=== PATIENT | male | born 1950 | race Caucasian/White ===

== ENCOUNTER 2016-10-21 10:31 | Emergency (ER) | payer BC ==
[~2016-10-21] VITALS: Ht 165.1 cm; Wt 115.4 kg
[~2016-10-21 10:31] MED LIST: ASPI325T39 PO; BENZTROPINE PO; FLUO20CA20 PO; FURO-85 PO; GABA-112 PO; LAMO200T PO; LCTL30 PO; LPR25 PO; PHEN64.8 PO; POLY335025 PO; POTA-327 PO; SIMV40TA4 PO; SODI0.5C PO; TRAZ-119 PO; VERA120T15 PO; [UNRECOGNIZED DRUG - CODE] SC; [UNRECOGNIZED DRUG - OTHER] PO
[2016-10-21 10:38] VITALS: TEMP 36.6; Ht 165.1 cm; Wt 115.4 kg
[2016-10-21] MEDS ORDERED: SODIUM CHLORIDE 0.9% 1000ML 1,000 ML IV STA (10:53)
[2016-10-21] MEDS ORDERED: MoRPHine SULFATE 4 MG/ML 1 ML CARP\\VIAL IV STA (10:53)
[2016-10-21] MEDS ORDERED: ONDANSETRON INJ 2 MG/ML 2 ML VIAL IV ONE (11:00)
--- NOTE | 2016-10-21 11:13 | EMERGENCY ROOM VISIT NOTE ---
History Report prepared by Monster: Oliva Reid Under the Supervision of: Dr. Cara Leiva D.O. First contact with patient: 10:44 Chief Complaint: RIB PAIN Stated Complaint: FALL, RIB PAIN History of Present Illness The patient is a 66 year old male who presents to the Emergency Room with complaints of constant left sided rib pain status post a fall today. The patient notes that he slipped on stairs and fell onto his left ribs about an hour ago. He hit the front of his head but did not lose consciousness. Currently he notes some left sided abdominal pain. He was able to walk after the incident. The patient has a history of epilepsy and diabetes. He did feel slightly dizzy at the time of the fall but was not suspicious of a seizure or blood sugar abnormalities. Denies neck pain, shortness of breath, back pain, leg pain, or other complaints. No previous history of rib fractures. He did not take anything for his pain today. Tetanus is up to date. His blood sugar this morning was 172. Source of History: patient Onset: 1 hour ago Position: other (left ribs) Timing: constant Associated Symptoms: + abdominal pain (left side), No LOC, No SOB, No back pain, No neck pain Review of Systems See HPI for pertinent positives & negatives. A total of 10 systems reviewed and were otherwise negative. 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 (3) Diabetes (4) Dyslipidemia (5) Encephalopathy (6) H/O malignant neoplasm of colon (7) Heart disease (8) HTN (hypertension) (9) Intestinal cancer (10) Paranoid schizophrenia (11) Seizure (12) Seizures Family History Cancer FH: diabetes mellitus Heart disease Hypertension Seizures FATHER Social History Smoking Status: Never Smoker Alcohol Use: none Drug Use: none Housing Status: assisted living Occupation Status: retired Current/Historical Medications Scheduled Aspirin (Aspirin Ec), 0.5 TAB PO DAILY Fluoxetine Hcl (Pmdd) (Fluoxetine), 20 MG PO DAILY Furosemide (Lasix), 20 MG PO 3XWK Gabapentin (Neurontin), 100 MG PO TID Insulin Isophane & Reg (Human) (Humulin 70/30 Kwikpen (70-30) 100 Unit/ml), 46 UNITS SC AM Insulin Isophane & Reg (Human) (Humulin 70/30 Kwikpen (70-30) 100 Unit/ml), 26 UNITS SC PM Lactulose (Lactulose), 30 GM PO BID Lamotrigine (Lamictal), 200 MG PO BID Levocarnitine (Levocarnitine), 2,000 MG PO TIDM Metoprolol Tartrate (Lopressor), 12.5 MG PO BID Phenobarbital (Phenobarbital), 64.8 MG PO QAM Phenobarbital (Phenobarbital), 12.96 MG PO HS Polyethylene Glycol 3350 (Miralax), 17 GM PO DAILY Potassium Chloride (Micro-K Ext Rel), 10 MEQ PO DAILY Simvastatin (Zocor), 40 MG PO HS Sodium Fluoride (Fluoritab), 0.5 MG PO DAILY Trazodone Hcl (Desyrel), 100 MG PO HS Verapamil (Calan), 120 MG PO HS Scheduled PRN Oxycodone Immediate Rel Tab (Roxicodone Ir), 5 MG PO Q4H PRN for Pain Allergies Coded Allergies: Penicillins (Verified Allergy, Unknown, UNK, 10/21/16) Valproic Acid (Verified Adverse Reaction, Unknown, ELEVATED AMMONIA LEVELS , 10/21/16) AND ALL DERIVATIVES Physical Exam Vital Signs Date Time Temp Pulse Resp B/P Pulse Ox O2 Delivery O2 Flow Rate FiO2 10/21/16 13:27 65 16 122/61 95 10/21/16 11:54 64 16 145/72 96 Room Air 10/21/16 10:38 36.6 68 20 165/73 94 Room Air Physical Exam GENERAL: The patient is a pleasant 66 year old male in mild to moderate distress. VITALS: Afebrile, hypertensive, normal pulse oximetry on room air. FACE: Superficial laceration across the bridge of nose and along inner canthus of left eye, no active bleeding, abrasion to left side of forehead. HEAD: Normocephalic and atraumatic.No battles sign EARS: TMs not visualized secondary to cerumen impactions. EYES: small laceration left inner canthus. Pupils equal and reactive to light. Extraocular muscles intact. Conjunctiva are clear. NOSE: Nasal mucosa is clear without rhinorrhea or edema. THROAT: Airway is patent. Oral mucosa is normal without evidence of infection or exudate. NECK: Supple without adenopathy. Trachea is midline. No nuchal rigidity, spinal tenderness, or palpable step-off. LUNGS: Diminished but symmetrical. Clear without wheezing, rhonchi, or rales. THORAX: Abrasion over the left costal margin with tenderness over the lower left ribs anteriorly and laterally, no crepitus. HEART: Regular rate and rhythm ABDOMEN: Obese, soft, left upper quadrant tenderness without guarding, rigidity , or rebound tenderness. Bowel sounds are present in all 4 quadrants. Unable to assess for palpable masses or organomegaly. No costovertebral angle tenderness. Femoral pulses are +2 and symmetrical BACK: Nontender to palpation without step off. PELVIS: Stable to pelvic rock without point tenderness or instability. EXTREMITIES: Without deformity Pulses are palpable and symmetrical. Abrasion to the right scapula. Abrasion to the dorsum left hand, area is minimally tender , full range of motion. Other extremities are atraumatic and nontender. There are no palpable cords, edema, or erythema. NEUROLOGIC: Exam is intact without focal deficits. SKIN: Without rash. Normal turgor and temperature. Medical Decision & Procedures ER Provider Diagnostic Interpretation: Radiology results as stated below per my review and radiologist interpretation: CHEST ONE VIEW PORTABLE CLINICAL HISTORY: fell left rib pain trauma. Pain. COMPARISON STUDY: 06/30/2015 FINDINGS: Mild stable cardiomegaly. Subtle chronic interstitial prominence unchanged in the prior study. No acute process. Diaphragms smooth. IMPRESSION: Chronic change. No acute process. Electronically signed by: Darshan Phipps M.D. 10/21/2016 11:14 AM Dictated Date/Time: 10/21/2016 11:[address] HEAD WITHOUT CONTRAST (CT) CLINICAL HISTORY: Head pain status post trauma COMPARISON STUDY: 06/30/2015 TECHNIQUE: Axial CT of the brain is performed from the vertex to the skull base. IV contrast was not administered for this examination. CT DOSE: FINDINGS: No intra or extra-axial mass lesions are visualized. There is no CT evidence of acute cortical infarction. There is no evidence of midline shift. There is no acute hemorrhage. No calvarial fractures are visualized. There are minor white matter hypodensities likely on a small vessel basis. There is no evidence of pathologic ventricular dilatation. There are bilateral maxilla sinus air-fluid levels. There is an abnormal trabecular pattern of the calvarium. IMPRESSION: 1. No evidence of acute intracranial injury 2. Stable abnormal trabecular pattern of the calvarium 3. Bilateral maxillary sinus air-fluid levels Electronically signed by: Vern Phillips M.D. 10/21/2016 12:06 PM Dictated Date/Time: 10/21/2016 12:[address] OF THE CHEST WITH IV CONTRAST CLINICAL HISTORY: Chest pain status post trauma COMPARISON STUDY: No previous studies for comparison. TECHNIQUE: Following the IV administration of 119 mL of Optiray-320, CT of the thorax was performed from the thoracic inlet to the lung bases. Images are reviewed in the axial, sagittal, and coronal planes. IV contrast was administered without complication. CT DOSE: FINDINGS: Thyroid: Imaged portions of the thyroid gland are normal in appearance. Thoracic aorta: The thoracic aorta is normal in course and caliber, noting standard 3-vessel arch anatomy. No aneurysm or dissection is seen. Pulmonary vasculature: The pulmonary trunk is normal in caliber. There are no central filling defects identified to suggest pulmonary embolus. Note that this examination was not protocoled for the evaluation of pulmonary emboli. HEART: The heart is enlarged and there are moderate coronary artery calcifications present. Lungs and pleural spaces: There are no pleural effusions. There is no pneumothorax. There is no evidence of pulmonary contusion. There are right middle lobe atelectatic changes. There is mild respiratory motion artifact. Mediastinum: There is no evidence of mediastinal lymphadenopathy. There is no evidence of mediastinal hematoma. [place]: There is no evidence of pathologic hilar adenopathy Axilla: Clear. Upper abdomen: There is mild hepatic steatosis Skeletal structures: There is abnormal trabecular pattern of the bones. Diffuse metastatic disease must be considered. Please correlate with a PSA. IMPRESSION: 1. No evidence of acute intrathoracic injury 2. Diffuse abnormal trabecular pattern of the bones. Diffuse metastatic disease must be considered. Correlation with a prostatic specific antigen is recommended. Electronically signed by: Vern Phillips M.D. 10/21/2016 12:02 PM Dictated Date/Time: 10/21/2016 11:57 AM ABDOMEN AND PELVIS CT WITH IV CONTRAST CT DOSE: 3402.13 mGy.cm HISTORY: Trauma. Pain. fall hit left ribs chest and left sided abdominal pain TECHNIQUE: Multiaxial CT images of the abdomen and pelvis were performed following the use of intravenous contrast. COMPARISON STUDY: None. FINDINGS: Lung bases are clear. Liver is uniform throughout. Gallbladder is negative for distention. Spleen is uniform. Adrenal glands are normal. Mild cortical scarring of both kidneys is present. There are small renal cysts bilaterally. Bowel pattern overall is nonobstructive. Bladder is midline. There is a moderate fecal impaction. There is mild circumferential rectal wall thickening with endoscopic evaluation suggested. There is no significant manisha pathology within the abdominal pelvic or inguinal regions. Evaluation of the osseous structures shows diffuse lytic changes throughout the vertebral column. This is also seen involving the posterior elements. Similar findings are seen within the pelvic and sacral regions. The appearance suggests widespread bony metastatic change. IMPRESSION: 1. Findings consistent with widespread bony metastatic change. 2. No acute intra-abdominal or intrapelvic process. 3. Mild fecal impaction. 4. Potential annular thickening of the rectum with endoscopic evaluation recommended to exclude a neoplastic process. Electronically signed by: Darshan Phipps M.D. 10/21/2016 12:09 PM Dictated Date/Time: 10/21/2016 12:03 PM Laboratory Results Test 10/21/16 11:14 Bedside Hemoglobin 15.0 g/dl (14.0-18.0) Bedside Hematocrit 44 % (42-52) Bedside Sodium 137 mEq/L (135-144) Bedside Potassium 4.6 mEq/L (3.3-5.0) Bedside Chloride 100 mEq/L (101-112) Bedside Total CO2 25 mEq/l (24-31) Anion Gap 18.0 mmol/L (16-25) Bedside Blood Urea Nitrogen 29 mg/dl (7-18) Bedside Creatinine 0.8 mg/dl (0.6-1.3) Bedside Glucose (other) 259 mg/dl (70-99) Bedside Ionized Calcium (Bill) 1.22 mmol/l (1.12-1.32) Laboratory studies as stated above per my review. Medications Administered Medications (Trade) Dose Ordered Sig/[facility] Route Start Time Stop Time Status Last Admin Dose Admin Morphine Sulfate (MoRPHine SULFATE INJ) 4 mg NOW STAT IV 10/21/16 10:53 10/21/16 10:58 DC 10/21/16 11:20 4 MG Ondansetron HCl 4 mg 4 mg NOW ONCE IV 10/21/16 11:00 10/21/16 11:01 DC 10/21/16 11:20 4 MG Sodium Chloride (Nss 1000ml) 1,000 ml @ 125 mls/hr Q8H STAT IV 10/21/16 10:53 10/21/16 13:42 DC 10/21/16 11:20 125 MLS/HR ED Course 1046: Past medical records reviewed. The patient was evaluated in room D4. A complete history and physical examination was performed. On examination he had multiple abrasions to his forehead, right shoulder and left hand. Superficial laceration to his nose an inner eye as well ..He had tenderness over the left lower ribs and left upper abdomen. He was hemodynamically stable. An IV was established and he was medicated with 4 mg of IV morphine and 4 mg of IV Zofran with improvement of his pain. An ice pack was applied. His abrasions and superficial lacerations were cleaned and bandaged. He underwent the above diagnostic workup. I-STAT labs showed hyperglycemia otherwise negative. CT scan of the head ,chest and abdomen did not show any acute intracranial, intrathoracic or intra-abdominal injuries. No rib fractures. No splenic injury. He did however have lytic lesions throughout his osseous structures suggestive of metastatic disease as well as annular thickening around his rectum with fecal impaction. 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 Stein. He does have an outpatient appointment with Dr. Stein scheduled for tomorrow. He also states that he has colonoscopy scheduled for the near future At this time the patient is being discharged home with instructions on activity and symptomatic care. He has been provided a prescription for OxyIR to use as needed for severe pain. He is to return to the emergency room if she has worsening symptoms or concerns. The patient is comfortable with this treatment plan. 1053: Ordered NSS 1000 ml @ 125 mls/hr IV, Morphine Sulfate 4 mg IV, Zofran Inj 4 mg IV. 1219: Reevaluated the patient and updated him on results. He said he has a history of colon cancer 3 years ago. Discussed results and discharge instructions; He verbalized understanding and agreement. The patient was discharged home. 1305: I discussed the case with Dr. Stein. The patient has an appointment with him tomorrow. Medical Decision EMR, nurse's notes, diagnostic studies personally reviewed Differential diagnosis-see above The chart was completed utilizing [employer] Voice Recognition Software. Grammatical errors, random word insertions, pronoun errors, and incomplete sentences are an occasional consequence of this system due to software limitations, ambient noise, and hardware issues. Any formal questions or concerns about the content, text, or information contained within the body of this dictation should be directly addressed to the physician for clarification. Consults Time Called: 1227 Consulting Physician: Dr. Stein Returned Call: 1305 I discussed the case with him. The patient has an appointment with him tomorrow. Impression Primary Impression: Contusion of rib on left side Additional Impressions: Contusion of abdominal wall Multiple abrasions Fall Abnormal CT suspect metastatic bone disease Scribe Attestation The scribe's documentation has been prepared under my direction and personally reviewed by me in its entirety. I confirm that the note above accurately reflects all work, treatment, procedures, and medical decision making performed by me. Departure Information Dispostion Home / Self-Care Prescriptions Oxycodone Immediate Rel Tab (ROXICODONE IR) 5 Mg Tab 5 MG PO Q4H Y for Pain, #20 TAB Prov: Cara Leiva,D.OMilton 10/21/16 Referrals Durga Stein D.OMilton (PCP) Forms HOME CARE DOCUMENTATION FORM, IMPORTANT VISIT INFORMATION, WORK / SCHOOL INSTRUCTIONS Patient Instructions ED Contusion Rib, [facility] Additional Instructions Rest, apply ice to the ribs and upper abdomen for the next 2-3 days Take big breaths Take 2 Aleve twice a day or 3 ibuprofen 4 times a day to decrease pain and inflammation 1 OxyIR every 4-6 hours as needed for severe pain The CT scans show abnormalities to the bones suggestive of metastatic disease. you need to contact your family doctor to arrange follow-up and further workup Return if increasing shortness of breath, worsening pain, problems or concerns Problem Qualifiers
--- NOTE | 2016-10-21 11:16 | DIAGNOSTIC IMAGING REPORT ---
CHEST ONE VIEW PORTABLE CLINICAL HISTORY: fell left rib pain trauma. Pain. COMPARISON STUDY: 06/30/2015 FINDINGS: Mild stable cardiomegaly. Subtle chronic interstitial prominence unchanged in the prior study. No acute process. Diaphragms smooth. IMPRESSION: Chronic change. No acute process. Electronically signed by: Darshan Phipps M.D. 10/21/2016 11:14 AM Dictated Date/Time: 10/21/2016 11:14 AM
[2016-10-21 11:28] LABS: ISTAT CREATININE 0.8 mg/dl (0.6-1.3); ISTAT IONIZED CALCIUM 1.22 mmol/l (1.12-1.32)
[2016-10-21] MEDS ORDERED: POTA10CA28 PO (11:32)
[2016-10-21] MEDS ORDERED: INSU3INJ2 SC ×2 (11:32)
[2016-10-21] MEDS ORDERED: OPTIRAY 320 IV PRN (12:00)
--- NOTE | 2016-10-21 12:03 | DIAGNOSTIC IMAGING REPORT ---
CT OF THE CHEST WITH IV CONTRAST CLINICAL HISTORY: Chest pain status post trauma COMPARISON STUDY: No previous studies for comparison. TECHNIQUE: Following the IV administration of 119 mL of Optiray-320, CT of the thorax was performed from the thoracic inlet to the lung bases. Images are reviewed in the axial, sagittal, and coronal planes. IV contrast was administered without complication. CT DOSE: FINDINGS: Thyroid: Imaged portions of the thyroid gland are normal in appearance. Thoracic aorta: The thoracic aorta is normal in course and caliber, noting standard 3-vessel arch anatomy. No aneurysm or dissection is seen. Pulmonary vasculature: The pulmonary trunk is normal in caliber. There are no central filling defects identified to suggest pulmonary embolus. Note that this examination was not protocoled for the evaluation of pulmonary emboli. HEART: The heart is enlarged and there are moderate coronary artery calcifications present. Lungs and pleural spaces: There are no pleural effusions. There is no pneumothorax. There is no evidence of pulmonary contusion. There are right middle lobe atelectatic changes. There is mild respiratory motion artifact. Mediastinum: There is no evidence of mediastinal lymphadenopathy. There is no evidence of mediastinal hematoma. [place]: There is no evidence of pathologic hilar adenopathy Axilla: Clear. Upper abdomen: There is mild hepatic steatosis Skeletal structures: There is abnormal trabecular pattern of the bones. Diffuse metastatic disease must be considered. Please correlate with a PSA. IMPRESSION: 1. No evidence of acute intrathoracic injury 2. Diffuse abnormal trabecular pattern of the bones. Diffuse metastatic disease must be considered. Correlation with a prostatic specific antigen is recommended. Electronically signed by: Vern Phillips M.D. 10/21/2016 12:02 PM Dictated Date/Time: 10/21/2016 11:57 AM
--- NOTE | 2016-10-21 12:08 | DIAGNOSTIC IMAGING REPORT ---
CT HEAD WITHOUT CONTRAST (CT) CLINICAL HISTORY: Head pain status post trauma COMPARISON STUDY: 06/30/2015 TECHNIQUE: Axial CT of the brain is performed from the vertex to the skull base. IV contrast was not administered for this examination. CT DOSE: FINDINGS: No intra or extra-axial mass lesions are visualized. There is no CT evidence of acute cortical infarction. There is no evidence of midline shift. There is no acute hemorrhage. No calvarial fractures are visualized. There are minor white matter hypodensities likely on a small vessel basis. There is no evidence of pathologic ventricular dilatation. There are bilateral maxilla sinus air-fluid levels. There is an abnormal trabecular pattern of the calvarium. IMPRESSION: 1. No evidence of acute intracranial injury 2. Stable abnormal trabecular pattern of the calvarium 3. Bilateral maxillary sinus air-fluid levels Electronically signed by: Vern Phillips M.D. 10/21/2016 12:06 PM Dictated Date/Time: 10/21/2016 12:02 PM
--- NOTE | 2016-10-21 12:11 | DIAGNOSTIC IMAGING REPORT ---
ABDOMEN AND PELVIS CT WITH IV CONTRAST CT DOSE: 3402.13 mGy.cm HISTORY: Trauma. Pain. fall hit left ribs chest and left sided abdominal pain TECHNIQUE: Multiaxial CT images of the abdomen and pelvis were performed following the use of intravenous contrast. COMPARISON STUDY: None. FINDINGS: Lung bases are clear. Liver is uniform throughout. Gallbladder is negative for distention. Spleen is uniform. Adrenal glands are normal. Mild cortical scarring of both kidneys is present. There are small renal cysts bilaterally. Bowel pattern overall is nonobstructive. Bladder is midline. There is a moderate fecal impaction. There is mild circumferential rectal wall thickening with endoscopic evaluation suggested. There is no significant manisha pathology within the abdominal pelvic or inguinal regions. Evaluation of the osseous structures shows diffuse lytic changes throughout the vertebral column. This is also seen involving the posterior elements. Similar findings are seen within the pelvic and sacral regions. The appearance suggests widespread bony metastatic change. IMPRESSION: 1. Findings consistent with widespread bony metastatic change. 2. No acute intra-abdominal or intrapelvic process. 3. Mild fecal impaction. 4. Potential annular thickening of the rectum with endoscopic evaluation recommended to exclude a neoplastic process. Electronically signed by: Darshan Phipps M.D. 10/21/2016 12:09 PM Dictated Date/Time: 10/21/2016 12:03 PM
[2016-10-21] MEDS ORDERED: OXYC1TAB3 PO (12:32)
[2016-10-21 13:27] VITALS: BP 122/61; PULSE 65; O2SAT 95
[2016-11-17] MEDS ORDERED: CHOL1CAP95 PO (13:43)
[2016-11-17] MEDS ORDERED: LEVOPOW PO (13:43)
[2016-11-17] MEDS ORDERED: LMC/150 PO (13:43)
[2016-11-17] MEDS ORDERED: VERA120T2 PO (13:43)
[2016-11-17] MEDS ORDERED: MULT-506 PO (13:43)
[2016-11-17] MEDS ORDERED: ATOR-24 PO (13:43)
[2016-11-17] MEDS ORDERED: POLY335019 PO (13:43)
[2016-11-17] MEDS ORDERED: TRAZ100T29 PO (13:43)
[2016-12-18] MEDS ORDERED: LMC/150 PO (16:00)
== END 2016-10-21 13:28 | disposition home or self-care (01) ==
LOC: C.EDB 10:34 → C.EDA 13:28
DX: S20.212A Contusion of left front wall of thorax, initial encounter (principal); S30.1XXA Contusion of abdominal wall, initial encounter; S60.512A Abrasion of left hand, initial encounter; S00.81XA Abrasion of other part of head, initial encounter; S40.211A Abrasion of right shoulder, initial encounter; R07.82 Intercostal pain; W10.8XXA Fall (on) (from) other stairs and steps, initial encounter; Y92.89 Other specified places as the place of occurrence of the external cause; R93.7 Abnormal findings on diagnostic imaging of other parts of musculoskeletal system; E11.9 Type 2 diabetes mellitus without complications; I10 Essential (primary) hypertension; G40.909 Epilepsy, unspecified, not intractable, without status epilepticus; E11.65 Type 2 diabetes mellitus with hyperglycemia; Z85.038 Personal history of other malignant neoplasm of large intestine; Z79.899 Other long term (current) drug therapy; I51.7 Cardiomegaly; K56.41 Fecal impaction

== ENCOUNTER → 2016-11-20 | Day surgery (SDC) | payer BC ==
[2016-11-17 13:45] VITALS: BMI 33.0
[~2016-11-20] VITALS: Ht 170.2 cm; Wt 97.7 kg
[~2016-11-20] MED LIST changes: +ACET-1311 PO; +AFRINWC NAE; +ATOR-24 PO; +ATROPINE SULFATE 0.1 MG/ML 5ML SYR IV PRN; -BENZTROPINE PO; +CHOL1CAP95 PO; +DEXT30LI PO; +EpHEDrine SULFATE INJ 50 MG/ML AMP IV PRN; +INSU3INJ2 SC; -LAMO200T PO; -LCTL30 PO; +LEVOPOW PO; +LIDOCAINE HCL 2% 2 ML VIAL (20MG/ML) ONE; +LMC/150 PO; +MULT-506 PO; +NEOMOIN76 TOP; +POLY335019 PO; -POLY335025 PO; -POTA-327 PO; +POTA10CA28 PO; +PROPOFOL IV EMULSION 10 MG/ML 20 ML VIAL IV ONE; -SIMV40TA4 PO; -SODI0.5C PO; +SODI1CHW27 PO; +SODIUM CHLORIDE 0.9% 500ML 500 ML IV ONE; -TRAZ-119 PO; +TRAZ100T29 PO; -VERA120T15 PO; +VERA120T2 PO; -[UNRECOGNIZED DRUG - CODE] SC; -[UNRECOGNIZED DRUG - OTHER] PO
[2016-11-20 08:07] VITALS: Ht 170.2 cm; Wt 97.7 kg
--- NOTE | 2016-11-20 08:27 | Endo History and Physical ---
History & Physical Date of Service: Nov 20, 2016. Chief Complaint: HX OF COLON CANCER Referring Physician: DR RODNEY ALVARADO History of Present Illness 66 yo w a hx of right sided colon ca s/p hemicolectomy in 2010. Presenting for f /u but pet scan ? suggested rectal thickening. He has no symptoms. Past Medical History Seizure Disorder, Hypertension Past Surgical History Hx Cardiac Surgery: No Hx Internal Defibrillator: No Hx Pacemaker: No Hx Abdominal Surgery: No Hx of Implantable Prosthesis: No Hx Post-Op Nausea and Vomiting: No Hx Cancer Surgery: Yes (COLON RESECTION) Hx Thoracic Surgery: No Hx Orthopedic: Yes (RT/LEFT CTR) Hx Urinary Tract Surgery: No Family History None Social History Smoking Status: Never Smoker Hx Substance Use: No Hx Alcohol Use: No Allergies Coded Allergies: NO KNOWN DRUG ALLERGIES (Verified Allergy, Unknown, ., 11/20/16) Penicillins (Verified Allergy, Unknown, UNKNOWN, 11/20/16) Current Medications Reported Home Medications Medications Dose Route/Sig Max Daily Dose Days Date Category Dose Instructions Calan Sr Ext Rel (Verapamil HCl) 120 Mg Tabcr 120 Mg PO QPM 11/17/16 Reported Trazodone (Trazodone HCl) 100 Mg Tab 100 Mg PO HS 11/17/16 Reported Lipitor (Atorvastatin Calcium) 40 Mg Tab 40 Mg PO QPM 11/17/16 Reported Vitamin D3 (Cholecalciferol) 50,000 Unit Cap 1 Cap PO WK 11/17/16 Reported L-Carnitine (Levocarnitine (Bulk)) 1 Pow Pow 20 Ml PO TID 11/17/16 Reported Lamictal (Lamotrigine) 150 Mg Tab 2 Tab PO BID 11/17/16 Reported Miralax (Polyethylene Glycol 3350) 1 Pow Pow 17 Gm PO QAM 11/17/16 Reported Multivitamin (Multivitamins) Tab 1 Tab PO QAM 11/17/16 Reported Micro-K Ext Rel (Potassium Chloride) 10 Meq Capcr 10 Meq PO 4XWK 10/21/16 Reported TAKES ON DAYS WITH LASIX Humulin 70/30 Kwikpen (70-30) 100 Unit/ml (Insulin Isophane & Reg (Human)) 1 Inj Inj 24 Units SC PM 10/21/16 Reported Humulin 70/30 Kwikpen (70-30) 100 Unit/ml (Insulin Isophane & Reg (Human)) 1 Inj Inj 46 Units SC AM 10/21/16 Reported Neurontin (Gabapentin) 100 Mg Cap 100 Mg PO TID 06/30/15 Reported Lasix (Furosemide) 20 Mg Tab 20 Mg PO 4XWK 06/30/15 Reported TAKE ON THURSDAY/THURSDAY/THURSDAY/SAT Aspirin Ec (Aspirin) 325 Mg Tab 0.5 Tab PO QAM 09/19/13 Reported Lopressor (Metoprolol Tartrate) 25 Mg Tab 12.5 Mg PO BID 08/01/13 Reported Fluoxetine (Fluoxetine Hcl (Pmdd)) 20 Mg Cap 20 Mg PO QAM 08/01/13 Reported Phenobarbital 64.8 Mg Tab 2 Tab PO HS 08/01/13 Reported Phenobarbital 64.8 Mg Tab 64.8 Mg PO QAM 08/01/13 Reported Vital Signs Weight (Kilograms): 97.73 Height (Feet): 5 Height (Inches): 7 Date Time Temp Pulse Resp B/P Pulse Ox O2 Delivery O2 Flow Rate FiO2 11/20/16 08:18 36.5 67 20 168/89 98 Room Air Physical Exam General Appearance: WD/WN, no apparent distress Respiratory/Chest: Respiratory effort: no dyspnea Auscultation: breath sounds normal, CTA except as noted Cardiovascular: Apical Impulse: not displaced Heart Auscultation: RRR, normal S1, normal S2 Abdomen: Bowel Sounds: normal Inspection & Palpation: soft, non-distended Assessment and Plan 66 yo with a hx of colon ca presenting for colonoscopy f/u Proceed with colonoscopy
--- NOTE | 2016-11-20 09:33 | Anesthesiology Progress Note ---
Anesthesia Post Op Note Date & Time Nov 20, 2016 at 09:32 Vital Signs Vital Signs Past 12 Hours Date Time Temp Pulse Resp B/P Pulse Ox O2 Delivery O2 Flow Rate FiO2 11/20/16 08:18 36.5 67 20 168/89 98 Room Air Notes Mental Status: alert / awake / arousable, participated in evaluation Pt Amnestic to Procedure: Yes Nausea / Vomiting: adequately controlled Pain: adequately controlled Airway Patency, RR, SpO2: stable & adequate BP & HR: stable & adequate Hydration State: stable & adequate Anesthetic Complications: no major complications apparent
--- NOTE | 2016-11-20 09:39 | GI REPORT ---
Procedure Date: 11/20/2016 8:48 AM Procedure: Colonoscopy Indications: High risk colon cancer surveillance: Personal history of colon cancer Medicines: General Anesthesia Complications: No immediate complications. Estimated blood loss: None. Estimated Blood Loss: Estimated blood loss: none. Procedure: Pre-Anesthesia Assessment: - Pre-Anesthesia Assessment: - Prior to the procedure, a History and Physical was performed, and patient medications, allergies and sensitivities were reviewed. The patient's tolerance of previous anesthesia was reviewed. Please see Axcient for complete details. - The risks and benefits of the procedure and the sedation options and risks were discussed with the patient. All questions were answered and informed consent was obtained. - Patient identification and proposed procedure were verified prior to the procedure by the physician and the nurse. The procedure was verified in the pre-procedure area in the procedure room. After obtaining informed consent, the endoscope was passed carefully and meticuously under direct vision and only advanced when the lumen was clearly identified, C02 insuflation was utilized throughout the entirity of the procedure. Throughout the procedure, the patient's blood pressure, pulse, and oxygen saturations were monitored continuously. After I obtained informed consent, the scope was passed under direct vision. Throughout the procedure, the patient's blood pressure, pulse, and oxygen saturations were monitored continuously. The scope was introduced through the anus and advanced to the cecum, identified by appendiceal orifice and ileocecal valve. The colonoscopy was performed without difficulty. The patient tolerated the procedure well. The quality of the bowel preparation was fair. Findings: There was evidence of a prior end-to-side ileo-colonic anastomosis in the ascending colon. This was patent and was characterized by healthy appearing mucosa. A 3 mm polyp was found in the rectum. The polyp was sessile. The polyp was removed with a jumbo cold forceps. Resection and retrieval were complete. Multiple small-mouthed diverticula were found in the sigmoid colon. Internal hemorrhoids were found during retroflexion. The exam was otherwise without abnormality on direct and retroflexion views. Impression: - Patent end-to-side ileo-colonic anastomosis, characterized by healthy appearing mucosa. - One 3 mm polyp in the rectum, removed with a jumbo cold forceps. Resected and retrieved. - Diverticulosis in the sigmoid colon. - Internal hemorrhoids. - The examination was otherwise normal on direct and retroflexion views. Recommendation: - Discharge patient to home (with escort). - Repeat colonoscopy in 3 years for surveillance based on pathology results. - Return to referring physician as previously scheduled. Jeff Collins MD 11/20/2016 9:38:11 AM This report has been signed electronically. Note Initiated On: 11/20/2016 8:48 AM I attest to the content of the Intraoperative Record and orders documented therein, exceptions below
[2016-11-20 09:52] VITALS: BP 141/83; PULSE 69; O2SAT 97
--- NOTE | 2016-11-20 10:05 | Discharge Instructions ---
Endoscopy Patient Instructions Date / Procedure(s) Performed Nov 20, 2016. Colonoscopy Allergy Information Coded Allergies: NO KNOWN DRUG ALLERGIES (Verified Allergy, Unknown, ., 11/20/16) Penicillins (Verified Allergy, Unknown, UNKNOWN, 11/20/16) Discharge Date / Findings Nov 20, 2016. One small polyp removed Patent and healthy post surgical area Otherwise normal Provider Instructions Activity Restrictions - No exercising or heavy lifting for 24 hours. - Do not drink alcohol the day of the procedure. - Do not drive a car or operate machinery until the day after the procedure. - Do not make any important decisions or sign important papers in 24 hours after the procedure. Following Day: - Return to full activity which may include returning to work/school. Diet Start your diet with liquids and light foods (jello, soup, juice, toast). Then eat your usual diet if not nauseated. Treatment For Common After Affects For mild abdominal pain, bloating, or excessive gas: - Rest - Eat lightly - Lie on right side Follow-Up Information Follow-up with DR RODNEY ALVARADO as scheduled Anesthesia Information What You Should Know You have had a procedure that required some medicine to reduce anxiety and discomfort. This treatment is called moderate sedation. After receiving the treatment, you may be sleepy, but you will be able to breathe on your own. The effects of the treatment may last for several hours. Follow these instructions along with Activity/Diet recommendations noted above: * Do NOT do anything where dizziness or clumsiness would be dangerous. * Rest quietly at home today, then you can be up and about tomorrow. * Have a responsible person stay with you the rest of today. * You may have had an I.V. today. If so, you may take the dressing off later today. Recommendations Call your doctor if: * Trouble breathing * Continuous vomiting for more than 24 hours * Temperature above 101 degrees * Severe abdominal pain or bloating * Pain not relieved by pain medicine ordered * There is increased drainage or redness from any incision * A large amount of rectal bleeding greater than 2-3 tablespoons. (If you had a polyp/s removed or have hemorrhoids, a small amount of blood - from the rectum is to be expected.) * You have any unanswered questions or concerns. IN THE EVENT OF A SERIOUS EMERGENCY, GO TO THE NEAREST EMERGENCY ROOM Your discharge instructions were prepared by provider Jeff Collins. Patient Instructions Signature Page Kole Diaz Patient (or Guardian) Signature/Date: I have read and understand the instructions given to me by my caregivers. Caregiver/RN/Doctor Signature/Date: The above-named patient and/or guardian has received patient instructions on this date. + Original Patient Signature Page (only) stays with chart. Please make copy for patient.
== END | disposition home or self-care (01) ==
LOC: C.GI 07:40
PROVIDERS: ATTEND Internal Medicine Gastroenterology
DX: Z12.11 Encounter for screening for malignant neoplasm of colon (principal); Z85.038 Personal history of other malignant neoplasm of large intestine; K62.1 Rectal polyp; K57.90 Diverticulosis of intestine, part unspecified, without perforation or abscess without bleeding; K64.8 Other hemorrhoids; R93.8 Abnormal findings on diagnostic imaging of other specified body structures; E11.9 Type 2 diabetes mellitus without complications; G47.33 Obstructive sleep apnea (adult) (pediatric); E78.5 Hyperlipidemia, unspecified; I10 Essential (primary) hypertension; F32.9 Major depressive disorder, single episode, unspecified; G40.909 Epilepsy, unspecified, not intractable, without status epilepticus; Z68.33 Body mass index [BMI] 33.0-33.9, adult; E66.01 Morbid (severe) obesity due to excess calories; Z98.890 Other specified postprocedural states; Z79.4 Long term (current) use of insulin; Z79.899 Other long term (current) drug therapy

== ENCOUNTER 2016-12-18 09:58 | Inpatient (IN) | payer BC, OTHER ==
[~2016-12-18] VITALS: Ht 170.2 cm; Wt 113.9 kg
[~2016-12-18 09:58] MED LIST changes: -ACET-1311 PO; -AFRINWC NAE; -ATROPINE SULFATE 0.1 MG/ML 5ML SYR IV PRN; -DEXT30LI PO; -EpHEDrine SULFATE INJ 50 MG/ML AMP IV PRN; -LIDOCAINE HCL 2% 2 ML VIAL (20MG/ML) ONE; -NEOMOIN76 TOP; -PROPOFOL IV EMULSION 10 MG/ML 20 ML VIAL IV ONE; -SODI1CHW27 PO; -SODIUM CHLORIDE 0.9% 500ML 500 ML IV ONE
[2016-12-18 10:48] LABS: HEMATOCRIT 48.3 % (42-52); MEAN CELL VOLUME 93.2 fL (80-100); MEAN CORPUSCULAR HEMOGLOBIN 33.2 pg (25-34); MEAN CORPUSCULAR HGB CONC 35.6 g/dl (32-36); MEAN PLATELET VOLUME 10.2 fL (7.4-10.4); PLATELET COUNT 179 K/uL (130-400); RED BLOOD COUNT 5.18 M/uL (4.7-6.1); WHITE BLOOD COUNT 7.26 K/uL (4.8-10.8)
[2016-12-18 11:01] LABS: PARTIAL THROMBOPLASTIN RATIO 0.9; PROTHROMBIN TIME (PATIENT) 11.1 SECONDS (9.0-12.0)
[2016-12-18] MEDS ORDERED: SODIUM CHLORIDE 0.9% 1000ML 1,000 ML IV SCH (11:02)
--- NOTE | 2016-12-18 11:02 | DIAGNOSTIC IMAGING REPORT ---
CT SCAN OF THE BRAIN WITHOUT IV CONTRAST CLINICAL HISTORY: Change in mental status. Unsteady gait. COMPARISON STUDY: CT the brain dated 10/21/2016. TECHNIQUE: Unenhanced axial CT scan of the brain is performed from the vertex to the skull base. CT DOSE: 823.94 mGycm FINDINGS: Brain parenchyma: There are age-related involutional changes noting mild subcortical and periventricular microangiopathic change. There is no hemorrhage, mass effect, or evidence of acute territorial ischemia by CT criteria. Chen-white matter is preserved. No extra-axial fluid collection is seen. Ventricles, sulci, cisterns: Prominent secondary to involutional change. Intracranial vasculature: Intracranial vessels at the skull base are normal as visualized. Calvarium: The skeletal structures are heterogeneously osteopenic. No destructive bony lesion is clearly seen. Sinuses and mastoids: Trace mucosal thickening is seen in the left maxillary antrum. The remaining visualized paranasal sinuses are clear. The mastoid air cells are well pneumatized. Orbits: The bony orbits are grossly intact. IMPRESSION: There is no hemorrhage, mass effect, or evidence of acute territorial ischemia by CT criteria. Electronically signed by: John Pettit M.D. 12/18/2016 11:00 AM Dictated Date/Time: 12/18/2016 10:50 AM
[2016-12-18 11:12] LABS: CALCIUM 9.9 mg/dl (8.5-10.1)
[2016-12-18 11:16] LABS: ALT/SGPT 29 U/L (12-78); BLOOD UREA NITROGEN 23 mg/dl (7-18); BUN/CREATININE RATIO 15.1 (10-20); CARBON DIOXIDE 25 mmol/L (21-32); CHLORIDE 101 mmol/L (98-107); GLUCOSE 223 mg/dl (70-99); POTASSIUM 4.7 mmol/L (3.5-5.1); SODIUM 135 mmol/L (136-145)
[2016-12-18 11:19] LABS: ALB/GLOB RATIO 0.9 (0.9-2); ALKALINE PHOSPHATASE 430 U/L (45-117); AST/SGOT 36 U/L (15-37)
--- NOTE | 2016-12-18 11:32 | EMERGENCY ROOM VISIT NOTE ---
History Report prepared by Monster: Nessa Otero Under the Supervision of: Dr. Chele Jack M.D. First contact with patient: 10:49 Chief Complaint: CONFUSION Stated Complaint: CONFUSION, REFERRED BY DR. RODNEY ALVARADO Nursing Triage Summary: having dificulty completing tasks that would normally be easy for him. symptoms started yesterday morning. having trouble focusing eyes. confusion History of Present Illness The patient is a 66 year old male who presents to the Emergency Room with persistent confusion that began approximately 7 weeks ago. The patient claims that he had brain surgery today at [facility]. 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 Per nursing notes the patient has had trouble focusing his eyes and difficulty with coordination per the medical records administrator of [facility]. Nursing staff notes that this was first noticed yesterday morning by the medical records administrator. Nursing notes report that the patient is diabetic and had a BSG of 190. Nursing notes report that the patient had this happen in the past and it was related to elevated potassium levels. The patient states that the year is 1946 and states that Ryan is the president. The history is limited secondary to the patient's altered mental status. Source of History: patient, nursing staff History Limited By: AMS Onset: 7 weeks ago Position: other (global) Quality: other (confusion) Timing: other (persistent) Note: Associated Symptoms: difficulty focusing eyes, trouble with coordination Review of Systems All systems have been listed, reviewed, and are negative other than those previously mentioned. Please see Additional Medical History Sheet. 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 (3) Diabetes (4) Dyslipidemia (5) Encephalopathy (6) H/O malignant neoplasm of colon (7) Heart disease (8) HTN (hypertension) (9) Intestinal cancer (10) Paranoid schizophrenia (11) Seizure (12) Seizures Family History Cancer FH: diabetes mellitus Heart disease Hypertension Seizures FATHER Social History Smoking Status: Never Smoker Alcohol Use: none Drug Use: none Housing Status: assisted living Occupation Status: retired Current/Historical Medications Scheduled Aspirin (Aspirin Ec), 0.5 TAB PO QAM Atorvastatin (Lipitor), 40 MG PO QPM Cholecalciferol (Vitamin D3), 1 CAP PO WK Fluoxetine Hcl (Pmdd) (Fluoxetine), 20 MG PO QAM Furosemide (Lasix), 20 MG PO 4XWK Gabapentin (Neurontin), 100 MG PO TID Insulin Isophane & Reg (Human) (Humulin 70/30 Kwikpen (70-30) 100 Unit/ml), 46 UNITS SC AM Insulin Isophane & Reg (Human) (Humulin 70/30 Kwikpen (70-30) 100 Unit/ml), 24 UNITS SC PM Lamotrigine (Lamictal), 2 TAB PO BID Levocarnitine (Bulk) (L-Carnitine), 20 ML PO TID Metoprolol Tartrate (Lopressor), 12.5 MG PO BID Neomycin-Bacitracin Zn-Polymyx (Triple Antibiotic), 1 APPLN TOP TID Phenobarbital (Phenobarbital), 64.8 MG PO QAM Phenobarbital (Phenobarbital), 2 TAB PO HS Polyethylene Glycol 3350 (Miralax), 17 GM PO QAM Potassium Chloride (Micro-K Ext Rel), 10 MEQ PO 4XWK Sodium Fluoride (Fluoride), 1 TAB PO DAILY Trazodone Hcl (Trazodone), 100 MG PO HS Verapamil Sust Rel (Calan Sr Ext Rel), 120 MG PO QPM Scheduled PRN Acetaminophen (Tylenol), 650 MG PO Q4 PRN for Pain Dextromethorphan Polistirex (Delsym), 2 TSP PO Q12 PRN for Cough Oxymetazoline Hcl (Afrin 0.05% Nasal [place]), 2-3 SPRAYS ANGE Q12 PRN for CONGESTION Allergies Coded Allergies: Valproic Acid (Unverified Allergy, Intermediate, UNKNOWN, 12/18/16) MAN WITH HIM SAYS HE KNOWS THIS IS AN ALLERGY BUT NO SURE WHAT THE REACTION WAS. NO KNOWN DRUG ALLERGIES (Verified Allergy, Unknown, ., 11/20/16) Penicillins (Verified Allergy, Unknown, UNKNOWN, 11/20/16) Physical Exam Vital Signs Date Time Temp Pulse Resp B/P Pulse Ox O2 Delivery O2 Flow Rate FiO2 12/18/16 14:12 70 12/18/16 14:04 73 18 164/91 96 Room Air 12/18/16 11:42 69 20 160/85 96 Room Air 12/18/16 11:38 73 20 96 Room Air 12/18/16 11:37 96 Room Air 12/18/16 11:37 96 Room Air 12/18/16 10:19 72 12/18/16 10:00 36.7 70 18 171/93 94 Room Air Physical Exam GENERAL: Patient awake, very slow to respond and to answer questions, disoriented to time. Patient does know the president and has a good idea where he is. SKIN: No erythema, pallor, cyanosis or rash HEENT: Normal head, pupils equal, reactive to light and accommodation. Ears normal. Oral cavity and posterior pharynx appear normal. Neck: Without adenopathy, no neck vein distention. LUNGS: Clear to auscultation. No wheezes, no rales, no rhonchi. HEART: No murmurs. No gallops. No rubs ABDOMEN: Well healed mid abdominal scar. No masses, no rebound, no hepatomegaly or splenomegaly. EXTREMITIES: No signs of trauma. No pedal or pretibial edema. No calf or thigh tenderness. NEUROLOGIC: Patient has no focal neurological deficits, but he is confused and disoriented. Medical Decision & Procedures ER Provider Diagnostic Interpretation: CT results are interpretations by the radiologist and per my review. CT SCAN OF THE BRAIN WITHOUT IV CONTRAST CLINICAL HISTORY: Change in mental status. Unsteady gait. COMPARISON STUDY: CT the brain dated 10/21/2016. TECHNIQUE: Unenhanced axial CT scan of the brain is performed from the vertex to the skull base. CT DOSE: 823.94 mGycm FINDINGS: Brain parenchyma: There are age-related involutional changes noting mild subcortical and periventricular microangiopathic change. There is no hemorrhage, mass effect, or evidence of acute territorial ischemia by CT criteria. Chen-white matter is preserved. No extra-axial fluid collection is seen. Ventricles, sulci, cisterns: Prominent secondary to involutional change. Intracranial vasculature: Intracranial vessels at the skull base are normal as visualized. Calvarium: The skeletal structures are heterogeneously osteopenic. No destructive bony lesion is clearly seen. Sinuses and mastoids: Trace mucosal thickening is seen in the left maxillary antrum. The remaining visualized paranasal sinuses are clear. The mastoid air cells are well pneumatized. Orbits: The bony orbits are grossly intact. IMPRESSION: There is no hemorrhage, mass effect, or evidence of acute territorial ischemia by CT criteria. Electronically signed by: John Pettit M.D. 12/18/2016 11:00 AM Dictated Date/Time: 12/18/2016 10:50 AM The patient's brain MRI is pending. Laboratory Results 12/18/16 10:19 12/18/16 10:19 Test 12/18/16 10:19 12/18/16 11:45 12/18/16 11:48 Red Blood Count 5.18 M/uL (4.7-6.1) Mean Corpuscular Volume 93.2 fL (80-100) Mean Corpuscular Hemoglobin 33.2 pg (25-34) Mean Corpuscular Hemoglobin Concent 35.6 g/dl (32-36) RDW Standard Deviation 43.4 fL (36.4-46.3) RDW Coefficient of Variation 12.7 % (11.5-14.5) Mean Platelet Volume 10.2 fL (7.4-10.4) Prothrombin Time 11.1 SECONDS (9.0-12.0) Prothromb Time International Ratio 1.0 (0.9-1.1) Activated Partial Thromboplast Time 24.5 SECONDS (21.0-31.0) Partial Thromboplastin Ratio 0.9 Anion Gap 9.0 mmol/L (3-11) Estimated GFR () 55.0 Estimated GFR (Non- 47.5 BUN/Creatinine Ratio 15.1 (10-20) Calcium Level 9.9 mg/dl (8.5-10.1) Total Bilirubin 0.6 mg/dl (0.2-1) Aspartate Amino Transf (AST/SGOT) 36 U/L (15-37) Alanine Aminotransferase (ALT/SGPT) 29 U/L (12-78) Alkaline Phosphatase 430 U/L (45-117) Troponin I < 0.015 ng/ml (0-0.045) Total Protein 8.7 gm/dl (6.4-8.2) Albumin 4.0 gm/dl (3.4-5.0) Globulin 4.7 gm/dl (2.5-4.0) Albumin/Globulin Ratio 0.9 (0.9-2) Ammonia 27.0 umol/L (11-32) Urine Color DK YELLOW Urine Appearance CLEAR (CLEAR) Urine pH 5.0 (4.5-7.5) Urine Specific [place] 1.026 (1.000-1.030) Urine Protein 2+ (NEG) Urine Glucose (UA) NEG (NEG) Urine Ketones TRACE (NEG) Urine Occult Blood NEG (NEG) Urine Nitrite NEG (NEG) Urine Bilirubin NEG (NEG) Urine Urobilinogen NEG (NEG) Urine Leukocyte Esterase NEG (NEG) Urine WBC (Auto) 1-5 /hpf (0-5) Urine RBC (Auto) 0-4 /hpf (0-4) Urine Hyaline Casts (Auto) >30 /lpf (0-5) Urine Epithelial Cells (Auto) >30 /lpf (0-5) Urine Bacteria (Auto) NEG (NEG) Urine Renal Epithelial Cells /lpf (0-5) Urine Pathogenic Casts /lpf (0) Laboratory results as stated above per my review. Medications Administered Medications (Trade) Dose Ordered Sig/Hank Route Start Time Stop Time Status Last Admin Dose Admin Sodium Chloride (Nss 1000ml) 1,000 ml @ 50 mls/hr Q20H IV 12/18/16 11:02 01/17/17 11:01 12/18/16 11:40 50 MLS/HR ECG Indication: other (confusion) Rate (beats per minute): 72 Rhythm: sinus rhythm Findings: other (normal axis) Comparison ECG Date: 06/30/15 Change: EKG Change: When compared to EKG done on 06/30/15, today he is in sinus rhythm which is a distinct change from previous when he was in atrial flutter ED Course 1050: Past medical records reviewed. The patient was evaluated in room C4. A complete history and physical examination was performed. 1102: Ordered Sodium Chloride 1000 ml @ 50 mls/hr IV. 1339: I reevaluated the patient and he is resting. I spoke to the [facility] traffic warehouse supervisor who informed me that the patient is typically slow to respond, but is much more confused than usual today. He states that the patient was recently in [place] for a bone biopsy. I discussed all the exam findings with the traffic warehouse supervisor and I discussed the treatment plan. He verbalized complete understanding and agreement. The patient will be evaluated for further treatment. 1416: I discussed the patients case with Alfredo Schmitz. He is going to evaluate the patient for further treatment. Medical Decision Nurses notes reviewed. Medical history sheet reviewed. Differential diagnosis includes but is not limited to: CVA/TIA, hepatic encephalopathy, hyperammonemia , metabolic disorder. The patient has a history of prior colon cancer and a history of hepatic encephalopathy. According to the traffic warehouse supervisor at [facility] the patient is distinctly different today than he was previously. The patient is markedly confused. Initial CT does not reveal a hemorrhagic stroke. Additional labs and EKG were obtained. Please see above. Alkaline phosphatase is elevated but the ammonia is only minimally elevated. An MRI is pending. Patient will require further evaluation in the hospital. I discussed care with the patient, the traffic warehouse supervisor and with the hospitalist. Consults Time Called: 1340 Consulting Physician: Alfredo Schmitz Returned Call: [phone] I discussed the patients case with Alfredo Schmitz. He is going to evaluate the patient for further treatment. Impression Primary Impression: Altered mental status Additional Impressions: History of colon cancer History of encephalopathy Scribe Attestation The scribe's documentation has been prepared under my direction and personally reviewed by me in its entirety. I confirm that the note above accurately reflects all work, treatment, procedures, and medical decision making performed by me. Departure Information Dispostion Being Evaluated By Hospitalist Referrals Rodney Alvarado D.O. (PCP) Problem Qualifiers
[2016-12-18] MEDS ORDERED: SODI1CHW27 PO (12:20)
[2016-12-18] MEDS ORDERED: NEOMOIN76 TOP (12:20)
[2016-12-18] MEDS ORDERED: DEXT30LI PO (12:20)
[2016-12-18] MEDS ORDERED: ACET-1311 PO (12:20)
[2016-12-18] MEDS ORDERED: AFRINWC NAE (12:20)
[2016-12-18 12:22] LABS: URINE APPEARANCE CLEAR (CLEAR); URINE COLOR DK YELLOW; URINE EPITHELIAL CELL AUTO >30 /lpf (0-5); URINE NITRITE NEG (NEG); URINE SPECIFIC GRAVITY 1.026 (1.000-1.030); UROBILINOGEN NEG (NEG); ZZUR CULT IF INDIC CLEAN CATCH NO
[2016-12-18 12:29] LABS: MANUAL MICROSCOPIC REQUIRED? NO; REVIEW REQ? YES
[2016-12-18 12:31] LABS: URINE BILIRUBIN NEG (NEG)
[2016-12-18] MEDS ORDERED: GADAVIST IV PRN (14:45)
--- NOTE | 2016-12-18 15:07 | DIAGNOSTIC IMAGING REPORT ---
MRI OF THE BRAIN COMBO CLINICAL HISTORY: Change in mental status. Seizure. COMPARISON STUDY: CT of the brain dated 12/18/2016. MRI of the brain dated 04/08/2013. TECHNIQUE: MRI of the brain was performed utilizing various T1 and T2-weighted sequences in the axial, sagittal, and coronal planes. Contrast-enhanced sequences were acquired following the administration of 11 cc of Gadavist. The examination is performed using the seizure protocol. FINDINGS: Brain parenchyma: There are mild involutional changes as well as mild patchy subcortical and periventricular microangiopathic disease. The brain parenchyma is otherwise normal in appearance. There is no hemorrhage or mass effect. There is no restricted diffusion to suggest acute ischemia. No enhancing mass lesion is identified on the postcontrast images. Chen-white matter differentiation is preserved. No extra-axial fluid collection is seen. The cerebellar tonsils are normal in configuration. The hippocampi are normal and symmetric. Ventricles, sulci, and cisterns: Normal in configuration. Pituitary and sella: Unremarkable. Intracranial vasculature: Normal flow voids are maintained at the skull base. Orbits: The bony orbits are grossly intact. Orbital contents are normal in appearance. Sinuses and mastoids: Clear. 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 Cervical cord: Partially visualized cervical spinal cord is normal in morphology and signal intensity. IMPRESSION: No acute intracranial abnormality. Electronically signed by: John Pettit M.D. 12/18/2016 3:06 PM Dictated Date/Time: 12/18/2016 2:59 PM
[2016-12-18] MEDS ORDERED: DEXTROMETHORPHAN POLYMR COMPLX 30 MG/5 ML UDP PO PRN (15:45)
[2016-12-18] MEDS ORDERED: ACETAMINOPHEN 325 MG TAB PO PRN (15:45)
[2016-12-18] MEDS ORDERED: ALUMINUM/MAGNESIUM/SIMETH (MAALOX MAX) 30 ML UDC PO PRN (15:45)
[2016-12-18] MEDS ORDERED: MAGNESIUM HYDROXIDE SUSP 30 ML UDC PO PRN (15:45)
[2016-12-18] MEDS ORDERED: POLYETHYLENE (MIRALAX) 17 GM PACK PO PRN (15:45)
[2016-12-18] MEDS ORDERED: NITROGLYCERIN 0.4 MG SL PER TAB CHARGE SL PRN (15:45)
[2016-12-18] MEDS ORDERED: ONDANSETRON INJ 2 MG/ML 2 ML VIAL IV PRN (15:45)
[2016-12-18] MEDS ORDERED: LMC/150 PO (16:00)
[2016-12-18 17:15] VITALS: BP_SYST 179; BP_SYST 186; BP_DIAS 86; BP_DIAS 91; PULSE 73; TEMP 36.5; O2SAT 96; BMI 38.3
[2016-12-18] MEDS ORDERED: GLUCOSE 40% GEL 15 GM TUBE PO PRN (17:15)
[2016-12-18] MEDS ORDERED: GLUCAGON FOR INJ 1 MG VIAL SQ PRN (17:15)
[2016-12-18] MEDS ORDERED: GLUCOSE 10 TABS/TUBE PO PRN (17:15)
[2016-12-18] MEDS ORDERED: DEXTROSE 50% 50 ML SYR IV PRN (17:15)
[2016-12-18] MEDS: SODIUM CHLORIDE 0.9% 1000ML 1,000 ML IV SCH (17:58)
[2016-12-18] MEDS: INSULIN 70% ASPART PROTAMINE/30% ASPART SC SCH (18:03)
[2016-12-18 18:34] LABS: ARTERIAL BLOOD GAS PO2 80 mmHg (80-95); ARTERIAL BLOOD GAS pH 7.45 (7.35-7.45)
[2016-12-18 18:35] LABS: ALLEN TEST POS (POS); ARTERIAL BLOOD GAS BASE EXCESS 0.1 mEq/L (-9-1.8); ARTERIAL BLOOD GAS HCO3 24 mmol/L (19-24); O2 ADMINISTRATION ROOM AIR
[2016-12-18] MEDS: VERAPAMIL HCL 120 MG TABCR PO SCH (19:26)
[2016-12-18] MEDS: ATORVASTATIN 40 MG TAB PO SCH (19:27)
[2016-12-18] MEDS: METOPROLOL TARTRATE 25 MG TAB PO SCH (19:28)
[2016-12-18] MEDS: GABAPENTIN 100 MG CAP PO SCH (19:29)
[2016-12-18] MEDS: TRAZODONE HCL 100 MG TAB PO SCH (19:29)
[2016-12-18 19:35] VITALS: BP 162/80; PULSE 76; TEMP 36.7; O2SAT 96
[2016-12-18] MEDS ORDERED: PHENOBARBITAL 32.4 MG TAB PO ONE (19:36)
[2016-12-18] MEDS: PHENOBARBITAL 32.4 MG TAB PO SCH (19:36)
[2016-12-18] MEDS: ENOXAPARIN 40 MG/0.4 ML SYR SC SCH (19:37)
[2016-12-18] MEDS: [UNRECOGNIZED DRUG - REMARK] SCH (19:39)
--- NOTE | 2016-12-18 19:56 | HISTORY & PHYSICAL EXAMINATION ---
DATE OF ADMISSION: 12/18/2016 CHIEF COMPLAINT: Confusion. HISTORY OF PRESENT ILLNESS: This is a 66-year-old male with a past medical history significant for epilepsy, obesity, history of colon cancer status post resection, diabetes, diabetic retinopathy, history of mitral regurgitation, hypertension, history of paranoid schizophrenia, Carnitine deficiency ,A-Fib, obstructive sleep apnea and mild intellectual disability, who comes from a [place] [facility] called [facility] because of confusion. As per the director of the [facility] [place], the patient was confused since yesterday. Generally he is alert, oriented, he can ambulate, he can take his own insulin and take care of himself; but since yesterday he was getting confused, he has got a little worse, but right now as per the director of the [facility] [place] [facility] he seems a little better. The patient is alert, awake, can tell his name and tell his date, not oriented to place and time, but obeys simple commands and says he is doing okay. He denies any chest pain. Denies any nausea. Denies any headaches or abdominal pain. He states he is doing fine, is eating okay; but could not do complete review of symptoms as the patient could not answer some of the questions. Currently he is resting comfortably, hemodynamically stable and afebrile. Also as per the [facility] [place] [facility] director, the patient has had bone marrow biopsy done last week at [place]. He says because of his falls, he had a PET scan which showed some questionable lesions in the pelvic region thought was cancer and further workup was done which ruled out cancer and thought it could be mostly likely from chronic use of phenobarbital, but anyway he had a biopsy done last week and the biopsy site looks fine. No erythema or drainage at the biopsy site. ALLERGIES: TO PENICILLINS AND VALPROIC ACID. PAST MEDICAL HISTORY: As mentioned above. PAST SURGICAL HISTORY: Carpal tunnel surgery and partial colectomy with anastomosis. MEDICATIONS: The patient is on; verapamil SR 120 mg p.o. daily at bedtime for migraines, potassium chloride 10 mEq to take along with Lasix, Prozac 20 mg p.o. daily, metoprolol 12.5 mg p.o. b.i.d. for atrial flutter, Lasix 20 mg p.o. daily on Thursday, Thursday, Thursday and Thursday, vitamin D3 50,000 units once a week, phenobarbital 64.8 mg 1 tablet in a.m. and 2 tablets at bedtime, MiraLax 17 grams p.o. daily, pediatric multivitamin with fluoride 1 tablet daily, insulin NPH 70/30 46 units in the a.m. and 24 units with supper, gabapentin 100 mg p.o. t.i.d., Lamictal 150 mg p.o. b.i.d., atorvastatin 40 mg p.o. daily, levocarnitine solution 10-20 mL three times a day before meals, trazodone 100 mg p.o. at bedtime and aspirin 325 mg half tablet daily. FAMILY HISTORY: Significant for father had epilepsy. SOCIAL HISTORY: . Quit smoking in 2004; prior to that smoked 2 packs a day for 40 years. No alcohol use. No drug use. Currently disabled Had seizures and special education was started at the age of 13.currently in a personal [place] [facility] [place] facility. REVIEW OF SYMPTOMS: As per HPI. Rest of the review of symptoms is unobtainable as the patient is somewhat confused. VITAL SIGNS: Temperature 36.7, pulse 70, respiratory rate 18, blood pressure 164/91 and oxygen 96% room air. HEENT: No pallor, no icterus. Pupils are equal, round and reactive to light. NECK: No JVD, no neck masses, no neck stiffness. CARDIOVASCULAR: S1, S2 heard, regular rate and rhythm, no murmur, no gallop. RESPIRATORY: Clear to auscultation bilaterally. No accessory muscle use. No wheezing, no crackles. ABDOMEN: Soft, bowel sounds present. Nontender. No distention. CENTRAL NERVOUS SYSTEM: Alert and oriented x1, power; 5/5 in all extremities. No pronator drift. Could not do complete exam, the patient is somewhat uncooperative. EXTREMITIES: Bilateral lower extremity no edema, no erythema. MUSCULOSKELETAL: Right pelvic biopsy site unremarkable. No erythema, no drainage. LABORATORIES: WBC 7.2, hemoglobin 17.2, hematocrit 48.3 and platelets 179. Sodium 135, potassium 4.7, chloride 101, BUN 23, creatinine 1.5, serum glucose 223, calcium 9.9, total bilirubin 0.6, AST 36, ALT 29, alkaline phosphatase 430, ammonia 27, troponin I less than 0.015. PT 11.1, INR 1, PTT 24.5. Urinalysis; negative toxicology. Imaging; CT of the head, no acute findings. MRI of the head; no acute intracranial abnormalities seen. EKG; atrial flutter with a rate of 72, no significant change from previous EKG. ASSESSMENT AND PLAN: This is a 66-year-old male, who presents with confusion. 1. Confusion, etiology unclear so far. 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 No leukocytosis. We will follow chest x-ray. Also CT of the head and MRI of the head are unremarkable. We will follow phenobarbital levels and EEG.we will check ABG levels and nocturnal pulse oximetry study. We will consult neurology for further recommendations. We will also do blood cultures and empiric antibiotics with Levaquin. 2. History of seizures. As per the [facility] [place] [facility] director, patient had no seizures for a long time. We will continue Lamictal and phenobarbital 3. History of atrial flutter. The patient is rate-controlled on Lopressor, verapamil and on aspirin. MRI of the head is unremarkable for any strokes. 4. Diabetes. Continue home insulin NPH. We will also place him on insulin sliding scale. We will follow HbA1c levels. 5. Hypertension. Continue verapamil and Lopressor. We will monitor the blood pressure. 6. Deep vein thrombosis prophylaxis, SCDs, TEDs and Lovenox. 7. Disposition: Admit to tele floor. Expect to discharge to home and follow with family doctor. Level 1. Full code. MTDD
[2016-12-18] MEDS: INSULIN ASPART 100 UNITS/ML 3 ML PEN SC SCH (21:29)
[2016-12-18 23:31] VITALS: BP 126/75; PULSE 64; TEMP 36.5; O2SAT 95
[2016-12-19 03:33] VITALS: BP 111/62; PULSE 73; TEMP 36.8; O2SAT 92
[2016-12-19] MEDS: SODIUM CHLORIDE 0.9% 1000ML 1,000 ML IV SCH ×2 (05:34→21:48)
[2016-12-19] MEDS: INSULIN ASPART 100 UNITS/ML 3 ML PEN SC SCH ×4 (07:00→21:49)
[2016-12-19 07:29] LABS: BASO % 0.4 %; BASO ABS # 0.02 K/uL (0-0.2); COMPLETE YES; EOS % 0.9 %; HEMATOCRIT 45.2 % (42-52); IG% 0.2 %; LYMPH % 25.8 %; LYMPH ABS # 1.19 K/uL (1.2-3.4); MEAN CELL VOLUME 92.4 fL (80-100); MEAN CORPUSCULAR HEMOGLOBIN 32.3 pg (25-34); MEAN PLATELET VOLUME 9.4 fL (7.4-10.4); MONO % 9.3 %; NEUT % 63.4 %; PLATELET COUNT 160 K/uL (130-400); RED BLOOD COUNT 4.89 M/uL (4.7-6.1); WHITE BLOOD COUNT 4.61 K/uL (4.8-10.8)
[2016-12-19 07:57] VITALS: BP 114/69; PULSE 69; TEMP 36.5; O2SAT 98
[2016-12-19] MEDS: [UNRECOGNIZED DRUG - REMARK] SCH ×3 (08:00→21:59)
[2016-12-19 08:06] LABS: BUN/CREATININE RATIO 20.2 (10-20); CALCIUM 8.9 mg/dl (8.5-10.1); CREATININE 1.2 mg/dl (0.60-1.40); MAGNESIUM 2.3 mg/dl (1.8-2.4); POTASSIUM 4.1 mmol/L (3.5-5.1)
[2016-12-19 08:10] LABS: CHOLESTEROL/HDL RATIO 5.3
[2016-12-19] MEDS: POLYETHYLENE (MIRALAX) 17 GM PACK PO SCH (08:32)
[2016-12-19] MEDS: INSULIN 70% ASPART PROTAMINE/30% ASPART SC SCH ×2 (08:34→16:45)
[2016-12-19] MEDS: GABAPENTIN 100 MG CAP PO SCH ×3 (08:38→21:47)
[2016-12-19] MEDS: METOPROLOL TARTRATE 25 MG TAB PO SCH ×2 (08:39→21:47)
[2016-12-19] MEDS: POTASSIUM CHLORIDE 10 MEQ TABCR PO SCH (08:40)
[2016-12-19] MEDS: FUROSEMIDE 20 MG TAB PO SCH (08:41)
[2016-12-19] MEDS: ASPIRIN 81 MG CHEW PO SCH (08:41)
[2016-12-19] MEDS: FLUOXETINE HCL 20 MG CAP PO SCH (08:42)
[2016-12-19] MEDS ORDERED: ERGOCALCIFEROL 50,000 INTER.UNIT CAP PO SCH (09:00)
[2016-12-19] MEDS: PHENOBARBITAL 32.4 MG TAB PO SCH ×2 (09:01→21:45)
--- NOTE | 2016-12-19 09:17 | Clinical Documentation Query ---
CLINICAL DOCUMENTATION QUERY 66 year old male who presents to the Emergency Room with persistent confusion. Query #1/2 In your clinical opinion is this patient being managed for: (x ) CALIN in setting of dehydration treated with IVF's. ( ) Other explanation of clinical findings (Please Explain) ( ) Unable to determine (Please Define) ( ) Need to Discuss ( ) Not Agree The medical record reflects the following clinical findings, treatment, and risk factors. Clinical Indicators: BUN 23, Creatinine 1.50, Baseline creatinine 1.0-1.2 over last 5yrs. Treatment: IVF's and daily PRP's Risk Factors: Age, QOD Lasix, Schizophrenia, Diabetes. Query #2/2 In your clinical opinion is this patient being managed for: ( ) Metabolic encephalopathy in setting of CALIN, mild dehydration, and possible nocturnal hypoxia. ( ) Other explanation of clinical findings (Please Explain) ( x ) Unable to determine (Please Define) ( ) Need to Discuss ( ) Not Agree The medical record reflects the following clinical findings, treatment, and risk factors. Clinical Indicators: Confusion, Nocturnal pulse ox study showed 216 hypoxic evens (<90%) over approx 8hrs. Treatment: IVF's, Head CT, Brain MRI, Neurology consult, EEG, Nocturnal pulse Ox. Risk Factors: On home PO Lasix QOD, obesity, MARIELA Please clarify and document your clinical opinion in the progress notes and discharge summary. Terms such as "probable", "suspected", "likely", "questionable", "possible", or "still to be ruled out" are acceptable. IF IN AGREEMENT, YOU MUST DOCUMENT ABOVE DIAGNOSTIC STATEMENT IN DAILY PROGRESS NOTES AND DISCHARGE SUMMARY. This document is not part of the patient's record. Thank You, Hi Hernandez, RN [phone]
[2016-12-19 09:22] LABS: ESTIMATED AVERAGE GLUCOSE 166 mg/dl; HA1C FLAG Normal (Normal)
[2016-12-19 11:11] VITALS: Ht 170.2 cm; Wt 113.9 kg
[2016-12-19 12:11] VITALS: BP 132/69; PULSE 84; TEMP 36.8; O2SAT 95
[2016-12-19] MEDS ORDERED: CARNITINE PO SCH (14:00)
[2016-12-19] MEDS: CARNITINE PO SCH ×2 (14:00→21:39)
[2016-12-19 15:22] VITALS: BP 129/73; PULSE 74; TEMP 36.9; O2SAT 94
--- NOTE | 2016-12-19 15:44 | PROGRESS NOTE ---
DATE: 12/19/2016 REFERRING PHYSICIAN: Maximus Sultana MD HISTORY OF PRESENT ILLNESS: Kole is 66-year-old. He is a former patient of Dr. Jose and I have seen him in the remote past, probably back in the mid-1990s when he would come in to the hospital with episodic transient alterations of awareness that we thought were possibly seizures. He has had extensive workups including an inpatient monitoring study at [place] probably 10 years ago or more and no focus was ever found, but the diagnosis of frontal lobe seizures and carnitine deficiencies state with periodic hyperammonemia has been made. He was treated with depakote, but this did not agree with him and treatment right now consists of phenobarbital and lamictal and l carnitine and on this regimen, he has had very few episodes of seizure- like activity and has never been hospitalized since. In the past, I believe he was tried on valproic acid, but because of the hyperammonemia and I think some GI toxicity, this was stopped. He was recently in [place] for a bone marrow biopsy. He had a PET scan which showed some questionable lesions in his pelvic region that they thought may have been cancer. Biopsies have not been apparently fully evaluated. There was some question whether some of these lesions were due to repeated trauma or the chronic use of phenobarbital. PAST MEDICAL HISTORY: Otherwise, shows a carnitine deficiency state, the frontal seizures, atrial fibrillation, chronic obstructive lung disease, and chronic intellectual disabilities, which has caused him to live in a series in group homes over the years. He is now in a fpc on [facility] and apparently yesterday had some episodes of confusion which he realizes were going on and which he thought may have been related to seizures, but he seems to be aware of everything that was happening and no seizure activity was seen. He was brought to the hospital and admitted and evaluated. Ammonia levels were normal. The phenobarbital level was 37, which is high, but he probably carries a high level. MRIs have shown no new ischemic lesions and only a mild degree of leukoencephalopathy. An EEG more importantly done today shows essentially normal patterns during wakefulness and drowsiness without any potentially epileptogenic activity. PAST SURGICAL HISTORY: Surgically, he has had carpal tunnel surgery, partial colectomy with anastomosis and he has now had the biopsy. FAMILY HISTORY: Reveals that his father apparently had epilepsy. CURRENT MEDICATION LIST: Includes verapamil, potassium chloride, Prozac, metoprolol, Lasix, vitamin D3, phenobarbital 64.8 mg 1 tablet in the morning and 2 tabs at bedtime, MiraLax, pediatric multiple vitamins, gabapentin 100 mg t.i.d., Lamictal 150 mg b.i.d., atorvastatin 40 mg daily, levocarnitine 10-20 mg 3 times a day before meals and 100 mg at bedtime and aspirin 325 mg daily. SOCIAL HISTORY: Reveals him to be . He stopped smoking in 2005. He has never consumed ethanol. He does not use illicit drugs. He is currently in a fpc and at one point, lives in a larger facility in the [place] area that has subsequently closed. REVIEW OF SYSTEMS: System review is very difficult to obtain from him as he is pretty digressive and tangential as a historian. He denies any issues involving the head, eyes, ears, nose and throat, cardiovascular, pulmonary, gastrointestinal or genitourinary system and the only outstanding issues is the pelvic biopsy site which is a little painful and his episode of confusion yesterday without overt seizure activity. PHYSICAL EXAMINATION: VITAL SIGNS: Today, his blood pressure was 164/91. Pulse oximetry was 96% on room air. He was afebrile. His pulse was 70. Respiratory rate was 18. HEENT: There were no deformities on examination of head, eyes, ears, nose and throat. LUNGS: Clear. HEART: Had a regular rhythm. No murmurs were appreciated. ABDOMEN: Soft, nontender. EXTREMITIES: Free of edema. He had good peripheral pulses. NEUROLOGIC: Today, he is quite tangential. He recalls events very clearly in the past but the details about his anticonvulsant use in the past are little vague. He speaks about the monitoring and study in [place] as if it only occurred within the past few years and it was no longer ago than that He, however, has pretty intact memory of what happened yesterday. He realized he was confused. He can relate all the events that have occurred since he arrived. His eye movements are normal. Visual thompson are full. Facial motility and strength is normal. Speech is slightly dysarthric, but I suspect this is his baseline. He has no tremors, tics or choreiform activity, drift or pronation sign. Reflexes are 1+ symmetrical. Toes are downgoing. No Richard's signs are seen. He has tested bit of vibratory loss over the lower extremities, not incompatible with his age and the rest of the sensory examination is normal. ASSESSMENT AND PLAN: At this point, I am not sure what happened with Mr. Diaz. He could have had some auras of impending seizures, but certainly no overt seizure activity occurred. His phenobarbital level is normal. A Lamictal level is going to take some time to come back. Imaging studies and EEGs have not supported any ongoing subclinical seizure activities. So at this point, I would suggest he probably be allowed to return home tomorrow. There are certainly no signs of infection. There is no leukocytosis and if this was a toxic or metabolic encephalopathy, this causation remains fairly obscure. I will check with him again tomorrow, but again unless we see overt seizures or episodic confusion recurs, I would let him go back to his personal care facility and continue his medications. I am not sure who has been following him neurologically since Dr. Henriquez retired. If we do not find evidence that he is being seen regularly in our Department, he probably has to make some periodic visits and I will try to get this arrangement postdischarge. CUATE
--- NOTE | 2016-12-19 18:19 | Progress Note ---
Internal Med Progress Note Date of Service: December 19, 2016. Provider Documentation: SUBJECTIVE: mental status seems at baseline today alert and oriented x 3 patient thinks he may had mini seizures speech is clear today denies any pain no sob afebrile OBJECTIVE: Vital Signs-as noted below Exam: General-alert and awake and oriented x 3. ENT-Normal hearing Neck-no neck masses Lungs-cta b/l no wheezing or crackles Heart-s1 and s2 heard regular rate and rhythm no murmurs Abdomen-soft bowel sounds present non tender no distension Extremities- no present no erythema Neuro-alert and awake oriented moves extremities Lab data as noted below. ASSESSMENT & PLAN: This is a 66-year-old male, who presents with confusion. 1. Encephalopathy Confusion, etiology unclear so far. 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 No leukocytosis. We will follow chest x-ray. Also CT of the head and MRI of the head are unremarkable. 12/19/16 abg and pulse ox study unremarkable eeg unremarkable seen by neurology and appreciate inputs patient at baseline today. 2. History of seizures. As per the personal retirement director, patient had no seizures for a long time. We will continue Lamictal and phenobarbital. Phenobarbital levels normal Neurology to continue current meds. 3. History of atrial flutter. The patient is rate-controlled on Lopressor, verapamil and on aspirin. MRI of the head is unremarkable for any strokes. 4. Diabetes. Continue home insulin NPH. We will also place him on insulin sliding scale. HbA1c levels 7.4. 5. Hypertension. Continue verapamil and Lopressor. We will monitor the blood pressure. 6. Deep vein thrombosis prophylaxis, SCDs, TEDs and Lovenox. 7. Disposition: Monitor tele floor. Possible d/c in am. Expect to discharge to home and follow with family doctor. Level 1. Full code. Vital Signs: Date Time Temp Pulse Resp B/P Pulse Ox O2 Delivery O2 Flow Rate FiO2 12/19/16 16:00 Room Air 12/19/16 15:22 36.9 74 22 129/73 94 Room Air 12/19/16 12:11 36.8 84 18 132/69 95 12/19/16 12:00 Room Air 12/19/16 08:00 Room Air 12/19/16 07:57 36.5 69 20 114/69 98 12/19/16 04:00 Room Air 12/19/16 03:33 36.8 73 18 111/62 92 Room Air 12/19/16 00:01 Room Air 12/18/16 23:31 36.5 64 18 126/75 95 Room Air 12/18/16 20:00 Room Air 12/18/16 19:35 36.7 76 18 162/80 96 Lab Results: Results Past 24 Hours Test 12/18/16 18:16 12/18/16 20:31 12/19/16 07:01 12/19/16 07:20 Range/Units Arterial Blood pH 7.45 7.35-7.45 Arterial Blood Partial Pressure CO2 35 35-46 mmHg Arterial Blood Partial Pressure O2 80 80-95 mmHg Arterial Blood HCO3 24 19-24 mmol/L Arterial Blood Oxygen Saturation 96.0 90-95 % Arterial Blood Base Excess 0.1 -9-1.8 mEq/L Arterial Blood Gas Delivery ROOM AIR Ang Test POS POS Bedside Glucose 225 136 70-99 mg/dl White Blood Count 4.61 4.8-10.8 K/uL Red Blood Count 4.89 4.7-6.1 M/uL Hemoglobin 15.8 14.0-18.0 g/dL Hematocrit 45.2 42-52 % Mean Corpuscular Volume 92.4 80-100 fL Mean Corpuscular Hemoglobin 32.3 25-34 pg Mean Corpuscular Hemoglobin Concent 35.0 32-36 g/dl Platelet Count 160 130-400 K/uL Mean Platelet Volume 9.4 7.4-10.4 fL Neutrophils (%) (Auto) 63.4 % Lymphocytes (%) (Auto) 25.8 % Monocytes (%) (Auto) 9.3 % Eosinophils (%) (Auto) 0.9 % Basophils (%) (Auto) 0.4 % Neutrophils # (Auto) 2.92 1.4-6.5 K/uL Lymphocytes # (Auto) 1.19 1.2-3.4 K/uL Monocytes # (Auto) 0.43 0.11-0.59 K/uL Eosinophils # (Auto) 0.04 0-0.5 K/uL Basophils # (Auto) 0.02 0-0.2 K/uL RDW Standard Deviation 42.5 36.4-46.3 fL RDW Coefficient of Variation 12.6 11.5-14.5 % Immature Granulocyte % (Auto) 0.2 % Immature Granulocyte # (Auto) 0.01 0.00-0.02 K/uL Sodium Level 141 136-145 mmol/L Potassium Level 4.1 3.5-5.1 mmol/L Chloride Level 105 98-107 mmol/L Carbon Dioxide Level 29 21-32 mmol/L Anion Gap 7.0 3-11 mmol/L Blood Urea Nitrogen 24 7-18 mg/dl Creatinine 1.20 0.60-1.40 mg/dl Est Creatinine Clear Calc Drug Dose 71.2 ml/min Estimated GFR () 72.1 Estimated GFR (Non- 62.2 BUN/Creatinine Ratio 20.2 10-20 Random Glucose 136 70-99 mg/dl Estimated Average Glucose 166 mg/dl Hemoglobin A1c 7.4 4.5-5.6 % Calcium Level 8.9 8.5-10.1 mg/dl Magnesium Level 2.3 1.8-2.4 mg/dl Total Bilirubin 0.7 0.2-1 mg/dl Direct Bilirubin 0.2 0-0.2 mg/dl Aspartate Amino Transf (AST/SGOT) 37 15-37 U/L Alanine Aminotransferase (ALT/SGPT) 27 12-78 U/L Alkaline Phosphatase 416 45-117 U/L Ammonia 21.0 11-32 umol/L Total Protein 7.9 6.4-8.2 gm/dl Albumin 3.9 3.4-5.0 gm/dl Triglycerides Level 358 0-150 mg/dl Cholesterol Level 228 0-200 mg/dl HDL Cholesterol 43 mg/dl LDL Cholesterol, Calculated 113 mg/dl VLDL Cholesterol, Calculated 72 mg/dl Cholesterol/HDL Ratio 5.3 Test 12/19/16 11:20 12/19/16 16:10 Range/Units Bedside Glucose 181 191 70-99 mg/dl Microbiology Results 12/18/16 Blood Culture, Received Pending
[2016-12-19 20:16] VITALS: BP 162/94; PULSE 77; TEMP 36.6; O2SAT 94
[2016-12-19] MEDS: ATORVASTATIN 40 MG TAB PO SCH (21:46)
[2016-12-19] MEDS: VERAPAMIL HCL 120 MG TABCR PO SCH (21:47)
[2016-12-19] MEDS: TRAZODONE HCL 100 MG TAB PO SCH (21:47)
[2016-12-19] MEDS: ENOXAPARIN 40 MG/0.4 ML SYR SC SCH (21:48)
[2016-12-19 23:43] VITALS: BP 136/79; PULSE 70; O2SAT 97
[2016-12-20] MEDS: SODIUM CHLORIDE 0.9% 1000ML 1,000 ML IV SCH ×2 (04:57→17:44)
[2016-12-20 05:12] VITALS: BP 146/79; PULSE 72; TEMP 36.6; O2SAT 97
[2016-12-20 05:50] LABS: BASO % 0.5 %; BASO ABS # 0.02 K/uL (0-0.2); COMPLETE YES; EOS % 1.2 %; HEMATOCRIT 43.6 % (42-52); IG% 0.5 %; LYMPH % 33.7 %; LYMPH ABS # 1.35 K/uL (1.2-3.4); MEAN CELL VOLUME 92.8 fL (80-100); MEAN CORPUSCULAR HEMOGLOBIN 32.6 pg (25-34); MEAN CORPUSCULAR HGB CONC 35.1 g/dl (32-36); MEAN PLATELET VOLUME 9.6 fL (7.4-10.4); MONO % 11.7 %; NEUT % 52.4 %; PLATELET COUNT 143 K/uL (130-400); WHITE BLOOD COUNT 4.01 K/uL (4.8-10.8)
--- NOTE | 2016-12-20 05:55 | ELECTROENCEPHALOGRAPH REPORT ---
ATTENDING PHYSICIAN: Maximus Sultana MD CLINICAL DIAGNOSES: Remote history of poorly-controlled seizures now with low-grade confusion of uncertain etiology. ELECTROENCEPHALOGRAM DIAGNOSIS: Essentially normal during wakefulness and drowsiness. DESCRIPTION OF TRACING: This EEG was done as a bedside recording and is of good technical quality and simultaneous video analysis with the patient movement and behavior was performed. No photic stimulation or hyperventilation was done. Drowsiness is recorded episodically, but sustained sleep was never seen. Under these conditions, there is evidence for what appears to be a normal background rhythm in the alpha range of up to 9-10 Hz of maximum frequency and 30 microvolts of maximum amplitude. Polymorphic mid to slightly lower frequency theta activity modest voltage is seen over all head regions without clear focal or regional predominance. Anterior head region maximum bilaterally symmetrical low voltage fast activity in the beta range is present. From time to time, the background alpha rhythm slips into an upper theta range and the amount of generalized theta activity also increased using shifts in the lower frequencies. This corresponds to periods of drowsiness, but again no sustained sleep is obtained and vertex sharp waves and K complexes are never recorded. At no time during the waking or brief duration drowsy recordings, there evidence for potentially epileptogenic activity in the form of polyspike or spike wave bursts, focal sharp waves or focal spikes. INTERPRETATION: This EEG is essentially normal during wakefulness without evidence for focal or generalized encephalopathy and without evidence for potentially epileptogenic activity. MTDD
[2016-12-20 06:21] LABS: BUN/CREATININE RATIO 25.3 (10-20); CALCIUM 8.8 mg/dl (8.5-10.1); MAGNESIUM 2.4 mg/dl (1.8-2.4); POTASSIUM 4.4 mmol/L (3.5-5.1)
[2016-12-20] MEDS: INSULIN ASPART 100 UNITS/ML 3 ML PEN SC SCH ×4 (07:00→21:19)
[2016-12-20] MEDS: INSULIN 70% ASPART PROTAMINE/30% ASPART SC SCH ×2 (07:30→17:30)
[2016-12-20] MEDS: [UNRECOGNIZED DRUG - REMARK] SCH ×2 (08:00→13:43)
[2016-12-20] MEDS: GABAPENTIN 100 MG CAP PO SCH ×3 (08:26→21:13)
[2016-12-20] MEDS: METOPROLOL TARTRATE 25 MG TAB PO SCH ×2 (08:26→21:12)
[2016-12-20] MEDS: POLYETHYLENE (MIRALAX) 17 GM PACK PO SCH (08:29)
[2016-12-20] MEDS: FLUOXETINE HCL 20 MG CAP PO SCH (08:29)
[2016-12-20] MEDS: FUROSEMIDE 20 MG TAB PO SCH (08:29)
[2016-12-20] MEDS: POTASSIUM CHLORIDE 10 MEQ TABCR PO SCH (08:29)
[2016-12-20] MEDS: CARNITINE PO SCH ×3 (08:32→21:21)
[2016-12-20] MEDS: PHENOBARBITAL 32.4 MG TAB PO SCH ×2 (08:33→21:29)
[2016-12-20 08:35] VITALS: BP 133/75; PULSE 72; TEMP 36.7; O2SAT 96
[2016-12-20] MEDS: ASPIRIN 81 MG CHEW PO SCH (08:46)
[2016-12-20 11:41] VITALS: BP 146/80; PULSE 74; TEMP 36.6; O2SAT 97
[2016-12-20 14:49] VITALS: BP 173/71; PULSE 74; TEMP 36.9; O2SAT 98
--- NOTE | 2016-12-20 18:31 | Progress Note ---
Internal Med Progress Note Date of Service: December 20, 2016. Provider Documentation: SUBJECTIVE: mental status mostly at baseline alert and oriented x 3 says he is doing fine eating fine npo pain afebrile OBJECTIVE: Vital Signs-as noted below Exam: General-alert and awake and oriented x 3. ENT-Normal hearing Neck-no neck masses Lungs-cta b/l no wheezing or crackles Heart-s1 and s2 heard regular rate and rhythm no murmurs Abdomen-soft bowel sounds present non tender no distension Extremities- no present no erythema Neuro-alert and awake oriented moves extremities Lab data as noted below. ASSESSMENT & PLAN: This is a 66-year-old male, who presents with confusion. 1. Encephalopathy Confusion, etiology unclear so far. 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 No leukocytosis. We will follow chest x-ray. Also CT of the head and MRI of the head are unremarkable. 12/19/16 abg and pulse ox study unremarkable eeg unremarkable seen by neurology and appreciate inputs patient at baseline today. 12/20/16 stable 2. History of seizures. As per the personal retirement director, patient had no seizures for a long time. We will continue Lamictal and phenobarbital. Phenobarbital levels normal Neurology to continue current meds unless any change but patient is doing fine 3. History of atrial flutter. The patient is rate-controlled on Lopressor, verapamil and on aspirin. MRI of the head is unremarkable for any strokes. 4. Diabetes. Continue home insulin NPH. We will also place him on insulin sliding scale. HbA1c levels 7.4. 5. Hypertension. Continue verapamil and Lopressor. We will monitor the blood pressure. 6. Deep vein thrombosis prophylaxis, SCDs, TEDs and Lovenox. 7. Disposition: Transferred to medical floor Possible d/c in am. Expect to discharge to home and follow with family doctor. Level 1. Full code. Vital Signs: Date Time Temp Pulse Resp B/P Pulse Ox O2 Delivery O2 Flow Rate FiO2 12/20/16 14:49 36.9 74 20 173/71 98 Room Air 12/20/16 11:41 36.6 74 18 146/80 97 Room Air 12/20/16 08:35 36.7 72 18 133/75 96 Room Air 12/20/16 08:00 Room Air 12/20/16 05:12 36.6 72 19 146/79 97 Room Air 12/20/16 04:00 Room Air 12/20/16 00:01 Room Air 12/19/16 23:43 70 20 136/79 97 Room Air 12/19/16 22:00 Room Air 12/19/16 20:16 36.6 77 22 162/94 94 Room Air 12/19/16 20:00 Room Air Lab Results: Results Past 24 Hours Test 12/19/16 20:30 12/20/16 05:27 12/20/16 05:29 12/20/16 06:53 Range/Units Bedside Glucose 153 248 70-99 mg/dl Sodium Level 142 136-145 mmol/L Potassium Level 4.4 3.5-5.1 mmol/L Chloride Level 110 98-107 mmol/L Carbon Dioxide Level 25 21-32 mmol/L Anion Gap 7.0 3-11 mmol/L Blood Urea Nitrogen 25 7-18 mg/dl Creatinine 1.00 0.60-1.40 mg/dl Est Creatinine Clear Calc Drug Dose 85.4 ml/min Estimated GFR () 89.9 Estimated GFR (Non- 77.5 BUN/Creatinine Ratio 25.3 10-20 Random Glucose 156 70-99 mg/dl Calcium Level 8.8 8.5-10.1 mg/dl Magnesium Level 2.4 1.8-2.4 mg/dl White Blood Count 4.01 4.8-10.8 K/uL Red Blood Count 4.70 4.7-6.1 M/uL Hemoglobin 15.3 14.0-18.0 g/dL Hematocrit 43.6 42-52 % Mean Corpuscular Volume 92.8 80-100 fL Mean Corpuscular Hemoglobin 32.6 25-34 pg Mean Corpuscular Hemoglobin Concent 35.1 32-36 g/dl Platelet Count 143 130-400 K/uL Mean Platelet Volume 9.6 7.4-10.4 fL Neutrophils (%) (Auto) 52.4 % Lymphocytes (%) (Auto) 33.7 % Monocytes (%) (Auto) 11.7 % Eosinophils (%) (Auto) 1.2 % Basophils (%) (Auto) 0.5 % Neutrophils # (Auto) 2.10 1.4-6.5 K/uL Lymphocytes # (Auto) 1.35 1.2-3.4 K/uL Monocytes # (Auto) 0.47 0.11-0.59 K/uL Eosinophils # (Auto) 0.05 0-0.5 K/uL Basophils # (Auto) 0.02 0-0.2 K/uL RDW Standard Deviation 42.3 36.4-46.3 fL RDW Coefficient of Variation 12.5 11.5-14.5 % Immature Granulocyte % (Auto) 0.5 % Immature Granulocyte # (Auto) 0.02 0.00-0.02 K/uL Test 12/20/16 11:16 12/20/16 16:48 Range/Units Bedside Glucose 160 98 70-99 mg/dl
[2016-12-20 19:53] VITALS: BP 163/88; PULSE 74; TEMP 36.9; O2SAT 95
[2016-12-20] MEDS: TRAZODONE HCL 100 MG TAB PO SCH (21:12)
[2016-12-20] MEDS: VERAPAMIL HCL 120 MG TABCR PO SCH (21:13)
[2016-12-20] MEDS: ATORVASTATIN 40 MG TAB PO SCH (21:13)
[2016-12-20] MEDS: ENOXAPARIN 40 MG/0.4 ML SYR SC SCH (21:14)
[2016-12-21 00:27] VITALS: BP 152/81; PULSE 70; TEMP 36.7; O2SAT 97
[2016-12-21 04:39] VITALS: BP 114/73; PULSE 71; TEMP 36.5; O2SAT 96
[2016-12-21 05:59] LABS: BASO % 0.7 %; BASO ABS # 0.03 K/uL (0-0.2); COMPLETE YES; EOS % 1.7 %; HEMATOCRIT 42.2 % (42-52); IG% 0.5 %; LYMPH % 29.6 %; LYMPH ABS # 1.25 K/uL (1.2-3.4); MEAN CELL VOLUME 93.2 fL (80-100); MEAN CORPUSCULAR HEMOGLOBIN 31.8 pg (25-34); MEAN CORPUSCULAR HGB CONC 34.1 g/dl (32-36); MEAN PLATELET VOLUME 9.5 fL (7.4-10.4); MONO % 9.7 %; NEUT % 57.8 %; PLATELET COUNT 142 K/uL (130-400); RED BLOOD COUNT 4.53 M/uL (4.7-6.1); WHITE BLOOD COUNT 4.22 K/uL (4.8-10.8)
[2016-12-21] MEDS: SODIUM CHLORIDE 0.9% 1000ML 1,000 ML IV SCH (06:01)
[2016-12-21 06:22] LABS: CALCIUM 8.9 mg/dl (8.5-10.1); MAGNESIUM 2.2 mg/dl (1.8-2.4); POTASSIUM 4.5 mmol/L (3.5-5.1)
[2016-12-21] MEDS: INSULIN ASPART 100 UNITS/ML 3 ML PEN SC SCH ×2 (06:30→13:01)
[2016-12-21 07:18] VITALS: BP 159/74; PULSE 73; TEMP 36.4; O2SAT 96
[2016-12-21] MEDS: [UNRECOGNIZED DRUG - REMARK] SCH ×3 (07:44→14:36)
[2016-12-21] MEDS: FLUOXETINE HCL 20 MG CAP PO SCH (08:33)
[2016-12-21] MEDS: METOPROLOL TARTRATE 25 MG TAB PO SCH (08:34)
[2016-12-21] MEDS: POLYETHYLENE (MIRALAX) 17 GM PACK PO SCH (08:37)
[2016-12-21] MEDS: GABAPENTIN 100 MG CAP PO SCH ×2 (08:37→13:01)
[2016-12-21] MEDS: CARNITINE PO SCH ×2 (08:38→13:01)
[2016-12-21] MEDS: ASPIRIN 81 MG CHEW PO SCH (08:46)
[2016-12-21] MEDS: INSULIN 70% ASPART PROTAMINE/30% ASPART SC SCH (08:46)
[2016-12-21] MEDS: PHENOBARBITAL 32.4 MG TAB PO SCH (08:47)
[2016-12-21 11:55] VITALS: BP_SYST 172; BP_SYST 190; BP_DIAS 100; BP_DIAS 94; PULSE 75; TEMP 36.6; O2SAT 97
--- NOTE | 2016-12-21 13:51 | Discharge Instructions ---
Discharge Instructions Date of Service December 21, 2016. Admission Reason for Admission: Confusion, Referred By Dr. Durga Stein Discharge Discharge Diagnosis / Problem: ENCEPHALOPATHY UNCLEAR ETIOLOGY-RESOLVED Discharge Goals Goal(s): Decrease discomfort, Improve function Activity Recommendations Activity Limitations: resume your previous activity . Instructions / Follow-Up Instructions / Follow-Up FOLLOWUP WITH FAMILY DOCTOR IN ONE WEEK. PATIENT WILL BE CALLED WITH APPOINTMENT FOLLOWUP WITH NEUROLOGY IN 3-4 WEEKS Current Hospital Diet Patient's current hospital diet: AHA Diet (Heart Healthy), Diabetes Type 2 Diet Discharge Diet Recommended Diet: AHA Diet (Heart Healthy), Diabetes Type 2 Diet Pending Studies Studies pending at discharge: no Laboratory Results Hemoglobin A1c Test 12/19/16 07:20 Range/Units Estimated Average Glucose 166 mg/dl Hemoglobin A1c 7.4 H 4.5-5.6 % Lipid Panel Test 12/19/16 07:20 Range/Units Triglycerides Level 358 H 0-150 mg/dl Cholesterol Level 228 H 0-200 mg/dl HDL Cholesterol 43 mg/dl Cholesterol/HDL Ratio 5.3 LDL Cholesterol, Calculated 113 mg/dl Medical Emergencies . Who to Call and When: Medical Emergencies: If at any time you feel your situation is an emergency, please call 911 immediately. . Non-Emergent Contact Non-Emergency issues call your: Primary Care Provider . . "Provider Documentation" section prepared by Maximus Sultana. . VTE Core Measure Inpt VTE Proph given/why not?: Enoxaparin (Lovenox)SQ
[2016-12-21 14:39] VITALS: BP 190/100; PULSE 75; TEMP 36.6; O2SAT 97
--- NOTE | 2016-12-21 17:57 | Progress Note ---
Internal Med Progress Note Date of Service: December 21, 2016. Provider Documentation: SUBJECTIVE: mental status back to baseline alert and oriented x 3 eating fine sitting on chair comfortably ok to go back home OBJECTIVE: Vital Signs-as noted below Exam: General-alert and awake and oriented x 3. ENT-Normal hearing Neck-no neck masses Lungs-cta b/l no wheezing or crackles Heart-s1 and s2 heard regular rate and rhythm no murmurs Abdomen-soft bowel sounds present non tender no distension Extremities- no present no erythema Neuro-alert and awake oriented moves extremities Lab data as noted below. ASSESSMENT & PLAN: This is a 66-year-old male, who presents with confusion. 1. Encephalopathy Confusion, etiology unclear so far. 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 No leukocytosis. We will follow chest x-ray. Also CT of the head and MRI of the head are unremarkable. 12/19/16 abg and pulse ox study unremarkable eeg unremarkable seen by neurology and appreciate inputs patient at baseline today. 12/20/16 stable 12/21/16 stable and discharged home 2. History of seizures. As per the personal correction director, patient had no seizures for a long time. We will continue Lamictal and phenobarbital. Phenobarbital levels normal Neurology to continue current meds unless any change but patient is doing fine f/u with neurology 3. History of atrial flutter. The patient is rate-controlled on Lopressor, verapamil and on aspirin. MRI of the head is unremarkable for any strokes. 4. Diabetes. Continue home insulin NPH. We will also place him on insulin sliding scale. HbA1c levels 7.4. d/c on home meds. f/u with pcp 5. Hypertension. Continue verapamil and Lopressor. We will monitor the blood pressure. Discharged home Vital Signs: Date Time Temp Pulse Resp B/P Pulse Ox O2 Delivery O2 Flow Rate FiO2 12/21/16 14:39 36.6 75 22 97 Room Air 12/21/16 12:00 Room Air 12/21/16 11:55 36.6 75 22 172/94 97 Room Air 190/100 12/21/16 08:00 Room Air 12/21/16 07:18 36.4 73 20 159/74 96 Room Air 12/21/16 04:39 36.5 71 20 114/73 96 Room Air 12/21/16 00:27 36.7 70 20 152/81 97 Room Air 12/21/16 00:00 Room Air 12/20/16 20:00 Room Air 12/20/16 19:53 36.9 74 20 163/88 95 Room Air Lab Results: Results Past 24 Hours Test 12/20/16 20:19 12/21/16 05:34 12/21/16 07:20 12/21/16 11:35 Range/Units Bedside Glucose 179 117 179 70-99 mg/dl White Blood Count 4.22 4.8-10.8 K/uL Red Blood Count 4.53 4.7-6.1 M/uL Hemoglobin 14.4 14.0-18.0 g/dL Hematocrit 42.2 42-52 % Mean Corpuscular Volume 93.2 80-100 fL Mean Corpuscular Hemoglobin 31.8 25-34 pg Mean Corpuscular Hemoglobin Concent 34.1 32-36 g/dl Platelet Count 142 130-400 K/uL Mean Platelet Volume 9.5 7.4-10.4 fL Neutrophils (%) (Auto) 57.8 % Lymphocytes (%) (Auto) 29.6 % Monocytes (%) (Auto) 9.7 % Eosinophils (%) (Auto) 1.7 % Basophils (%) (Auto) 0.7 % Neutrophils # (Auto) 2.44 1.4-6.5 K/uL Lymphocytes # (Auto) 1.25 1.2-3.4 K/uL Monocytes # (Auto) 0.41 0.11-0.59 K/uL Eosinophils # (Auto) 0.07 0-0.5 K/uL Basophils # (Auto) 0.03 0-0.2 K/uL RDW Standard Deviation 43.3 36.4-46.3 fL RDW Coefficient of Variation 12.6 11.5-14.5 % Immature Granulocyte % (Auto) 0.5 % Immature Granulocyte # (Auto) 0.02 0.00-0.02 K/uL Sodium Level 141 136-145 mmol/L Potassium Level 4.5 3.5-5.1 mmol/L Chloride Level 106 98-107 mmol/L Carbon Dioxide Level 31 21-32 mmol/L Anion Gap 4.0 3-11 mmol/L Blood Urea Nitrogen 19 7-18 mg/dl Creatinine 1.00 0.60-1.40 mg/dl Est Creatinine Clear Calc Drug Dose 86.5 ml/min Estimated GFR () 89.9 Estimated GFR (Non- 77.5 BUN/Creatinine Ratio 19.0 10-20 Random Glucose 111 70-99 mg/dl Calcium Level 8.9 8.5-10.1 mg/dl Magnesium Level 2.2 1.8-2.4 mg/dl
--- NOTE | 2016-12-21 19:00 | Discharge Summary ---
Discharge Summary Date of Service December 21, 2016. Discharge Summary Admission Date: December 18, 2016 at 15:15 Discharge Date: December 21, 2016 Discharge Disposition: Personal care Principal Diagnosis: ENCEPHALOPATHY RESOLVED Secondary Diagnoses/Problems: epilepsy, obesity, history of colon cancer status post resection, diabetes, diabetic retinopathy, history of mitral regurgitation, hypertension, history of paranoid schizophrenia, Carnitine deficiency ,A-Fib, obstructive sleep apnea and mild intellectual disability Procedures: CT HEAD: : There is no hemorrhage, mass effect, or evidence of acute territorial ischemia by CT criteria. MRI BRAIN: No acute intracranial abnormality. EEG UNREMARKABLE Consultations: NEUROLOGY Medication Reconciliation Continued Medications: Acetaminophen (Tylenol) 325 Mg Tab 650 MG PO Q4 PRN for Pain Aspirin (Aspirin Ec) 325 Mg Tab 0.5 TAB PO QAM Atorvastatin (Lipitor) 40 Mg Tab 40 MG PO QPM, TAB Cholecalciferol (Vitamin D3) 50,000 Unit Cap 1 CAP PO WK FRIDAYS Dextromethorphan Polistirex (Delsym) 30 Mg/5 Ml Liq 2 TSP PO Q12 PRN for Cough Fluoxetine Hcl (Pmdd) (Fluoxetine) 20 Mg Cap 20 MG PO QAM Furosemide (Lasix) 20 Mg Tab 20 MG PO 4XWK, TAB TAKE ON THURSDAY/THURSDAY/THURSDAY/THU Gabapentin (Neurontin) 100 Mg Cap 100 MG PO TID, CAP Insulin Isophane & Reg (Human) (Humulin 70/30 Kwikpen (70-30) 100 Unit/ml) 1 Inj Inj 46 UNITS SC AM Insulin Isophane & Reg (Human) (Humulin 70/30 Kwikpen (70-30) 100 Unit/ml) 1 Inj Inj 24 UNITS SC PM Lamotrigine (Lamictal) 150 Mg Tab 1 TAB PO BID, #30 TAB Levocarnitine (Bulk) (L-Carnitine) 1 Pow Pow 20 ML PO TID Metoprolol Tartrate (Lopressor) 25 Mg Tab 12.5 MG PO BID, TAB Neomycin-Bacitracin Zn-Polymyx (Triple Antibiotic) 1 Oin Oin 1 APPLN TOP TID 1-3 TIMES DAILY. Oxymetazoline Hcl (Afrin 0.05% Nasal [place]) 1 Btl [place] 2-3 SPRAYS ANGE Q12 PRN for CONGESTION NO MORE THAN EVERY 10-12 HOURS NEEDED FOR CONGESTION. Phenobarbital (Phenobarbital) 64.8 Mg Tab 64.8 MG PO QAM Phenobarbital (Phenobarbital) 64.8 Mg Tab 2 TAB PO HS Polyethylene Glycol 3350 (Miralax) 1 Pow Pow 17 GM PO QAM, #255 GM Potassium Chloride (Micro-K Ext Rel) 10 Meq Capcr 10 MEQ PO 4XWK, CAP TAKES ON DAYS WITH LASIX Sodium Fluoride (Fluoride) 0.5 Mg Chw 1 TAB PO DAILY Trazodone Hcl (Trazodone) 100 Mg Tab 100 MG PO HS, TAB Verapamil Sust Rel (Calan Sr Ext Rel) 120 Mg Tabcr 120 MG PO QPM, TAB Admission Information HPI (per Admitting provider): : This is a 66-year-old male with a past medical history significant for epilepsy, obesity, history of colon cancer status post resection, diabetes, diabetic retinopathy, history of mitral regurgitation, hypertension, history of paranoid schizophrenia, Carnitine deficiency ,A-Fib, obstructive sleep apnea and mild intellectual disability, who comes from a personal prison called [facility] because of confusion. As per the director of the personal prison, the patient was confused since yesterday. Generally he is alert, oriented, he can ambulate, he can take his own insulin and take care of himself; but since yesterday he was getting confused, he has got a little worse, but right now as per the director of the [facility] he seems a little better. The patient is alert, awake, can tell his name and tell his date, not oriented to place and time, but obeys simple commands and says he is doing okay. He denies any chest pain. Denies any nausea. Denies any headaches or abdominal pain. He states he is doing fine, is eating okay; but could not do complete review of symptoms as the patient could not answer some of the questions. Currently he is resting comfortably, hemodynamically stable and afebrile. Also as per the personal prison director, the patient has had bone marrow biopsy done last week at [place]. He says because of his falls, he had a PET scan which showed some questionable lesions in the pelvic region thought was cancer and further workup was done which ruled out cancer and thought it could be mostly likely from chronic use of phenobarbital, but anyway he had a biopsy done last week and the biopsy site looks fine. No erythema or drainage at the biopsy site. Physical Exam (per Admitting): VITAL SIGNS: Temperature 36.7, pulse 70, respiratory rate 18, blood pressure 164/91 and oxygen 96% room air. HEENT: No pallor, no icterus. Pupils are equal, round and reactive to light. NECK: No JVD, no neck masses, no neck stiffness. CARDIOVASCULAR: S1, S2 heard, regular rate and rhythm, no murmur, no gallop. RESPIRATORY: Clear to auscultation bilaterally. No accessory muscle use. No wheezing, no crackles. ABDOMEN: Soft, bowel sounds present. Nontender. No distention. CENTRAL NERVOUS SYSTEM: Alert and oriented x1, power; 5/5 in all extremities. No pronator drift. Could not do complete exam, the patient is somewhat uncooperative. EXTREMITIES: Bilateral lower extremity no edema, no erythema. MUSCULOSKELETAL: Right pelvic biopsy site unremarkable. No erythema, no drainage. Hospital Course This is a 66-year-old male, who presents with confusion. 1. Encephalopathy Confusion, etiology unclear so far. 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 No leukocytosis. We will follow chest x-ray. Also CT of the head and MRI of the head are unremarkable. 12/19/16 abg and pulse ox study unremarkable eeg unremarkable seen by neurology and appreciate inputs patient at baseline today. 12/20/16 stable 12/21/16 stable and discharged home 2. History of seizures. As per the personal prison director, patient had no seizures for a long time. We will continue Lamictal and phenobarbital. Phenobarbital levels normal Neurology to continue current meds unless any change but patient is doing fine f/u with neurology 3. History of atrial flutter. The patient is rate-controlled on Lopressor, verapamil and on aspirin. MRI of the head is unremarkable for any strokes. 4. Diabetes. Continue home insulin NPH. We will also place him on insulin sliding scale. HbA1c levels 7.4. d/c on home meds. f/u with pcp 5. Hypertension. Continue verapamil and Lopressor. We will monitor the blood pressure. Discharged home Total time spent on discharge = 35MINUTES This includes examination of the patient, discharge planning, medication reconciliation, and communication with other providers. Discharge Instructions Discharge Instructions Date of Service December 21, 2016. Admission Reason for Admission: Confusion, Referred By Dr. Durga Stein Discharge Discharge Diagnosis / Problem: ENCEPHALOPATHY UNCLEAR ETIOLOGY-RESOLVED Discharge Goals Goal(s): Decrease discomfort, Improve function Activity Recommendations Activity Limitations: resume your previous activity . Instructions / Follow-Up Instructions / Follow-Up FOLLOWUP WITH FAMILY DOCTOR IN ONE WEEK. PATIENT WILL BE CALLED WITH APPOINTMENT FOLLOWUP WITH NEUROLOGY IN 3-4 WEEKS Current Hospital Diet Patient's current hospital diet: AHA Diet (Heart Healthy), Diabetes Type 2 Diet Discharge Diet Recommended Diet: AHA Diet (Heart Healthy), Diabetes Type 2 Diet Pending Studies Studies pending at discharge: no Laboratory Results Hemoglobin A1c Test 12/19/16 07:20 Range/Units Estimated Average Glucose 166 mg/dl Hemoglobin A1c 7.4 H 4.5-5.6 % Lipid Panel Test 12/19/16 07:20 Range/Units Triglycerides Level 358 H 0-150 mg/dl Cholesterol Level 228 H 0-200 mg/dl HDL Cholesterol 43 mg/dl Cholesterol/HDL Ratio 5.3 LDL Cholesterol, Calculated 113 mg/dl Medical Emergencies . Who to Call and When: Medical Emergencies: If at any time you feel your situation is an emergency, please call 911 immediately. . Non-Emergent Contact Non-Emergency issues call your: Primary Care Provider . . "Provider Documentation" section prepared by Maximus Sultana. . VTE Core Measure Inpt VTE Proph given/why not?: Enoxaparin (Lovenox)SQ
== END 2016-12-21 15:09 | disposition home or self-care (01) | DRG 71 ==
LOC: ENRESERVTM → ENRESERVDT → C.EDB 09:59 → C.2T 15:15 → EDBEDREQ 16:02 → C.MED 12-20 12:59
PROVIDERS: ADMIT Internal Medicine; ATTEND Internal Medicine
DX: G93.40 Encephalopathy, unspecified (principal); I48.92 Unspecified atrial flutter; E66.9 Obesity, unspecified; G40.909 Epilepsy, unspecified, not intractable, without status epilepticus; Z85.038 Personal history of other malignant neoplasm of large intestine; Z90.49 Acquired absence of other specified parts of digestive tract; I10 Essential (primary) hypertension; E71.40 Disorder of carnitine metabolism, unspecified; G47.33 Obstructive sleep apnea (adult) (pediatric); I48.91 Unspecified atrial fibrillation; Z79.82 Long term (current) use of aspirin; Z79.4 Long term (current) use of insulin; E11.319 Type 2 diabetes mellitus with unspecified diabetic retinopathy without macular edema; Z82.0 Family history of epilepsy and other diseases of the nervous system

== ENCOUNTER 2019-10-05 00:43 | Observation (INO) ==
[2019-10-05] MEDS ORDERED: ALBUT/IPRATROP 3MG/0.5MG NEB 3 ML VIAL NEB STA (00:59)
[2019-10-05] MEDS ORDERED: methylPREDNISolone 125 MG/2 ML VIAL IV STA (00:59)
[2019-10-05] MEDS ORDERED: HYDROCODONE/HOMATROPINE SYRUP 5MG/1.5MG 5ML UDP PO STA (00:59)
[2019-10-05] MEDS ORDERED: SODIUM CHLORIDE 0.9% 1000ML 1,000 ML IV ONE (00:59)
[2019-10-05 01:40] LABS: INR 1.1 (0.9-1.1); Partial Thromboplastin Ratio 0.9; Partial Thromboplastin Time 24.8 Seconds (21.0-31.0); Prothrombin Time 11.1 Seconds (9.0-12.0)
[2019-10-05 01:49] LABS: BUN Creatinine Ratio 26.2 (10-20); Blood Urea Nitrogen 26 mg/dl (7-18); Calcium 9.5 mg/dl (8.5-10.1); Carbon Dioxide 25 mmol/L (21-32); Chloride 107 mmol/L (98-107); Creatinine Clr Calc Pharmacy 79.2 ml/min; Est GFR (Non-African American) 75.9; Glucose 113 mg/dl (70-99); Magnesium 1.9 mg/dl (1.8-2.4); Potassium 4.5 mmol/L (3.5-5.1); Sodium 138 mmol/L (136-145)
[2019-10-05 01:51] LABS: Troponin I < 0.015 ng/ml (0-0.045)
[2019-10-05 01:53] LABS: Influenza A virus by PCR Neg for Influ A (Neg); Influenza B virus by PCR Neg for Influ B (Neg)
[2019-10-05 02:15] LABS: Basophils # (auto) 0.02 K/uL (0-0.2); Basophils % (auto) 0.3 %; Eosinophils % (auto) 1.4 %; Hematocrit (blood only) 43.6 % (42-52); Hemoglobin 15.2 g/dL (14.0-18.0); Immature Granulocytes # (auto) 0.02 K/uL (0.00-0.02); Immature Granulocytes % (auto) 0.3 %; Lymphocytes # (auto) 0.65 K/uL (1.2-3.4); Lymphocytes % (auto) 9.2 %; Mean Corpuscular Hemoglobin 33.6 pg (25-34); Mean Corpuscular Hgb Conc 34.9 g/dL (32-36); Mean Corpuscular Volume 96.5 fL (80-100); Mean Platelet Volume 9.9 fL (7.4-10.4); Monocytes # (auto) 0.73 K/uL (0.11-0.59); Monocytes % (auto) 10.3 %; Neutrophils # (auto) 5.58 K/uL (1.4-6.5); Neutrophils % (auto) 78.5 %; Platelet Count 144 K/uL (130-400); RDW Coefficient of Variation 12.6 % (11.5-14.5); RDW Standard Deviation 44.4 fL (36.4-46.3); Red Blood Count 4.52 M/uL (4.7-6.1)
[2019-10-05 02:26] LABS: NT Pro B Type Natriuretic Pept 715 pg/ml (0-900)
[2019-10-05] MEDS ORDERED: INFLUENZA ADMINISTRATION CHARGE ONE (04:02)
[2019-10-05] MEDS ORDERED: PNEUMOCOCCAL POLYSACCHARIDES 25 MCG/0.5 ML VIAL/SYR IM ONE (04:02)
[2019-10-05] MEDS ORDERED: PNEUMOCOCCAL ADMINISTRATION CHARGE ONE (04:02)
[2019-10-05] MEDS ORDERED: INFLUENZA VACCINE HIGH DOSE 65+ 0.5 ML SYR IM ONE (04:02)
[2019-10-05] MEDS ORDERED: POLYETHYLENE (MIRALAX) 17 GM PACK PO PRN (04:26)
[2019-10-05] MEDS ORDERED: ACETAMINOPHEN 325 MG TAB PO PRN (04:26)
[2019-10-05] MEDS ORDERED: NITROGLYCERIN SL 0.4 MG/TAB TAB SL PRN (04:26)
[2019-10-05] MEDS ORDERED: HYDROCODONE/HOMATROPINE SYRUP 5MG/1.5MG 5ML UDP PO PRN (04:26)
[2019-10-05] MEDS ORDERED: LEVOCARNITINE MS SCH (04:26)
[2019-10-05] MEDS ORDERED: FUROSEMIDE 40 MG/4 ML VIAL IV STA (04:26)
[2019-10-05] MEDS ORDERED: DEXTROSE 50% 50 ML SYRINGE IV PRN (05:15)
[2019-10-05] MEDS ORDERED: CARBOHYDRATES FOR HYPOGLYCEMIA PO PRN (05:15)
[2019-10-05] MEDS ORDERED: GLUCAGON FOR INJ 1 MG VIAL IM PRN (05:15)
[2019-10-05] MEDS ORDERED: GLUCOSE 10 TABS/TUBE PO PRN (05:15)
[2019-10-05] MEDS ORDERED: GLUCOSE 40% GEL 15 GM TUBE PO PRN (05:15)
[2019-10-05] MEDS ORDERED: INSULIN ASPART 100 UNITS/ML 3 ML PEN SC SCH (06:00)
[2019-10-05] MEDS: LEVOTHYROXINE SODIUM 75 MCG TABLET PO SCH (06:01)
--- NOTE | 2019-10-05 06:03 | Emergency Department Note ---
Entered by Edgar Escobar acting as a scribe for ED Provider Note Name: Kole Diaz Age: 69 Arrives Via: Walk in Informant: Patient, niece CC: Chest pain HPI: The patient is a 69 year old male who presents to the emergency department with complaints of intermittent chest pain beginning 2 days ago. The patient states that he has had intermittent chest pain and a worsening cough for the last 2 days. He notes that he is unsure if he has had a fever. Per niece, the patient is more irritable than usual. She reports that the patient has a history of epilepsy, Afib, and she states that the patient was recently found to have fluid around his heart. She notes that the patient had pneumonia 1-2 year ago. ROS: See above HPI for pertinent positives & negatives. A total of 10 systems reviewed and were otherwise negative. Past Medical History: Epilepsy, pneumonia, Afib, diabetes, hypertension, paranoid schizophrenia Past Surgical History: Partial colectomy Family History: None Social History: Lives in a personal care facility Home Medications: Please see medication list Allergies: Valproic acid, penicillins Physical: Vitals: BP 90/50, Pulse 80, Resp 19, Temp 97.7 F, O2 Sat 96 Exam: GENERAL: Patient is ill appearing and in moderate distress. EYES: No scleral icterus, unremarkable pupils. ENT: Mucous membranes moist, no nasal congestion. NECK: No masses appreciated, no meningismus, trachea is midline. RESPIRATORY: Mild dyspnea. Equal bilaterally. No rhonchi. Junky cough, crackles in all thompson with wheezing in all thompson. CARDIOVASCULAR: Regular rate and rhythm. No murmurs, rubs, gallops appreciated. GASTROINTESTINAL: Abdomen soft, non-tender, no peritonitis. Bowel sounds positive. No masses appreciated. BACK: No midline tenderness, no CVA tenderness EXTREMITIES: Normal motion all extremities, no cyanosis, no edema. NEUROLOGIC: Alert and oriented, no acute motor or sensory deficits, no focal weakness, cranial nerves grossly intact. SKIN: No rash, no jaundice, no diaphoresis. ED Course: Prior Medical Record, Triage/Nursing Notes, Medications, Allergies reviewed by [id number]: The patient was evaluated in room B6. A complete history and physical exam was performed. 0220: I rechecked the patient. He looks much improved and has no further distress. He is breathing comfortably. 0222: Dr. Sultana Hospitalist, [facility], was paged. 0230: Upon reevaluation, the patient is stable. I discussed the findings and the treatment plan with the patient. He expresses agreement and understanding. I spoke with Dr. Sultana of the [facility] Hospitalist Service. The patient will be evaluated for further management. Vital Signs: reviewed and remarkable for hypotension Labs: Reviewed and remarkable for wnl cbc, bmp, trop Interventions: saline lock, duoneb, solumedrol 125mg IV, Imaging: CHEST X-RAY: X ray results are stated below per my interpretation: Chest: 1 view: Bilateral moderate congestive vs viral findings EKG: Per My Interpretation: Indication SHOB/CP: Afib 78 bpm, qtc 426. No Ischemia. Compared to EKG 08/25/17 Afib is new Consults: 0230: I reviewed the patient's case with Dr. Sultana - Hospitalist, [facility]. He will evaluate the patient for further management. Blood pressure: Elevated - Will be monitored by hospitalist. Disposition: Hospitalization Continuous Cardiac Monitoring: An order was placed for continuous cardiac monitoring. The monitor shows a rate of 80 with irregular rhythm. Differential: Infectious, Reactive Airway Disease, Pneumonia, Pneumothorax, COPD, CHF, ACS, Pulmonary Embolism, MSK, GI, Dissection, amongst other etiologies entertained. Medical Decision Makin yr old male arrives acutely ill appearing with shortness of breath, chest pains and found to be hypotensive with some mild diffuse wheezing. Symptoms essentially completely resolved with steroids, duoneb and fluid bolus and hycodan. He looks well, no further distress and is laughing with staff. His BP is now normalized and there is no evidence of what had been ongoing on arrival. EKG OK, labs normal. CXR with some congestion vs viral prominence but no clear pneumonia nor overt heart failure. Given initial appearance and findings hospitalist will evaluate further. He is not anticoagulated though seems unlikely PE given resolution. At this time no evidence ACS. Symptoms not consistent with dissection. Flu negative and no current rhinorrhea. Impression: SOB Substernal chest pain Hypotension Elliot Marie MD The scribe's documentation has been prepared under my direction and personally reviewed by me in its entirety. I confirm that the note above accurately reflects all work, treatment, procedures, and medical decision making performed by me. Impression & Plan SOB (shortness of breath), Substernal chest pain, Hypotension Past Med/Surg History Family History (Updated 10/05/19 @ 01:01 by Edgar Escobar) Other No significant family history Social History (Updated 08/24/19 @ 11:22 by Gina Mendoza PALilia) Preferred Language: Upper Sorbian Communication Ability: Effective Civil Structural Engineer Required: No Beliefs That Will Affect Care: Gnosticism Gnosticism Beliefs: religion- no blood Current Living Situation: Personal Care Facility Current Living Situation Comment: "house of care" Feels Safe at Home: Yes Smoking Status: Former smoker Do You Dip or Chew Tobacco: No ; Hx Alcohol Use: No Hx Substance Use: No Results & Data Vital Signs Vital Signs - 24 hr 10/05/19 00:50 10/05/19 01:02 10/05/19 01:05 Temperature 36.5 C Temperature Source Oral Pulse Rate 80 Pulse Rate [Right Finger] Pulse Rate from SpO2 Sensor Respiratory Rate 19 Respiratory Effort / Characteristics Non-Labored Spontaneous Spontaneous Respiratory Depth Normal Blood Pressure 90/50 L Blood Pressure Mean 63 Pulse Oximetry 96 96 Oxygen Delivery Method Room Air Room Air Room Air Sepsis Action Taken by Nursing No Action Required 10/05/19 01:22 10/05/19 01:34 10/05/19 02:00 Temperature Temperature Source Pulse Rate 88 87 Pulse Rate [Right Finger] 81 Pulse Rate from SpO2 Sensor 87 Respiratory Rate 19 24 24 Respiratory Effort / Characteristics Non-Labored Respiratory Depth Blood Pressure 161/76 H 157/67 H Blood Pressure Mean 105 76 Pulse Oximetry 95 95 94 Oxygen Delivery Method Room Air Room Air Room Air Sepsis Action Taken by Nursing 10/05/19 02:30 10/05/19 03:04 10/05/19 03:30 Temperature Temperature Source Pulse Rate 81 84 80 Pulse Rate [Right Finger] Pulse Rate from SpO2 Sensor 82 85 84 Respiratory Rate 23 20 17 Respiratory Effort / Characteristics Respiratory Depth Blood Pressure 183/91 H 166/91 H 158/80 H Blood Pressure Mean 125 128 98 Pulse Oximetry 94 93 94 Oxygen Delivery Method Room Air Room Air Room Air Sepsis Action Taken by Nursing Laboratory Data Result diagrams: 10/05/19 01:16 10/05/19 01:16 Lab Results 10/05/19 10/05/19 10/05/19 Range/Units 01:05 01:16 01:16 WBC (4.8-10.8) K/uL RBC (4.7-6.1) M/uL Hgb (14.0-18.0) g/dL Hct (42-52) % MCV (80-100) fL MCH (25-34) pg MCHC (32-36) g/dL RDW Std Deviation (36.4-46.3) fL RDW Coeff of Sudeep (11.5-14.5) % Plt Count (130-400) K/uL MPV (7.4-10.4) fL Immature Gran % (Auto) % Neut % (Auto) % Lymph % (Auto) % [place] % (Auto) % Eos % (Auto) % Baso % (Auto) % Immature Gran # (Auto) (0.00-0.02) K/uL Neut # (Auto) (1.4-6.5) K/uL Lymph # (Auto) (1.2-3.4) K/uL [place] # (Auto) (0.11-0.59) K/uL Eos # (Auto) (0-0.5) K/uL Baso # (Auto) (0-0.2) K/uL PT 11.1 (9.0-12.0) Seconds INR 1.1 (0.9-1.1) APTT 24.8 (21.0-31.0) Seconds PTT Ratio 0.9 Sodium (136-145) mmol/L Potassium (3.5-5.1) mmol/L Chloride (98-107) mmol/L Carbon Dioxide (21-32) mmol/L Anion Gap (3-11) BUN (7-18) mg/dl Creatinine (0.6-1.4) mg/dl Est Cr Clr Drug Dosing ml/min Est GFR ( Amer) Est GFR (Non-Af Amer) BUN/Creatinine Ratio (10-20) Glucose (70-99) mg/dl Lactate 1.7 (0.4-2.0) mmol/L Calcium (8.5-10.1) mg/dl Magnesium (1.8-2.4) mg/dl Troponin I (0-0.045) ng/ml NT-Pro-B Natriuret Pep (0-900) pg/ml Specimen Hemolysis Influenza Type A (PCR) Neg for Influ A (Neg) Influenza Type B (PCR) Neg for Influ B (Neg) 10/05/19 10/05/19 Range/Units 01:16 01:16 WBC 7.10 (4.8-10.8) K/uL RBC 4.52 L (4.7-6.1) M/uL Hgb 15.2 (14.0-18.0) g/dL Hct 43.6 (42-52) % MCV 96.5 (80-100) fL MCH 33.6 (25-34) pg MCHC 34.9 (32-36) g/dL RDW Std Deviation 44.4 (36.4-46.3) fL RDW Coeff of Sudeep 12.6 (11.5-14.5) % Plt Count 144 (130-400) K/uL MPV 9.9 (7.4-10.4) fL Immature Gran % (Auto) 0.3 % Neut % (Auto) 78.5 % Lymph % (Auto) 9.2 % [place] % (Auto) 10.3 % Eos % (Auto) 1.4 % Baso % (Auto) 0.3 % Immature Gran # (Auto) 0.02 (0.00-0.02) K/uL Neut # (Auto) 5.58 (1.4-6.5) K/uL Lymph # (Auto) 0.65 L (1.2-3.4) K/uL [place] # (Auto) 0.73 H (0.11-0.59) K/uL Eos # (Auto) 0.10 (0-0.5) K/uL Baso # (Auto) 0.02 (0-0.2) K/uL PT (9.0-12.0) Seconds INR (0.9-1.1) APTT (21.0-31.0) Seconds PTT Ratio Sodium 138 (136-145) mmol/L Potassium 4.5 (3.5-5.1) mmol/L Chloride 107 (98-107) mmol/L Carbon Dioxide 25 (21-32) mmol/L Anion Gap 5.0 (3-11) BUN 26 H (7-18) mg/dl Creatinine 1.00 (0.6-1.4) mg/dl Est Cr Clr Drug Dosing 79.2 ml/min Est GFR ( Amer) 88.0 Est GFR (Non-Af Amer) 75.9 BUN/Creatinine Ratio 26.2 H (10-20) Glucose 113 H (70-99) mg/dl Lactate (0.4-2.0) mmol/L Calcium 9.5 (8.5-10.1) mg/dl Magnesium 1.9 (1.8-2.4) mg/dl Troponin I < 0.015 (0-0.045) ng/ml NT-Pro-B Natriuret Pep 715 (0-900) pg/ml Specimen Hemolysis Influenza Type A (PCR) (Neg) Influenza Type B (PCR) (Neg) Administered Medications Hydrocodone Bit/Homatropine Methylb (Hycodan) 5 ml PO Q6H PRN PRN Reason: Cough Stop: 10/19/19 04:25 Last Admin: 10/05/19 05:29 Dose: 5 ml Documented by: [id number] Insulin Aspart (Novolog Flexpen) 0 units SC Q6 CHRISTOPHER Stop: 11/04/19 05:59 Last Admin: 10/05/19 05:47 Dose: 1 units Documented by: [id number] Cosigned by: [id number] Levothyroxine Sodium (Synthroid) 75 mcg PO DAILYBB CHRISTOPHER Stop: 11/04/19 06:29 Last Admin: 10/05/19 06:01 Dose: 75 mcg Documented by: [id number] Discontinued Medications Albuterol (Duoneb) 3 ml NEB NOW STA Stop: 10/05/19 01:00 Last Admin: 10/05/19 01:18 Dose: 3 ml Documented by: [id number] Furosemide (Lasix) 20 mg IV NOW STA Stop: 10/05/19 04:27 Last Admin: 10/05/19 05:37 Dose: 20 mg Documented by: [id number] Hydrocodone Bit/Homatropine Methylb (Hycodan) 5 ml PO NOW STA Stop: 10/05/19 01:00 Last Admin: 10/05/19 01:35 Dose: 5 ml Documented by: [id number] Sodium Chloride (Nss 1000ml) 1,000 mls @ 999 mls/hr IV .Q1H1M ONE Stop: 10/05/19 01:59 Last Infusion: 10/05/19 06:02 Dose: 0 mls/hr Documented by: [id number] Admin: 10/05/19 01:35 Dose: 150 mls/hr Documented by: [id number] Methylprednisolone (Solumedrol) 125 mg IV NOW STA Stop: 10/05/19 01:00 Last Admin: 10/05/19 01:35 Dose: 125 mg Documented by: [id number] Discharge Plan Visit Data *Final* Discharge Date/Time: 10/05/19 04:04 Chief Complaint: Chest Pain Stated Complaint: CHEST PAIN,LABORED BREATHING,CHRONIC COUGH ED Provider: Elliot Marie Discharge Problem: SOB (shortness of breath), Substernal chest pain, Hypotension Patient Disposition: Admitted As Inpatient Discharge Instructions Interventions: ED Discharge Assessment Last Done: 10/05/19 04:04 Discharge Problem: Hypotension Qualifiers: Hypotension type: unspecified hypotension type Qualified Code(s): I95.9 - Hypotension, unspecified The scribe's documentation has been prepared under my direction and personally reviewed by me in its entirety. I confirm that the note above accurately reflects all work, treatment, procedures, and medical decision making performed by me.
--- NOTE | 2019-10-05 06:14 | History and Physical Report ---
DATE OF ADMISSION: 10/05/2019 CHIEF COMPLAINT: Chest pain, shortness of breath. 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 Currently lives at a halfway. Was brought in because of chest pain and shortness of breath. The patient says had chest pain in middle of chest and got short of breath, could not breathe and palpitations, and is also having cough since last 2 days. Denies any fever, chills. In the ER, when he came in he initially looked sick, but after the fluids, steroid, and breathing treatment and Hycodan, he improved. Currently resting comfortably and hemodynamically stable. Currently, no chest pain, no shortness of breath. Still has some dry cough. No headache. He is somewhat hard of hearing. No runny nose, no sore throat, no fever, no chills. Asking for food. No nausea, no abdominal pain. Normal bowel and bladder movements, somewhat constipated,.Has some edema in the lower extremities. Hemodynamics are stable. ALLERGIES: PENICILLIN AND VALPROIC ACID. PAST MEDICAL HISTORY: As mentioned above. PAST SURGICAL HISTORY: Bilateral carpal tunnel surgery, colonoscopy with polypectomy, injection of the eye, partial colectomy with anastomosis. MEDICATIONS: The patient is on phenobarbital 60 mg in the morning and 120 mg at nighttime, Lasix 20 mg twice weekly on Thursday and Thursday, Toprol-XL 12.5 mg p.o. daily, levocarnitine 4 tablespoons by mouth 3 times daily for carnitine deficiency, Prozac 20 mg p.o. daily for depression, trazodone 50 mg p.o. at bedtime for sleep, Tylenol 650 mg p.o. q. 4 hours p.r.n., aspirin enteric coated 81 mg p.o. daily, cyanocobalamin B12 100 mcg p.o. daily, vitamin D 50,000 units 1 capsule once a week, Zetia 10 mg p.o. daily, atorvastatin 80 mg p.o. daily, insulin NPH 70/30, 42 units in the a.m. and 24 units in the p.m., levothyroxine 75 mcg p.o. daily, metformin 1000 mg p.o. b.i.d., Flonase 2 sprays into each nostril daily, Lamictal 300 mg p.o. b.i.d., gabapentin 100 mg p.o. t.i.d. FAMILY HISTORY: Significant for father has epilepsy. SOCIAL HISTORY: Smoked 2 packs a day for 40 years, quit in 2004. No alcohol use, no drug use. Currently lives in a halfway. REVIEW OF SYSTEMS: As per HPI. Rest of the systems negative. PHYSICAL EXAMINATION: GENERAL: The patient is obese, not in acute distress. VITAL SIGNS: Temperature 36.5, pulse 80, respiratory rate 17, blood pressure 158/80, oxygen 94% on room air. HEENT: No pallor, no icterus. Pupils equal, round, reactive to light. Ears, external otitis media present. NECK: No JVD, no neck masses, no carotid bruits. CARDIOVASCULAR: S1, S2, regular rate and rhythm, no murmur, no gallop. RESPIRATORY SYSTEM: Normal AP diameter. No accessory muscle use. Mild bibasilar crackles. No wheezing. ABDOMEN: Soft, bowel sounds present, nontender. No distention. CENTRAL NERVOUS SYSTEM: Cranial nerves II-XII grossly intact, nonfocal. EXTREMITIES: Pedal pedal edema present, no erythema seen. LABORATORY DATA: WBC 7.1, hemoglobin 15.2, hematocrit 43.6, platelets 144. PT 11.1, INR 1.1, APTT 24.8. Sodium 138, potassium 4.5, chloride 107, bicarbonate 25, BUN 26, creatinine 1, serum glucose 113. Lactate 1.7, calcium 9.5, magnesium 1.9. Troponin I less than 0.015. BNP was 715. Influenza A and B PCR negative. IMAGING DATA: Chest x-ray, pulmonary congestion seen. No infiltrates. EKG, undetermined rhythm with rate of 78. ASSESSMENT AND PLAN: This is a 69-year-old male who presents with chest pain, shortness of breath, and cough. 1. Chest pain, rule out acute coronary syndrome. Risk factors of age, diabetes, hypertension. We will observe in tele floor. Serial cardiac enzymes, echocardiogram. We will keep n.p.o. Consult cardiology in a.m. for further recommendation. 2. Shortness of breath, possible acute systolic congestive heart failure. Some pulmonary congestion on chest x-ray. The patient is on Lasix 20 mg twice weekly. We will give IV Lasix 20 mg and monitor the response. Follow the echocardiogram, await cardiac input. 3. Diabetes. We will hold his home NovoLog 70/30 and metformin. Placed him on Lantus 15 units b.i.d. and insulin sliding scale. Currently, patient is n.p.o. We will monitor the blood sugars. 4. Hypothyroidism. Continue Synthroid. 5. History of epilepsy. Continue his home phenobarbital and Lamictal, currently stable. 6. History of atrial fibrillation, rate controlled on Toprol-XL. Was not a candidate for anticoagulation because of seizure episodes and aggressive behavior in the past. 7. Depression, continue his Prozac. 8. Hyperlipidemia. Continue Zetia and statin. 9.Presumed coronary artery disease. The patient is on aspirin, beta jes, statin. 10. Acute on Chronic systolic congestive heart failure with EF of 45% to 49%, probably [id number] systolic congestive heart failure with last echo EF of 45% to 49%. Getting IV Lasix. Follow the echocardiogram. 11. History of [id number] mental retardation. 12. History of colon cancer, status post right hemicolectomy in November 2010. 13. Obesity.Needs counselling. 14. Untreated sleep apnea. Needs followup. 15. Deep venous thrombosis prophylaxis. We will place him on sequential compression devices. DISPOSITION: Closely monitor in the tele floor. Level 1 full code. MTDD
--- NOTE | 2019-10-05 07:09 | XRay Report ---
SINGLE VIEW CHEST CLINICAL HISTORY: Cough and fever. Hypotension. FINDINGS: An AP, portable, upright chest radiograph is compared to study dated 08/25/2017 and correlat ed with chest CT dated 06/10/2019. The examination is degraded by portable technique and patient rota tion. The heart is enlarged noting atherosclerotic calcification of the thoracic aorta. There is mild pulmonary vascular congestion. Atelectasis is seen at the lung bases. No airspace consolidation or l arge pleural effusion is identified. No pneumothorax is seen. The skeletal structures are osteopenic. The bony thorax is grossly intact. IMPRESSION: Cardiomegaly with evidence of mild congestive failure. ACT 112: Negative or not required by law. Electronically signed by: John Pettit M.D. 10/05/2019 7:08 AM
[2019-10-05] MEDS ORDERED: COUGH DROP (SUGAR FREE) LOZ 24 LOZ/1 BOX BUCCAL ONE (07:23)
--- NOTE | 2019-10-05 08:49 | Cardiology Consultation ---
Date of Consultation October 05, 2019 Assessment & Plan (1) SOB (shortness of breath): Multifactorial etiology suggestive of possible underlying bronchitis mixed with mild decompensated diastolic HF exacerbation Symptoms improved on admission with nebs, steroids, and dose of IV lasix. He currently is asymptomatic but has ongoing dry cough. Doxycycline initiated by hospitalist. (2) Acute on chronic diastolic HF (heart failure): Mild pulm congestion noted on xray. Mild weight gain noted on admission compared with outpatient records. He received one dose of IV lasix with improvement. Appears euvolemic on exam. Received IV lasix at 6:00 AM. Will not give additional dose at this time. He takes furosemide 2 days per week as outpatient. consider increasing to 3 times per week on discharge (3) Substernal chest pain: Resolved with treatment of possible CHF and pulm etiology/bronchitis Negative cardiac enzymes EKG without acute changes No recurrent chest pain Echocardiogram pending (4) Pericardial effusion: Small pericardial effusion noted on echo as outpatient. No tamponade Repeat echo pending this admission (5) Atrial fibrillation with controlled ventricular rate: Controlled rates. previously deemed not an anticoagulation candidate continue outpatient meds. (6) CAD (coronary artery disease): History of presumed CAD, managed medically. Negative cardiac enzymes since admission Chest pain resolved. No acute EKG changes Continue home medications. Case discussed with Dr. Jerome. Will follow. Supervising Physician Co-Signing Physician Notes General: no acute distress and stated age Head: normocephalic, no masses, lesions, tenderness or abnormalities Eyes: conjunctiva are pink and non-injected, sclera clear Neck: supple, no adenopathy, no bruits, normal jugular venous pulse, no hepatojugular reflux Chest: normal shape and normal respiratory effort Lungs: clear to auscultation and percussion Cardiac Exam: - regular rate & rhythm, no murmurs gallops or rubs - normal S1, normal S2 Pulses: 2(+) throughout Abdomen: abdomen soft, non-tender, no abnormal masses and no hepatosplenomegaly Musculoskeletal: no gait disturbance, no joint inflammation, no deforming arthritis Extremities: no edema and no cyanosis Neuro: grossly normal exam I have discussed the case with Stefanie Nicolas, reviewed the chart and examined the patient. I agree with the current treatment plan as outlined. History of Present Illness Reason for Consultation: Chest pain/SOB Requesting Physician: Dr. Sultana Attending Physician: Dr. Jerome History of Present Illness Patient is a 69 year old male who is known to [facility] cardiology (follows with Jeanine Villalta PA-C) for complex history detailed below. He lives in a shelter. He reports he had worsening cough x 2 days. Last evening he reports he began to cough and "couldn't stop" and couldn't catch his breath. [place] chest tightness with the coughing. Amity something was "stuck in his throat". He was brought to ER for evaluation. In ER he was treated with steroids, nebs, and dose of IV Lasix with improvement in his symptoms. He was admitted for further evaluation and treatment. Chest xray reveals mild congestive changes. Cardiac enzymes unremarkable. EKG reviewed demonstrated atrial fibrillation with controlled rates and no acute changes. Patient denies recent weight gain, orthopnea, or edema. No recent chest pain with walking. At time of consult, patient resting in bed comfortably. Notes ongoing cough and feels something is stuck in his throat. No recurrent chest pain. Denies SOB. Had dose of IV Lasix this morning. No significant edema. No palpitations. No dizziness, syncope or near syncope He is requesting lunch. History: 1. Chronic atrial fibrillation/flutter 2. Anticoagulation felt to be contraindicated secondary to falls, tendency toward impulsive activity and injury, medication compliance, and patient/family request 3. Incomplete right bundle branch block. 4. Presumed coronary artery disease, managed medically. Patient seen in April 2018, presenting with his niece after resting echocardiography revealed mild reduction in left ventricular systolic function. Ejection fraction was 45 to 49%. Moderate mitral regurgitation was observed. Verapamil and Lopressor were discontinued in favor of Toprol XL. Abnormal nuclear stress testing, obtained secondary to the abnormal echo, revealed a small area of mild apical inferior ischemia. Options of management were discussed with patient and family -> electing conservative medical management. 5. Systolic and diastolic congestive heart failure 6. Mitral regurgitation 7. Vertigo versus possible TIA in February 2011 8. Primary carnitine deficiency 9. 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 History of seizure disorder since age 13 11. Colon cancer status post right hemicolectomy in November 2010 12. Diabetes mellitus 13. Hypertension 14. Dyslipidemia 15. Obesity 16. Untreated obstructive sleep apnea 17. Anxiety 18. Pericardial effusion, small without tamponade on outpatient echo Allergies Allergy/AdvReac Type Severity Reaction Status Date / Time valproic acid Allergy Intermediate UNKNOWN Verified 10/05/19 01:42 Penicillins Allergy Unknown UNKNOWN Verified 10/05/19 01:42 Home Medications Home Medications Medication Instructions Recorded Confirmed Type aspirin 81 mg PO DAILY 07/10/19 10/05/19 History atorvastatin 80 mg PO HS 07/10/19 10/05/19 History ergocalciferol (vitamin D2) 50,000 unit PO FR 07/10/19 10/05/19 History [Vitamin D2] ezetimibe 10 mg PO HS 07/10/19 10/05/19 History fluoxetine 20 mg PO DAILY 07/10/19 10/05/19 History furosemide [Lasix] 20 mg PO 2XWK 07/10/19 10/05/19 History insulin NPH and regular human 1 unit SUBCUT UD 07/10/19 10/05/19 History [Humulin 70/30 U-100 KwikPen] levothyroxine 75 mcg PO QAM 07/10/19 10/05/19 History trazodone 50 mg PO HS 07/10/19 10/05/19 History cyanocobalamin (vitamin B-12) 1,000 mcg PO DAILY #30 cap 07/11/19 10/05/19 Rx 1,000 mcg capsule gabapentin 100 mg capsule 200 mg PO HS #60 cap 08/24/19 10/05/19 Rx metoprolol succinate 25 mg 12.5 mg PO DAILY tab 08/24/19 10/05/19 History tablet,extended release 24 hr phenobarbital 60 mg tablet 60 mg PO QAM 08/24/19 10/05/19 History lamotrigine 150 mg tablet 300 mg PO BID 30 Days #120 tab 09/15/19 10/05/19 Rx Afrin Nasal [place] 2 ea ANGE BID 10/05/19 10/05/19 History acetaminophen 650 mg PO Q4H PRN 10/05/19 10/05/19 History icosapent ethyl [Vascepa] 2 g PO BID 10/05/19 10/05/19 History levocarnitine (bulk) [L-Carnitine] 20 ea MISCELLANEOUS DIRECTED 10/05/19 10/05/19 History metformin 1,000 mg PO BID 10/05/19 10/05/19 History phenobarbital 120 mg PO HS 10/05/19 10/05/19 History polyethylene glycol 3350 [Gavilax] 17 g PO DAILY PRN 10/05/19 10/05/19 History Patient History Family History (Updated 10/05/19 @ 01:01 by Edgar Escobar) Other No significant family history Social History (Updated 08/24/19 @ 11:22 by Gina Mendoza, PAIbethC) Preferred Language: Yoruba Communication Ability: Effective Qm Nurse Required: No Beliefs That Will Affect Care: L[employer] L[employer] Day Beliefs: bahai- no blood Current Living Situation: Personal Care Facility Current Living Situation Comment: "house of care" Feels Safe at Home: Yes Smoking Status: Former smoker Do You Dip or Chew Tobacco: No ; Hx Alcohol Use: No Hx Substance Use: No Review of Systems Review of Systems: All systems reviewed & are unremarkable except as noted in HPI & below Physical Exam Constitutional: WD/WN, vitals as above + obese; no acute distress and not ill appearing Respiratory: normal respiratory effort; no respiratory distress Auscultation: + diminished lung sounds and + rales (faint bibasilar) Cardiovascular: Rate/Rhythm: + irregularly irregular Heart Sounds: normal S1 and normal S2; no murmur Vessels: no JVD Extremities: no edema Gastrointestinal (Abdomen): normal bowel sounds, soft, nontender, no hepatosplenomegaly Musculoskeletal: no cyanosis or clubbing, extremities motor strength 5/5 Neurologic: PERRL, EOMI, accommodation nl, no face palsy, no dysarthria Psychiatric: Orientation: alert Affect: + anxious affect Insight: + limited insight Results & Data ([facility]) Vital Signs (Past 12 Hours) Vital Signs Temp Pulse Pulse Resp BP BP Pulse Ox 10/05/19 07:14 37.1 C 83 19 144/77 H 94 10/05/19 04:26 36.8 C 86 16 116/86 96 10/05/19 03:30 80 17 158/80 H 94 10/05/19 03:04 84 20 166/91 H 93 10/05/19 02:30 81 23 183/91 H 94 10/05/19 02:00 87 24 157/67 H 94 10/05/19 01:34 88 24 161/76 H 95 10/05/19 01:22 81 19 95 10/05/19 01:05 96 10/05/19 00:50 36.5 C 80 19 90/50 L 96 Pulse Ox 10/05/19 07:14 10/05/19 04:26 96 10/05/19 03:30 10/05/19 03:04 10/05/19 02:30 10/05/19 02:00 10/05/19 01:34 10/05/19 01:22 10/05/19 01:05 10/05/19 00:50 Laboratory Results 10/05/19 10/05/19 10/05/19 Range/Units 07:23 06:31 05:46 WBC (4.8-10.8) K/uL RBC (4.7-6.1) M/uL Hgb (14.0-18.0) g/dL Hct (42-52) % MCV (80-100) fL MCH (25-34) pg MCHC (32-36) g/dL RDW Std Deviation (36.4-46.3) fL RDW Coeff of Sudeep (11.5-14.5) % Plt Count (130-400) K/uL MPV (7.4-10.4) fL Immature Gran % (Auto) % Neut % (Auto) % Lymph % (Auto) % [place] % (Auto) % Eos % (Auto) % Baso % (Auto) % Immature Gran # (Auto) (0.00-0.02) K/uL Neut # (Auto) (1.4-6.5) K/uL Lymph # (Auto) (1.2-3.4) K/uL [place] # (Auto) (0.11-0.59) K/uL Eos # (Auto) (0-0.5) K/uL Baso # (Auto) (0-0.2) K/uL PT (9.0-12.0) Seconds INR (0.9-1.1) APTT (21.0-31.0) Seconds PTT Ratio Sodium (136-145) mmol/L Potassium (3.5-5.1) mmol/L Chloride (98-107) mmol/L Carbon Dioxide (21-32) mmol/L Anion Gap (3-11) BUN (7-18) mg/dl Creatinine (0.6-1.4) mg/dl Est Cr Clr Drug Dosing ml/min Est GFR ( Amer) Est GFR (Non-Af Amer) BUN/Creatinine Ratio (10-20) Glucose (70-99) mg/dl POC Glucose 186 H 165 H (70-99) mg/dl Lactate (0.4-2.0) mmol/L Calcium (8.5-10.1) mg/dl Magnesium (1.8-2.4) mg/dl Troponin I < 0.015 (0-0.045) ng/ml NT-Pro-B Natriuret Pep (0-900) pg/ml Specimen Hemolysis Hepatitis C Ab Screen (Neg) Influenza Type A (PCR) (Neg) Influenza Type B (PCR) (Neg) 10/05/19 10/05/19 10/05/19 Range/Units 01:16 01:16 01:16 WBC 7.10 (4.8-10.8) K/uL RBC 4.52 L (4.7-6.1) M/uL Hgb 15.2 (14.0-18.0) g/dL Hct 43.6 (42-52) % MCV 96.5 (80-100) fL MCH 33.6 (25-34) pg MCHC 34.9 (32-36) g/dL RDW Std Deviation 44.4 (36.4-46.3) fL RDW Coeff of Sudeep 12.6 (11.5-14.5) % Plt Count 144 (130-400) K/uL MPV 9.9 (7.4-10.4) fL Immature Gran % (Auto) 0.3 % Neut % (Auto) 78.5 % Lymph % (Auto) 9.2 % [place] % (Auto) 10.3 % Eos % (Auto) 1.4 % Baso % (Auto) 0.3 % Immature Gran # (Auto) 0.02 (0.00-0.02) K/uL Neut # (Auto) 5.58 (1.4-6.5) K/uL Lymph # (Auto) 0.65 L (1.2-3.4) K/uL [place] # (Auto) 0.73 H (0.11-0.59) K/uL Eos # (Auto) 0.10 (0-0.5) K/uL Baso # (Auto) 0.02 (0-0.2) K/uL PT (9.0-12.0) Seconds INR (0.9-1.1) APTT (21.0-31.0) Seconds PTT Ratio Sodium 138 (136-145) mmol/L Potassium 4.5 (3.5-5.1) mmol/L Chloride 107 (98-107) mmol/L Carbon Dioxide 25 (21-32) mmol/L Anion Gap 5.0 (3-11) BUN 26 H (7-18) mg/dl Creatinine 1.00 (0.6-1.4) mg/dl Est Cr Clr Drug Dosing 79.2 ml/min Est GFR ( Amer) 88.0 Est GFR (Non-Af Amer) 75.9 BUN/Creatinine Ratio 26.2 H (10-20) Glucose 113 H (70-99) mg/dl POC Glucose (70-99) mg/dl Lactate (0.4-2.0) mmol/L Calcium 9.5 (8.5-10.1) mg/dl Magnesium 1.9 (1.8-2.4) mg/dl Troponin I < 0.015 (0-0.045) ng/ml NT-Pro-B Natriuret Pep 715 (0-900) pg/ml Specimen Hemolysis Hepatitis C Ab Screen Neg (Neg) Influenza Type A (PCR) (Neg) Influenza Type B (PCR) (Neg) 10/05/19 10/05/19 10/05/19 Range/Units 01:16 01:16 01:05 WBC (4.8-10.8) K/uL RBC (4.7-6.1) M/uL Hgb (14.0-18.0) g/dL Hct (42-52) % MCV (80-100) fL MCH (25-34) pg MCHC (32-36) g/dL RDW Std Deviation (36.4-46.3) fL RDW Coeff of Sudeep (11.5-14.5) % Plt Count (130-400) K/uL MPV (7.4-10.4) fL Immature Gran % (Auto) % Neut % (Auto) % Lymph % (Auto) % [place] % (Auto) % Eos % (Auto) % Baso % (Auto) % Immature Gran # (Auto) (0.00-0.02) K/uL Neut # (Auto) (1.4-6.5) K/uL Lymph # (Auto) (1.2-3.4) K/uL [place] # (Auto) (0.11-0.59) K/uL Eos # (Auto) (0-0.5) K/uL Baso # (Auto) (0-0.2) K/uL PT 11.1 (9.0-12.0) Seconds INR 1.1 (0.9-1.1) APTT 24.8 (21.0-31.0) Seconds PTT Ratio 0.9 Sodium (136-145) mmol/L Potassium (3.5-5.1) mmol/L Chloride (98-107) mmol/L Carbon Dioxide (21-32) mmol/L Anion Gap (3-11) BUN (7-18) mg/dl Creatinine (0.6-1.4) mg/dl Est Cr Clr Drug Dosing ml/min Est GFR ( Amer) Est GFR (Non-Af Amer) BUN/Creatinine Ratio (10-20) Glucose (70-99) mg/dl POC Glucose (70-99) mg/dl Lactate 1.7 (0.4-2.0) mmol/L Calcium (8.5-10.1) mg/dl Magnesium (1.8-2.4) mg/dl Troponin I (0-0.045) ng/ml NT-Pro-B Natriuret Pep (0-900) pg/ml Specimen Hemolysis Hepatitis C Ab Screen (Neg) Influenza Type A (PCR) Neg for Influ A (Neg) Influenza Type B (PCR) Neg for Influ B (Neg) Diagnostic Findings chest xray on admission: IMPRESSION: Cardiomegaly with evidence of mild congestive failure. EKG reviewed on admission: Atrial fib with controlled rates, no acute ischemic changes Prior DATA: Prior Echo, completed as an outpatient dated 09/23/19: Interpretation Summary A focussed study was performed per provider's request in follow up of pericardial effusion. A small circumferential pericardial effusion is present. Cardiac tamponade is absent. The pericardial effusion contains fibrous strands. Compared to the prior study dated 09/13/2019, there has been an interval subtle improvement in the amount of pericardial fluid. Ongoing clinical and echocardiographic follow up is recommended. Echo completed as outpatient on 08/17/19 reviewed: Interpretation Summary The examination is adequate to evaluate the referral indication. The LV wall thickness is normal. The left ventricular wall motion is normal. The left ventricular systolic function is normal. Calculated LV ejection Fraction = 59% (bi-plane method of discs). The left atrium is moderately enlarged (42-48 ml/m^2). There is focal calcification of the right coronary cusp of the aortic valve with resultant decreased excursion. There is normal excursion of the non coronary cusp and the left coronary cusp. Aortic stenosis is absent. Mild mitral regurgitation is present. The proximal ascending thoracic aorta is mildly enlarged. There is a small loculated pericardial effusion adjacent to the right atrium. Cardiac tamponade is absent. Medications Administered Current Inpatient Medications Acetaminophen (Tylenol) 650 mg PO Q4H PRN PRN Reason: Pain or Fever Stop: 11/04/19 04:25 Aspirin (Ecotrin Ectab) 81 mg PO DAILY [facility] Stop: 11/04/19 08:59 Atorvastatin Calcium (Lipitor) 80 mg PO HS [facility] Stop: 11/04/19 20:59 Ciprofloxacin/Hydrocortisone (Cipro Hc Otic) 3 drops OTB BID [facility] Stop: 11/04/19 08:59 Cyanocobalamin (Vitamin B-12) 1,000 mcg PO DAILY [facility] Stop: 11/04/19 08:59 Dextrose (Dextrose 50%) 25 - 50 ml IV UD PRN; Protocol PRN Reason: Hypoglycemia Protocol Stop: 11/04/19 05:14 Doxycycline Hyclate (Vibramycin) 100 mg PO BID [facility] Stop: 10/12/19 08:59 Ezetimibe (Zetia) 10 mg PO HS [facility] Stop: 11/04/19 20:59 Ergocalciferol (Vitamin D2) 50,000 units PO FR [facility] Stop: 11/06/19 08:59 Fluoxetine HCl (Prozac) 20 mg PO DAILY [facility] Stop: 11/04/19 08:59 Furosemide (Lasix) 20 mg PO MoFr [facility] Stop: 11/06/19 08:59 Gabapentin (Neurontin) 200 mg PO HS [facility] Stop: 11/04/19 20:59 Glucagon (Glucagen) 1 mg IM UD PRN; Protocol PRN Reason: Hypoglycemia Protocol Stop: 11/04/19 05:14 Glucose (Glucose 40%) 15 - 30 gm PO UD PRN; Protocol PRN Reason: Hypoglycemia Protocol Stop: 11/04/19 05:14 Glucose (Dex4 Glucose) 4 - 8 tabs PO UD PRN; Protocol PRN Reason: Hypoglycemia Protocol Stop: 11/04/19 05:14 Hydrocodone Bit/Homatropine Methylb (Hycodan) 5 ml PO Q6H PRN PRN Reason: Cough Stop: 10/19/19 04:25 Last Admin: 10/05/19 05:29 Dose: 5 ml Documented by: Insulin Aspart (Novolog Flexpen) 0 units SC Q6 [facility] Stop: 11/04/19 05:59 Last Admin: 10/05/19 05:47 Dose: 1 units Documented by: Insulin Glargine (Lantus Solostar Pen) 15 units SC BID [facility] Stop: 11/04/19 08:59 Lamotrigine (Lamictal) 300 mg PO BID [facility] Stop: 11/04/19 08:59 Levothyroxine Sodium (Synthroid) 75 mcg PO DAILYBB [facility] Stop: 11/04/19 06:29 Last Admin: 10/05/19 06:01 Dose: 75 mcg Documented by: Metoprolol Succinate (Toprol Xl) 12.5 mg PO DAILY [facility] Stop: 11/04/19 08:59 Miscellaneous (Order Awaiting Action) 1 ea N/A QS [facility] Stop: 11/04/19 07:59 Miscellaneous (Carbohydrates For Hypoglycemia) 15 - 30 gm PO UD PRN PRN Reason: Hypoglycemia Treatment Stop: 11/04/19 05:14 Nitroglycerin (Nitrostat) 0.4 mg SL UD PRN PRN Reason: Chest Pain Stop: 11/04/19 04:25 Oxymetazoline HCl (Afrin 0.05%) 2 sprays ANGE BID [facility] Stop: 11/04/19 08:59 Phenobarbital (Phenobarbital) 64.8 mg PO QAM [facility] Stop: 11/04/19 08:59 Phenobarbital (Phenobarbital) 129.6 mg PO HS [facility] Stop: 11/04/19 20:59 Polyethylene Glycol (Miralax Powder Packet) 17 gm PO DAILY PRN PRN Reason: Constipation Stop: 11/04/19 04:25 Trazodone HCl (Desyrel) 50 mg PO HS [facility] Stop: 11/04/19 20:59
[2019-10-05] MEDS: CYANOCOBALAMIN 500 MCG TABLET (VITAMIN B-12) PO SCH (09:02)
[2019-10-05] MEDS: lamoTRIgine 100 MG TAB PO SCH ×2 (09:03→20:38)
[2019-10-05] MEDS: FLUOXETINE HCL 20 MG CAP PO SCH (09:03)
[2019-10-05] MEDS: ASPIRIN 81 MG ECTAB PO SCH (09:03)
[2019-10-05] MEDS: DOXYCYCLINE HYCLATE 100 MG CAP PO SCH ×2 (09:03→20:38)
[2019-10-05] MEDS: OXYMETAZOLINE 0.05% 30 ML BTL NAE SCH ×2 (09:04→20:37)
[2019-10-05] MEDS: CIPRO 0.2%/HYDROCORTISONE 1% OTIC SUSP 10 ML BTL OTB SCH ×2 (09:06→20:37)
[2019-10-05] MEDS: INSULIN GLARGINE SOLOSTAR 100 UNITS/ML 3 ML PEN SC SCH ×2 (09:06→20:39)
[2019-10-05] MEDS: VASCEPA~ORDER AWAITING ACTION SCH ×3 (09:06→22:52)
[2019-10-05] MEDS: METOPROLOL SUCC 25MG EXT REL TAB PO SCH (09:10)
[2019-10-05] MEDS: INSULIN ASPART 100 UNITS/ML 3 ML PEN SC SCH ×3 (11:49→20:39)
--- NOTE | 2019-10-05 16:28 | Electrocardiogram Report ---
Test Reason : Blood Pressure : / mmHG Vent. Rate : 078 BPM Atrial Rate : 277 BPM P-R Int : 000 ms QRS Dur : 088 ms QT Int : 374 ms P-R-T Axes : 000 012 040 degrees QTc Int : 426 ms Atrial fibrillation Abnormal ECG When compared with ECG of 25-AUG-2017 11:18, Atrial fibrillation is now present Confirmed by Jak Rodriguez ([id number]) on 10/05/2019 4:27:49 PM Referred By: REFERRED SELF Confirmed By:Jak Rodriguez
[2019-10-05] MEDS ORDERED: EZETIMIBE 10 MG TABLET PO SCH (21:00)
[2019-10-05] MEDS ORDERED: TRAZODONE HCL 50 MG TAB PO SCH (21:00)
[2019-10-05] MEDS ORDERED: ATORVASTATIN 40 MG TAB PO SCH (21:00)
[2019-10-05] MEDS ORDERED: GABAPENTIN 100 MG CAP PO SCH (21:00)
[2019-10-06] MEDS: LEVOTHYROXINE SODIUM 75 MCG TABLET PO SCH (05:33)
[2019-10-06 06:57] LABS: Hematocrit (blood only) 40.8 % (42-52); Hemoglobin 13.9 g/dL (14.0-18.0); Mean Corpuscular Hemoglobin 32.5 pg (25-34); Mean Corpuscular Hgb Conc 34.1 g/dL (32-36); Mean Corpuscular Volume 95.3 fL (80-100); Mean Platelet Volume 9.7 fL (7.4-10.4); Platelet Count 116 K/uL (130-400); RDW Coefficient of Variation 12.7 % (11.5-14.5); RDW Standard Deviation 43.8 fL (36.4-46.3); Red Blood Count 4.28 M/uL (4.7-6.1); White Blood Count 4.52 K/uL (4.8-10.8)
[2019-10-06 07:41] LABS: Calcium 9.3 mg/dl (8.5-10.1); Est GFR (African American) 92.4; Est GFR (Non-African American) 79.8; Magnesium 1.8 mg/dl (1.8-2.4)
[2019-10-06] MEDS: INSULIN ASPART 100 UNITS/ML 3 ML PEN SC SCH ×3 (08:07→16:31)
[2019-10-06] MEDS: VASCEPA~ORDER AWAITING ACTION SCH ×2 (08:08→16:29)
[2019-10-06] MEDS: OXYMETAZOLINE 0.05% 30 ML BTL NAE SCH (09:00)
[2019-10-06] MEDS: CIPRO 0.2%/HYDROCORTISONE 1% OTIC SUSP 10 ML BTL OTB SCH (09:01)
[2019-10-06] MEDS: CYANOCOBALAMIN 500 MCG TABLET (VITAMIN B-12) PO SCH (09:01)
[2019-10-06] MEDS: FLUOXETINE HCL 20 MG CAP PO SCH (09:02)
[2019-10-06] MEDS: lamoTRIgine 100 MG TAB PO SCH (09:02)
[2019-10-06] MEDS: ASPIRIN 81 MG ECTAB PO SCH (09:02)
[2019-10-06] MEDS: DOXYCYCLINE HYCLATE 100 MG CAP PO SCH ×2 (09:02→17:04)
[2019-10-06] MEDS: INSULIN GLARGINE SOLOSTAR 100 UNITS/ML 3 ML PEN SC SCH (09:03)
[2019-10-06] MEDS: METOPROLOL SUCC 25MG EXT REL TAB PO SCH (09:03)
[2019-10-06] MEDS ORDERED: guaiFENesin 600 MG TABCR PO SCH (09:20)
[2019-10-06] MEDS ORDERED: MAGNESIUM OXIDE 400 MG TAB PO SCH (09:45)
[2019-10-06] MEDS ORDERED: MAGNESIUM SULFATE / D5W 1 GM/100 ML BAG IV ONE (10:00)
--- NOTE | 2019-10-06 10:22 | Cardiology Progress Note ---
Date of Service October 06, 2019 Assessment & Plan (1) SOB (shortness of breath): Multifactorial etiology suggestive of possible underlying bronchitis mixed with mild decompensated diastolic HF exacerbation Symptoms improved on admission with nebs, steroids, and dose of IV lasix. He currently is asymptomatic but has ongoing dry cough. No indication for additional IV lasix. Appears euvolemic. Resume oral diuretics. (2) Acute on chronic diastolic HF (heart failure): Mild pulm congestion noted on xray. Mild weight gain noted on admission compared with outpatient records. He received one dose of IV lasix with improvement. Appears euvolemic on exam today. No indication for additional diuretics. (3) Substernal chest pain: Resolved with treatment of possible CHF and pulm etiology/bronchitis Negative cardiac enzymes EKG without acute changes No recurrent chest pain Echocardiogram with normal LV systolic function. Small pericardial effusion, similar to outpatient studies (4) Pericardial effusion: Small pericardial effusion noted on echo as outpatient. similar on current study No tamponade (5) Atrial fibrillation with controlled ventricular rate: Controlled rates. previously deemed not an anticoagulation candidate continue outpatient meds. (6) CAD (coronary artery disease): History of presumed CAD, managed medically. Negative cardiac enzymes since admission Chest pain resolved. No acute EKG changes Continue home medications. Case discussed with Dr. Jerome. Will sign off. No further cardiac work up is indicated at this time Supervising Physician Co-Signing Physician Notes I have discussed the case with Stefanie Nicolas, interviewed the patient, reviewed the medical record and examined the patient. I agree with the assessment and plan as outlined. General: no acute distress and stated age Head: normocephalic, no masses, lesions, tenderness or abnormalities Eyes: conjunctiva are pink and non-injected, sclera clear Neck: supple, no adenopathy, no bruits, normal jugular venous pulse, no hepatojugular reflux Chest: normal shape and normal respiratory effort Lungs: clear to auscultation and percussion Cardiac Exam: - regular rate & rhythm, no murmurs gallops or rubs - normal S1, normal S2 Pulses: 2(+) throughout Abdomen: abdomen soft, non-tender, no abnormal masses and no hepatosplenomegaly Musculoskeletal: no gait disturbance, no joint inflammation, no deforming arthritis Extremities: no edema and no cyanosis Neuro: grossly normal exam Subjective Patient resting comfortably in bed. Denies recurrent chest pain. SOB resolved. Notes ongoing cough. Has abdominal pain/soreness when coughing. No sputum production. Denies fever or chills. No orthopnea, PND or edema. Review of Systems Review of Systems: All systems reviewed & are unremarkable except as noted in HPI & below Physical Exam Constitutional: WD/WN, vitals as above + obese; no acute distress and not ill appearing Respiratory: normal respiratory effort; no respiratory distress Auscultation: + diminished lung sounds and + rhonchi; no rales (faint bibasilar) Cardiovascular: Rate/Rhythm: + irregularly irregular Heart Sounds: normal S1 and normal S2; no murmur Vessels: no JVD Extremities: no edema Gastrointestinal (Abdomen): normal bowel sounds, soft, nontender, no hepatosplenomegaly Musculoskeletal: no cyanosis or clubbing, extremities motor strength 5/5 Neurologic: PERRL, EOMI, accommodation nl, no face palsy, no dysarthria Psychiatric: Orientation: alert Affect: + anxious affect Insight: + limited insight Results & Data Vital Signs (Past 12 Hours) Vital Signs Temp Pulse Pulse Resp BP Pulse Ox 10/06/19 08:46 36.9 C 76 19 130/72 94 10/06/19 08:00 73 10/06/19 04:10 36.8 C 73 18 164/74 H 91 10/05/19 23:05 37.8 C H 70 20 144/74 H 94
--- NOTE | 2019-10-06 14:38 | Discharge Summary ---
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 Currently lives at a long-term. Was brought in because of chest pain and shortness of breath. The patient says had chest pain in middle of chest and got short of breath, could not breathe and palpitations, and is also having cough since last 2 days. Denies any fever, chills. In the ER, when he came in he initially looked sick, but after the fluids, steroid, and breathing treatment and Hycodan, he improved. Currently resting comfortably and hemodynamically stable. Currently, no chest pain, no shortness of breath. Still has some dry cough. No headache. He is somewhat hard of hearing. No runny nose, no sore throat, no fever, no chills. Asking for food. No nausea, no abdominal pain. Normal bowel and bladder movements, somewhat constipated,.Has some edema in the lower extremities. Hemodynamics are stable. Admission Exam Per Admitting Provider GENERAL: The patient is obese, not in acute distress. VITAL SIGNS: Temperature 36.5, pulse 80, respiratory rate 17, blood pressure 158/80, oxygen 94% on room air. HEENT: No pallor, no icterus. Pupils equal, round, reactive to light. Ears, external otitis media present. NECK: No JVD, no neck masses, no carotid bruits. CARDIOVASCULAR: S1, S2, regular rate and rhythm, no murmur, no gallop. RESPIRATORY SYSTEM: Normal AP diameter. No accessory muscle use. Mild bibasilar crackles. No wheezing. ABDOMEN: Soft, bowel sounds present, nontender. No distention. CENTRAL NERVOUS SYSTEM: Cranial nerves II-XII grossly intact, nonfocal. EXTREMITIES: Pedal pedal edema present, no erythema seen. Principal Diagnosis Bronchitis Mild diastolic HF exacerbation Discharge Exam GENERAL: obese male,sitting up in bed, in no acute distress, on RA HEENT: No pallor, no icterus. Pupils equal, round, reactive to light. EOMI Ears, external otitis media present. NECK: No JVD, no neck masses, no carotid bruits. CARDIOVASCULAR: S1, S2, regular rate and rhythm, no murmur, no gallop. RESPIRATORY SYSTEM: Normal AP diameter. No accessory muscle use. Mild bibasilar crackles. No wheezing. ABDOMEN: Soft, obese, bowel sounds present, nontender. No distention. NEURO/PSYCH: awake and alert, speech fluent, moves extremities spontaneously, answers most questions appropriately, mentally challenged, euthymic affect EXTREMITIES: trace pedal edema present, no erythema seen, moves extremities spontaneously Discharge Data Allergies Allergy/AdvReac Type Severity Reaction Status Date / Time valproic acid Allergy Intermediate UNKNOWN Verified 10/05/19 01:42 Penicillins Allergy Unknown UNKNOWN Verified 10/05/19 01:42 Consultations 10/05/19 02:31 ED Decision to Admit Stat 10/05/19 04:26 Consult Case Management - Discharge Planning Routine 10/05/19 08:00 Consult Cardiology Routine Hospital Course (1) Chest pain: (2) SOB (shortness of breath): (3) Acute on chronic diastolic HF (heart failure): (4) Bronchitis: Pt initially presented with chest tightness and hx of cough for past 2 days, and shortness of breath Likely secondary to bronchitis and mild decompensated diastolic HF Mild pulmonary congestion noted on CXR. Mild weight gain noted on admission compared with outpatient records. Pt clinically improved after IV lasix, steroids, nebs, doxycycline Cardiology was consulted for chest pain, in the setting of CAD, and pericardial effusion (followed as outpt) EKG showed Afib, rate controlled, no acute changes Cardiac enzymes negative. Echocardiogram obtained w/o sign. changes, no tamponade, normal LV syst. function Per cardiology, pt was switched back to PO lasix, may consider to take 3 times a week instead of 2 times a week Instructions on weight monitoring provided on discharge For bronchitis, recommend that pt continues to take doxycycline and mucinex Pt was also diagnosed w/ otitis externa/media on admission, and started on ciprofloxacin ear drops - recommend to use ear drop Abx for next 5 days and follow up with primary care provider (5) Atrial fibrillation with controlled ventricular rate: rate controlled - not on anticoagulation (poor candidate foe AV per card. record) -cont. home medications (6) Pericardial effusion: Echocardiogram obtained and cardiology consulted No tamponade, no sign. changes Total Time Total Time Spent Total Time Spent (In Minutes): 40 Total Time Includes: Examination of the Patient, Discharge Planning, Medication Reconciliation and Communication With Other Providers Discharge Plan Discharge Items Patient Disposition: Home - Self-Care Reason For Visit: CHEST PAIN AND SOB Discharge Diagnosis: Bronchitis Mild diastolic HF exacerbation Activity: As commented below Non-emergency contact: Primary Care Provider Call non-emergency contact if: you have any medication questions Follow-up/Referrals: Durga Stein, [Primary Care Provider] - 10/12/19 1:05 pm Diet: Carb Consistent or DM2, Heart Healthy and Low Sodium (2gm) Fluids: 2000ml (8 cups) Addtl Attending Provider Instructions: Follow up with primary care doctor in 1 week. Continue taking antibiotic, doxycycline, for next 5 days for your bronchitis. Also use ear drops (antibiotic) for next 5 days. Recommend to take guaifenesin (mucinex) for next 5 days. Weigh yourself in the morning and keep a log of these numbers, make sure to bring the log to your primary care doctor. Your lasix dose may need to be adjusted. Please read instructions below in detail: Addtl Shampoo Assistant Provider Instructions: Call your Primary Care doctor if any of the following symptoms or problems start or get worse: * Shortness of breath or difficulty breathing * Wake up at night short of breath * Chest pain * Cough * Swelling of your hands, feet, or legs * More fatigued or tired with your normal activity * Palpitations - sudden fast heart beats WEIGHT * Weigh yourself every morning after using the bathroom. * Use the same scale. * Wear the same amount of clothing. * Write your weight down on a chart. * Call your Primary Care doctor if you gain more than 2-3 pounds in 1-2 days. MEDICATIONS * Use this discharge instruction sheet for medication instructions. * Take your medications at the time your doctor ordered. * Do not skip a dose of your medicines. * If you miss a dose of medicine, take it as soon as possible, but DO NOT DOUBLE A DOSE. * Read your medicine information when you get home. * Know all of the side effects of your medicine. If in doubt, ask your pharmacist * Call your Primary Care doctor's office if you have any side effects. * Be sure all of your doctors know what medicine and herbs you take (including cold, flu, and herbal medicine). Take the following with you to your follow-up doctor appointments: * Weight Chart * Medication List * List of questions Do not drink excessive alcohol, beer or wine. Pending Studies at Discharge: No Stand-Alone Forms: My [facility], Smoking Cessation Medications and DC Order Prescriptions: Continued cyanocobalamin (vitamin B-12) 1,000 mcg capsule 1,000 mcg PO DAILY Qty: 30 RF: 11 lamotrigine 150 mg tablet 300 mg PO BID 30 Days Qty: 120 RF: 5 gabapentin 100 mg capsule 200 mg PO HS Qty: 60 RF: 5 phenobarbital 60 mg tablet 60 mg PO QAM RF: 0 atorvastatin 80 mg tablet 80 mg PO HS RF: 0 trazodone 50 mg Tablet 50 mg PO HS RF: 0 aspirin 81 mg Tablet,Delayed Release (Dr/Ec) 81 mg PO DAILY RF: 0 levothyroxine 75 mcg tablet 75 mcg PO QAM RF: 0 furosemide [Lasix] 20 mg Tablet 20 mg PO 2XWK RF: 0 ergocalciferol (vitamin D2) [Vitamin D2] 50,000 unit Capsule 50,000 unit PO FR RF: 0 fluoxetine 20 mg Capsule 20 mg PO DAILY RF: 0 ezetimibe 10 mg tablet 10 mg PO HS RF: 0 Humulin 70/30 U-100 KwikPen 100 unit/mL (70-30) insulin pen 1 unit SUBCUT UD RF: 0 metoprolol succinate 25 mg tablet extended release 24 hr 12.5 mg PO DAILY RF: 0 polyethylene glycol 3350 [Gavilax] 17 gram/dose Powder 17 g PO DAILY PRN (Reason: Constipation) RF: 0 metformin 1,000 mg Tablet 1,000 mg PO BID RF: 0 Vascepa 1 gram Capsule 2 g PO BID RF: 0 acetaminophen 325 mg Tablet 650 mg PO Q4H PRN (Reason: Pain) RF: 0 Afrin Nasal [place] 2 ea ANGE BID RF: 0 levocarnitine (bulk) [L-Carnitine] Powder 20 ea miscellaneous DIRECTED RF: 0 phenobarbital 60 mg Tablet 120 mg PO HS RF: 0 Discharge Orders: Discharge Order (Routine); Ordered 10/06/19 Ordered By: Andrey Lyons Admission Data Admit Date/Time: 10/05/19 03:35 Attending Provider: Andrey Lyons Admit Provider: Maximus Sultana Primary Care Provider: Durga Stein Other Providers: Stefanie Nicolas Other Interventions: Discharge Summary Assessment (RN) Last Done: 10/06/19 16:04 DC Date/Time DO NOT enter until pt leaves facility: 10/06/19 17:10
--- NOTE | 2019-10-06 14:54 | Electrocardiogram Report ---
Test Reason : Blood Pressure : / mmHG Vent. Rate : 073 BPM Atrial Rate : 000 BPM P-R Int : 000 ms QRS Dur : 090 ms QT Int : 388 ms P-R-T Axes : 000 030 061 degrees QTc Int : 427 ms Accelerated Junctional rhythm Abnormal ECG When compared with ECG of 05-OCT-2019 00:55, Junctional rhythm has replaced Atrial fibrillation Confirmed by Tomi Andre ([id number]) on 10/06/2019 2:54:40 PM Referred By: REFERRED SELF Confirmed By:Tomi Andre
[2019-10-07] MEDS ORDERED: FUROSEMIDE 20 MG TAB PO SCH (09:00)
[2019-10-07] MEDS ORDERED: ERGOCALCIFEROL 50,000 UNITS CAP PO SCH (09:00)
== END 2019-10-06 17:10 | disposition home or self-care (01) | DRG 202 ==
LOC: ED 00:43 → 2S 00:43

== ENCOUNTER 2020-03-06 20:54 | Inpatient (IN) ==
[2020-03-06 22:37] LABS: Appearance Urine Clear (Clear); Bacteria Urine Automated Negative (Negative); Bilirubin Urine Negative (Negative); Blood Urine Negative (Negative); Color Urine Yellow; Epithelial Cell Urine Auto >30 /lpf (0-5); Glucose Urine UA Negative (Negative); Ketones Urine Trace (Negative); Leukocyte Esterase Urine Negative (Negative); Nitrite Urine Negative (Negative); Protein Urine 1+ (Negative); RBC Urine Automated 0-4 /hpf (0-4); Specific Gravity Urine 1.025 (1.000-1.030); Urobilinogen Urine Negative (Negative)
[2020-03-06 22:57] LABS: Basophils # (auto) 0.01 K/uL (0-0.2); Basophils % (auto) 0.2 %; Eosinophils # (auto) 0.11 K/uL (0-0.5); Hematocrit (blood only) 44.3 % (42-52); Immature Granulocytes # (auto) 0.02 K/uL (0.00-0.02); Immature Granulocytes % (auto) 0.4 %; Mean Corpuscular Hemoglobin 32.5 pg (25-34); Mean Corpuscular Hgb Conc 33.9 g/dL (32-36); Mean Corpuscular Volume 95.9 fL (80-100); Mean Platelet Volume 9.8 fL (7.4-10.4); Monocytes # (auto) 0.53 K/uL (0.11-0.59); Monocytes % (auto) 9.7 %; Neutrophils # (auto) 3.12 K/uL (1.4-6.5); Neutrophils % (auto) 56.7 %; Platelet Count 157 K/uL (130-400); RDW Coefficient of Variation 13.1 % (11.5-14.5); RDW Standard Deviation 45.4 fL (36.4-46.3); Red Blood Count 4.62 M/uL (4.7-6.1); White Blood Count 5.49 K/uL (4.8-10.8)
[2020-03-06 23:04] LABS: Amphetamines+Metham, Urine Neg (Neg); Barbiturates, Urine Pos (Neg); Benzodiazepine, Urine Neg (Neg); Cocaine, Urine Neg (Neg); MDMA (Ecstacy), Urine Neg (Neg); Methadone, Urine Neg (Neg); Opiate, Urine Neg (Neg); Phencyclidine, Urine Neg (Neg)
[2020-03-06 23:15] LABS: Albumin Level 3.9 gm/dl (3.4-5.0); BUN Creatinine Ratio 26.3 (10-20); Calcium 9.4 mg/dl (8.5-10.1); Creatinine Clr Calc Pharmacy 47.9 ml/min; Est GFR (African American) 54.3; Est GFR (Non-African American) 46.9; Potassium 4.7 mmol/L (3.5-5.1)
[2020-03-06 23:25] LABS: Albumin Globulin Ratio 0.9 (0.9-2); Bilirubin,Total 0.4 mg/dl (0.2-1); Globulin 4.4 gm/dl (2.5-4.0); Thyroid Stimulating Hormone 1.96 uIu/ml (0.300-4.500); Total Protein 8.3 gm/dl (6.4-8.2)
[2020-03-06 23:42] LABS: Acetaminophen < 2 ug/ml (10-30); Salicylate < 1.7 mg/dl (2.8-20)
--- NOTE | 2020-03-07 01:46 | Emergency Department Note ---
History of Present Illness General Chief complaint: Mental Health Evaluation Stated complaint: MENTAL HEALTH EVAL Source: patient and family Mode of arrival: ambulatory Limitations: no limitations History of Present Illness Provider complaint: Hearing voices, running away from detention Maximum Pain Intensity: 0 This patient is a 69-year-old male who presents to the emergency department with complaints of hearing voices, which is a chronic issue however they have recently been telling him to leave his detention. The patient is in a supervised living situation and is advised not to leave the property limits. Patient's niece states that the voices that he hears have recently been di recting him to leave. He left at 4 AM 2 weeks ago and attempted to walk to his daughter's house in [place], about 7 miles away. Patient states he needed money for his cell phone. Patient's niece states that 1 of the voices that he hears recurrently seems to tell him bad things about 1 of the staff members. Patient states he also hears "something in the corner of the kitchen" most afternoons. This is a constant source of tension for the patient. He denies any suicidal or homicidal ideation at this time. Home Medications Home Medications Medication Instructions Recorded Confirmed Type Humulin 70/30 U-100 KwikPen 24 - 42 unit SUBCUT UD 07/10/19 03/07/20 History aspirin 81 mg PO QAM 07/10/19 03/07/20 History ezetimibe [Zetia] 10 mg PO HS 07/10/19 03/07/20 History fluoxetine [Prozac] 20 mg PO DAILY 07/10/19 03/07/20 History trazodone 50 mg PO HS 07/10/19 03/07/20 History metoprolol succinate 25 mg 12.5 mg PO DAILY tab 08/24/19 03/07/20 History tablet,extended release 24 hr phenobarbital 60 mg tablet 60 mg PO QAM 08/24/19 03/07/20 History Vascepa 2 g PO BID 10/05/19 03/07/20 History acetaminophen [Tylenol] 650 mg PO Q4H PRN 10/05/19 03/07/20 History levocarnitine (bulk) [L-Carnitine] 20 ea MISCELLANEOUS DIRECTED 10/05/19 03/07/20 History phenobarbital 120 mg PO HS 10/05/19 03/07/20 History polyethylene glycol 3350 [Miralax] 17 g PO DAILY PRN 10/05/19 03/07/20 History atorvastatin [Lipitor] 80 mg PO HS 11/17/19 02/23/20 History cyanocobalamin (vitamin B-12) 1,000 mcg PO QAM 11/17/19 03/07/20 History levothyroxine [Synthroid] 75 mcg PO QAM 11/17/19 03/07/20 History metformin [Fortamet] 1,000 mg PO BID 11/17/19 03/07/20 History oxymetazoline [Afrin 2 spray INTRANASAL Q12H PRN 11/17/19 03/07/20 History (oxymetazoline)] lamotrigine 150 mg tablet 300 mg PO BID 30 Days #120 tab 02/16/20 03/07/20 Rx atorvastatin 80 mg PO HS 03/07/20 03/07/20 History Allergies Allergy/AdvReac Type Severity Reaction Status Date / Time valproic acid Allergy Intermediate UNKNOWN Verified 02/23/20 11:01 Penicillins Allergy Unknown UNKNOWN Verified 02/23/20 11:01 Past Med/Surg History Medical History Afib (Chronic) Atrial flutter (Chronic) 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) Diabetes (Chronic) Diabetic nephropathy Diabetic peripheral neuropathy Dizziness Dyslipidemia (Chronic) H/O malignant neoplasm of colon (Resolved) "s/p resection " HTN (hypertension) (Chronic) Hypothyroidism Paranoid schizophrenia (Chronic) Seizure disorder Surgical History S/P partial colectomy (Chronic) Family History Other No significant family history Social History Smoking Status: Former smoker Hx Alcohol Use: No Hx Substance Use: No Preferred Language: Amharic Communication Ability: Effective Commodity Supervisor Required: No Beliefs That Will Affect Care: Gnosticism Gnosticism Beliefs: nondenominational- no blood Current Living Situation: Personal Care Facility Current Living Situation Comment: "house of care" Feels Safe at Home: Yes Review of Systems See HPI for pertinent positives & negatives. and A total of 10 systems reviewed and were otherwise negative Physical Exam Vital Signs Vital Signs - 24 hr 03/06/20 21:14 03/06/20 23:25 Temperature Source Oral Pulse Rate 70 Pulse Rate [Finger] 64 Pulse Rhythm Regular Pulse Strength Normal Respiratory Rate 18 18 Respiratory Effort / Characteristics Non-Labored Spontaneous Non-Labored Respiratory Depth Normal Normal Respiratory Pattern Regular Blood Pressure 157/75 H Blood Pressure [Right Arm] 143/79 H Blood Pressure Mean 102 Blood Pressure Mean [Right Arm] 100 Blood Pressure Position Sitting Pulse Oximetry 97 99 Oxygen Delivery Method Room Air Room Air Sepsis Recent Fever Within 48 Hours No Sepsis New/Unexplained Change in Mental Status No Sepsis Action Taken by Nursing No Action Required Vital signs reviewed. General: Well-appearing 69-year-old male, in no significant distress. HEENT: No scleral icterus, PERRLA, neck supple. Atraumatic. Cardiovascular: Regular rate and rhythm, no extra sounds. Pulmonary: Clear to auscultation bilaterally, normal work of breathing. Abdomen: Soft, nontender, nondistended, positive bowel sounds. Musculoskeletal: Atraumatic, no peripheral edema. Neurologic: Patient awake alert and answers questions appropriately. Psych: Positive auditory hallucinations, negative SI, negative HI Skin: Warm, dry, no rash Medical Decision Making Differential Diagnosis Differential diagnosis: Etiologies such as psychiatric disorder, infection, hypoglycemia, electrolyte abnormalities, cardiac sources, intracerebral event, toxicological process, neurologic disorder, as well as others were entertained. Medical Records Attestation: I reviewed the patient's medical records. Home Medications Current Medication List: was personally reviewed by me Laboratory Data Attestation: I reviewed the patient's lab results. Result diagrams: 03/06/20 22:36 03/06/20 22:36 Lab Results 03/06/20 03/06/20 03/06/20 Range/Units 21:37 21:37 22:29 WBC (4.8-10.8) K/uL RBC (4.7-6.1) M/uL Hgb (14.0-18.0) g/dL Hct (42-52) % MCV (80-100) fL MCH (25-34) pg MCHC (32-36) g/dL RDW Std Deviation (36.4-46.3) fL RDW Coeff of Sudeep (11.5-14.5) % Plt Count (130-400) K/uL MPV (7.4-10.4) fL Immature Gran % (Auto) % Neut % (Auto) % Lymph % (Auto) % [place] % (Auto) % Eos % (Auto) % Baso % (Auto) % Neut # (Auto) (1.4-6.5) K/uL Lymph # (Auto) (1.2-3.4) K/uL [place] # (Auto) (0.11-0.59) K/uL Eos # (Auto) (0-0.5) K/uL Baso # (Auto) (0-0.2) K/uL Immature Gran # (Auto) (0.00-0.02) K/uL Sodium (136-145) mmol/L Potassium (3.5-5.1) mmol/L Chloride (98-107) mmol/L Carbon Dioxide (21-32) mmol/L Anion Gap (3-11) BUN (7-18) mg/dl Creatinine (0.6-1.4) mg/dl Est Cr Clr Drug Dosing ml/min Est GFR ( Amer) Est GFR (Non-Af Amer) BUN/Creatinine Ratio (10-20) Glucose (70-99) mg/dl POC Glucose 111 H (70-99) mg/dl Calcium (8.5-10.1) mg/dl Total Bilirubin (0.2-1) mg/dl AST (15-37) U/L ALT (12-78) U/L Alkaline Phosphatase (45-117) U/L Ammonia (11-32) umol/L Total Protein (6.4-8.2) gm/dl Albumin (3.4-5.0) gm/dl Globulin (2.5-4.0) gm/dl Albumin/Globulin Ratio (0.9-2) TSH (0.300-4.500) uIu/ml Urine Color Yellow Urine Appearance Clear (Clear) Urine pH 5.0 (4.5-7.5) Ur Specific [place] 1.025 (1.000-1.030) Urine Protein 1+ H (Negative) Urine Glucose (UA) Negative (Negative) Urine Ketones Trace H (Negative) Urine Blood Negative (Negative) Urine Nitrite Negative (Negative) Urine Bilirubin Negative (Negative) Urine Urobilinogen Negative (Negative) Ur Leukocyte Esterase Negative (Negative) Urine WBC (Auto) 1-5 (0-5) /hpf Urine RBC (Auto) 0-4 (0-4) /hpf U Hyaline Cast (Auto) 1-5 (0-5) /lpf U Epithel Cells (Auto) >30 H (0-5) /lpf Urine Bacteria (Auto) Negative (Negative) Salicylates (2.8-20) mg/dl Urine Opiates Screen Neg (Neg) Ur Methadone, Qual Neg (Neg) Acetaminophen (10-30) ug/ml Urine Barbiturates Pos H (Neg) Ur Phencyclidine (PCP) Neg (Neg) U Amphetamin/Meth Scrn Neg (Neg) MDMA (Ecstasy) Screen Neg (Neg) Phenobarbital (15-40) mcg/mL U Benzodiazepines Scrn Neg (Neg) Ur Cocaine Metabolite Neg (Neg) U Marijuana (THC) Screen Neg (Neg) Ethyl Alcohol mg/dL (0-3) mg/dl 03/06/20 03/06/20 03/06/20 Range/Units 22:36 22:36 22:36 WBC 5.49 (4.8-10.8) K/uL RBC 4.62 L (4.7-6.1) M/uL Hgb 15.0 (14.0-18.0) g/dL Hct 44.3 (42-52) % MCV 95.9 (80-100) fL MCH 32.5 (25-34) pg MCHC 33.9 (32-36) g/dL RDW Std Deviation 45.4 (36.4-46.3) fL RDW Coeff of Sudeep 13.1 (11.5-14.5) % Plt Count 157 (130-400) K/uL MPV 9.8 (7.4-10.4) fL Immature Gran % (Auto) 0.4 % Neut % (Auto) 56.7 % Lymph % (Auto) 31.0 % [place] % (Auto) 9.7 % Eos % (Auto) 2.0 % Baso % (Auto) 0.2 % Neut # (Auto) 3.12 (1.4-6.5) K/uL Lymph # (Auto) 1.70 (1.2-3.4) K/uL [place] # (Auto) 0.53 (0.11-0.59) K/uL Eos # (Auto) 0.11 (0-0.5) K/uL Baso # (Auto) 0.01 (0-0.2) K/uL Immature Gran # (Auto) 0.02 (0.00-0.02) K/uL Sodium 139 (136-145) mmol/L Potassium 4.7 (3.5-5.1) mmol/L Chloride 108 H (98-107) mmol/L Carbon Dioxide 27 (21-32) mmol/L Anion Gap 4.0 (3-11) BUN 39 H (7-18) mg/dl Creatinine 1.49 H (0.6-1.4) mg/dl Est Cr Clr Drug Dosing 47.9 ml/min Est GFR ( Amer) 54.3 Est GFR (Non-Af Amer) 46.9 BUN/Creatinine Ratio 26.3 H (10-20) Glucose 92 (70-99) mg/dl POC Glucose (70-99) mg/dl Calcium 9.4 (8.5-10.1) mg/dl Total Bilirubin 0.4 (0.2-1) mg/dl AST 42 H (15-37) U/L ALT 37 (12-78) U/L Alkaline Phosphatase 379 H (45-117) U/L Ammonia (11-32) umol/L Total Protein 8.3 H (6.4-8.2) gm/dl Albumin 3.9 (3.4-5.0) gm/dl Globulin 4.4 H (2.5-4.0) gm/dl Albumin/Globulin Ratio 0.9 (0.9-2) TSH 1.960 (0.300-4.500) uIu/ml Urine Color Urine Appearance (Clear) Urine pH (4.5-7.5) Ur Specific [place] (1.000-1.030) Urine Protein (Negative) Urine Glucose (UA) (Negative) Urine Ketones (Negative) Urine Blood (Negative) Urine Nitrite (Negative) Urine Bilirubin (Negative) Urine Urobilinogen (Negative) Ur Leukocyte Esterase (Negative) Urine WBC (Auto) (0-5) /hpf Urine RBC (Auto) (0-4) /hpf U Hyaline Cast (Auto) (0-5) /lpf U Epithel Cells (Auto) (0-5) /lpf Urine Bacteria (Auto) (Negative) Salicylates < 1.7 L (2.8-20) mg/dl Urine Opiates Screen (Neg) Ur Methadone, Qual (Neg) Acetaminophen < 2 L (10-30) ug/ml Urine Barbiturates (Neg) Ur Phencyclidine (PCP) (Neg) U Amphetamin/Meth Scrn (Neg) MDMA (Ecstasy) Screen (Neg) Phenobarbital 37.2 (15-40) mcg/mL U Benzodiazepines Scrn (Neg) Ur Cocaine Metabolite (Neg) U Marijuana (THC) Screen (Neg) Ethyl Alcohol mg/dL (0-3) mg/dl 03/06/20 03/06/20 Range/Units 22:36 22:36 WBC (4.8-10.8) K/uL RBC (4.7-6.1) M/uL Hgb (14.0-18.0) g/dL Hct (42-52) % MCV (80-100) fL MCH (25-34) pg MCHC (32-36) g/dL RDW Std Deviation (36.4-46.3) fL RDW Coeff of Sudeep (11.5-14.5) % Plt Count (130-400) K/uL MPV (7.4-10.4) fL Immature Gran % (Auto) % Neut % (Auto) % Lymph % (Auto) % [place] % (Auto) % Eos % (Auto) % Baso % (Auto) % Neut # (Auto) (1.4-6.5) K/uL Lymph # (Auto) (1.2-3.4) K/uL [place] # (Auto) (0.11-0.59) K/uL Eos # (Auto) (0-0.5) K/uL Baso # (Auto) (0-0.2) K/uL Immature Gran # (Auto) (0.00-0.02) K/uL Sodium (136-145) mmol/L Potassium (3.5-5.1) mmol/L Chloride (98-107) mmol/L Carbon Dioxide (21-32) mmol/L Anion Gap (3-11) BUN (7-18) mg/dl Creatinine (0.6-1.4) mg/dl Est Cr Clr Drug Dosing ml/min Est GFR ( Amer) Est GFR (Non-Af Amer) BUN/Creatinine Ratio (10-20) Glucose (70-99) mg/dl POC Glucose (70-99) mg/dl Calcium (8.5-10.1) mg/dl Total Bilirubin (0.2-1) mg/dl AST (15-37) U/L ALT (12-78) U/L Alkaline Phosphatase (45-117) U/L Ammonia 24.2 (11-32) umol/L Total Protein (6.4-8.2) gm/dl Albumin (3.4-5.0) gm/dl Globulin (2.5-4.0) gm/dl Albumin/Globulin Ratio (0.9-2) TSH (0.300-4.500) uIu/ml Urine Color Urine Appearance (Clear) Urine pH (4.5-7.5) Ur Specific [place] (1.000-1.030) Urine Protein (Negative) Urine Glucose (UA) (Negative) Urine Ketones (Negative) Urine Blood (Negative) Urine Nitrite (Negative) Urine Bilirubin (Negative) Urine Urobilinogen (Negative) Ur Leukocyte Esterase (Negative) Urine WBC (Auto) (0-5) /hpf Urine RBC (Auto) (0-4) /hpf U Hyaline Cast (Auto) (0-5) /lpf U Epithel Cells (Auto) (0-5) /lpf Urine Bacteria (Auto) (Negative) Salicylates (2.8-20) mg/dl Urine Opiates Screen (Neg) Ur Methadone, Qual (Neg) Acetaminophen (10-30) ug/ml Urine Barbiturates (Neg) Ur Phencyclidine (PCP) (Neg) U Amphetamin/Meth Scrn (Neg) MDMA (Ecstasy) Screen (Neg) Phenobarbital (15-40) mcg/mL U Benzodiazepines Scrn (Neg) Ur Cocaine Metabolite (Neg) U Marijuana (THC) Screen (Neg) Ethyl Alcohol mg/dL < 3.0 (0-3) mg/dl ECG Data Attestation: I personally reviewed and interpreted this ECG as follows: Rate (beats per minute): 67 Rhythm: + other (Accelerated junctional rhythm versus rate controlled atrial fib) ECG Intervals/blocks: + Normal QT-c ECG ST segments: + Nonspecific ST abnormalities ECG Findings: no PACs and no PVCs Blood Pressure Blood Pressure Findings: Elevated blood pressure Blood Pressure Disposition: elevated BP felt to be situational MDM Narrative This patient was evaluated and appeared to be in no significant distress. Laboratory work was obtained and the patient was medically cleared. EKG reveals a rate controlled atrial fibrillation versus junctional rhythm likely. Patient's niece/power of estate planning attorney feel strongly that the patient needs to be admitted for medication management and counseling. She feels that the voices have been escalating and encouraging him to do dangerous things. He has become more belligerent with staff, particularly the one staff member that he feels interacts with 1 of the voices, Jung. She is fearful for his safety as the detention is supervised living and not able to keep him from leaving the house. At this time the patient's chronic medical conditions seem to be well managed. He will be referred for inpatient management. Case will be signed out at the change of shift to Dr. Anderson pending final disposition. Impression & Plan Schizophrenia, Auditory hallucinations Discharge Plan Visit Data Chief Complaint: Mental Health Evaluation Stated Complaint: MENTAL HEALTH EVAL ED Provider: Megan Ahuja Discharge Problem: Schizophrenia, Auditory hallucinations Forms Stand Alone Forms: [facility], Suicide Prevention Resources Prescriptions Prescriptions: No Action lamotrigine [Lamictal] 150 mg tablet 300 mg PO BID 30 Days Qty: 120 RF: 0 phenobarbital 60 mg tablet 60 mg PO QAM RF: 0 trazodone 50 mg Tablet 50 mg PO HS RF: 0 aspirin 81 mg Tablet,Delayed Release (Dr/Ec) 81 mg PO QAM RF: 0 fluoxetine [Prozac] 20 mg Capsule 20 mg PO DAILY RF: 0 ezetimibe [Zetia] 10 mg tablet 10 mg PO HS RF: 0 Humulin 70/30 U-100 KwikPen 100 unit/mL (70-30) insulin pen 24 - 42 unit SUBCUT UD RF: 0 metoprolol succinate [Toprol XL] 25 mg tablet extended release 24 hr 12.5 mg PO DAILY RF: 0 polyethylene glycol 3350 [Miralax] 17 gram/dose Powder 17 g PO DAILY PRN (Reason: Constipation) RF: 0 Vascepa 1 gram Capsule 2 g PO BID RF: 0 acetaminophen [Tylenol] 325 mg Tablet 650 mg PO Q4H PRN (Reason: Pain) RF: 0 levocarnitine (bulk) [L-Carnitine] Powder 20 ea miscellaneous DIRECTED RF: 0 phenobarbital 60 mg Tablet 120 mg PO HS RF: 0 oxymetazoline [Afrin (oxymetazoline)] 0.05 % [place],Non-Aerosol 2 spray INTRANASAL Q12H PRN (Reason: Congestion) RF: 0 atorvastatin [Lipitor] 80 mg tablet 80 mg PO HS RF: 0 levothyroxine [Synthroid] 75 mcg tablet 75 mcg PO QAM RF: 0 metformin [Fortamet] 500 mg tablet extended release 24hr 1,000 mg PO BID RF: 0 cyanocobalamin (vitamin B-12) 1,000 mcg capsule 1,000 mcg PO QAM RF: 0 atorvastatin 80 mg tablet 80 mg PO HS RF: 0 Discharge Problem: Schizophrenia Qualifiers: Schizophrenia type: unspecified Qualified Code(s): F20.9 - Schizophrenia, unspecified
[2020-03-07] MEDS ORDERED: TRAZODONE HCL 50 MG TAB PO ONE (02:00)
[2020-03-07] MEDS ORDERED: EZETIMIBE 10 MG TABLET PO STA (02:01)
[2020-03-07] MEDS ORDERED: lamoTRIgine 100 MG TAB PO STA (02:01)
[2020-03-07] MEDS ORDERED: ATORVASTATIN 40 MG TAB PO STA (02:02)
[2020-03-07] MEDS ORDERED: ACETAMINOPHEN 325 MG TAB PO PRN (05:35)
[2020-03-07] MEDS ORDERED: BISMUTH SUBSALICYLATE PER ML OMNICELL CHARGE PO PRN (05:35)
[2020-03-07] MEDS ORDERED: ALUMINUM/MAGNESIUM SUSP 30 ML UDC PO PRN (05:35)
[2020-03-07] MEDS ORDERED: SODIUM CHLORIDE 0.65% NA SOLN 45 ML (OCEAN) PRN (05:35)
[2020-03-07] MEDS ORDERED: MAGNESIUM HYDROXIDE SUSP 30 ML UDC PO PRN (05:35)
[2020-03-07] MEDS ORDERED: POLYETHYLENE (MIRALAX) 17 GM PACK PO PRN (05:40)
[2020-03-07] MEDS ORDERED: OXYMETAZOLINE 0.05% 30 ML BTL PRN (05:40)
[2020-03-07] MEDS ORDERED: NON-FORMULARY PATIENT'S OWN MED PO SCH ×2 (05:45→06:00)
[2020-03-07] MEDS ORDERED: PHARMACY GLYCEMIC MGMT CONSULT PRN (06:11)
--- NOTE | 2020-03-07 07:43 | History & Physical ---
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 Levothyroxine Sodium (Levothyroxine Sodium 75 Mcg Tablet) 75 mcg PO DAILYBB [facility] Stop: 04/06/20 07:59 Magnesium Hydroxide (Magnesium Hydroxide Susp 30 Ml Udc) 30 ml PO DAILY PRN PRN Reason: Constipation Stop: 04/06/20 05:34 Metoprolol Succinate (Metoprolol Succ 25mg Ext Rel Tab) 12.5 mg PO DAILY [facility] Stop: 04/06/20 08:59 Miscellaneous Information (Pharmacy Glycemic Mgmt Consult) 1 ea N/A UD PRN PRN Reason: Consult Stop: 04/06/20 06:10 Non-Formulary Medication (Non-Formulary Patient's Own Med) 1 ea PO UD [facility] Stop: 04/06/20 05:44 Non-Formulary Medication (Non-Formulary Patient's Own Med) 1 ea PO UD [facility] Stop: 04/06/20 05:59 Oxymetazoline HCl (Oxymetazoline 0.05% 30 Ml Btl) 2 sprays NA Q12 PRN PRN Reason: Nasal Congestion Stop: 04/06/20 05:39 Phenobarbital (Phenobarbital 32.4 Mg Tab) 64.8 mg PO QAM [facility] Stop: 04/06/20 08:59 Phenobarbital (Phenobarbital 32.4 Mg Tab) 129.6 mg PO HS [facility] Stop: 04/06/20 21:59 Polyethylene Glycol (Polyethylene (Miralax) 17 Gm Pack) 17 gm PO DAILY PRN PRN Reason: Constipation Stop: 04/06/20 05:39 Sodium Chloride (Sodium Chloride 0.65% Na Soln 45 Ml ([place])) 1 - 2 sprays NA PRN PRN PRN Reason: Nasal Dryness/Congestion Stop: 04/06/20 05:34 Trazodone HCl (Trazodone Hcl 50 Mg Tab) 50 mg PO HS [facility] Stop: 04/06/20 21:59
[2020-03-07] MEDS ORDERED: GLUCOSE 10 TABS/TUBE PO PRN (08:45)
[2020-03-07] MEDS ORDERED: CARBOHYDRATES FOR HYPOGLYCEMIA PO PRN (08:45)
[2020-03-07] MEDS ORDERED: GLUCOSE 40% GEL 15 GM TUBE PO PRN (08:45)
[2020-03-07] MEDS ORDERED: DEXTROSE 50% 50 ML SYRINGE IV PRN (08:45)
[2020-03-07] MEDS ORDERED: GLUCAGON FOR INJ 1 MG VIAL IM PRN (08:45)
[2020-03-07] MEDS: LEVOTHYROXINE SODIUM 75 MCG TABLET PO SCH (08:52)
[2020-03-07] MEDS: ASPIRIN 81 MG CHEW PO SCH (08:52)
[2020-03-07] MEDS: METOPROLOL SUCC 25MG EXT REL TAB PO SCH (08:52)
[2020-03-07] MEDS: FLUOXETINE HCL 20 MG CAP PO SCH (08:53)
[2020-03-07] MEDS: CYANOCOBALAMIN 500 MCG TABLET (VITAMIN B-12) PO SCH (08:53)
[2020-03-07] MEDS: lamoTRIgine 100 MG TAB PO SCH ×2 (08:54→21:12)
[2020-03-07] MEDS ORDERED: METFORMIN HCL 500 MG TAB PO SCH (09:00)
[2020-03-07] MEDS ORDERED: INSULIN HUMAN 70% NPH/30% REGULAR SC SCH (09:00)
[2020-03-07] MEDS: INSULIN ASPART 100 UNITS/ML 3 ML PEN SC SCH ×2 (09:27→17:59)
--- NOTE | 2020-03-07 10:26 | Pharmacy Report ---
Glycemic Control Consultation - Date of Service March 07, 2020 - Scope Scope: Glycemic Pharmacist consulted for glycemic control and to write orders per [facility] inpatient glycemic control protocol. - Objective Weight: 108.5 kg Accuchecks BSG (last 24hrs): 03/06/20 03/06/20 03/07/20 22:29 22:36 08:18 Glucose 92 POC Glucose 111 H 123 H Laboratory Data (last 24hrs): 03/06/20 22:36 Potassium 4.7 Carbon Dioxide 27 Anion Gap 4.0 Creatinine 1.49 H Est Cr Clr Drug Dosing 47.9 - Recent Pertinent Medications Outpatient Anti-diabetic Regimen: * Humulin 70/30 42 units QAM, 24 units QPM * Metformin 1000 mg PO BID * A1c = 6.0% on 01/07/19 - Assessment & Plan Assessment & Plan: ASSESSMENT: * 69 y/o M admitted for paranoid schizophrenia. Patient with Type 2 diabetes managed at his Personal care facility where he resides on Novolin 70/30 insulin BID and Metformin oral. * Oral agents are not recommended for inpatient use d/t drug interactions, changing PO intake, and difficulty titrating for acute hyper/hypoglycemia. ADA recommends re-initiating outpatient oral agents 1-2 days prior to discharge if/when appropriate if they were held on admission. * Holding oral Metformin for admission and utilized SQ basal bolus insulin regimen which is the recommended regimen for inpatient glycemic control. * Continued with Novolin 70/30 insulin, which is his home insulin, for basal coverage and decreased dose by 10% to start off while admitted. * Initiated weight based Novolog dosing BID, utilizing between low and moderate stress protocol and no carb ratio since the Novolin 70/30 will also be given at the same time. Will titrate Novolog CF based on BSG trends. PLAN FOR INPATIENT GLYCEMIC CONTROL: * Holding outpatient oral diabetes medications * Basal insulin: decreased by 10% from home dose * Novolin 70/30 38 units SQ daily with breakfast * Novolin 70/30 20 units SQ daily with dinner * Bolus insulin: using only CF and no CR * NovoLog per scale ACHS or Q6hrs while NPO * Goal Range: Low 120 mg/dL - High 160 mg/dL * Correction Factor: 25 mg/dL/unit * Nutritional / Prandial insulin per carb ratio of 1 unit per ___ grams CHO consumed * Please note that the plan above was derived based on current level of insulin resistance and hospital stress. These recommendations are appropriate for inpatient admission only. Plan of care upon discharge will need to be reassessed to avoid potential outpatient hypo/hyperglycemia. Thank you.
[2020-03-07] MEDS ORDERED: PHARMACY GLYCEMIC MGMT CONSULT STA (11:00)
[2020-03-07] MEDS: INSULIN HUMAN 70% NPH/30% REGULAR SC SCH (18:02)
[2020-03-07] MEDS: [UNRECOGNIZED DRUG - REMARK] PO SCH (19:33)
[2020-03-07] MEDS: [UNRECOGNIZED DRUG - REMARK] PO SCH (21:13)
[2020-03-07] MEDS: EZETIMIBE 10 MG TABLET PO SCH (21:14)
[2020-03-07] MEDS: ATORVASTATIN 40 MG TAB PO SCH (21:14)
[2020-03-07] MEDS: TRAZODONE HCL 50 MG TAB PO SCH (21:14)
--- NOTE | 2020-03-08 01:21 | Emergency Department Note ---
ED Visit Note Patient signed out to me at change of shift from Dr. Ahuja. Please refer to her note for additional details. Patient awaiting disposition. Patient voluntary at this point, as POA could not sign for psychiatric treatment. Patient admitted to 3 S. I signed the 201. . : Schizophrenia Qualifiers: Schizophrenia type: unspecified Qualified Code(s): F20.9 - Schizophrenia, unspecified
--- NOTE | 2020-03-08 06:10 | Electrocardiogram Report ---
Test Reason : Blood Pressure : / mmHG Vent. Rate : 067 BPM Atrial Rate : 375 BPM P-R Int : 168 ms QRS Dur : 090 ms QT Int : 406 ms P-R-T Axes : 000 -05 022 degrees QTc Int : 429 ms Possible Sinus rhythm Abnormal ECG When compared with ECG of 17-NOV-2019 11:04, No significant change was found Confirmed by Duglas Miranda ([id number]) on 03/08/2020 6:09:37 AM Referred By: REFERRED SELF Confirmed By:Duglas Miranda
[2020-03-08 07:56] LABS: Creatinine Clr Calc Pharmacy 73.5 ml/min; Est GFR (African American) 80.2; Est GFR (Non-African American) 69.2
[2020-03-08 07:59] LABS: Estimated Average Glucose 126 mg/dl
[2020-03-08] MEDS: [UNRECOGNIZED DRUG - REMARK] PO SCH ×3 (08:24→17:54)
[2020-03-08] MEDS: LEVOTHYROXINE SODIUM 75 MCG TABLET PO SCH (08:25)
[2020-03-08] MEDS: ASPIRIN 81 MG CHEW PO SCH (08:25)
[2020-03-08] MEDS: lamoTRIgine 100 MG TAB PO SCH ×2 (08:25→21:21)
[2020-03-08] MEDS: METFORMIN HCL 500 MG TAB PO SCH ×2 (08:28→17:54)
[2020-03-08] MEDS: [UNRECOGNIZED DRUG - REMARK] PO SCH ×2 (08:30→21:22)
[2020-03-08] MEDS: METOPROLOL SUCC 25MG EXT REL TAB PO SCH (08:31)
[2020-03-08] MEDS: FLUOXETINE HCL 20 MG CAP PO SCH (08:31)
[2020-03-08] MEDS: CYANOCOBALAMIN 500 MCG TABLET (VITAMIN B-12) PO SCH (08:31)
[2020-03-08] MEDS: INSULIN HUMAN 70% NPH/30% REGULAR SC SCH ×2 (09:14→18:01)
[2020-03-08] MEDS: INSULIN ASPART 100 UNITS/ML 3 ML PEN SC SCH ×2 (09:15→18:05)
--- NOTE | 2020-03-08 09:42 | Psychiatric Progress Note ---
Date of Service March 08, 2020 Impression / Recommendations Impression 69-year-old male with a history of multiple medical problems including diabetes, cardiac disease, and seizure disorder, as well as a history of schizophrenia per the EMR, but no antipsychotic medication noted on his record over a period of 22 years, who is admitted with auditory hallucinations and increasingly unsafe and erratic behavior at his personal nursing home. This is a challenging case, as there is little background information and I am not sure if he was ever actually diagnosed with schizophrenia, no previous psych records are available, and on her extensive review of his chart here I cannot find any psychotropics other than longstanding prescriptions for fluoxetine and trazodone. He has numerous medical problems which could be contributing to his presenting symptoms, and is also extremely hard of hearing and has lost his hearing aids, which makes the interview quite difficult. He has a longstanding seizure disorder which has apparently been very difficult to control and could be playing a role in his psychiatric symptoms. We will need to get collateral information from his [facility] staff and niece, and hopefully get him a new set of hearing aids while here so that he can better participate in assessments and treatment. Inpatient treatment is medically necessary due to the severity of symptoms and risk for harm to himself if discharged. (1) Auditory hallucinations: 03/07 -patient endorses lifelong auditory hallucinations of voices, which recently have been telling him to "get out," in which he believes may be police telling him he needs to leave his personal nursing home, which he does not want to do. His EMR indicates a history of paranoid schizophrenia, but over the course of 22 years and multiple hospitalizations here, he has never been on an antipsychotic or had a psychiatric consultation. He does think that he was in treatment at [facility] years ago, but since they have closed, we may not be able to obtain those records. We will need to get collateral information from his niece (left message) and personal nursing home staff ([facility] staff left message) to try to clarify his psychiatric symptoms and treatment over the years. There is also a confounding factor of his hearing impairment and multiple medical conditions, specifically his seizure disorder, which could contribute to or cause psychiatric symptoms including hallucinations. Additionally, he reports an incident that occurred 9 or 10 years ago where he says he had sex with his stepdaughter who was in her early 20s. It is unclear to me if this represents a delusion, but he was somewhat fixated on it during our assessment today. -Continue to monitor and gather information. Consider trial of an antipsychotic. -Provide support and reality testing on the unit. -Continue home doses of fluoxetine and trazodone. Coordinate care with PCP, and refer for outpatient psychiatric care. 03/08 - Pt continues to endorse auditory hallucinations while here on the unit. Though not particularly distressing to the patient, they are contributing to secondary safety concerns in that he has been leaving his personal nursing home without communicating with staff and has been found wandering outside the facility - leading to continued safety concerns. Pt is concrete and thought process continues to be disorganized; however, patient is clearly able to state that he would like a medication that could target the voices. - Pt is able to repeat back the goals of utilizing an antipsychotic medication as well as repeat back side effects of concern. Pt verbalized willingness to trial an antipsychotic medications. In weighing out numerous potential interactions, will initiate paliperidone 1.5mg today and increase to 3mg starting tomorrow morning. - Continue attempts to gather collateral information, as psychiatric history continues to be rather unclear (2) Seizure disorder: 03/07 - Consider the need for neurological consult and EEG to rule out TLE or seizure activity as a potential contributor. Continue home doses of phenobarbital and lamotrigine. (3) Diabetes: 03/07 -continue metformin and insulin, consult diabetic pharmacist for glucose management. Continue diabetic diet. 03/08 - Estimated Average Glucose of 126. HgbA1c elevated at 6.0%. - Continue diabetic diet - Appreciate assistance from glycemic pharmacists (4) Dizziness: 03/07 -Per review of records, chronic problem, with multiple potential contributors including cardiac disease, arrhythmia, peripheral neuropathy, dehydration, and polypharmacy. Dehydrated on presentation with BUN 39 and creatinine 1.49. Encourage fluids, and recheck BMP in a couple days. 03/08 - Creatinine improved at 1.08 (5) CAD (coronary artery disease): 03/07 -continue home dose of aspirin (6) Atrial fibrillation with controlled ventricular rate: Continue metoprolol (7) Diabetic peripheral neuropathy: (8) Hypothyroidism: 03/06 -continue home dose of levothyroxine (9) HTN (hypertension): 03/07 -continue home dose of metoprolol (10) Dyslipidemia: 03/07 -continue atorvastatin and ezetimibe. Last FLP was 12/2018 and notable for triglycerides 228. We will need to recheck it if starting an antipsychotic. Risk Factors Assessment Male: Yes : Yes Do You Have Access To A Gun?: No Health Problems: Yes Mental Health Diagnoses: Yes Substance Use Disorders: No Previous Attempt: No Hopelessness: No Smoker: No Protective Factors Assessment : No Responsible for Young Children: No Employed: No Supportive Family: Yes Good Rapport with Provider: No Interval History Identifying Information PO NICOLE is a 69-year-old M who currently lives at the [facility] personal nursing home in [place], has a history of epilepsy, cardiac disease, diabetes, schizophrenia, and was admitted on 03/07/20 04:24 on a 201 voluntary commitment for auditory hallucinations and aggressive behavior. Chief Complaint "Now...you were gonna talk to me about my medicine?" Review of Systems Notes Constitutional: reports intermittent dizziness Cardiovascular: denied Respiratory: denied Gastrointestinal: denied Neurological: denied Psychiatric: denies symptoms other than stated above Total of at least 10 systems reviewed, pertinent positives as above and in HPI. Sleep Information Total Hours of Sleep: 7 Sleep Comments: . Meal Information Percent Meal Consumed - Breakfast: 100 Percent Meal Consumed - Lunch: 100 Percent Meal Consumed - Dinner: 100 Subjective Subjective Patient was seen & assessed and interval progress reviewed with nursing and social work. Staff report the patient has been attending group programming, though is often off topic and requires redirection. He is reported to be pleasant, but very disorganized. Pt was seen today to assess progress since admission. He is bright and cheerful, often laughing or joking during our conversation. He states, "now...you were gonna talk to me about my medicine?" He then begins to attempt to describe a request to alter the schedule of his medications. Pt continues to be disorganized and despite attempts by this provider to clarify the intent of his request, it is difficult to know what he is asking. In short, patient is requesting his "12 or so" morning medications be given "4 together, then wait 45 minutes or so. Then another 4, then wait 45 minutes. Then insulin one side, then the other." Pt also states "maybe one strong one, with 3 weaker ones, then wait 45 minutes. I don't know. You would know better than me. You know what I'm trying to say?" In summary, the patient is able to say that he frequently gets dizzy and has not noticed this the past two mornings when there was some unintended spacing of his morning medications. Pt does admit to taking all of his morning medications together when he is at the [facility]. This provider stated she would take a look at his medications, but that there did not seem to be a reason to need to space out his medications in this manner. This provider attempted to engage the patient in a conversation about initiating an antipsychotic medication to target his auditory hallucinations. Pt admits to still hearing voices "when I'm walking the halls. They just wonder what I'm doing." Pt states "I hear them here and in the kitchen at [facility] [[facility]]." Pt denies that they are particularly distressing at this time, but is able to verbalize understanding that his niece was concerned about his safety as he was responding to the voices and wandering away from his personal nursing home. Pt continued to be disorganized and tangential as we discussed starting paliperidone, often coming back to the conversation about spacing out his morning medications. At the end of our conversation, he was able to repeat back the explanation for starting an antipsychotic medication and also verbalize the risks and potential side effects that we had discussed. Pt verbalizes desire to start this medication. Pt was also informed that we would be getting fasting labs in the morning. This concept also took additional explanation, as he was not initially understanding that he would still be allowed to eat lunch and dinner today. Pt denies SI and other acute concerns here on the unit. He did request that this provider try to call his niece to update her on the treatment plan. He kindly explains "you need to call her phone number, now tell her who you are and where you're from. You may need to leave an automated message if she's at work, but she'll call you back. Give her your phone number, maybe for your house, and then she can call you." Physical Exam Psychiatric Orientation: alert, oriented to person and oriented to place; + not oriented to time (thinks today is Thursday, confused about length of stay thus far) Apperance: appropriately dressed (casually, in polo shirt and scrub pants) and appropriately groomed Eye Contact: good eye contact Motor Behavior: steady gait and station and no abnormal motor movements Speech: continues to be over-productive, rambling, loud voice Affect: euthymic affect Mood: no depressed mood ("I'm ok") Thought Process: + tangential thought process, + perseveration and + concrete thought process; + thought process not linear or logical Thought Content: + preoccupation (with medication scheduling request) Suicidal Thoughts: denies suicidal thoughts Homicidal Thoughts: denies homicidal thoughts Hallucinations: + auditory hallucinations (continues to hear voices while on the unit); no visual hallucinations Cognition: + attention not intact Estimated Intelligence: + below average estimated intelligence Insight: + impaired insight Judgement: + impaired judgement Vital Signs (Past 24 Hours) Last Vital Signs Temp 36.3 C L 03/08/20 06:25 Pulse 67 03/08/20 06:26 Resp 20 03/08/20 06:25 BP 163/85 H 03/08/20 06:26 Pulse Ox 95 03/07/20 04:52 Results & Data ([facility]) Laboratory Results Laboratory Results - last 24 hr 03/06/20 03/07/20 03/07/20 21:37 12:05 17:13 Creatinine Est Cr Clr Drug Dosing Est GFR ( Amer) Est GFR (Non-Af Amer) POC Glucose 172 H 71 Estimat Average Glucose Hemoglobin A1c Urine Butalbital Cancelled Urine Amobarbital Cancelled Urine Pentobarbital Cancelled Urine Phenobarbital Cancelled Urine Secobarbital Cancelled Drug Screen Comment Cancelled 03/07/20 03/08/20 03/08/20 20:53 07:11 07:11 Creatinine 1.08 Est Cr Clr Drug Dosing 73.5 Est GFR ( Amer) 80.2 Est GFR (Non-Af Amer) 69.2 POC Glucose 134 H Estimat Average Glucose 126 Hemoglobin A1c 6.0 H Urine Butalbital Urine Amobarbital Urine Pentobarbital Urine Phenobarbital Urine Secobarbital Drug Screen Comment 03/08/20 07:54 Creatinine Est Cr Clr Drug Dosing Est GFR ( Amer) Est GFR (Non-Af Amer) POC Glucose 132 H Estimat Average Glucose Hemoglobin A1c Urine Butalbital Urine Amobarbital Urine Pentobarbital Urine Phenobarbital Urine Secobarbital Drug Screen Comment Current Inpatient Medications Current Inpatient Medications: Current Inpatient Medications Acetaminophen (Acetaminophen 325 Mg Tab) 650 mg PO Q4H PRN PRN Reason: Headache or Minor Fever Stop: 04/06/20 05:34 Al Hydrox/Mg Hydrox/Simethicone (Aluminum/Magnesium Susp 30 Ml Udc) 30 ml PO Q4H PRN PRN Reason: GI Upset Stop: 04/06/20 05:34 Aspirin (Aspirin 81 Mg Chew) 81 mg PO QAM [facility] Stop: 04/06/20 08:59 Last Admin: 03/08/20 08:25 Dose: 81 mg Documented by: Atorvastatin Calcium (Atorvastatin 40 Mg Tab) 80 mg PO HS [facility] Stop: 04/06/20 21:59 Last Admin: 03/07/20 21:14 Dose: 80 mg Documented by: Bismuth Subsalicylate (Bismuth Subsalicylate Per Ml Omnicell Charge) 15 ml PO PRN PRN PRN Reason: Loose Stool Stop: 04/06/20 05:34 Cyanocobalamin (Cyanocobalamin 500 Mcg Tablet (Vitamin B-12)) 1,000 mcg PO QAM [facility] Stop: 04/06/20 08:59 Last Admin: 03/08/20 08:31 Dose: 1,000 mcg Documented by: Dextrose (Dextrose 50% 50 Ml Syringe) 25 - 50 ml IV UD PRN; Protocol PRN Reason: Hypoglycemia Protocol Stop: 04/06/20 08:44 Ezetimibe (Ezetimibe 10 Mg Tablet) 10 mg PO [facility] Stop: 04/06/20 21:59 Last Admin: 03/07/20 21:14 Dose: 10 mg Documented by: Fluoxetine HCl (Fluoxetine Hcl 20 Mg Cap) 20 mg PO DAILY [facility] Stop: 04/06/20 08:59 Last Admin: 03/08/20 08:31 Dose: 20 mg Documented by: Glucagon (Glucagon For Inj 1 Mg Vial) 1 mg IM UD PRN; Protocol PRN Reason: Hypoglycemia Protocol Stop: 04/06/20 08:44 Glucose (Glucose 40% Gel 15 Gm Tube) 15 - 30 gm PO UD PRN; Protocol PRN Reason: Hypoglycemia Protocol Stop: 04/06/20 08:44 Glucose (Glucose 10 Tabs/Tube) 4 - 8 tabs PO UD PRN; Protocol PRN Reason: Hypoglycemia Protocol Stop: 04/06/20 08:44 Hydroxyzine HCl (Hydroxyzine Hcl 25 Mg Tab) 50 mg PO HSZ PRN PRN Reason: Insomnia Stop: 04/06/20 05:34 Hydroxyzine HCl (Hydroxyzine Hcl 25 Mg Tab) 25 mg PO Q4H PRN PRN Reason: Anxiety Stop: 04/06/20 05:34 Insulin Aspart (Insulin Aspart 100 Units/Ml 3 Ml Pen) 0 units SC DAILY@0900,1745 [facility]; Protocol Stop: 04/06/20 08:59 Last Admin: 03/08/20 09:15 Dose: Not Given Documented by: Insulin Human Isoph/Insulin Regular (Insulin Human 70% Nph/30% Regular) 20 units SC QDD [facility]; Protocol Stop: 04/06/20 17:44 Last Admin: 03/07/20 18:02 Dose: 20 units Documented by: Insulin Human Isoph/Insulin Regular (Insulin Human 70% Nph/30% Regular) 35 units SC QDB [facility]; Protocol Stop: 04/07/20 08:59 Last Admin: 03/08/20 09:14 Dose: 35 units Documented by: Lamotrigine (Lamotrigine 100 Mg Tab) 300 mg PO BID [facility] Stop: 04/06/20 08:59 Last Admin: 03/08/20 08:25 Dose: 300 mg Documented by: Levothyroxine Sodium (Levothyroxine Sodium 75 Mcg Tablet) 75 mcg PO DAILYBB [facility] Stop: 04/06/20 07:59 Last Admin: 03/08/20 08:25 Dose: 75 mcg Documented by: Magnesium Hydroxide (Magnesium Hydroxide Susp 30 Ml Udc) 30 ml PO DAILY PRN PRN Reason: Constipation Stop: 04/06/20 05:34 Metformin HCl (Metformin Hcl 500 Mg Tab) 1,000 mg PO BIDM [facility] Stop: 04/07/20 08:59 Last Admin: 03/08/20 08:28 Dose: 1,000 mg Documented by: Metoprolol Succinate (Metoprolol Succ 25mg Ext Rel Tab) 12.5 mg PO DAILY [facility] Stop: 04/06/20 08:59 Last Admin: 03/08/20 08:31 Dose: 12.5 mg Documented by: Miscellaneous (Carbohydrates For Hypoglycemia ) 15 - 30 gm PO UD PRN PRN Reason: Hypoglycemia Treatment Stop: 04/06/20 08:44 Miscellaneous Information (Pharmacy Glycemic Mgmt Consult) 1 ea N/A UD PRN PRN Reason: Consult Stop: 04/06/20 06:10 *Vascepa 1 Gm* Non- Form Patient's Own Med 2 ea PO BID [facility] Stop: 04/06/20 20:59 Last Admin: 03/08/20 08:30 Dose: 2 gm Documented by: *L- Carnitine Liquid *Non-Form Patient's Own Med 1 ea PO AC [facility] Stop: 04/06/20 18:29 Last Admin: 03/08/20 08:24 Dose: 20 ml Documented by: Oxymetazoline HCl (Oxymetazoline 0.05% 30 Ml Btl) 2 sprays NA Q12 PRN PRN Reason: Nasal Congestion Stop: 04/06/20 05:39 Phenobarbital (Phenobarbital 32.4 Mg Tab) 64.8 mg PO QAM [facility] Stop: 04/06/20 08:59 Last Admin: 03/08/20 08:30 Dose: 64.8 mg Documented by: Phenobarbital (Phenobarbital 32.4 Mg Tab) 129.6 mg PO HS [facility] Stop: 04/06/20 21:59 Last Admin: 03/07/20 22:10 Dose: 129.6 mg Documented by: Polyethylene Glycol (Polyethylene (Miralax) 17 Gm Pack) 17 gm PO DAILY PRN PRN Reason: Constipation Stop: 04/06/20 05:39 Sodium Chloride (Sodium Chloride 0.65% Na Soln 45 Ml ([place])) 1 - 2 sprays NA PRN PRN PRN Reason: Nasal Dryness/Congestion Stop: 04/06/20 05:34 Trazodone HCl (Trazodone Hcl 50 Mg Tab) 50 mg PO HS [facility] Stop: 04/06/20 21:59 Last Admin: 03/07/20 21:14 Dose: 50 mg Documented by: Mental Health & Subst Abuse Tx Therapist Name of Therapist: . Erp Pm Name of Erp Pm: . Post Discharge Appointments Primary Care Physician Name Of Family Doctor: Alfredo Stein Primary Care Provider Appointment Comment: [address], [place] [address] Neurologist Name of Neurologist: GAURAV Navarro Neurologist's Neurology Appointment Comment: [phone] [place] [address] Contact Information Discharge Discharge Address: [address] [place] [id number] Contact Information Comment: [facility]
--- NOTE | 2020-03-08 09:50 | Pharmacy Report ---
Glycemic Control Progress Note - Date of Service March 08, 2020 - Scope Glycemic Pharmacist consulted for glycemic control to write orders per [facility] inpatient glycemic control protocol. - Objective Accuchecks BSG(last 24 hours):: 03/07/20 03/07/20 03/07/20 12:05 17:13 20:53 POC Glucose 172 H 71 134 H 03/08/20 07:54 POC Glucose 132 H HbA1c:: Hemoglobin A1c 6.0 % (4.5-5.6) H 03/08/20 07:11 - Recent Pertinent Medications The patient is currently receiving: * Basal insulin: Novolin 70/30 38 units in the morning and 20 units in the evening * Correctional Insulin: Novolog Correction per scale ACHS Goal Range: Low 120 mg/dL - High 160 mg/dL Correction Factor: 25 mg/dL/unit * Prandial insulin: Per carb ratio of 1 unit per -- grams CHO consumed - Outpatient Anti-Diabetic Meds Humulin 70/30 -- 42 units in the morning and 24 units in the evening metformin 1 gm PO BID - Assessment & Plan ASSESSMENT: * See progress note from 03/07/2020 for more background info, in short: * Pt receiving SQ basal bolus insulin regimen for hyperglycemia secondary to baseline DM (outpatient regimen on hold). * Patient is currently receiving an average of 58 units of insulin per day * 41 units of basal insulin * 17 units of prandial/correctional insulin * BSGs ranging 71 - 172 mg/dl over the past 24hrs * Changes needed to insulin regimen: * AM Fasting BSG = 132 mg/dl. This is in goal range for patient based on inpatient targets and co-morbidities. Patient's dinner blood sugar was 71 mg/dL therefore will reduce morning dose of insulin. Continue evening dose. * Post-prandial BSGs are in range therefore no changes needed to CF/CR. * Total daily dose = 58 units. * Additional notes / comments: restart metformin since serum creatinine okay PLAN FOR INPATIENT GLYCEMIC CONTROL: * Decreasing Novolin 70/30 in the morning to 35 units SQ and continue evening dose of 20 units * Continuing correction factor of 25 mg/dl/unit * Restart metformin * Continuing goal range of Low 120 mg/dL - High 160 mg/dL * Please note that the plan above was derived based on current level of insulin resistance and hospital stress. These recommendations are appropriate for inpat ient admission only. Plan of care upon discharge will need to be reassessed to avoid potential outpatient hypo/hyperglycemia. Thank you.
[2020-03-08] MEDS ORDERED: PALIPERIDONE 1.5 MG TABCR PO STA (15:22)
[2020-03-08] MEDS: TRAZODONE HCL 50 MG TAB PO SCH (21:23)
[2020-03-08] MEDS: ATORVASTATIN 40 MG TAB PO SCH (21:23)
[2020-03-08] MEDS: EZETIMIBE 10 MG TABLET PO SCH (21:24)
[2020-03-09] MEDS: LEVOTHYROXINE SODIUM 75 MCG TABLET PO SCH (08:03)
[2020-03-09] MEDS: [UNRECOGNIZED DRUG - REMARK] PO SCH ×3 (08:03→17:07)
[2020-03-09] MEDS: lamoTRIgine 100 MG TAB PO SCH ×2 (08:04→21:16)
[2020-03-09 08:15] LABS: Glucose Fasting 90 mg/dl (70-99)
[2020-03-09 08:22] LABS: Chol HDL Ratio 4; Cholesterol 132 mg/dl (0-200); HDL Cholesterol 37 mg/dl; LDL Cholesterol Calculated 75 mg/dl; Triglycerides 100 mg/dl (0-150); VLDL Cholesterol 20 mg/dl
[2020-03-09] MEDS: CYANOCOBALAMIN 500 MCG TABLET (VITAMIN B-12) PO SCH (08:39)
[2020-03-09] MEDS: METFORMIN HCL 500 MG TAB PO SCH ×2 (08:39→17:06)
[2020-03-09] MEDS: [UNRECOGNIZED DRUG - REMARK] PO SCH ×2 (08:40→21:17)
[2020-03-09] MEDS: METOPROLOL SUCC 25MG EXT REL TAB PO SCH (08:43)
[2020-03-09] MEDS: ASPIRIN 81 MG CHEW PO SCH (08:44)
[2020-03-09] MEDS: FLUOXETINE HCL 20 MG CAP PO SCH (08:48)
[2020-03-09] MEDS ORDERED: PALIPERIDONE 3 MG TABCR PO SCH (09:00)
[2020-03-09] MEDS: INSULIN ASPART 100 UNITS/ML 3 ML PEN SC SCH ×2 (09:31→17:26)
[2020-03-09] MEDS: INSULIN HUMAN 70% NPH/30% REGULAR SC SCH (09:32)
--- NOTE | 2020-03-09 09:56 | Psychiatric Progress Note ---
Date of Service March 09, 2020 Impression / Recommendations Impression 69-year-old male with a history of multiple medical problems including diabetes, cardiac disease, and seizure disorder, as well as a history of schizophrenia per the EMR, but no antipsychotic medication noted on his record over a period of 22 years, who is admitted with auditory hallucinations and increasingly unsafe and erratic behavior at his personal fpc. This is a challenging case, as there is little background information and I am not sure if he was ever actually diagnosed with schizophrenia, no previous psych records are available, and on her extensive review of his chart here I cannot find any psychotropics other than longstanding prescriptions for fluoxetine and trazodone. He has numerous medical problems which could be contributing to his presenting symptoms, and is also extremely hard of hearing and has lost his hearing aids, which makes the interview quite difficult. He has a longstanding seizure disorder which has apparently been very difficult to control and could be playing a role in his psychiatric symptoms. We will need to get collateral information from his [facility] staff and niece, and hopefully get him a new set of hearing aids while here so that he can better participate in assessments and treatment. Pt was started on paliperidone to target the auditory hallucinations, will continue to titrate as tolerated/indicated. Will need to discuss aftercare referrals as patient has no recent psychiatric providers. Inpatient treatment is medically necessary due to the severity of symptoms and risk for harm to himself if discharged. (1) Auditory hallucinations: 03/07 -patient endorses lifelong auditory hallucinations of voices, which recently have been telling him to "get out," in which he believes may be police telling him he needs to leave his personal fpc, which he does not want to do. His EMR indicates a history of paranoid schizophrenia, but over the course of 22 years and multiple hospitalizations here, he has never been on an antipsychotic or had a psychiatric consultation. He does think that he was in treatment at [facility] years ago, but since they have closed, we may not be able to obtain those records. We will need to get collateral information from his niece (left message) and personal fpc staff ([facility] staff left message) to try to clarify his psychiatric symptoms and treatment over the years. There is also a confounding factor of his hearing impairment and multiple medical conditions, specifically his seizure disorder, which could contribute to or cause psychiatric symptoms including hallucinations. Additionally, he reports an incident that occurred 9 or 10 years ago where he says he had sex with his stepdaughter who was in her early 20s. It is unclear to me if this represents a delusion, but he was somewhat fixated on it during our assessment today. -Continue to monitor and gather information. Consider trial of an antipsychotic. -Provide support and reality testing on the unit. -Continue home doses of fluoxetine and trazodone. Coordinate care with PCP, and refer for outpatient psychiatric care. 03/08 - Pt continues to endorse auditory hallucinations while here on the unit. Though not particularly distressing to the patient, they are contributing to secondary safety concerns in that he has been leaving his personal fpc without communicating with staff and has been found wandering outside the facility - leading to continued safety concerns. Pt is concrete and thought process continues to be disorganized; however, patient is clearly able to state that he would like a medication that could target the voices. - Pt is able to repeat back the goals of utilizing an antipsychotic medication as well as repeat back side effects of concern. Pt verbalized willingness to trial an antipsychotic medications. In weighing out numerous potential interactions, will initiate paliperidone 1.5mg today and increase to 3mg starting tomorrow morning. - Continue attempts to gather collateral information, as psychiatric history continues to be rather unclear 03/09 - Titrate paliperidone to 6mg qAM - continue titration as indicated/tolerated. Pt reports auditory hallucinations are quieter today. - Fasting glucose and lipid panel ordered and reviewed with patient - WNL. - Consider conversion to an DAVIS if patient is agreeable and paliperidone is effective. - Continue coordination of aftercare and discharge planning efforts. (2) Seizure disorder: 03/07 - Consider the need for neurological consult and EEG to rule out TLE or seizure activity as a potential contributor. Continue home doses of phenobarbital and lamotrigine. (3) Diabetes: 03/07 -continue metformin and insulin, consult diabetic pharmacist for glucose management. Continue diabetic diet. 03/08 - Estimated Average Glucose of 126. HgbA1c elevated at 6.0%. - Continue diabetic diet - Appreciate assistance from glycemic pharmacists (4) Dizziness: 03/07 -Per review of records, chronic problem, with multiple potential contributors including cardiac disease, arrhythmia, peripheral neuropathy, dehydration, and polypharmacy. Dehydrated on presentation with BUN 39 and creatinine 1.49. Encourage fluids, and recheck BMP in a couple days. 03/08 - Creatinine improved at 1.08 (5) CAD (coronary artery disease): 03/07 -continue home dose of aspirin (6) Atrial fibrillation with controlled ventricular rate: Continue metoprolol (7) Diabetic peripheral neuropathy: (8) Hypothyroidism: 03/06 -continue home dose of levothyroxine (9) HTN (hypertension): 03/07 -continue home dose of metoprolol (10) Dyslipidemia: 03/07 -continue atorvastatin and ezetimibe. Last FLP was 12/2018 and notable for triglycerides 228. We will need to recheck it if starting an antipsychotic. Risk Factors Assessment Male: Yes : Yes Do You Have Access To A Gun?: No Health Problems: Yes Mental Health Diagnoses: Yes Substance Use Disorders: No Previous Attempt: No Hopelessness: No Smoker: No Protective Factors Assessment : No Responsible for Young Children: No Employed: No Supportive Family: Yes Good Rapport with Provider: No Interval History Identifying Information PO NICOLE is a 69-year-old M who currently lives at the [facility] personal fpc in [place], has a history of epilepsy, cardiac disease, diabetes, schizophrenia, and was admitted on 03/07/20 04:24 on a 201 voluntary commitment for auditory hallucinations and aggressive behavior. Chief Complaint "I was dizzy this morning. Better now." Review of Systems Notes Constitutional: reports dizziness this AM, now resolved Cardiovascular: denied Respiratory: denied Gastrointestinal: denied Neurological: denied Psychiatric: denies symptoms other than stated above Total of at least 10 systems reviewed, pertinent positives as above and in HPI. Sleep Information Total Hours of Sleep: 8.75 Sleep Comments: . Meal Information Percent Meal Consumed - Breakfast: 100 Percent Meal Consumed - Lunch: 100 Percent Meal Consumed - Dinner: 100 Subjective Subjective Patient was seen & assessed and interval progress reviewed with treatment team. Staff report the patient has been attending group programming, though often requires redirection. He rated his mood a 4/10, but his feeling word was "great." Pt did admit to hearing "low voices." Pt was seen today to assess progress since admission. Pt shares that he was "dizzy this morning. Better now." Pt shares with this provider his notebook, where he wrote down a summary of his treatment plan that was reviewed this morning. He states "I feel safe here, but yet there are voices that her here in the hospital still. You know as well as I do. I know you can hear them too." Pt states that voices are quieter this morning, and states "they were telling me they wanted me to go home." Pt continues to state that he knows this provider can also hear these voices, claiming "if they can see you, they can intervene in your private life." Pt continues to be disorganized and at times nonsensical - he's sitting at a table with his notebook and a dictionary, calling it "the library" and saying he's been looking up if the things he wrote down before are "right." Pt did remain cheerful throughout the interview. He did verbalize willingness for titration of paliperidone, stating he thinks it may be effective for the voices and "gosh, that would just be great if they went away." Pt denied other needs or concerns today. Physical Exam Psychiatric Orientation: alert and cooperative Apperance: appropriately dressed and appropriately groomed; + did not appear stated age (younger than stated age) Eye Contact: good eye contact Motor Behavior: steady gait and station and no abnormal motor movements Speech: normal rate/rhythm/volume of speech (loud speech) Affect: euthymic affect (cheerful and bright) Thought Process: + tangential thought process, + perseveration and + concrete thought process; + thought process not linear or logical Thought Content: + preoccupation and + persecution Suicidal Thoughts: denies suicidal thoughts Homicidal Thoughts: denies homicidal thoughts Hallucinations: + auditory hallucinations; no visual hallucinations Cognition: language grossly intact; + attention not intact Estimated Intelligence: + below average estimated intelligence Insight: + impaired insight Judgement: + impaired judgement Vital Signs (Past 24 Hours) Last Vital Signs Temp 36.3 C L 03/09/20 06:33 Pulse 67 03/09/20 06:34 Resp 16 03/09/20 06:33 BP 141/82 H 03/09/20 06:34 Pulse Ox 95 03/07/20 04:52 Results & Data ([facility]) Laboratory Results Laboratory Results - last 24 hr 03/08/20 03/08/20 03/09/20 12:28 17:45 07:30 POC Glucose 124 H 119 H Fasting Glucose 90 Triglycerides 100 Cholesterol 132 LDL Cholesterol, Calc 75 VLDL Cholesterol, Calc 20 HDL Cholesterol 37 Cholesterol/HDL Ratio 4 Current Inpatient Medications Current Inpatient Medications: Current Inpatient Medications Acetaminophen (Acetaminophen 325 Mg Tab) 650 mg PO Q4H PRN PRN Reason: Headache or Minor Fever Stop: 04/06/20 05:34 Al Hydrox/Mg Hydrox/Simethicone (Aluminum/Magnesium Susp 30 Ml Udc) 30 ml PO Q4H PRN PRN Reason: GI Upset Stop: 04/06/20 05:34 Aspirin (Aspirin 81 Mg Chew) 81 mg PO QAM [facility] Stop: 04/06/20 08:59 Last Admin: 03/09/20 08:44 Dose: 81 mg Documented by: Atorvastatin Calcium (Atorvastatin 40 Mg Tab) 80 mg PO [facility] Stop: 04/06/20 21:59 Last Admin: 03/08/20 21:23 Dose: 80 mg Documented by: Bismuth Subsalicylate (Bismuth Subsalicylate Per Ml Omnicell Charge) 15 ml PO PRN PRN PRN Reason: Loose Stool Stop: 04/06/20 05:34 Cyanocobalamin (Cyanocobalamin 500 Mcg Tablet (Vitamin B-12)) [facility] Stop: 04/06/20 08:59 Last Admin: 03/09/20 08:39 Dose: 1,000 mcg Documented by: Dextrose (Dextrose 50% 50 Ml Syringe) 25 - 50 ml IV UD PRN; Protocol PRN Reason: Hypoglycemia Protocol Stop: 04/06/20 08:44 Ezetimibe (Ezetimibe 10 Mg Tablet) 10 mg PO [facility] Stop: 04/06/20 21:59 Last Admin: 03/08/20 21:24 Dose: 10 mg Documented by: Fluoxetine HCl (Fluoxetine Hcl 20 Mg Cap) 20 mg PO DAILY [facility] Stop: 04/06/20 08:59 Last Admin: 03/09/20 08:48 Dose: 20 mg Documented by: Glucagon (Glucagon For Inj 1 Mg Vial) 1 mg IM UD PRN; Protocol PRN Reason: Hypoglycemia Protocol Stop: 04/06/20 08:44 Glucose (Glucose 40% Gel 15 Gm Tube) 15 - 30 gm PO UD PRN; Protocol PRN Reason: Hypoglycemia Protocol Stop: 04/06/20 08:44 Glucose (Glucose 10 Tabs/Tube) 4 - 8 tabs PO UD PRN; Protocol PRN Reason: Hypoglycemia Protocol Stop: 04/06/20 08:44 Hydroxyzine HCl (Hydroxyzine Hcl 25 Mg Tab) 50 mg PO HSZ PRN PRN Reason: Insomnia Stop: 04/06/20 05:34 Hydroxyzine HCl (Hydroxyzine Hcl 25 Mg Tab) 25 mg PO Q4H PRN PRN Reason: Anxiety Stop: 04/06/20 05:34 Insulin Aspart (Insulin Aspart 100 Units/Ml 3 Ml Pen) 0 units SC DAILY@0900,1745 [facility]; Protocol Stop: 04/06/20 08:59 Last Admin: 03/09/20 09:31 Dose: Not Given Documented by: Insulin Human Isoph/Insulin Regular (Insulin Human 70% Nph/30% Regular) 35 units SC QDB [facility]; Protocol Stop: 04/07/20 08:59 Last Admin: 03/09/20 09:32 Dose: 35 units Documented by: Insulin Human Isoph/Insulin Regular (Insulin Human 70% Nph/30% Regular) 18 units SC QDD [facility]; Protocol Stop: 04/08/20 17:44 Lamotrigine (Lamotrigine 100 Mg Tab) 300 mg PO BID [facility] Stop: 04/06/20 08:59 Last Admin: 03/09/20 08:04 Dose: 300 mg Documented by: Levothyroxine Sodium (Levothyroxine Sodium 75 Mcg Tablet) 75 mcg PO DAILYBB [facility] Stop: 04/06/20 07:59 Last Admin: 03/09/20 08:03 Dose: 75 mcg Documented by: Magnesium Hydroxide (Magnesium Hydroxide Susp 30 Ml Udc) 30 ml PO DAILY PRN PRN Reason: Constipation Stop: 04/06/20 05:34 Metformin HCl (Metformin Hcl 500 Mg Tab) 1,000 mg PO BIDM [facility] Stop: 04/07/20 08:59 Last Admin: 03/09/20 08:39 Dose: 1,000 mg Documented by: Metoprolol Succinate (Metoprolol Succ 25mg Ext Rel Tab) 12.5 mg PO DAILY [facility] Stop: 04/06/20 08:59 Last Admin: 03/09/20 08:43 Dose: 12.5 mg Documented by: Miscellaneous (Carbohydrates For Hypoglycemia ) 15 - 30 gm PO UD PRN PRN Reason: Hypoglycemia Treatment Stop: 04/06/20 08:44 Miscellaneous Information (Pharmacy Glycemic Mgmt Consult) 1 ea N/A UD PRN PRN Reason: Consult Stop: 04/06/20 06:10 *Vascepa 1 Gm* Non- Form Patient's Own Med 2 ea PO BID [facility] Stop: 04/06/20 20:59 Last Admin: 03/09/20 08:40 Dose: 2 gm Documented by: *L- Carnitine Liquid *Non-Form Patient's Own Med 1 ea PO AC [facility] Stop: 04/06/20 18:29 Last Admin: 03/09/20 08:03 Dose: 20 ml Documented by: Oxymetazoline HCl (Oxymetazoline 0.05% 30 Ml Btl) 2 sprays NA Q12 PRN PRN Reason: Nasal Congestion Stop: 04/06/20 05:39 Paliperidone (Paliperidone 3 Mg Tabcr) 3 mg PO QAM [facility] Stop: 04/08/20 08:59 Last Admin: 03/09/20 08:39 Dose: 3 mg Documented by: Phenobarbital (Phenobarbital 32.4 Mg Tab) 64.8 mg PO QAM [facility] Stop: 04/06/20 08:59 Last Admin: 03/09/20 08:48 Dose: 64.8 mg Documented by: Phenobarbital (Phenobarbital 32.4 Mg Tab) 129.6 mg PO HS [facility] Stop: 04/06/20 21:59 Last Admin: 03/08/20 21:23 Dose: 129.6 mg Documented by: Polyethylene Glycol (Polyethylene (Miralax) 17 Gm Pack) 17 gm PO DAILY PRN PRN Reason: Constipation Stop: 04/06/20 05:39 Sodium Chloride (Sodium Chloride 0.65% Na Soln 45 Ml ([place])) 1 - 2 sprays NA PRN PRN PRN Reason: Nasal Dryness/Congestion Stop: 04/06/20 05:34 Trazodone HCl (Trazodone Hcl 50 Mg Tab) 50 mg PO HS [facility]STOPHER Stop: 04/06/20 21:59 Last Admin: 03/08/20 21:23 Dose: 50 mg Documented by: Mental Health & Subst Abuse Tx Therapist Name of Therapist: . Supervisor Tower Name of Supervisor Tower: . Post Discharge Appointments Primary Care Physician Name Of Family Doctor: Alfredo Stein Primary Care Provider Appointment Comment: [address], [place] [address] Neurologist Name of Neurologist: GAURAV Navarro Neurologist's Neurology Appointment Comment: [address] [facility], [place] [address] Contact Information Discharge Discharge Address: [address] [place] [address], [place], [place] [address] Contact Information Comment: [facility]
--- NOTE | 2020-03-09 11:22 | Pharmacy Report ---
Glycemic Control Progress Note - Date of Service March 09, 2020 - Scope Glycemic Pharmacist consulted for glycemic control to write orders per [facility] inpatient glycemic control protocol. - Objective Accuchecks BSG(last 24 hours):: 03/08/20 03/08/20 03/09/20 12:28 17:45 07:30 POC Glucose 124 H 119 H Fasting Glucose 90 HbA1c:: Hemoglobin A1c 6.0 % (4.5-5.6) H 03/08/20 07:11 - Recent Pertinent Medications The patient is currently receiving: * Basal insulin: Novolin 70/30 35 units in the morning and 20 units in the PM * Correctional Insulin: Novolog Correction per scale BIDM Goal Range: Low 120 mg/dL - High 160 mg/dL Correction Factor: 25 mg/dL/unit * Prandial insulin: Per carb ratio of 1 unit per - grams CHO consumed * Oral Agents: metformin 1000 mg PO BID - Outpatient Anti-Diabetic Meds Humulin 70/30 -- 42 units in AM and 24 units in the evening metformin 1000 mg PO BID - Assessment & Plan ASSESSMENT: * See progress note from 03/07/20 for more background info, in short: * Pt receiving SQ basal bolus insulin regimen for hyperglycemia secondary to baseline DM (outpatient regimen on hold). * Patient is currently receiving an average of 55 units of insulin per day * 38 units of basal insulin * 17 units of prandial/correctional insulin * BSGs ranging 119 - 132 mg/dl over the past 24hrs * Changes needed to insulin regimen: * AM Fasting BSG = 90 mg/dl. This is a little below goal range for patient based on inpatient targets and co-morbidities. Will reduce evening 70/30 dose. * Post-prandial BSGs are in range therefore no changes needed to CF. * Total daily dose = 50-55 units. Reduced insulin. * Additional notes / comments: continue home metformin PLAN FOR INPATIENT GLYCEMIC CONTROL: * Decreasing Novolin 70/30 to 35 units in the morning and 18 units in the evening * Continuing correction factor of 25 mg/dl/unit * Continuing metformin 1 gm PO TID * Continuing goal range of Low 120 mg/dL - High 160 mg/dL * Please note that the plan above was derived based on current level of insulin resistance and hospital stress. These recommendations are appropriate for inpatient admission only. Plan of care upon discharge will need to be reassessed to avoid potential outpatient hypo/hyperglycemia. Thank you.
[2020-03-09] MEDS ORDERED: INSULIN HUMAN 70% NPH/30% REGULAR SC SCH (17:45)
[2020-03-09] MEDS: ATORVASTATIN 40 MG TAB PO SCH (21:18)
[2020-03-09] MEDS: EZETIMIBE 10 MG TABLET PO SCH (21:18)
[2020-03-09] MEDS: TRAZODONE HCL 50 MG TAB PO SCH (21:21)
[2020-03-10] MEDS: LEVOTHYROXINE SODIUM 75 MCG TABLET PO SCH (07:31)
[2020-03-10] MEDS: PALIPERIDONE 3 MG TABCR PO SCH (07:31)
[2020-03-10] MEDS: CYANOCOBALAMIN 500 MCG TABLET (VITAMIN B-12) PO SCH (07:32)
[2020-03-10] MEDS: ASPIRIN 81 MG CHEW PO SCH (07:32)
[2020-03-10] MEDS: lamoTRIgine 100 MG TAB PO SCH ×2 (07:32→20:40)
[2020-03-10] MEDS: FLUOXETINE HCL 20 MG CAP PO SCH (07:32)
[2020-03-10] MEDS: METOPROLOL SUCC 25MG EXT REL TAB PO SCH (07:33)
[2020-03-10] MEDS: METFORMIN HCL 500 MG TAB PO SCH ×2 (07:34→17:08)
[2020-03-10] MEDS: [UNRECOGNIZED DRUG - REMARK] PO SCH ×2 (07:35→20:41)
[2020-03-10] MEDS: [UNRECOGNIZED DRUG - REMARK] PO SCH ×3 (07:43→17:38)
[2020-03-10] MEDS: INSULIN HUMAN 70% NPH/30% REGULAR SC SCH ×2 (08:56→17:10)
[2020-03-10] MEDS: INSULIN ASPART 100 UNITS/ML 3 ML PEN SC SCH ×2 (09:00→17:42)
--- NOTE | 2020-03-10 12:20 | Psychiatric Progress Note ---
Date of Service March 10, 2020 Impression / Recommendations Impression 69-year-old male with a history of multiple medical problems including diabetes, cardiac disease, and seizure disorder, as well as a history of schizophrenia per the EMR, but no antipsychotic medication noted on his record over a period of 22 years, who is admitted with auditory hallucinations and increasingly unsafe and erratic behavior at his personal intermediate. This is a challenging case, as there is little background information and I am not sure if he was ever actually diagnosed with schizophrenia, no previous psych records are available, and on her extensive review of his chart here I cannot find any psychotropics other than longstanding prescriptions for fluoxetine and trazodone. He has numerous medical problems which could be contributing to his presenting symptoms, and is also extremely hard of hearing and has lost his hearing aids, which makes the interview quite difficult. He has a longstanding seizure disorder which has apparently been very difficult to control and could be playing a role in his psychiatric symptoms. We will need to get collateral information from his [facility] staff and niece, and hopefully get him a new set of hearing aids while here so that he can better participate in assessments and treatment. Pt was started on paliperidone to target the auditory hallucinations, will continue to titrate as tolerated/indicated. Will need to discuss aftercare referrals as patient has no recent psychiatric providers. Inpatient treatment is medically necessary due to the severity of symptoms and risk for harm to himself if discharged. (1) Auditory hallucinations: 03/07 -patient endorses lifelong auditory hallucinations of voices, which recently have been telling him to "get out," in which he believes may be police telling him he needs to leave his personal intermediate, which he does not want to do. His EMR indicates a history of paranoid schizophrenia, but over the course of 22 years and multiple hospitalizations here, he has never been on an antipsychotic or had a psychiatric consultation. He does think that he was in treatment at [facility] years ago, but since they have closed, we may not be able to obtain those records. We will need to get collateral information from his niece (left message) and personal intermediate staff ([facility] staff left message) to try to clarify his psychiatric symptoms and treatment over the years. There is also a confounding factor of his hearing impairment and multiple medical conditions, specifically his seizure disorder, which could contribute to or cause psychiatric symptoms including hallucinations. Additionally, he reports an incident that occurred 9 or 10 years ago where he says he had sex with his stepdaughter who was in her early 20s. It is unclear to me if this represents a delusion, but he was somewhat fixated on it during our assessment today. -Continue to monitor and gather information. Consider trial of an antipsychotic. -Provide support and reality testing on the unit. -Continue home doses of fluoxetine and trazodone. Coordinate care with PCP, and refer for outpatient psychiatric care. 03/08 - Pt continues to endorse auditory hallucinations while here on the unit. Though not particularly distressing to the patient, they are contributing to secondary safety concerns in that he has been leaving his personal intermediate without communicating with staff and has been found wandering outside the facility - leading to continued safety concerns. Pt is concrete and thought process continues to be disorganized; however, patient is clearly able to state that he would like a medication that could target the voices. - Pt is able to repeat back the goals of utilizing an antipsychotic medication as well as repeat back side effects of concern. Pt verbalized willingness to trial an antipsychotic medications. In weighing out numerous potential interactions, will initiate paliperidone 1.5mg today and increase to 3mg starting tomorrow morning. - Continue attempts to gather collateral information, as psychiatric history continues to be rather unclear 03/09 - Titrate paliperidone to 6mg qAM - continue titration as indicated/tolerated. Pt reports auditory hallucinations are quieter today. - Fasting glucose and lipid panel ordered and reviewed with patient - WNL. - Consider conversion to an DAVIS if patient is agreeable and paliperidone is effective. - Continue coordination of aftercare and discharge planning efforts. 03/10 -more confused this AM however AH remain subjectively reduced -no overt evidence of EPS (2) Seizure disorder: 03/07 - Consider the need for neurological consult and EEG to rule out TLE or seizure activity as a potential contributor. Continue home doses of phenobarbital and lamotrigine. 03/10 -will order bedside EEG to try to s/o seizure activity d/t increased confusion -repeat CMP. order lamictal level (3) Diabetes: 03/07 -continue metformin and insulin, consult diabetic pharmacist for glucose management. Continue diabetic diet. 03/08 - Estimated Average Glucose of 126. HgbA1c elevated at 6.0%. - Continue diabetic diet - Appreciate assistance from glycemic pharmacists (4) Dizziness: 03/07 -Per review of records, chronic problem, with multiple potential contributors including cardiac disease, arrhythmia, peripheral neuropathy, dehydration, and polypharmacy. Dehydrated on presentation with BUN 39 and creatinine 1.49. Encourage fluids, and recheck BMP in a couple days. 03/08 - Creatinine improved at 1.08 03/10 -denies worse (5) CAD (coronary artery disease): 03/07 -continue home dose of aspirin (6) Atrial fibrillation with controlled ventricular rate: Continue metoprolol (7) Diabetic peripheral neuropathy: (8) Hypothyroidism: 03/06 -continue home dose of levothyroxine (9) HTN (hypertension): 03/07 -continue home dose of metoprolol (10) Dyslipidemia: 03/07 -continue atorvastatin and ezetimibe. Last FLP was 12/2018 and notable for triglycerides 228. We will need to recheck it if starting an antipsychotic. Risk Factors Assessment Male: Yes : Yes Do You Have Access To A Gun?: No Health Problems: Yes Mental Health Diagnoses: Yes Substance Use Disorders: No Previous Attempt: No Hopelessness: No Smoker: No Protective Factors Assessment : No Responsible for Young Children: No Employed: No Supportive Family: Yes Good Rapport with Provider: No Interval History Identifying Information PO NICOLE is a 69-year-old M who currently lives at the [facility] personal intermediate in [place], has a history of epilepsy, cardiac disease, diabetes, schizophrenia, and was admitted on 03/07/20 04:24 on a 201 voluntary commitment for auditory hallucinations and aggressive behavior. Chief Complaint "What's red in the morning?". Review of Systems Notes denies dystonia. + dizziness Sleep Information Total Hours of Sleep: 4.75 Sleep Comments: awake to the bathroom at 0415 then out to the day area for the day. he felt like he had slept enough. he had wanted to do laundry. he had wanted to talk socially with staff. his mood was up upbeat and friendly. he was encouraged to rest more in his bed after he had fallen to sleep in a chair in the day area. he did return to his room again. Meal Information Percent Meal Consumed - Breakfast: 100 Percent Meal Consumed - Lunch: 100 Percent Meal Consumed - Dinner: 100 Subjective Subjective Patient was seen & assessed and interval progress reviewed with treatment team nursing and social work. Paliperidone increased to 6mg yesterday. Per staff, pt seems more confused this AM. Was observed identifying objects in bathroom aloud. He stops my in the hallway and asks "what is red in the morning?" seemingly associated with the proverb of red in the morning sailors take warning which he was unable to complete. He also perseveratively returns to a desire to be in the garden, asking for seeds and rototiller. When asked where he is he pauses, shakes his head, and states he is in the hospital which is followed by ..."so where's the garden." He believes last seizure was approx 2 years ago. Reports good med compliance with anticonvulsants at home. Reviewed recent neuro f/u in [facility] at which time hallucinations noted. Reviewed phenobarb level in range on admission. No recent Lamictal level. Mild alk phos and AST elevations appear essentially stable since October. Ammonia wnl. When asked to describe hallucinations today pt reports they typically come from a speaker at his residential home and tell him not to do things and not to eat things. Reports AH persist here but less loud. Denies SI. Physical Exam Psychiatric Orientation: alert and cooperative; + not oriented x 3 and not guarded Apperance: appropriately dressed and appropriately groomed; not disheveled Eye Contact: good eye contact Motor Behavior: steady gait and station; + abnormal motor movements and n tremor Speech: no pressured speech Affect: euthymic affect (but appears confused) Mood: no depressed mood ("ok") Thought Process: + looseness of associations; + thought process not clear or coherent Thought Content: + preoccupation and + delusions Suicidal Thoughts: denies suicidal thoughts Hallucinations: + auditory hallucinations; no visual hallucinations Cognition: + attention not intact Estimated Intelligence: + below average estimated intelligence Insight: + poor insight Judgement: + limited judgement Vital Signs (Past 24 Hours) Last Vital Signs Temp 36.4 C L 03/10/20 06:20 Pulse 67 03/10/20 06:21 Resp 20 03/10/20 06:20 BP 134/77 03/10/20 06:21 Pulse Ox 95 03/07/20 04:52 Results & Data ([facility]) Laboratory Results Laboratory Results - last 24 hr 03/09/20 03/10/20 16:54 07:03 POC Glucose 88 96 Current Inpatient Medications Current Inpatient Medications: Current Inpatient Medications Acetaminophen (Acetaminophen 325 Mg Tab) 650 mg PO Q4H PRN PRN Reason: Headache or Minor Fever Stop: 04/06/20 05:34 Al Hydrox/Mg Hydrox/Simethicone (Aluminum/Magnesium Susp 30 Ml Udc) 30 ml PO Q4H PRN PRN Reason: GI Upset Stop: 04/06/20 05:34 Aspirin (Aspirin 81 Mg Chew) 81 mg PO QAM [facility] Stop: 04/06/20 08:59 Last Admin: 03/10/20 07:32 Dose: 81 mg Documented by: Atorvastatin Calcium (Atorvastatin 40 Mg Tab) 80 mg PO [facility] Stop: 04/06/20 21:59 Last Admin: 03/09/20 21:18 Dose: 80 mg Documented by: Bismuth Subsalicylate (Bismuth Subsalicylate Per Ml Omnicell Charge) 15 ml PO PRN PRN PRN Reason: Loose Stool Stop: 04/06/20 05:34 Cyanocobalamin (Cyanocobalamin 500 Mcg Tablet (Vitamin B-12)) [facility] Stop: 04/06/20 08:59 Last Admin: 03/10/20 07:32 Dose: 1,000 mcg Documented by: Dextrose (Dextrose 50% 50 Ml Syringe) 25 - 50 ml IV UD PRN; Protocol PRN Reason: Hypoglycemia Protocol Stop: 04/06/20 08:44 Ezetimibe (Ezetimibe 10 Mg Tablet) 10 mg PO [facility] Stop: 04/06/20 21:59 Last Admin: 03/09/20 21:18 Dose: 10 mg Documented by: Fluoxetine HCl (Fluoxetine Hcl 20 Mg Cap) 20 mg PO DAILY [facility] Stop: 04/06/20 08:59 Last Admin: 03/10/20 07:32 Dose: 20 mg Documented by: Glucagon (Glucagon For Inj 1 Mg Vial) 1 mg IM UD PRN; Protocol PRN Reason: Hypoglycemia Protocol Stop: 04/06/20 08:44 Glucose (Glucose 40% Gel 15 Gm Tube) 15 - 30 gm PO UD PRN; Protocol PRN Reason: Hypoglycemia Protocol Stop: 04/06/20 08:44 Glucose (Glucose 10 Tabs/Tube) 4 - 8 tabs PO UD PRN; Protocol PRN Reason: Hypoglycemia Protocol Stop: 04/06/20 08:44 Hydroxyzine HCl (Hydroxyzine Hcl 25 Mg Tab) 50 mg PO HSZ PRN PRN Reason: Insomnia Stop: 04/06/20 05:34 Hydroxyzine HCl (Hydroxyzine Hcl 25 Mg Tab) 25 mg PO Q4H PRN PRN Reason: Anxiety Stop: 04/06/20 05:34 Insulin Aspart (Insulin Aspart 100 Units/Ml 3 Ml Pen) 0 units SC DAILY@0900,1745 [facility]; Protocol Stop: 04/06/20 08:59 Last Admin: 03/10/20 09:00 Dose: Not Given Documented by: Insulin Human Isoph/Insulin Regular (Insulin Human 70% Nph/30% Regular) 18 units SC QDD [facility]; Protocol Stop: 04/08/20 17:44 Last Admin: 03/09/20 17:29 Dose: 18 units Documented by: Insulin Human Isoph/Insulin Regular (Insulin Human 70% Nph/30% Regular) 30 units SC QDB [facility]; Protocol Stop: 04/09/20 08:59 Last Admin: 03/10/20 08:56 Dose: 30 units Documented by: Lamotrigine (Lamotrigine 100 Mg Tab) 300 mg PO BID [facility] Stop: 04/06/20 08:59 Last Admin: 03/10/20 07:32 Dose: 300 mg Documented by: Levothyroxine Sodium (Levothyroxine Sodium 75 Mcg Tablet) 75 mcg PO DAILYBB [facility] Stop: 04/06/20 07:59 Last Admin: 03/10/20 07:31 Dose: 75 mcg Documented by: Magnesium Hydroxide (Magnesium Hydroxide Susp 30 Ml Udc) 30 ml PO DAILY PRN PRN Reason: Constipation Stop: 04/06/20 05:34 Metformin HCl (Metformin Hcl 500 Mg Tab) 1,000 mg PO BIDM [facility] Stop: 04/07/20 08:59 Last Admin: 03/10/20 07:34 Dose: 1,000 mg Documented by: Metoprolol Succinate (Metoprolol Succ 25mg Ext Rel Tab) 12.5 mg PO DAILY [facility] Stop: 04/06/20 08:59 Last Admin: 03/10/20 07:33 Dose: 12.5 mg Documented by: Miscellaneous (Carbohydrates For Hypoglycemia ) 15 - 30 gm PO UD PRN PRN Reason: Hypoglycemia Treatment Stop: 04/06/20 08:44 Miscellaneous Information (Pharmacy Glycemic Mgmt Consult) 1 ea N/A UD PRN PRN Reason: Consult Stop: 04/06/20 06:10 *Vascepa 1 Gm* Non- Form Patient's Own Med 2 ea PO BID [facility] Stop: 04/06/20 20:59 Last Admin: 03/10/20 07:35 Dose: 2 gm Documented by: *L- Carnitine Liquid *Non-Form Patient's Own Med 1 ea PO AC [facility] Stop: 04/06/20 18:29 Last Admin: 03/10/20 07:43 Dose: 20 ml Documented by: Oxymetazoline HCl (Oxymetazoline 0.05% 30 Ml Btl) 2 sprays NA Q12 PRN PRN Reason: Nasal Congestion Stop: 04/06/20 05:39 Paliperidone (Paliperidone 3 Mg Tabcr) 6 mg PO QAM [facility] Stop: 04/09/20 08:59 Last Admin: 03/10/20 07:31 Dose: 6 mg Documented by: Phenobarbital (Phenobarbital 32.4 Mg Tab) 64.8 mg PO QAM [facility] Stop: 04/06/20 08:59 Last Admin: 03/10/20 07:43 Dose: 64.8 mg Documented by: Phenobarbital (Phenobarbital 32.4 Mg Tab) 129.6 mg PO HS [facility] Stop: 04/06/20 21:59 Last Admin: 03/09/20 21:19 Dose: 129.6 mg Documented by: Polyethylene Glycol (Polyethylene (Miralax) 17 Gm Pack) 17 gm PO DAILY PRN PRN Reason: Constipation Stop: 04/06/20 05:39 Sodium Chloride (Sodium Chloride 0.65% Na Soln 45 Ml ([place])) 1 - 2 sprays NA PRN PRN PRN Reason: Nasal Dryness/Congestion Stop: 04/06/20 05:34 Trazodone HCl (Trazodone Hcl 50 Mg Tab) 50 mg PO HS [facility]STOPHER Stop: 04/06/20 21:59 Last Admin: 03/09/20 21:21 Dose: 50 mg Documented by: Mental Health & Subst Abuse Tx Psychiatrist Name of Psychiatrist: Patel Cullen Psychiatrist's Date of Appointment with Psychiatrist: 04/17/20 Time of Appointment with Psychiatrist: 8:30 a.m. Psychiatric Appointment Comment: [id number] [facility] Therapist Name of Therapist: . [employer] Screen Watcher Name of [employer] Screen Watcher: . Post Discharge Appointments Primary Care Physician Name Of Family Doctor: Alfredo Stein Primary Care Provider Appointment Comment: [address], [place] [address] Neurologist Name of Neurologist: GAURAV Navarro Neurologist's Neurology Appointment Comment: [id number] [facility], [place] [address] Contact Information Discharge Discharge Address: [address] [place] [address], [place] [address] Contact Information Comment: [facility]
--- NOTE | 2020-03-10 14:06 | Pharmacy Report ---
Pharmacy Glycemic Short Note 2 - Date of Service March 10, 2020 - Glycemic Short BSG Results (Last 24 hours): 03/09/20 03/10/20 16:54 07:03 POC Glucose 88 96 ASSESSMENT: 03/10: * Patient received total of 53 units of insulin yesterday. (Currently on 70/30 insulin). Of total insulin ~37 units basal, 16 units bolus * Fasting BSG on lower end of range at 96 mg/dL. BSG check at 1600 yesterday also lower at 88 mg/dL - plan to scale back on insulin today * Will order 30 units this AM, 12 units this PM - estimated ~20% decrease in basal component PLAN FOR INPATIENT GLYCEMIC CONTROL: * Hold outpatient oral diabetes medications * Basal insulin * 70/30 mix - 30 units AM and 12 units with dinner * Bolus insulin * NovoLog per scale ACHS or Q6hrs while NPO * Goal Range: Low 120 mg/dL - High 160 mg/dL * Correction Factor: 25 mg/dL/unit * Nutritional / Prandial insulin per carb ratio of 1 unit per -- grams CHO consumed
[2020-03-10] MEDS: TRAZODONE HCL 50 MG TAB PO SCH (20:41)
[2020-03-10] MEDS: ATORVASTATIN 40 MG TAB PO SCH (20:42)
[2020-03-10] MEDS: EZETIMIBE 10 MG TABLET PO SCH (20:45)
[2020-03-11] MEDS: ASPIRIN 81 MG CHEW PO SCH (07:46)
[2020-03-11] MEDS: FLUOXETINE HCL 20 MG CAP PO SCH (07:46)
[2020-03-11] MEDS: CYANOCOBALAMIN 500 MCG TABLET (VITAMIN B-12) PO SCH (07:47)
[2020-03-11] MEDS: LEVOTHYROXINE SODIUM 75 MCG TABLET PO SCH (07:47)
[2020-03-11] MEDS: lamoTRIgine 100 MG TAB PO SCH ×2 (07:47→20:24)
[2020-03-11] MEDS: PALIPERIDONE 3 MG TABCR PO SCH (07:47)
[2020-03-11] MEDS: METOPROLOL SUCC 25MG EXT REL TAB PO SCH (07:48)
[2020-03-11] MEDS: [UNRECOGNIZED DRUG - REMARK] PO SCH ×3 (07:48→16:54)
[2020-03-11] MEDS: [UNRECOGNIZED DRUG - REMARK] PO SCH ×2 (07:49→20:24)
[2020-03-11] MEDS: METFORMIN HCL 500 MG TAB PO SCH ×2 (08:55→16:52)
[2020-03-11] MEDS: INSULIN HUMAN 70% NPH/30% REGULAR SC SCH ×2 (08:56→16:55)
[2020-03-11] MEDS: INSULIN ASPART 100 UNITS/ML 3 ML PEN SC SCH ×2 (08:57→17:59)
[2020-03-11 10:03] LABS: Albumin Level 3.6 gm/dl (3.4-5.0); BUN Creatinine Ratio 24.1 (10-20); Calcium 8.9 mg/dl (8.5-10.1); Creatinine Clr Calc Pharmacy 82.7 ml/min; Est GFR (African American) 92.4; Est GFR (Non-African American) 79.8; Potassium 4.4 mmol/L (3.5-5.1)
[2020-03-11 10:05] LABS: Albumin Globulin Ratio 0.8 (0.9-2); Bilirubin,Total 0.7 mg/dl (0.2-1); Globulin 4.3 gm/dl (2.5-4.0); Total Protein 7.9 gm/dl (6.4-8.2)
--- NOTE | 2020-03-11 16:08 | Psychiatric Progress Note ---
Date of Service March 11, 2020 Impression / Recommendations Impression 69-year-old male with a history of multiple medical problems including diabetes, cardiac disease, and seizure disorder, as well as a history of schizophrenia per the EMR, but no antipsychotic medication noted on his record over a period of 22 years, who is admitted with auditory hallucinations and increasingly unsafe and erratic behavior at his personal fci. This is a challenging case, as there is little background information and I am not sure if he was ever actually diagnosed with schizophrenia, no previous psych records are available, and on her extensive review of his chart here I cannot find any psychotropics other than longstanding prescriptions for fluoxetine and trazodone. He has numerous medical problems which could be contributing to his presenting symptoms, and is also extremely hard of hearing and has lost his hearing aids, which makes the interview quite difficult. He has a longstanding seizure disorder which has apparently been very difficult to control and could be playing a role in his psychiatric symptoms. We will need to get collateral information from his [facility] staff and niece, and hopefully get him a new set of hearing aids while here so that he can better participate in assessments and treatment. Pt was started on paliperidone to target the auditory hallucinations, will continue to titrate as tolerated/indicated. Will need to discuss aftercare referrals as patient has no recent psychiatric providers. Inpatient treatment is medically necessary due to the severity of symptoms and risk for harm to himself if discharged. (1) Auditory hallucinations: 03/07 -patient endorses lifelong auditory hallucinations of voices, which recently have been telling him to "get out," in which he believes may be police telling him he needs to leave his personal fci, which he does not want to do. His EMR indicates a history of paranoid schizophrenia, but over the course of 22 years and multiple hospitalizations here, he has never been on an antipsychotic or had a psychiatric consultation. He does think that he was in treatment at [facility] years ago, but since they have closed, we may not be able to obtain those records. We will need to get collateral information from his niece (left message) and personal fci staff ([facility] staff left message) to try to clarify his psychiatric symptoms and treatment over the years. There is also a confounding factor of his hearing impairment and multiple medical conditions, specifically his seizure disorder, which could contribute to or cause psychiatric symptoms including hallucinations. Additionally, he reports an incident that occurred 9 or 10 years ago where he says he had sex with his stepdaughter who was in her early 20s. It is unclear to me if this represents a delusion, but he was somewhat fixated on it during our assessment today. -Continue to monitor and gather information. Consider trial of an antipsychotic. -Provide support and reality testing on the unit. -Continue home doses of fluoxetine and trazodone. Coordinate care with PCP, and refer for outpatient psychiatric care. 03/08 - Pt continues to endorse auditory hallucinations while here on the unit. Though not particularly distressing to the patient, they are contributing to secondary safety concerns in that he has been leaving his personal fci without communicating with staff and has been found wandering outside the facility - leading to continued safety concerns. Pt is concrete and thought process continues to be disorganized; however, patient is clearly able to state that he would like a medication that could target the voices. - Pt is able to repeat back the goals of utilizing an antipsychotic medication as well as repeat back side effects of concern. Pt verbalized willingness to trial an antipsychotic medications. In weighing out numerous potential interactions, will initiate paliperidone 1.5mg today and increase to 3mg starting tomorrow morning. - Continue attempts to gather collateral information, as psychiatric history continues to be rather unclear 03/09 - Titrate paliperidone to 6mg qAM - continue titration as indicated/tolerated. Pt reports auditory hallucinations are quieter today. - Fasting glucose and lipid panel ordered and reviewed with patient - WNL. - Consider conversion to an DAVIS if patient is agreeable and paliperidone is effective. - Continue coordination of aftercare and discharge planning efforts. 03/10 -more confused this AM however AH remain subjectively reduced -no overt evidence of EPS 03/11 -Must consider possibility that increased dose of paliperidone is negatively impacting his alertness and gait stability (2) Seizure disorder: 03/07 - Consider the need for neurological consult and EEG to rule out TLE or seizure activity as a potential contributor. Continue home doses of phenobarbital and lamotrigine. 03/10 -will order bedside EEG to try to s/o seizure activity d/t increased confusion -repeat CMP. order lamictal level 03/11 -Variable alertness, instances of delayed speech and increased confusion may either represent delirium or seizure activity. We will see if we can have the EEG done today such that we can involve neurology tomorrow if necessary -Lamictal level pending -Repeat CMP reviewed and stable (3) Diabetes: 03/07 -continue metformin and insulin, consult diabetic pharmacist for glucose management. Continue diabetic diet. 03/08 - Estimated Average Glucose of 126. HgbA1c elevated at 6.0%. - Continue diabetic diet - Appreciate assistance from glycemic pharmacists (4) Dizziness: 03/07 -Per review of records, chronic problem, with multiple potential contributors including cardiac disease, arrhythmia, peripheral neuropathy, dehydration, and polypharmacy. Dehydrated on presentation with BUN 39 and creat inine 1.49. Encourage fluids, and recheck BMP in a couple days. 03/08 - Creatinine improved at 1.08 03/10 -denies worse (5) CAD (coronary artery disease): 03/07 -continue home dose of aspirin (6) Atrial fibrillation with controlled ventricular rate: Continue metoprolol (7) Diabetic peripheral neuropathy: (8) Hypothyroidism: 03/06 -continue home dose of levothyroxine (9) HTN (hypertension): 03/07 -continue home dose of metoprolol 03/11 -reviewed elevated blood pressure which appears fairly consistent over the past several months. Consider involving cardiology or internal medicine if additional treatment needed due to significant cardiovascular history. Will defer any further titration of beta-jes due to fall risk. check orthostatic blood pressures today (10) Dyslipidemia: 03/07 -continue atorvastatin and ezetimibe. Last FLP was 12/2018 and notable for triglycerides 228. We will need to recheck it if starting an antipsychotic. Risk Factors Assessment Male: Yes : Yes Do You Have Access To A Gun?: No Health Problems: Yes Mental Health Diagnoses: Yes Substance Use Disorders: No Previous Attempt: No Hopelessness: No Smoker: No Protective Factors Assessment : No Responsible for Young Children: No Employed: No Supportive Family: Yes Good Rapport with Provider: No Interval History Identifying Information PO NICOLE is a 69-year-old M who currently lives at the [facility] in [place], has a history of epilepsy, cardiac disease, diabetes, schizophrenia, and was admitted on 03/07/20 04:24 on a 201 voluntary commitment for auditory hallucinations and aggressive behavior. Chief Complaint "I like it here". Review of Systems Notes No chest pain, pressure, shortness of breath Sleep Information Total Hours of Sleep: 6 Sleep Comments: pt came out to the nurses station at 0530 in his PJ's. vocally loud due to his hearing deficits. he was looking for rene, our counselor from the evening shift. he was able to tell me, after a moment, that he was in the hospital. his balance is off especially when he moves his head to look around or quickly change directions when in motion. Meal Information Percent Meal Consumed - Breakfast: 100 Percent Meal Consumed - Lunch: 100 Percent Meal Consumed - Dinner: 100 Subjective Subjective Patient was seen & assessed and interval progress reviewed with treatment team. Per staff, patient continues to demonstrate variable confusion and evening hours yesterday, seemingly a little clearer this morning. Continued intermittent intrusiveness at nursing station but consistently calm and redirectable. Has been medication compliant. On interview patient comments about liking it very much at the hospital and asks if he could live here. He described auditory hallucinations inconsistently. When I first asked him about hearing voices he stated that he does hear voices and that they tell him good things and he likes it and when I asked him to clarify he quickly switched to stating that he does not like it and appeared a little upset fleetingly. He could not identify any specific content of hallucinations. He denied any acute physical symptoms. Denied that dizziness was worse today. Physical Exam Psychiatric Orientation: oriented to place (Grossly) and cooperative Apperance: appropriately groomed and appeared stated age Eye Contact: + fair eye contact Motor Behavior: no abnormal motor movements Speech: normal rate/rhythm/volume of speech (unsophisticated language) Affect: euthymic affect Mood: no depressed mood Thought Process: + thought process not clear or coherent Suicidal Thoughts: denies suicidal thoughts Homicidal Thoughts: denies homicidal thoughts Hallucinations: + auditory hallucinations; no visual hallucinations Cognition: + recent memory not intact, + remote memory not intact and + attention not intact Estimated Intelligence: + below average estimated intelligence Insight: + impaired insight Judgement: + impaired judgement Vital Signs (Past 24 Hours) Last Vital Signs Temp 36.3 C L 03/11/20 06:33 Pulse 67 03/11/20 14:45 Resp 20 03/11/20 14:45 BP 165/75 H 03/11/20 14:45 Pulse Ox 97 03/11/20 14:05 Results & Data ([facility]) Laboratory Results Laboratory Results - last 24 hr 03/10/20 03/11/20 03/11/20 16:52 06:14 08:28 Sodium Potassium Chloride Carbon Dioxide Anion Gap BUN Creatinine Est Cr Clr Drug Dosing Est GFR ( Amer) Est GFR (Non-Af Amer) BUN/Creatinine Ratio Glucose POC Glucose 129 H 113 H Calcium Total Bilirubin AST ALT Alkaline Phosphatase Total Protein Albumin Globulin Albumin/Globulin Ratio Lamotrigine Pending 03/11/20 08:41 Sodium 137 Potassium 4.4 Chloride 107 Carbon Dioxide 22 Anion Gap 8.0 BUN 23 H Creatinine 0.96 Est Cr Clr Drug Dosing 82.7 Est GFR ( Amer) 92.4 Est GFR (Non-Af Amer) 79.8 BUN/Creatinine Ratio 24.1 H Glucose 104 H POC Glucose Calcium 8.9 Total Bilirubin 0.7 AST 47 H ALT 36 Alkaline Phosphatase 372 H Total Protein 7.9 Albumin 3.6 Globulin 4.3 H Albumin/Globulin Ratio 0.8 L Lamotrigine Current Inpatient Medications Current Inpatient Medications: Current Inpatient Medications Acetaminophen (Acetaminophen 325 Mg Tab) 650 mg PO Q4H PRN PRN Reason: Headache or Minor Fever Stop: 04/06/20 05:34 Al Hydrox/Mg Hydrox/Simethicone (Aluminum/Magnesium Susp 30 Ml Udc) 30 ml PO Q4H PRN PRN Reason: GI Upset Stop: 04/06/20 05:34 Aspirin (Aspirin 81 Mg Chew) [facility] [place] Stop: 04/06/20 08:59 Last Admin: 03/11/20 07:46 Dose: 81 mg Documented by: Atorvastatin Calcium (Atorvastatin 40 Mg Tab) [address] [facility] Stop: 04/06/20 21:59 Last Admin: 03/10/20 20:42 Dose: 80 mg Documented by: Bismuth Subsalicylate (Bismuth Subsalicylate Per Ml Omnicell Charge) 15 ml PO PRN PRN PRN Reason: Loose Stool Stop: 04/06/20 05:34 Cyanocobalamin (Cyanocobalamin 500 Mcg Tablet (Vitamin B-12)) 1,000 mcg PO QAM [facility] Stop: 04/06/20 08:59 Last Admin: 03/11/20 07:47 Dose: 1,000 mcg Documented by: Dextrose (Dextrose 50% 50 Ml Syringe) 25 - 50 ml IV UD PRN; Protocol PRN Reason: Hypoglycemia Protocol Stop: 04/06/20 08:44 Ezetimibe (Ezetimibe 10 Mg Tablet) 10 mg PO HS CHRISTOPHER Stop: 04/06/20 21:59 Last Admin: 03/10/20 20:45 Dose: 10 mg Documented by: Fluoxetine HCl (Fluoxetine Hcl 20 Mg Cap) 20 mg PO DAILY [facility] Stop: 04/06/20 08:59 Last Admin: 03/11/20 07:46 Dose: 20 mg Documented by: Glucagon (Glucagon For Inj 1 Mg Vial) 1 mg IM UD PRN; Protocol PRN Reason: Hypoglycemia Protocol Stop: 04/06/20 08:44 Glucose (Glucose 40% Gel 15 Gm Tube) 15 - 30 gm PO UD PRN; Protocol PRN Reason: Hypoglycemia Protocol Stop: 04/06/20 08:44 Glucose (Glucose 10 Tabs/Tube) 4 - 8 tabs PO UD PRN; Protocol PRN Reason: Hypoglycemia Protocol Stop: 04/06/20 08:44 Hydroxyzine HCl (Hydroxyzine Hcl 25 Mg Tab) 50 mg PO HSZ PRN PRN Reason: Insomnia Stop: 04/06/20 05:34 Hydroxyzine HCl (Hydroxyzine Hcl 25 Mg Tab) 25 mg PO Q4H PRN PRN Reason: Anxiety Stop: 04/06/20 05:34 Insulin Aspart (Insulin Aspart 100 Units/Ml 3 Ml Pen) 0 units SC DAILY@0900,1745 [facility]; Protocol Stop: 04/06/20 08:59 Last Admin: 03/11/20 08:57 Dose: Not Given Documented by: Insulin Human Isoph/Insulin Regular (Insulin Human 70% Nph/30% Regular) 30 units SC QDB [facility]; Protocol Stop: 04/09/20 08:59 Last Admin: 03/11/20 08:56 Dose: 30 units Documented by: Insulin Human Isoph/Insulin Regular (Insulin Human 70% Nph/30% Regular) 12 units SC QDD [facility]; Protocol Stop: 04/09/20 17:44 Last Admin: 03/10/20 17:10 Dose: 12 units Documented by: Lamotrigine (Lamotrigine 100 Mg Tab) 300 mg PO BID [facility] Stop: 04/06/20 08:59 Last Admin: 03/11/20 07:47 Dose: 300 mg Documented by: Levothyroxine Sodium (Levothyroxine Sodium 75 Mcg Tablet) 75 mcg PO DAILYBB [facility] Stop: 04/06/20 07:59 Last Admin: 03/11/20 07:47 Dose: 75 mcg Documented by: Magnesium Hydroxide (Magnesium Hydroxide Susp 30 Ml Udc) 30 ml PO DAILY PRN PRN Reason: Constipation Stop: 04/06/20 05:34 Metformin HCl (Metformin Hcl 500 Mg Tab) 1,000 mg PO BIDM [facility] Stop: 04/07/20 08:59 Last Admin: 03/11/20 08:55 Dose: 1,000 mg Documented by: Metoprolol Succinate (Metoprolol Succ 25mg Ext Rel Tab) 12.5 mg PO DAILY [facility] Stop: 04/06/20 08:59 Last Admin: 03/11/20 07:48 Dose: 12.5 mg Documented by: Miscellaneous (Carbohydrates For Hypoglycemia ) 15 - 30 gm PO UD PRN PRN Reason: Hypoglycemia Treatment Stop: 04/06/20 08:44 Miscellaneous Information (Pharmacy Glycemic Mgmt Consult) 1 ea N/A UD PRN PRN Reason: Consult Stop: 04/06/20 06:10 *Vascepa 1 Gm* Non- Form Patient's Own Med 2 ea PO BID [facility] Stop: 04/06/20 20:59 Last Admin: 03/11/20 07:49 Dose: 2 gm Documented by: *L- Carnitine Liquid *Non-Form Patient's Own Med 1 ea PO AC [facility] Stop: 04/06/20 18:29 Last Admin: 03/11/20 12:48 Dose: 20 ml Documented by: Oxymetazoline HCl (Oxymetazoline 0.05% 30 Ml Btl) 2 sprays NA Q12 PRN PRN Reason: Nasal Congestion Stop: 04/06/20 05:39 Paliperidone (Paliperidone 3 Mg Tabcr) 6 mg PO QAM [facility] Stop: 04/09/20 08:59 Last Admin: 03/11/20 07:47 Dose: 6 mg Documented by: Phenobarbital (Phenobarbital 32.4 Mg Tab) 64.8 mg PO QAM [facility] Stop: 04/06/20 08:59 Last Admin: 03/11/20 07:46 Dose: 64.8 mg Documented by: Phenobarbital (Phenobarbital 32.4 Mg Tab) 129.6 mg PO HS [facility] Stop: 04/06/20 21:59 Last Admin: 08/15/20 20:44 Dose: 129.6 mg Documented by: Polyethylene Glycol (Polyethylene (Miralax) 17 Gm Pack) 17 gm PO DAILY PRN PRN Reason: Constipation Stop: 04/06/20 05:39 Sodium Chloride (Sodium Chloride 0.65% Na Soln 45 Ml ([place])) 1 - 2 sprays NA PRN PRN PRN Reason: Nasal Dryness/Congestion Stop: 04/06/20 05:34 Trazodone HCl (Trazodone Hcl 50 Mg Tab) 50 mg PO HS CHRISTOPHER Stop: 04/06/20 21:59 Last Admin: 03/10/20 20:41 Dose: 50 mg Documented by: Mental Health & Subst Abuse Tx Psychiatrist Name of Psychiatrist: Patel Cullen Psychiatrist's Date of Appointment with Psychiatrist: 04/17/20 Time of Appointment with Psychiatrist: 8:30 a.m. Psychiatric Appointment Comment: [facility] Therapist Name of Therapist: . Major Assembler Name of Major Assembler: . Post Discharge Appointments Primary Care Physician Name Of Family Doctor: Alfredo Stein Primary Care Provider Appointment Comment: [place] [address] Neurologist Name of Neurologist: GAURAV Navarro Neurologist's Neurology Appointment Comment: [phone] [place] [address] Contact Information Discharge Discharge Address: [address] [place] [id number] Contact Information Comment: [facility]
--- NOTE | 2020-03-11 17:21 | Electroencephalogram ---
EEG Procedure Note Date of Service March 11, 2020 Start / End Times Start Time: 3:14 PM End Time: 3:34 PM Referring Physician Zheng Kitchen MD History Seizure disorder Home Medication List Home Medications Medication Instructions Recorded Confirmed Type Humulin 70/30 U-100 KwikPen 24 - 42 unit SUBCUT UD 07/10/19 03/07/20 History aspirin 81 mg PO QAM 07/10/19 03/07/20 History ezetimibe [Zetia] 10 mg PO HS 07/10/19 03/07/20 History fluoxetine [Prozac] 20 mg PO DAILY 07/10/19 03/07/20 History trazodone 50 mg PO HS 07/10/19 03/07/20 History metoprolol succinate 25 mg 12.5 mg PO DAILY tab 08/24/19 03/07/20 History tablet,extended release 24 hr phenobarbital 60 mg tablet 60 mg PO QAM 08/24/19 03/07/20 History Vascepa 2 g PO BID 10/05/19 03/07/20 History acetaminophen [Tylenol] 650 mg PO Q4H PRN 10/05/19 03/07/20 History levocarnitine (bulk) [L-Carnitine] 20 ea MISCELLANEOUS DIRECTED 10/05/19 03/07/20 History phenobarbital 120 mg PO HS 10/05/19 03/07/20 History polyethylene glycol 3350 [Miralax] 17 g PO DAILY PRN 10/05/19 03/07/20 History atorvastatin [Lipitor] 80 mg PO HS 11/17/19 02/23/20 History cyanocobalamin (vitamin B-12) 1,000 mcg PO QAM 11/17/19 03/07/20 History levothyroxine [Synthroid] 75 mcg PO QAM 11/17/19 03/07/20 History metformin [Fortamet] 1,000 mg PO BID 11/17/19 03/07/20 History oxymetazoline [Afrin 2 spray INTRANASAL Q12H PRN 11/17/19 03/07/20 History (oxymetazoline)] lamotrigine 150 mg tablet 300 mg PO BID 30 Days #120 tab 02/16/20 03/07/20 Rx atorvastatin 80 mg PO HS 03/07/20 03/07/20 History Inpatient Medication List Aspirin ([facility] 81 Mg Chew) [facility]: 04/06/20 08:59 Last Admin: 03/11/20 07:46 Dose: 81 mg Documented by: [id number] Admin: 03/10/20 07:32 Dose: 81 mg Documented by: [id number] Admin: 03/09/20 08:44 Dose: 81 mg Documented by: [id number] Admin: 03/08/20 08:25 Dose: 81 mg Documented by: [id number] Admin: 03/07/20 08:52 Dose: 81 mg Documented by: [id number] Atorvastatin Calcium (Atorvastatin 40 Mg Tab) 80 mg PO [facility] Stop: 04/06/20 21:59 Last Admin: 03/10/20 20:42 Dose: 80 mg Documented by: [id number] Admin: 03/09/20 21:18 Dose: 80 mg Documented by: [id number] Admin: 03/08/20 21:23 Dose: 80 mg Documented by: [id number] Admin: 03/07/20 21:14 Dose: 80 mg Documented by: [id number] Cyanocobalamin (Cyanocobalamin 500 Mcg Tablet (Vitamin B-12)) 1,[facility]: 04/06/20 08:59 Last Admin: 03/11/20 07:47 Dose: 1,000 mcg Documented by: [id number] Admin: 03/10/20 07:32 Dose: 1,000 mcg Documented by: [id number] Admin: 03/09/20 08:39 Dose: 1,000 mcg Documented by: [id number] Admin: 03/08/20 08:31 Dose: 1,000 mcg Documented by: [id number] Admin: 03/07/20 08:53 Dose: 1,000 mcg Documented by: [id number] Ezetimibe (Ezetimibe 10 Mg Tablet) 10 mg PO [facility] Stop: 04/06/20 21:59 Last Admin: 03/10/20 20:45 Dose: 10 mg Documented by: [id number] Admin: 03/09/20 21:18 Dose: 10 mg Documented by: [id number] Admin: 03/08/20 21:24 Dose: 10 mg Documented by: [id number] Admin: 03/07/20 21:14 Dose: 10 mg Documented by: [id number] Fluoxetine HCl (Fluoxetine Hcl 20 Mg Cap) 20 mg PO DAILY [facility] Stop: 04/06/20 08:59 Last Admin: 03/11/20 07:46 Dose: 20 mg Documented by: [id number] Admin: 03/10/20 07:32 Dose: 20 mg Documented by: [id number] Admin: 03/09/20 08:48 Dose: 20 mg Documented by: [id number] Admin: 03/08/20 08:31 Dose: 20 mg Documented by: [id number] Admin: 03/07/20 08:53 Dose: 20 mg Documented by: [id number] Insulin Aspart (Insulin Aspart 100 Units/Ml 3 Ml Pen) 0 units SC DAILY@0900,1745 [facility]; Protocol Stop: 04/06/20 08:59 Last Admin: 03/11/20 08:57 Dose: Not Given Documented by: [id number] Cosigned by: [id number] Admin: 03/10/20 17:42 Dose: Not Given Documented by: [id number] Cosigned by: [id number] Admin: 03/10/20 09:00 Dose: Not Given Documented by: [id number] Cosigned by: [id number] Admin: 03/09/20 17:26 Dose: Not Given Documented by: [id number] Cosigned by: [id number] Admin: 03/09/20 09:31 Dose: Not Given Documented by: [id number] Admin: 03/08/20 18:05 Dose: Not Given Documented by: [id number] Cosigned by: [id number] Admin: 03/08/20 09:15 Dose: Not Given Documented by: [id number] Admin: 03/07/20 17:59 Dose: Not Given Documented by: [id number] Cosigned by: [id number] Admin: 03/07/20 09:27 Dose: Not Given Documented by: [id number] Cosigned by: [id number] Insulin Human Isoph/Insulin Regular (Insulin Human 70% Nph/30% Regular) 30 units SC QDB [facility]; Protocol Stop: 04/09/20 08:59 Last Admin: 03/11/20 08:56 Dose: 30 units Documented by: [id number] Cosigned by: [id number] Admin: 03/10/20 08:56 Dose: 30 units Documented by: [id number] Cosigned by: [id number] Insulin Human Isoph/Insulin Regular (Insulin Human 70% Nph/30% Regular) 12 units SC QDD [facility]; Protocol Stop: 04/09/20 17:44 Last Admin: 03/11/20 16:55 Dose: 12 units Documented by: [id number] Cosigned by: [id number] Admin: 03/10/20 17:10 Dose: 12 units Documented by: [id number] Cosigned by: [id number] Lamotrigine (Lamotrigine 100 Mg Tab) 300 mg PO BID [facility] Stop: 04/06/20 08:59 Last Admin: 03/11/20 07:47 Dose: 300 mg Documented by: [id number] Admin: 03/10/20 20:40 Dose: 300 mg Documented by: [id number] Admin: 03/10/20 07:32 Dose: 300 mg Documented by: [id number] Admin: 03/09/20 21:16 Dose: 300 mg Documented by: [id number] Admin: 03/09/20 08:04 Dose: 300 mg Documented by: [id number] Admin: 03/08/20 21:21 Dose: 300 mg Documented by: [id number] Admin: 03/08/20 08:25 Dose: 300 mg Documented by: [id number] Admin: 03/07/20 21:12 Dose: 300 mg Documented by: [id number] Admin: 03/07/20 08:54 Dose: 300 mg Documented by: [id number] Levothyroxine Sodium (Levothyroxine Sodium 75 Mcg Tablet) 75 mcg PO DAILYBB [facility] Stop: 04/06/20 07:59 Last Admin: 03/11/20 07:47 Dose: 75 mcg Documented by: [id number] Admin: 03/10/20 07:31 Dose: 75 mcg Documented by: [id number] Admin: 03/09/20 08:03 Dose: 75 mcg Documented by: [id number] Admin: 03/08/20 08:25 Dose: 75 mcg Documented by: [id number] Admin: 03/07/20 08:52 Dose: 75 mcg Documented by: [id number] Metformin HCl (Metformin Hcl 500 Mg Tab) 1,000 mg PO BIDM [facility] Stop: 04/07/20 08:59 Last Admin: 03/11/20 16:52 Dose: 1,000 mg Documented by: [id number] Admin: 03/11/20 08:55 Dose: 1,000 mg Documented by: [id number] Admin: 03/10/20 17:08 Dose: 1,000 mg Documented by: [id number] Admin: 03/10/20 07:34 Dose: 1,000 mg Documented by: [id number] Admin: 03/09/20 17:06 Dose: 1,000 mg Documented by: [id number] Admin: 03/09/20 08:39 Dose: 1,000 mg Documented by: [id number] Admin: 03/08/20 17:54 Dose: 1,000 mg Documented by: [id number] Admin: 03/08/20 08:28 Dose: 1,000 mg Documented by: [id number] Metoprolol Succinate (Metoprolol Succ 25mg Ext Rel Tab) 12.5 mg PO DAILY [facility] Stop: 04/06/20 08:59 Last Admin: 03/11/20 07:48 Dose: 12.5 mg Documented by: [id number] Admin: 03/10/20 07:33 Dose: 12.5 mg Documented by: [id number] Admin: 03/09/20 08:43 Dose: 12.5 mg Documented by: [id number] Admin: 03/08/20 08:31 Dose: 12.5 mg Documented by: [id number] Admin: 03/07/20 08:52 Dose: 12.5 mg Documented by: [id number] *Vascepa 1 Gm* Non- Form Patient's Own Med 2 ea PO BID [facility] Stop: 04/06/20 20:59 Last Admin: 03/11/20 07:49 Dose: 2 gm Documented by: [id number] Admin: 03/10/20 20:41 Dose: 2 gm Documented by: [id number] Admin: 03/10/20 07:35 Dose: 2 gm Documented by: [id number] Admin: 03/09/20 21:17 Dose: 2 gm Documented by: [id number] Admin: 03/09/20 08:40 Dose: 2 gm Documented by: [id number] Admin: 03/08/20 21:22 Dose: 2 gm Documented by: [id number] Admin: 03/08/20 08:30 Dose: 2 gm Documented by: [id number] Admin: 03/07/20 21:13 Dose: 2 gm Documented by: [id number] *L- Carnitine Liquid *Non-Form Patient's Own Med 1 ea PO AC [facility] Stop: 04/06/20 18:29 Last Admin: 03/11/20 16:54 Dose: 20 ml Documented by: [id number] Admin: 03/11/20 12:48 Dose: 20 ml Documented by: [id number] Admin: 03/11/20 07:48 Dose: 20 ml Documented by: [id number] Admin: 03/10/20 17:38 Dose: 20 ml Documented by: [id number] Admin: 03/10/20 12:34 Dose: 20 ml Documented by: [id number] Admin: 03/10/20 07:43 Dose: 20 ml Documented by: [id number] Admin: 03/09/20 17:07 Dose: 20 ml Documented by: [id number] Admin: 03/09/20 12:41 Dose: 20 ml Documented by: [id number] Admin: 03/09/20 08:03 Dose: 20 ml Documented by: [id number] Admin: 03/08/20 17:54 Dose: 20 ml Documented by: [id number] Admin: 03/08/20 12:32 Dose: 20 ml Documented by: [id number] Admin: 03/08/20 08:24 Dose: 20 ml Documented by: [id number] Admin: 03/07/20 19:33 Dose: 20 ml Documented by: [id number] Paliperidone (Paliperidone 3 Mg Tabcr) 6 mg PO QAM [facility] Stop: 04/09/20 08:59 Last Admin: 03/11/20 07:47 Dose: 6 mg Documented by: [id number] Admin: 03/10/20 07:31 Dose: 6 mg Documented by: [id number] Phenobarbital (Phenobarbital 32.4 Mg Tab) [facility] Stop: 04/06/20 08:59 Last Admin: 03/11/20 07:46 Dose: 64.8 mg Documented by: [id number] Admin: 03/10/20 07:43 Dose: 64.8 mg Documented by: [id number] Admin: 03/09/20 08:48 Dose: 64.8 mg Documented by: [id number] Admin: 03/08/20 08:30 Dose: 64.8 mg Documented by: [id number] Admin: 03/07/20 08:54 Dose: 64.8 mg Documented by: [id number] Phenobarbital (Phenobarbital 32.4 Mg Tab) 129.6 mg PO HS [facility] Stop: 04/06/20 21:59 Last Admin: 03/10/20 20:44 Dose: 129.6 mg Documented by: [id number] Admin: 03/09/20 21:19 Dose: 129.6 mg Documented by: [id number] Admin: 03/08/20 21:23 Dose: 129.6 mg Documented by: [id number] Admin: 03/07/20 22:10 Dose: 129.6 mg Documented by: [id number] Trazodone HCl (Trazodone Hcl 50 Mg Tab) 50 mg PO HS [facility] Stop: 04/06/20 21:59 Last Admin: 03/10/20 20:41 Dose: 50 mg Documented by: [id number] Admin: 03/09/20 21:21 Dose: 50 mg Documented by: [id number] Admin: 03/08/20 21:23 Dose: 50 mg Documented by: [id number] Admin: 03/07/20 21:14 Dose: 50 mg Documented by: [id number] Discontinued Medications Atorvastatin Calcium (Lipitor) 80 mg PO NOW STA Stop: 03/07/20 02:03 Last Admin: 03/07/20 06:30 Dose: Not Given Documented by: [id number] Ezetimibe (Zetia) 10 mg PO NOW STA Stop: 03/07/20 02:02 Last Admin: 03/07/20 06:30 Dose: Not Given Documented by: [id number] Insulin Human Isoph/Insulin Regular (Insulin Human 70% Nph/30% Regular) 38 u nits SC QDB [facility]; Protocol Stop: 04/06/20 08:59 Last Admin: 03/07/20 09:31 Dose: 38 units Documented by: [id number] Cosigned by: [id number] Insulin Human Isoph/Insulin Regular (Insulin Human 70% Nph/30% Regular) 20 units SC QDD [facility]; Protocol Stop: 04/06/20 17:44 Last Admin: 03/08/20 18:01 Dose: 20 units Documented by: [id number] Cosigned by: [id number] Admin: 03/07/20 18:02 Dose: 20 units Documented by: [id number] Cosigned by: [id number] Insulin Human Isoph/Insulin Regular (Insulin Human 70% Nph/30% Regular) 35 units SC QDB [facility]; Protocol Stop: 04/07/20 08:59 Last Admin: 03/09/20 09:32 Dose: 35 units Documented by: [id number] Cosigned by: [id number] Admin: 03/08/20 09:14 Dose: 35 units Documented by: [id number] Cosigned by: [id number] Insulin Human Isoph/Insulin Regular (Insulin Human 70% Nph/30% Regular) 18 units SC QDD [facility]; Protocol Stop: 04/08/20 17:44 Last Admin: 03/09/20 17:29 Dose: 18 units Documented by: [id number] Cosigned by: [id number] Lamotrigine (Lamictal) 300 mg PO NOW STA Stop: 03/07/20 02:02 Last Admin: 03/07/20 06:30 Dose: Not Given Documented by: [id number] Miscellaneous (Icosapent Ethyl (Vascepa) 2 Gram Cap~Order Awaiting Action) 1 ea N/A QS [facility] Stop: 04/06/20 07:59 Last Admin: 03/07/20 09:06 Dose: Not Given Documented by: [id number] Paliperidone (Paliperidone 1.5 Mg Tabcr) 1.5 mg PO NOW STA Stop: 03/08/20 15:23 Last Admin: 03/08/20 17:53 Dose: 1.5 mg Documented by: [id number] Paliperidone (Paliperidone 3 Mg Tabcr) 3 mg PO QAM [facility] Stop: 04/08/20 08:59 Last Admin: 03/09/20 08:39 Dose: 3 mg Documented by: [id number] Phenobarbital (Phenobarbital) 120 mg PO NOW STA Stop: 03/07/20 01:58 Last Admin: 03/07/20 06:30 Dose: Not Given Documented by: [id number] Trazodone HCl (Desyrel) 50 mg PO NOW ONE Stop: 03/07/20 02:01 Last Admin: 03/07/20 06:30 Dose: Not Given Documented by: [id number] Description This is a 21 electrode EEG with a single channel dedicated to limited EKG. The electrodes were placed in accordance with the International 10-20 system. There is a posterior dominant rhythm of 10 Hz which is symmetrically distributed and attenuates with eye opening. There is a normal anterior to posterior organization. Photic stimulation is unremarkable. There is an intermittent 3.5 Hz spike and wave abnormality localizing to the left frontal region with adjacent spread seen throughout the study. Interpretation This is an abnormal awake/drowsy EEG revealing a frequent intermittent 3.5 Hz spike and wave abnormality localizing to the left frontal region. This observed abnormality is consistent with this patient's history of seizure disorder, potentially focal onset epilepsy. Further clinical correlation may be required. [facility] EEG Procedure Codes Indication for Procedure (1) Seizure disorder: Neurology Neurology: 31125 EEG include record awake & drowsy
[2020-03-11] MEDS: TRAZODONE HCL 50 MG TAB PO SCH (20:24)
[2020-03-11] MEDS: ATORVASTATIN 40 MG TAB PO SCH (20:25)
[2020-03-11] MEDS: EZETIMIBE 10 MG TABLET PO SCH (20:26)
[2020-03-12] MEDS: LEVOTHYROXINE SODIUM 75 MCG TABLET PO SCH (07:52)
[2020-03-12] MEDS: METFORMIN HCL 500 MG TAB PO SCH ×2 (08:36→17:38)
[2020-03-12] MEDS: [UNRECOGNIZED DRUG - REMARK] PO SCH ×3 (08:36→17:40)
[2020-03-12] MEDS: ASPIRIN 81 MG CHEW PO SCH (08:36)
[2020-03-12] MEDS: lamoTRIgine 100 MG TAB PO SCH ×2 (08:37→20:45)
[2020-03-12] MEDS: PALIPERIDONE 3 MG TABCR PO SCH (08:37)
[2020-03-12] MEDS: METOPROLOL SUCC 25MG EXT REL TAB PO SCH (08:38)
[2020-03-12] MEDS: FLUOXETINE HCL 20 MG CAP PO SCH (08:38)
[2020-03-12] MEDS: [UNRECOGNIZED DRUG - REMARK] PO SCH ×2 (08:38→20:46)
[2020-03-12] MEDS: CYANOCOBALAMIN 500 MCG TABLET (VITAMIN B-12) PO SCH (08:38)
[2020-03-12] MEDS: INSULIN HUMAN 70% NPH/30% REGULAR SC SCH ×2 (08:45→17:53)
[2020-03-12] MEDS: INSULIN ASPART 100 UNITS/ML 3 ML PEN SC SCH ×2 (08:47→17:48)
--- NOTE | 2020-03-12 09:45 | Pharmacy Report ---
Glycemic Control Progress Note - Date of Service March 12, 2020 - Scope Glycemic Pharmacist consulted for glycemic control to write orders per [facility] inpatient glycemic control protocol. - Objective Accuchecks BSG(last 24 hours):: 03/11/20 03/11/20 03/12/20 08:41 16:51 07:56 Glucose 104 H POC Glucose 143 H 128 H HbA1c:: Hemoglobin A1c 6.0 % (4.5-5.6) H 03/08/20 07:11 - Recent Pertinent Medications The patient is currently receiving: * Basal insulin: Novolin 70/30 30 units SQ in the morning and 12 units in the evening * Correctional Insulin: Novolog Correction per scale ACHS Goal Range: Low 120 mg/dL - High 160 mg/dL Correction Factor: 25 mg/dL/unit * Prandial insulin: Per carb ratio of 1 unit per -- grams CHO consumed * Oral Agents: metformin 1 gm PO BID - Outpatient Anti-Diabetic Meds Humulin 70/30 42 units in the morning and 24 units in the PM metformin 1 gm PO BID - Assessment & Plan ASSESSMENT: * See progress note from 03/07/2020 for more background info, in short: * Pt receiving SQ basal bolus insulin regimen for hyperglycemia secondary to baseline DM (outpatient regimen on hold). * Patient is currently receiving an average of 42 units of insulin per day * 30 units of basal insulin * 12 units of prandial/correctional insulin * BSGs ranging 113 - 143 mg/dl over the past 24hrs * Changes needed to insulin regimen: * AM Fasting BSG = 128 mg/dl. This is in goal range for patient based on inpatient targets and co-morbidities. Fasting BSGs are trending upwards but will hold up on titrating upwards since patient have difficulty with cognition. * Post-prandial BSGs are okay. * Total daily dose = 42 units. * Additional notes / comments: continue metformin PLAN FOR INPATIENT GLYCEMIC CONTROL: * Continuing Novolin 70/30 - 30 units in the morning and 12 units in the PM * Continuing correction factor of 25 mg/dl/unit * Continuing goal range of Low 120 mg/dL - High 160 mg/dL * Please note that the plan above was derived based on current level of insulin resistance and hospital stress. These recommendations are appropriate for inpatient admission only. Plan of care upon discharge will need to be reassessed to avoid potential outpatient hypo/hyperglycemia. Thank you.
--- NOTE | 2020-03-12 10:08 | Neurology Consultation ---
Date of Consultation March 12, 2020 Assessment & Plan (1) Seizure disorder: (2) Diabetic peripheral neuropathy: (3) Gait disturbance: (4) Auditory hallucinations: (5) Dizziness: Patient has a longstanding history of epilepsy , likely complex partial with without secondary generalization. His EEG had localized spikes to the left frontal head region. Clinically he seems to be fairly well controlled on solid dose of Lamictal and a relatively high dose of phenobarbital. Clinically he seems "sleepy" to me but have not seen him before. He is very hard of hearing which hinders communication. He has an underlying cognitive problem of a lifelong nature and an MRI several years ago showing some atrophy and white matter ischemic changes of a dull nature. I wonder if he has a superimposed dementia. phenobarbital could be giving him significant side effects and altering his cognitive abilities. He has diabetic polyneuropathy which likely gives him a sensory ataxia affecting his gait. This would put him at fall risk. His dizziness is nonspecific and certainly dehydration could lead to that. He is much more hydrated and not dizzy at all currently. He has a history of auditory hallucinations in someone with severe hearing loss bilaterally. He carries a diagnosis of schizophrenia but I am not sure that this diagnosis is accurate. Psychiatry agrees and I have discussed this case with Dr. Del Castillo. Recommendations: 1. Slowly taper off phenobarbital by 30 milligrams per week until off. 2. Monitor lamotrigine level and keep it in the higher therapeutic range. We will certainly monitor for seizures. He might very well be able to be controlled on monotherapy for seizures. 3. Psychiatry as initiated Invega 6 milligrams a day and he remains on fluoxetine and trazodone. Any of these medicines could lower seizure threshold. 4. if he has additional seizures as we taper off phenobarbital. I would add Zonegran 50 milligrams twice a day and titrate as opposed to going back to phenobarbital. 5. Keep hydrated. 6. Obtain hearing aids 7. Consider MRI of the brain with without contrast as an outpatient and also consider neuropsych testing to evaluate for dementia. 8. Patient should follow up with Dr. Navarro as an outpatient. Overall, I spent a total of 100 minutes with this case including review of records, direct evaluation patient at bedside, and discussing the case with Dr. Del Castillo including differential diagnosis and treatment options. History of Present Illness Reason for Consultation: The patient is a 69-year-old, who I was asked to see the request of Dr. Kitchen, for neurologic consultation regarding seizures. Requesting Physician: Dr. Kitchen Attending Physician: Melodie Del Castillo MD History of Present Illness this patient has a longstanding history of epilepsy since teen years. He has had an intellectual dysfunction of a mild nature although apparently finished high school. He has lived in a alf for many years. Originally he was seen by Dr. Henriquez and other [facility] neurologists, but since July of 2013 his neurologist has been Dr. Navarro. In the past he has tried phenytoin, valproic acid, and gabapentin. Since 2010 he has been on lamotrigine and phenobarbital pretty much at the same doses. According to the outpatient [facility] records, he has not had any seizures over time since 2013. there is a question of a seizure this July but it was not mentioned in the note of Denia Mendoza PA-C August 14, 2019. Over the years he has had intermittent "dizziness". This is a lot like a lightheadedness with standing up and he tends to be dehydrated. Medications could be giving him this dizziness as well but he has had extensive evaluations by ENT and Neurology in the past without any specific pathology or diagnoses noted. Most recent MRI of the brain, in November of 2016, was unremarkable Except for some old, nonspecific, mild white matter changes and atrophy. MRI of the head and neck in 2010 were unremarkable as well. An EEG June 30, 2018 showed some generalized slowing of a nonspecific nature and no focal abnormalities. Patient has had some more recent issues with auditory hallucinations. He carries a diagnosis of paranoid schizophrenia for many decades, but he has not been on any antipsychotics, that anyone has been where, for at least 20 years. He is extremely hard of hearing bilaterally should wear hearing. Apparently he does not have them. Patient was last seen in the office February 23, 2020 and he was stable without seizures. He was taken off gabapentin ( which he was originally given for his diabetic neuropathy discomfort ), because of dizziness. Currently he is on phenobarbital 60 milligrams in the morning and 120 milligrams at night. He takes Lamictal 300 milligrams twice daily. He is on 81 milligram aspirin tablet a day and fluoxetine 20 milligrams a day. He also takes trazodone. He has a history of diabetes with diabetic polyneuropathy, diabetic retinopathy cardiac issues including left heart failure and chronic atrial fibrillation with a controlled rate. 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 Because of his dizziness he tripped and fell in October of 2019 and fractured his right wrist. This is healing. the patient was admitted to the hospital March 07 for hearing voices and the urge to run away (as well as some other aberrant behavior). CBC was unremarkable. Chem profile showed some dehydration with an elevated BUN and creatinine but a normal TSH. AST and alk-phos were elevated on admission and remain elevated. Lipid profile was unremarkable and glucose is in the 120s-140s currently. Phenobarbital level was high normal at 30 7.2 and a Lamictal level is pending. An EEG was obtained March 11 and showed intermittent 3.5 hertz spike and wave abnormalities in the left frontal head region. Allergies Allergy/AdvReac Type Severity Reaction Status Date / Time valproic acid Allergy Intermediate UNKNOWN Verified 02/23/20 11:01 Penicillins Allergy Unknown UNKNOWN Verified 02/23/20 11:01 Home Medications Home Medications Medication Instructions Recorded Confirmed Type Humulin 70/30 U-100 KwikPen 24 - 42 unit SUBCUT UD 07/10/19 03/07/20 History aspirin 81 mg PO QAM 07/10/19 03/07/20 History ezetimibe [Zetia] 10 mg PO HS 07/10/19 03/07/20 History fluoxetine [Prozac] 20 mg PO DAILY 07/10/19 03/07/20 History trazodone 50 mg PO HS 07/10/19 03/07/20 History metoprolol succinate 25 mg 12.5 mg PO DAILY tab 08/24/19 03/07/20 History tablet,extended release 24 hr phenobarbital 60 mg tablet 60 mg PO QAM 08/24/19 03/07/20 History Vascepa 2 g PO BID 10/05/19 03/07/20 History acetaminophen [Tylenol] 650 mg PO Q4H PRN 10/05/19 03/07/20 History levocarnitine (bulk) [L-Carnitine] 20 ea MISCELLANEOUS DIRECTED 10/05/19 03/07/20 History phenobarbital 120 mg PO HS 10/05/19 03/07/20 History polyethylene glycol 3350 [Miralax] 17 g PO DAILY PRN 10/05/19 03/07/20 History atorvastatin [Lipitor] 80 mg PO HS 11/17/19 02/23/20 History cyanocobalamin (vitamin B-12) 1,000 mcg PO QAM 11/17/19 03/07/20 History levothyroxine [Synthroid] 75 mcg PO QAM 11/17/19 03/07/20 History metformin [Fortamet] 1,000 mg PO BID 11/17/19 03/07/20 History oxymetazoline [Afrin 2 spray INTRANASAL Q12H PRN 11/17/19 03/07/20 History (oxymetazoline)] lamotrigine 150 mg tablet 300 mg PO BID 30 Days #120 tab 02/16/20 03/07/20 Rx atorvastatin 80 mg PO HS 03/07/20 03/07/20 History Patient History Medical History Atrial flutter 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 Diabetes Diabetic nephropathy Diabetic peripheral neuropathy Dizziness Dyslipidemia H/O malignant neoplasm of colon "s/p resection " HTN (hypertension) Hypothyroidism Seizure disorder Surgical History S/P partial colectomy Family History Other No significant family history Social History Smoking Status: Former smoker Hx Alcohol Use: No Hx Substance Use: No Preferred Language: Fijian Communication Ability: Effective Manager Play Required: No Beliefs That Will Affect Care: Latter-Day (Sabianism) Latter-Day Beliefs: rastafarian-no blood Current Living Situation: Personal Care Facility Current Living Situation Comment: "house of care" Feels Safe at Home: No Review of Systems Constitutional: no fever, no fatigue and no weakness Eyes: no diplopia, no eye pain and no worsening vision Ear, Nose, Mouth, Throat: + hearing loss; no ear pain, no tinnitus, no dizziness, no hoarseness and no dysphagia Respiratory: no cough and no dyspnea Cardiovascular: no chest pain, no palpitations and no lightheadedness Gastrointestinal: no abdominal pain, no nausea and no vomiting Genitourinary: no dysuria and no urinary incontinence Musculoskeletal: no back pain, no neck pain, no radicular pain, no joint pain and no myalgia Integumentary: no rash and no lesions Neurologic: no gait abnormality, no localized weakness, no generalized weakness, no tingling, no numbness, no tremor(s), no abnormal movements, no headache(s), no abnormal speech, no confusion and no memory loss Psychiatric: no depression, no irritability, no anxiety, no difficulty concentrating, no confusion and no hallucinations Endocrine: no fatigue and no flushing Hematologic / Lymphatic: no easy bleeding and no easy bruising Allergy / Immunological: no urticaria and no problem reported Exam (Neuro) Physical Exam: The patient is right-handed. The patient is awake, alert, and attentive. Speech is normal without any obvious aphasia or dysarthria. He can name objects, repeat phrases, and has reasonable spontaneous speech. Mentation and thought processes are slow. He is oriented to person, month, day, year but not to age, place, or where he lives. Attention and concentration are normal. Mood and affect are normal and appropriate. General appearance and grooming are normal. Short and long-term memory are impaired. Pupils are 3 mm bilaterally and reactive to light. Extraocular eye muscles are intact without nystagmus. Visual acuity and visual thompson seem normal grossly to confrontation. There are no deficits to sensation in the face in all 3 distributions of the fifth cranial nerve bilaterally. Corneal reflexes are positive bilaterally. Facial strength and symmetry was normal bilaterally. Hearing Is poor bilaterally. Palate moves well without asymmetry. There is normal sternocleidomastoid and trapezius (shoulder shrug) strength bilaterally. Tongue is midline with good strength bilaterally. Neck has a full range of motion without discomfort. Cervical, thoracic, and lumbar spine are nontender to palpation. Gait is mildly wide based and cautious. He does have good arm swing, and his stance is reasonable. With outstretched arms there is no drift. There are no resting, postural, or action tremors. There is no ataxia with finger to nose testing. There is good facility in the hands. No other abnormal involuntary movements are noted. Motor strength is 5/5 diffusely in the arms bilaterally including deltoids, biceps, triceps, brachioradialis, wrist flexors and extensors, chemical production machine operator, and intrinsic hand muscles. Motor strength is 5/5 diffusely in the legs bilaterally including hip flexors, quadriceps, hamstrings, gastrocnemius, tibialis anterior, tibialis posterior, and Peroneii muscles. Toe extensors are normal and there is good bulk in the extensor digitorum brevis muscles bilaterally. The limbs have good tone without rigidity or spasticity. There is no atrophy noted in the muscles. Muscle bulk is normal, there is no tenderness to palpation, no myotonia to percussion, and no fasciculations seen. Sensory examination is relatively normal to pin touch in all 4 limbs although he is not overly accurate. He has hair loss to his mid lower legs bilaterally. Reflexes are 0/4 in the biceps, triceps, brachioradialis, quadriceps, and Achilles tendons bilaterally. There is no clonus bilaterally. Toes are downgoing with plantar stimulation bilaterally. There is no peripheral edema noted in the limbs. Results & Data ([facility]) Vital Signs (Past 12 Hours) Vital Signs Temp Pulse Resp BP 03/12/20 06:29 67 150/82 H 03/12/20 06:00 36.3 C L 67 19 146/75 H PG Care Time/CCT Total # of Minutes Spent Total Time Spent with Patient: Total time spent is greater than 50% in coordination of care (as documented) at patient's floor/unit and/or counseling patient: Coding Level of Care Code 82199 Initial Inpt Care Lvl 3 Diagnoses Seizure disorder G40.909 Diabetic peripheral neuropathy E11.42 Gait disturbance R26.9 Auditory hallucinations R44.0 Dizziness R42 Time Spent (min) 100 Comment Add [id number] to the [id number]
[2020-03-12] MEDS ORDERED: TRAZODONE HCL 50 MG TAB PO PRN (11:20)
--- NOTE | 2020-03-12 11:31 | Psychiatric Progress Note ---
Date of Service March 12, 2020 Impression / Recommendations Impression 69-year-old male with a history of multiple medical problems including diabetes, cardiac disease, and seizure disorder, as well as a history of schizophrenia per the EMR, but no antipsychotic medication noted on his record over a period of 22 years, who is admitted with auditory hallucinations and increasingly unsafe and erratic behavior at his personal intermediate. This is a challenging case, as there is little background information and I am not sure if he was ever actually diagnosed with schizophrenia, no previous psych records are available, and on her extensive review of his chart here I cannot find any psychotropics other than longstanding prescriptions for fluoxetine and trazodone. He has numerous medical problems which could be contributing to his presenting symptoms, and is also extremely hard of hearing and has lost his hearing aids, which makes the interview quite difficult. He has a longstanding seizure disorder which has apparently been very difficult to control and could be playing a role in his psychiatric symptoms. After worsening confusion was observed the weekend of 03/10-03/11, an EEG was requested as well as subsequent neurology consultation. EEG was abnormal with possibility of focal onset epilepsy. Reviewed case with neurology, who is suggested gradual taper of phenobarbital. We are also planning to discontinue low-dose fluoxetine as trazodone, as these medications can lower seizure threshold. Pt was started on paliperidone to target auditory hallucinations; however, we will now reduce dosage of paliperidone, as dose titration correlates with increased c onfusion/sedation, though unclear if sole cause of these changes. We will need to get collateral information from his [facility] staff and niece, and hopefully get him a new set of hearing aids while here so that he can better participate in assessments and treatment. Will need to discuss aftercare referrals as patient has no recent psychiatric providers. Inpatient treatment is medically necessary due to the severity of symptoms and risk for harm to himself if discharged. (1) Auditory hallucinations: 03/07 -patient endorses lifelong auditory hallucinations of voices, which recently have been telling him to "get out," in which he believes may be police telling him he needs to leave his personal intermediate, which he does not want to do. His EMR indicates a history of paranoid schizophrenia, but over the course of 22 years and multiple hospitalizations here, he has never been on an antipsychotic or had a psychiatric consultation. He does think that he was in treatment at [facility] years ago, but since they have closed, we may not be able to obtain those records. We will need to get collateral information from his niece (left message) and personal intermediate staff ([facility] staff left message) to try to clarify his psychiatric symptoms and treatment over the years. There is also a confounding factor of his hearing impairment and multiple medical conditions, specifically his seizure disorder, which could contribute to or cause psychiatric symptoms including hallucinations. Additionally, he reports an incident that occurred 9 or 10 years ago where he says he had sex with his stepdaughter who was in her early 20s. It is unclear to me if this represents a delusion, but he was somewhat fixated on it during our assessment today. -Continue to monitor and gather information. Consider trial of an antipsychotic. -Provide support and reality testing on the unit. -Continue home doses of fluoxetine and trazodone. Coordinate care with PCP, and refer for outpatient psychiatric care. 03/08 - Pt continues to endorse auditory hallucinations while here on the unit. Though not particularly distressing to the patient, they are contributing to secondary safety concerns in that he has been leaving his personal intermediate without communicating with staff and has been found wandering outside the facility - leading to continued safety concerns. Pt is concrete and thought process continues to be disorganized; however, patient is clearly able to state that he would like a medication that could target the voices. - Pt is able to repeat back the goals of utilizing an antipsychotic medication as well as repeat back side effects of concern. Pt verbalized willingness to trial an antipsychotic medications. In weighing out numerous potential intera ctions, will initiate paliperidone 1.5mg today and increase to 3mg starting tomorrow morning. - Continue attempts to gather collateral information, as psychiatric history continues to be rather unclear 03/09 - Titrate paliperidone to 6mg qAM - continue titration as indicated/tolerated. Pt reports auditory hallucinations are quieter today. - Fasting glucose and lipid panel ordered and reviewed with patient - WNL. - Consider conversion to an DAVIS if patient is agreeable and paliperidone is effective. - Continue coordination of aftercare and discharge planning efforts. 03/10 -more confused this AM however AH remain subjectively reduced -no overt evidence of EPS 03/11 -Must consider possibility that increased dose of paliperidone is negatively impacting his alertness and gait stability 03/12 - Pt reporting improvement in auditory hallucinations, though it seems possible that paliperidone may be negatively affecting level of alertness and gait as mentioned above. - Paliperidone dosage reduced to 3mg qAM given the above concerns. Continue to monitor. - Requested neurology consultation regarding other potential that seizures may be contributing to patient's presentation (confusion, disorientation, hallucinations, etc). - Discontinue fluoxetine and trazodone. (2) Seizure disorder: 03/07 - Consider the need for neurological consult and EEG to rule out TLE or seizure activity as a potential contributor. Continue home doses of phenobarbital and lamotrigine. 03/10 -will order bedside EEG to try to s/o seizure activity d/t increased confusion -repeat CMP. order lamictal level 03/12 - Requested neurology consultation, case reviewed during treatment team - appreciate recommendations - EEG ordered yesterday - abnormal EEG reportedly consistent with history of seizure disorder, "potentially focal onset epilepsy" - Agree with plan to slowly taper off phenobarbital by 30mg a week (32.4mg due to dosing options available in the ED). Continue current dose of lamotrigine 300mg BID. - Will discontinue fluoxetine and trazodone due to risk of lowering seizure threshold. Will reduce dosage of paliperidone 3mg due to concern patient has been more confused and sedated in the context of these various developments. - Recommendation to consider Zonegran 50mg BID if seizures occur with plan to taper phenobarbital. - Brain MRI with and without contrast is recommended following discharge (3) Diabetes: 03/07 -continue metformin and insulin, consult diabetic pharmacist for glucose management. Continue diabetic diet. 03/08 - Estimated Average Glucose of 126. HgbA1c elevated at 6.0%. - Continue diabetic diet - Appreciate assistance from glycemic pharmacists (4) Dizziness: 03/07 -Per review of records, chronic problem, with multiple potential contributors including cardiac disease, arrhythmia, peripheral neuropathy, dehydration, and polypharmacy. Dehydrated on presentation with BUN 39 and creatinine 1.49. Encourage fluids, and recheck BMP in a couple days. 03/08 - Creatinine improved at 1.08 03/10 -denies worse (5) CAD (coronary artery disease): 03/07 -continue home dose of aspirin (6) Atrial fibrillation with controlled ventricular rate: Continue metoprolol (7) Diabetic peripheral neuropathy: (8) Hypothyroidism: 03/06 -continue home dose of levothyroxine (9) HTN (hypertension): 03/07 -continue home dose of metoprolol 03/12 - BP has been persistently elevated; however, patient is an identified fall risk and continues to complain of dizziness - Consider possible need for titration of metoprolol (10) Dyslipidemia: 03/07 -continue atorvastatin and ezetimibe. Last FLP was 12/2018 and notabl e for triglycerides 228. We will need to recheck it if starting an antipsychotic. Risk Factors Assessment Male: Yes : Yes Do You Have Access To A Gun?: No Health Problems: Yes Mental Health Diagnoses: Yes Substance Use Disorders: No Previous Attempt: No Hopelessness: No Smoker: No Protective Factors Assessment : No Responsible for Young Children: No Employed: No Supportive Family: Yes Good Rapport with Provider: No Interval History Identifying Information PO NICOLE is a 69-year-old M who currently lives at the [facility] personal intermediate in [place], has a history of epilepsy, cardiac disease, diabetes, schizophrenia, and was admitted on 03/07/20 04:24 on a 201 voluntary commitment for auditory hallucinations and aggressive behavior. Chief Complaint "Um, yeah. I met with a doctor. What did they say? Nothing I know of for sure." Review of Systems Notes Constitutional: reports fatigue Cardiovascular: denied Respiratory: denied Gastrointestinal: denied Neurological: denied Psychiatric: denies symptoms other than stated above Total of at least 10 systems reviewed, pertinent positives as above and in HPI. Sleep Information Total Hours of Sleep: 5.5 Sleep Comments: pt came out to the nurses station at 0530 in his PJ's. vocally loud due to his hearing deficits. he was looking for rene, our counselor from the evening shift. he was able to tell me, after a moment, that he was in the hospital. his balance is off especially when he moves his head to look around or quickly change directions when in motion. Meal Information Percent Meal Consumed - Breakfast: 100 Percent Meal Consumed - Lunch: 90 Percent Meal Consumed - Dinner: 100 Nutrition Comment: per meal record Subjective Subjective Patient was seen & assessed and interval progress reviewed with treatment team. Staff report the patient appeared significantly more confused over the weekend. EEG was obtained given concern for rather sudden change in mental status and history of seizure disorder. EEG with abnormalities, and subsequent neurology consultation was requested. Patient's case was reviewed directly with neurology following treatment team this morning. Pt was seen today to assess progress since admission. Pt is initially pleasant, but obviously confused. He recalls receiving a visit from a doctor (neurologist) this morning, but when asked to provide any information on the conversation, the patient only states "nothing I know of for sure." Pt denied any present physical symptoms, but when asked spec ifically about side effects related to paliperidone he endorses fatigue and "restlessness more than anything." Pt does not appears restless, but rather somewhat lethargic during our encounter. Pt does admit to feeling confused. When asked how long this has been going on, he states "about three-quarters. About three-quarters of the time." Explanation was provided to patient regarding suggested medication adjustments. Pt did admit to comfort with medication changes as recommended. Pt endorses ongoing auditory hallucinations, but states "they are a lot smaller" - confirms this means quieter. Pt was asked questions related to orientation. He admitted with confidence that he knew the date, and then paused for a very long time. He then stated "February. .., no. The . -pause- 72." Pt was asked the year again, and after another pause he stated "1871." This provider informed him of the correct date. Pt knows we are in [place], but he believes we are at "[facility] I would guess..." Pt states "I feel a little on the rough side", but could not explain what this meant. He was asked if this provider could get him anything, and he responded simply with "sleep." Pt denied other needs. Physical Exam Psychiatric Orientation: alert (though very confused and does seem more sedated), oriented to person and oriented to place; + not oriented to time (believed the date was 03/03/1873. ) Apperance: appropriately dressed (casually, in bright sweatsuit); + inappropriately groomed (appearing unkempt and malodorous (specifically of urine)) Eye Contact: + fair eye contact (though eyelids are observed to be half-closed for most of encounter) Motor Behavior: no abnormal motor movements (observed while sitting on bed) Speech: + loud speech (slow, brief responses - significant delay before answering) Affect: + blunted affect (appearing sedated/confused) and + constricted affect Mood: no depressed mood ("fine") Thought Process: + thought blocking; + thought process not clear or coherent (disorganized) Thought Content: not paranoid and no persecution Paucity of thought, confusion, disorganization Suicidal Thoughts: denies suicidal thoughts Homicidal Thoughts: denies homicidal thoughts Hallucinations: + auditory hallucinations (reports ongoing voices, but says "they're a lot smaller."); no visual hallucinations Cognition: + recent memory not intact and + attention not intact Estimated Intelligence: + below average estimated intelligence (though level of current confusion is not likely baseline cognitive function) Insight: + severely impaired insight Judgement: + severely impaired judgement Vital Signs (Past 24 Hours) Last Vital Signs Temp 36.3 C L 03/12/20 06:00 Pulse 67 03/12/20 06:29 Resp 19 03/12/20 06:00 BP 150/82 H 03/12/20 06:29 Pulse Ox 97 03/11/20 14:05 Results & Data ([facility]) Laboratory Results Laboratory Results - last 24 hr 03/11/20 03/12/20 16:51 07:56 POC Glucose 143 H 128 H Current Inpatient Medications Current Inpatient Medications: Current Inpatient Medications Acetaminophen (Acetaminophen 325 Mg Tab) 650 mg PO Q4H PRN PRN Reason: Headache or Minor Fever Stop: 04/06/20 05:34 Al Hydrox/Mg Hydrox/Simethicone (Aluminum/Magnesium Susp 30 Ml Udc) 30 ml PO Q4H PRN PRN Reason: GI Upset Stop: 04/06/20 05:34 Aspirin (Aspirin 81 Mg Chew) [facility] Stop: 04/06/20 08:59 Last Admin: 03/12/20 08:36 Dose: 81 mg Documented by: Atorvastatin Calcium (Atorvastatin 40 Mg Tab) 80 mg PO HS CHRISTOPHER Stop: 04/06/20 21:59 Last Admin: 03/11/20 20:25 Dose: 80 mg Documented by: Bismuth Subsalicylate (Bismuth Subsalicylate Per Ml Omnicell Charge) 15 ml PO PRN PRN PRN Reason: Loose Stool Stop: 04/06/20 05:34 Cyanocobalamin (Cyanocobalamin 500 Mcg Tablet (Vitamin B-12)) 1,000 mcg PO QAM CHRISTOPHER Stop: 04/06/20 08:59 Last Admin: 03/12/20 08:38 Dose: 1,000 mcg Documented by: Dextrose (Dextrose 50% 50 Ml Syringe) 25 - 50 ml IV UD PRN; Protocol PRN Reason: Hypoglycemia Protocol Stop: 04/06/20 08:44 Ezetimibe (Ezetimibe 10 Mg Tablet) 10 mg PO HS CHRISTOPHER Stop: 04/06/20 21:59 Last Admin: 03/11/20 20:26 Dose: 10 mg Documented by: Glucagon (Glucagon For Inj 1 Mg Vial) 1 mg IM UD PRN; Protocol PRN Reason: Hypoglycemia Protocol Stop: 04/06/20 08:44 Glucose (Glucose 40% Gel 15 Gm Tube) 15 - 30 gm PO UD PRN; Protocol PRN Reason: Hypoglycemia Protocol Stop: 04/06/20 08:44 Glucose (Glucose 10 Tabs/Tube) 4 - 8 tabs PO UD PRN; Protocol PRN Reason: Hypoglycemia Protocol Stop: 04/06/20 08:44 Hydroxyzine HCl (Hydroxyzine Hcl 25 Mg Tab) 50 mg PO HSZ PRN PRN Reason: Insomnia Stop: 04/06/20 05:34 Hydroxyzine HCl (Hydroxyzine Hcl 25 Mg Tab) 25 mg PO Q4H PRN PRN Reason: Anxiety Stop: 04/06/20 05:34 Insulin Aspart (Insulin Aspart 100 Units/Ml 3 Ml Pen) 0 units SC DAILY@0900,1745 [facility]; Protocol Stop: 04/06/20 08:59 Last Admin: 03/12/20 08:47 Dose: Not Given Documented by: Insulin Human Isoph/Insulin Regular (Insulin Human 70% Nph/30% Regular) 30 units SC QDB [facility]; Protocol Stop: 04/09/20 08:59 Last Admin: 03/12/20 08:45 Dose: 30 units Documented by: Insulin Human Isoph/Insulin Regular (Insulin Human 70% Nph/30% Regular) 12 units SC QDD [facility]; Protocol Stop: 04/09/20 17:44 Last Admin: 03/11/20 16:55 Dose: 12 units Documented by: Lamotrigine (Lamotrigine 100 Mg Tab) 300 mg PO BID [facility] Stop: 04/06/20 08:59 Last Admin: 03/12/20 08:37 Dose: 300 mg Documented by: Levothyroxine Sodium (Levothyroxine Sodium 75 Mcg Tablet) 75 mcg PO DAILYBB [facility] Stop: 04/06/20 07:59 Last Admin: 03/12/20 07:52 Dose: 75 mcg Documented by: Magnesium Hydroxide (Magnesium Hydroxide Susp 30 Ml Udc) 30 ml PO DAILY PRN PRN Reason: Constipation Stop: 04/06/20 05:34 Metformin HCl (Metformin Hcl 500 Mg Tab) 1,000 mg PO BIDM [facility] Stop: 04/07/20 08:59 Last Admin: 03/12/20 08:36 Dose: 1,000 mg Documented by: Metoprolol Succinate (Metoprolol Succ 25mg Ext Rel Tab) 12.5 mg PO DAILY [facility] Stop: 04/06/20 08:59 Last Admin: 03/12/20 08:38 Dose: 12.5 mg Documented by: Miscellaneous (Carbohydrates For Hypoglycemia ) 15 - 30 gm PO UD PRN PRN Reason: Hypoglycemia Treatment Stop: 04/06/20 08:44 Miscellaneous Information (Pharmacy Glycemic Mgmt Consult) 1 ea N/A UD PRN PRN Reason: Consult Stop: 04/06/20 06:10 *Vascepa 1 Gm* Non- Form Patient's Own Med 2 ea PO BID [facility] Stop: 04/06/20 20:59 Last Admin: 03/12/20 08:38 Dose: 2 gm Documented by: *L- Carnitine Liquid *Non-Form Patient's Own Med 1 ea PO AC CHRISTOPHER Stop: 04/06/20 18:29 Last Admin: 03/12/20 08:36 Dose: 20 ml Documented by: Oxymetazoline HCl (Oxymetazoline 0.05% 30 Ml Btl) 2 sprays NA Q12 PRN PRN Reason: Nasal Congestion Stop: 04/06/20 05:39 Paliperidone (Paliperidone 3 Mg Tabcr) 3 mg PO QAM [facility] Stop: 04/12/20 08:59 Phenobarbital (Phenobarbital 32.4 Mg Tab) 64.8 mg PO QAM [facility] Stop: 04/06/20 08:59 Last Admin: 03/12/20 08:42 Dose: 64.8 mg Documented by: Phenobarbital (Phenobarbital 32.4 Mg Tab) 97.2 mg PO HS [facility] Stop: 04/11/20 21:59 Polyethylene Glycol (Polyethylene (Miralax) 17 Gm Pack) 17 gm PO DAILY PRN PRN Reason: Constipation Stop: 04/06/20 05:39 Sodium Chloride (Sodium Chloride 0.65% Na Soln 45 Ml (Meigs)) 1 - 2 sprays NA PRN PRN PRN Reason: Nasal Dryness/Congestion Stop: 04/06/20 05:34 Trazodone HCl (Trazodone Hcl 50 Mg Tab) 50 mg PO HS PRN PRN Reason: insomnia Stop: 04/06/20 21:59 Mental Health & Subst Abuse Tx Psychiatrist Name of Psychiatrist: Patel Cullen Psychiatrist's Date of Appointment with Psychiatrist: 04/17/20 Time of Appointment with Psychiatrist: 8:30 a.m. Psychiatric Appointment Comment: [id number] [facility] Therapist Name of Therapist: . Religious Assistant Name of Religious Assistant: . Post Discharge Appointments Primary Care Physician Name Of Family Doctor: Alfredo Stein Primary Care Provider Appointment Comment: [address], [place] [address] Neurologist Name of Neurologist: GUARAV Navarro Neurologist's Neurology Appointment Comment: [phone] [place] [address] Contact Information Discharge Discharge Address: [address] [place] [id number] Contact Information Comment: [facility]
[2020-03-12] MEDS: ATORVASTATIN 40 MG TAB PO SCH (20:46)
[2020-03-12] MEDS: EZETIMIBE 10 MG TABLET PO SCH (20:47)
[2020-03-13] MEDS: [UNRECOGNIZED DRUG - REMARK] PO SCH ×3 (07:59→17:38)
[2020-03-13] MEDS: LEVOTHYROXINE SODIUM 75 MCG TABLET PO SCH (08:00)
[2020-03-13] MEDS: ASPIRIN 81 MG CHEW PO SCH (08:37)
[2020-03-13] MEDS: PALIPERIDONE 3 MG TABCR PO SCH (08:38)
[2020-03-13] MEDS: METFORMIN HCL 500 MG TAB PO SCH ×2 (08:38→17:37)
[2020-03-13] MEDS: lamoTRIgine 100 MG TAB PO SCH ×2 (08:38→20:41)
[2020-03-13] MEDS: CYANOCOBALAMIN 500 MCG TABLET (VITAMIN B-12) PO SCH (08:40)
[2020-03-13] MEDS: METOPROLOL SUCC 25MG EXT REL TAB PO SCH (08:41)
[2020-03-13] MEDS: [UNRECOGNIZED DRUG - REMARK] PO SCH ×2 (08:42→20:41)
[2020-03-13] MEDS: INSULIN HUMAN 70% NPH/30% REGULAR SC SCH ×2 (08:57→17:44)
[2020-03-13] MEDS: INSULIN ASPART 100 UNITS/ML 3 ML PEN SC SCH ×2 (09:02→17:54)
--- NOTE | 2020-03-13 11:09 | Psychiatric Progress Note ---
Date of Service March 13, 2020 Impression / Recommendations Impression 69-year-old male with a history of multiple medical problems including diabetes, cardiac disease, and seizure disorder, as well as a history of schizophrenia per the EMR, but no antipsychotic medication noted on his record over a period of 22 years, who is admitted with auditory hallucinations and increasingly unsafe and erratic behavior at his personal fpc. This is a challenging case, as there is little background information and I am not sure if he was ever actually diagnosed with schizophrenia, no previous psych records are available, and on her extensive review of his chart here I cannot find any psychotropics other than longstanding prescriptions for fluoxetine and trazodone. He has numerous medical problems which could be contributing to his presenting symptoms, and is also extremely hard of hearing and has lost his hearing aids, which makes the interview quite difficult. He has a longstanding seizure disorder which has apparently been very difficult to control and could be playing a role in his psychiatric symptoms. After worsening confusion was observed the weekend of 03/10-03/11, an EEG was requested as well as subsequent neurology consultation. EEG was abnormal with possibility of focal onset epilepsy. Reviewed case with neurology, who is suggested gradual taper of phenobarbital. We are also planning to discontinue low-dose fluoxetine as trazodone, as these medications can lower seizure threshold. Pt was started on paliperidone to target auditory hallucinations; however, we will now reduce dosage of paliperidone, as dose titration correlates with increased c onfusion/sedation, though unclear if sole cause of these changes. We will need to get collateral information from his [facility] staff and niece, and hopefully get him a new set of hearing aids while here so that he can better participate in assessments and treatment. Will need to discuss aftercare referrals as patient has no recent psychiatric providers. Inpatient treatment is medically necessary due to the severity of symptoms and risk for harm to himself if discharged. (1) Auditory hallucinations: 03/07 -patient endorses lifelong auditory hallucinations of voices, which recently have been telling him to "get out," in which he believes may be police telling him he needs to leave his personal fpc, which he does not want to do. His EMR indicates a history of paranoid schizophrenia, but over the course of 22 years and multiple hospitalizations here, he has never been on an antipsychotic or had a psychiatric consultation. He does think that he was in treatment at [facility] years ago, but since they have closed, we may not be able to obtain those records. We will need to get collateral information from his niece (left message) and personal fpc staff ([facility] staff left message) to try to clarify his psychiatric symptoms and treatment over the years. There is also a confounding factor of his hearing impairment and multiple medical conditions, specifically his seizure disorder, which could contribute to or cause psychiatric symptoms including hallucinations. Additionally, he reports an incident that occurred 9 or 10 years ago where he says he had sex with his stepdaughter who was in her early 20s. It is unclear to me if this represents a delusion, but he was somewhat fixated on it during our assessment today. -Continue to monitor and gather information. Consider trial of an antipsychotic. -Provide support and reality testing on the unit. -Continue home doses of fluoxetine and trazodone. Coordinate care with PCP, and refer for outpatient psychiatric care. 03/08 - Pt continues to endorse auditory hallucinations while here on the unit. Though not particularly distressing to the patient, they are contributing to secondary safety concerns in that he has been leaving his personal fpc without communicating with staff and has been found wandering outside the facility - leading to continued safety concerns. Pt is concrete and thought process continues to be disorganized; however, patient is clearly able to state that he would like a medication that could target the voices. - Pt is able to repeat back the goals of utilizing an antipsychotic medication as well as repeat back side effects of concern. Pt verbalized willingness to trial an antipsychotic medications. In weighing out numerous potential intera ctions, will initiate paliperidone 1.5mg today and increase to 3mg starting tomorrow morning. - Continue attempts to gather collateral information, as psychiatric history continues to be rather unclear 03/09 - Titrate paliperidone to 6mg qAM - continue titration as indicated/tolerated. Pt reports auditory hallucinations are quieter today. - Fasting glucose and lipid panel ordered and reviewed with patient - WNL. - Consider conversion to an DAVIS if patient is agreeable and paliperidone is effective. - Continue coordination of aftercare and discharge planning efforts. 03/10 -more confused this AM however AH remain subjectively reduced -no overt evidence of EPS 03/11 -Must consider possibility that increased dose of paliperidone is negatively impacting his alertness and gait stability 03/12 - Pt reporting improvement in auditory hallucinations, though it seems possible that paliperidone may be negatively affecting level of alertness and gait as mentioned above. - Paliperidone dosage reduced to 3mg qAM given the above concerns. Continue to monitor. - Requested neurology consultation regarding other potential that seizures may be contributing to patient's presentation (confusion, disorientation, hallucinations, etc). - Discontinue fluoxetine and trazodone. 03/13 - Continue current medication regimen - reduced dosage of paliperidone to 3mg for this morning - Pt denies AH since last evening, and is now stating they voices sound like his own. There is ongoing significant confusion, and patient's reports are inconsistent - Meeting scheduled for 03/15 with staff from [facility] and his POA/niece Angelita (2) Seizure disorder: 03/07 - Consider the need for neurological consult and EEG to rule out TLE or seizure activity as a potential contributor. Continue home doses of phenobarbital and lamotrigine. 03/10 -will order bedside EEG to try to s/o seizure activity d/t increased confusion -repeat CMP. order lamictal level 03/12 - Requested neurology consultation, case reviewed during treatment team - appreciate recommendations - EEG ordered yesterday - abnormal EEG reportedly consistent with history of seizure disorder, "potentially focal onset epilepsy" - Agree with plan to slowly taper off phenobarbital by 30mg a week (32.4mg due to dosing options available in the ED). Continue current dose of lamotri gine 300mg BID. - Will discontinue fluoxetine and trazodone due to risk of lowering seizure threshold. Will reduce dosage of paliperidone 3mg due to concern patient has been more confused and sedated in the context of these various developments. - Recommendation to consider Zonegran 50mg BID if seizures occur with plan to taper phenobarbital. - Brain MRI with and without contrast is recommended following discharge (3) Diabetes: 03/07 -continue metformin and insulin, consult diabetic pharmacist for glucose management. Continue diabetic diet. 03/08 - Estimated Average Glucose of 126. HgbA1c elevated at 6.0%. - Continue diabetic diet - Appreciate assistance from glycemic pharmacists (4) Dizziness: 03/07 -Per review of records, chronic problem, with multiple potential contributors including cardiac disease, arrhythmia, peripheral neuropathy, dehydration, and polypharmacy. Dehydrated on presentation with BUN 39 and creatinine 1.49. Encourage fluids, and recheck BMP in a couple days. 03/08 - Creatinine improved at 1.08 03/10 -denies worse (5) CAD (coronary artery disease): 03/07 -continue home dose of aspirin (6) Atrial fibrillation with controlled ventricular rate: Continue metoprolol (7) Diabetic peripheral neuropathy: (8) Hypothyroidism: 03/06 -continue home dose of levothyroxine (9) HTN (hypertension): 03/07 -continue home dose of metoprolol 03/12 - BP has been persistently elevated; however, patient is an identified fall risk and continues to complain of dizziness - Consider possible need for titration of metoprolol (10) Dyslipidemia: 03/07 -continue atorvastatin and ezetimibe. Last FLP was 12/2018 and notable for triglycerides 228. We will need to recheck it if starting an antipsychotic. Fasting lipid panel obtained on 03/09: all values WNL. triglycerides - 100; total cholesterol - 132 Risk Factors Assessment Male: Yes : Yes Do You Have Access To A Gun?: No Health Problems: Yes Mental Health Diagnoses: Yes Substance Use Disorders: No Previous Attempt: No Hopelessness: No Smoker: No Protective Factors Assessment : No Responsible for Young Children: No Employed: No Supportive Family: Yes Good Rapport with Provider: No Interval History Identifying Information PO NICOLE is a 69-year-old M who currently lives at the [facility] personal fpc in [place], has a history of epilepsy, cardiac disease, diabetes, schizophrenia, and was admitted on 03/07/20 04:24 on a 201 voluntary commitment for auditory hallucinations and aggressive behavior. Chief Complaint "I got no sleep last night. None." Review of Systems Notes Constitutional: delivers conflicting reports regarding episodes of dizziness Cardiovascular: denied Respiratory: denied Gastrointestinal: denied Neurological: denied Psychiatric: denies symptoms other than stated above Total of at least 10 systems reviewed, pertinent positives as above and in HPI. Sleep Information Total Hours of Sleep: 8 Sleep Comments: pt came out to the nurses station at 0530 in his PJ's. vocally loud due to his hearing deficits. he was looking for rene, our counselor from the evening shift. he was able to tell me, after a moment, that he was in the hospital. his balance is off especially when he moves his head to look around or quickly change directions when in motion. Meal Information Percent Meal Consumed - Breakfast: 100 Percent Meal Consumed - Lunch: 90 Percent Meal Consumed - Dinner: 100 Nutrition Comment: per meal record Subjective Subjective Patient was seen & assessed and interval progress reviewed with nursing and social work. Staff report the patient continues to be rather confused, but this may be somewhat improved. He reportedly slept 8 hours last evening. A support meeting has been scheduled with the patient, his niece/POA, and staff at the [facility]. Pt was seen today to assess progress since admission. Pt states "I got no sleep last night. None." Pt admits he feels tired presently, and begins to suggest "maybe it might be the medications that you cut back last night", referencing the phenobarbital taper. Pt was informed that staff suggested he slept 8 hours last night. Pt states "well then, I guess I slept...That's good." Pt states he has not heard auditory hallucinations since yesterday morning. Pt is rather preoccupied with odd topics during our conversation, suggesting that he and one of our therapists are searching for a plot for their gardening. Pt states "I have a choice between gardening or medications, and as far as I can tell medications come first." Pt does appear more alert, but continues to seem confused. He asked this provider numerous times within a short timeframe "what should I do now? What did you want me to do?" Pt denied other needs at this time. Physical Exam Psychiatric Orientation: alert (more alert when compared to yesterday, but remains confused) Apperance: appropriately dressed (casually, in polo shirt and scrub pants ) and + disheveled; + inappropriately groomed malodorous, hair is oily and unkempt Eye Contact: good eye contact Motor Behavior: no abnormal motor movements (observed while sitting on edge of bed) Speech: + loud speech (raspy voice ) Affect: + blunted affect (appearing somewhat subdued, though more alert than yesterday ) Mood: no depressed mood and no anxious mood Thought Process: + tangential thought process and + looseness of associations; + thought process not goal directed and + thought process not linear or logical Thought Content: + preoccupation (with medicines, his dizziness, and gardening) Suicidal Thoughts: denies suicidal thoughts Homicidal Thoughts: denies homicidal thoughts Hallucinations: no auditory hallucinations (denies; most recent AH was reported to be yesterday morning) Cognition: language grossly intact; + recent memory not intact and + attention not intact Estimated Intelligence: + below average estimated intelligence Insight: + impaired insight Judgement: + impaired judgement Vital Signs (Past 24 Hours) Last Vital Signs Temp 36.6 C 03/13/20 06:00 Pulse 73 03/13/20 08:29 Resp 19 03/13/20 06:00 BP 158/78 H 03/13/20 08:29 Pulse Ox 97 03/11/20 14:05 Results & Data ([facility]) Laboratory Results Laboratory Results - last 24 hr 03/12/20 03/13/20 17:20 07:47 POC Glucose 120 H 110 H Current Inpatient Medications Current Inpatient Medications: Current Inpatient Medications Acetaminophen (Acetaminophen 325 Mg Tab) 650 mg PO Q4H PRN PRN Reason: Headache or Minor Fever Stop: 04/06/20 05:34 Al Hydrox/Mg Hydrox/Simethicone (Aluminum/Magnesium Susp 30 Ml Udc) 30 ml PO Q4H PRN PRN Reason: GI Upset Stop: 04/06/20 05:34 Aspirin (Aspirin 81 Mg Chew) [facility] Stop: 04/06/20 08:59 Last Admin: 03/13/20 08:37 Dose: 81 mg Documented by: Atorvastatin Calcium (Atorvastatin 40 Mg Tab) 80 mg PO [facility] Stop: 04/06/20 21:59 Last Admin: 03/12/20 20:46 Dose: 80 mg Documented by: Bismuth Subsalicylate (Bismuth Subsalicylate Per Ml Omnicell Charge) 15 ml PO PRN PRN PRN Reason: Loose Stool Stop: 04/06/20 05:34 Cyanocobalamin (Cyanocobalamin 500 Mcg Tablet (Vitamin B-12)) 1,000 mcg PO [facility] Stop: 04/06/20 08:59 Last Admin: 03/13/20 08:40 Dose: 1,000 mcg Documented by: Dextrose (Dextrose 50% 50 Ml Syringe) 25 - 50 ml IV UD PRN; Protocol PRN Reason: Hypoglycemia Protocol Stop: 04/06/20 08:44 Ezetimibe (Ezetimibe 10 Mg Tablet) 10 mg PO [facility] Stop: 04/06/20 21:59 Last Admin: 03/12/20 20:47 Dose: 10 mg Documented by: Glucagon (Glucagon For Inj 1 Mg Vial) 1 mg IM UD PRN; Protocol PRN Reason: Hypoglycemia Protocol Stop: 04/06/20 08:44 Glucose (Glucose 40% Gel 15 Gm Tube) 15 - 30 gm PO UD PRN; Protocol PRN Reason: Hypoglycemia Protocol Stop: 04/06/20 08:44 Glucose (Glucose 10 Tabs/Tube) 4 - 8 tabs PO UD PRN; Protocol PRN Reason: Hypoglycemia Protocol Stop: 04/06/20 08:44 Hydroxyzine HCl (Hydroxyzine Hcl 25 Mg Tab) 50 mg PO HSZ PRN PRN Reason: Insomnia Stop: 04/06/20 05:34 Hydroxyzine HCl (Hydroxyzine Hcl 25 Mg Tab) 25 mg PO Q4H PRN PRN Reason: Anxiety Stop: 04/06/20 05:34 Insulin Aspart (Insulin Aspart 100 Units/Ml 3 Ml Pen) 0 units SC DAILY@0900 ,1745 [facility]; Protocol Stop: 04/06/20 08:59 Last Admin: 03/13/20 09:02 Dose: Not Given Documented by: Insulin Human Isoph/Insulin Regular (Insulin Human 70% Nph/30% Regular) 30 units SC QDB [facility]; Protocol Stop: 04/09/20 08:59 Last Admin: 03/13/20 08:57 Dose: 30 units Documented by: Insulin Human Isoph/Insulin Regular (Insulin Human 70% Nph/30% Regular) 12 units SC QDD [facility]; Protocol Stop: 04/09/20 17:44 Last Admin: 03/12/20 17:53 Dose: 12 units Documented by: Lamotrigine (Lamotrigine 100 Mg Tab) 300 mg PO BID [facility] Stop: 04/06/20 08:59 Last Admin: 03/13/20 08:38 Dose: 300 mg Documented by: Levothyroxine Sodium (Levothyroxine Sodium 75 Mcg Tablet) 75 mcg PO DAILYBB [facility] Stop: 04/06/20 07:59 Last Admin: 03/13/20 08:00 Dose: 75 mcg Documented by: Magnesium Hydroxide (Magnesium Hydroxide Susp 30 Ml Udc) 30 ml PO DAILY PRN PRN Reason: Constipation Stop: 04/06/20 05:34 Metformin HCl (Metformin Hcl 500 Mg Tab) 1,000 mg PO BIDM [facility] Stop: 04/07/20 08:59 Last Admin: 03/13/20 08:38 Dose: 1,000 mg Documented by: Metoprolol Succinate (Metoprolol Succ 25mg Ext Rel Tab) 12.5 mg PO DAILY CHRISTOPHER Stop: 04/06/20 08:59 Last Admin: 03/13/20 08:41 Dose: 12.5 mg Documented by: Miscellaneous (Carbohydrates For Hypoglycemia ) 15 - 30 gm PO UD PRN PRN Reason: Hypoglycemia Treatment Stop: 04/06/20 08:44 Miscellaneous Information (Pharmacy Glycemic Mgmt Consult) 1 ea N/A UD PRN PRN Reason: Consult Stop: 04/06/20 06:10 *Vascepa 1 Gm* Non- Form Patient's Own Med 2 ea PO BID CHRISTOPHER Stop: 04/06/20 20:59 Last Admin: 03/13/20 08:42 Dose: 2 gm Documented by: *L- Carnitine Liquid *Non-Form Patient's Own Med 1 ea PO AC CHRISTOPHER Stop: 04/06/20 18:29 Last Admin: 03/13/20 07:59 Dose: 20 ml Documented by: Oxymetazoline HCl (Oxymetazoline 0.05% 30 Ml Btl) 2 sprays NA Q12 PRN PRN Reason: Nasal Congestion Stop: 04/06/20 05:39 Paliperidone (Paliperidone 3 Mg Tabcr) 3 mg PO QAM CHRISTOPHER Stop: 04/12/20 08:59 Last Admin: 03/13/20 08:38 Dose: 3 mg Documented by: Phenobarbital (Phenobarbital 32.4 Mg Tab) 64.8 mg PO QAM CHRISTOPHER Stop: 04/06/20 08:59 Last Admin: 03/13/20 08:40 Dose: 64.8 mg Documented by: Phenobarbital (Phenobarbital 32.4 Mg Tab) 97.2 mg PO HS CHRISTOPHER Stop: 04/11/20 21:59 Last Admin: 03/12/20 21:03 Dose: 97.2 mg Documented by: Polyethylene Glycol (Polyethylene (Miralax) 17 Gm Pack) 17 gm PO DAILY PRN PRN Reason: Constipation Stop: 04/06/20 05:39 Sodium Chloride (Sodium Chloride 0.65% Na Soln 45 Ml ([place])) 1 - 2 sprays NA PRN PRN PRN Reason: Nasal Dryness/Congestion Stop: 04/06/20 05:34 Trazodone HCl (Trazodone Hcl 50 Mg Tab) 50 mg PO HS PRN PRN Reason: insomnia Stop: 04/06/20 21:59 Mental Health & Subst Abuse Tx Psychiatrist Name of Psychiatrist: Patel Cullen Psychiatrist's Date of Appointment with Psychiatrist: 04/17/20 Time of Appointment with Psychiatrist: 8:30 a.m. Psychiatric Appointment Comment: [address] [facility] Therapist Name of Therapist: . River Expedition Guide Name of River Expedition Guide: . Post Discharge Appointments Primary Care Physician Name Of Family Doctor: Alfredo Stein [facility] Date of Appointment with PCP: 03/22/20 Time of Appointment with PCP: 11:05am Provider Appointment Comment: [address], [place] [address] Neurologist Name of Neurologist: GAURAV Navarro Neurologist's Date of Appointment with Neurologist: 08/29/20 Time of Appointment with Neurologist: 11:30 a.m. Neurology Appointment Comment: [address] [place] [address] Contact Information Discharge Discharge Address: [address] [place] [address], [place] [address] Contact Information Comment: [facility]
[2020-03-13] MEDS: ATORVASTATIN 40 MG TAB PO SCH (20:42)
[2020-03-13] MEDS: EZETIMIBE 10 MG TABLET PO SCH (20:44)
[2020-03-14] MEDS: CYANOCOBALAMIN 500 MCG TABLET (VITAMIN B-12) PO SCH (08:17)
[2020-03-14] MEDS: lamoTRIgine 100 MG TAB PO SCH ×2 (08:17→20:42)
[2020-03-14] MEDS: PALIPERIDONE 3 MG TABCR PO SCH (08:19)
[2020-03-14] MEDS: LEVOTHYROXINE SODIUM 75 MCG TABLET PO SCH (08:19)
[2020-03-14] MEDS: ASPIRIN 81 MG CHEW PO SCH (08:19)
[2020-03-14] MEDS: METFORMIN HCL 500 MG TAB PO SCH ×2 (08:19→17:19)
[2020-03-14] MEDS: [UNRECOGNIZED DRUG - REMARK] PO SCH ×2 (08:22→20:44)
[2020-03-14] MEDS: METOPROLOL SUCC 25MG EXT REL TAB PO SCH (08:24)
[2020-03-14] MEDS: [UNRECOGNIZED DRUG - REMARK] PO SCH ×3 (08:36→17:19)
[2020-03-14] MEDS: INSULIN HUMAN 70% NPH/30% REGULAR SC SCH ×2 (08:44→17:36)
--- NOTE | 2020-03-14 08:45 | Pharmacy Report ---
Glycemic Control Progress Note - Date of Service March 14, 2020 - Scope Glycemic Pharmacist consulted for glycemic control to write orders per [facility] inpatient glycemic control protocol. - Objective Accuchecks BSG(last 24 hours):: 03/14/20 08:06 POC Glucose 135 H HbA1c:: Hemoglobin A1c 6.0 % (4.5-5.6) H 03/08/20 07:11 - Recent Pertinent Medications The patient is currently receiving: * Basal insulin: Novolin 70/30 -- 30 units in the morning and 12 units in the evening * Correctional Insulin: Novolog Correction per scale ACHS Goal Range: Low 120 mg/dL - High 160 mg/dL Correction Factor: 25 mg/dL/unit * Prandial insulin: Per carb ratio of 1 unit per -- grams CHO consumed - Outpatient Anti-Diabetic Meds Humulin 70/30--- 42 units in the morning and 24 units in the evening metformin 1 gm PO BID - Assessment & Plan ASSESSMENT: * See progress note from 03/07/2020 for more background info, in short: * Pt receiving SQ basal bolus insulin regimen for hyperglycemia secondary to baseline DM (outpatient regimen on hold). * Patient is currently receiving an average of 42 units of insulin per day * 30 units of basal insulin * 12 units of prandial/correctional insulin * BSGs ranging 110 - 112 mg/dl over the past 24hrs * Changes needed to insulin regimen: * AM Fasting BSG = 135 mg/dl. This is in goal range for patient based on inpatient targets and co-morbidities. Therefore Basal insulin will be continued * Post-prandial BSGs are in range therefore no changes needed to CF. * Total daily dose = 42 units. * Additional notes / comments: continue metformin 1 gm PO BID PLAN FOR INPATIENT GLYCEMIC CONTROL: * Continuing Novolin 70/30 -- 30 units in the morning and 12 units in the evening SQ * Continuing correction factor of 25 mg/dl/unit * Continuing goal range of Low 110 mg/dL - High 140 mg/dL * Please note that the plan above was derived based on current level of insulin resistance and hospital stress. These recommendations are appropriate for inpatient admission only. Plan of care upon discharge will need to be reassessed to avoid potential outpatient hypo/hyperglycemia. Thank you.
[2020-03-14] MEDS: INSULIN ASPART 100 UNITS/ML 3 ML PEN SC SCH ×2 (08:48→17:44)
[2020-03-14 09:37] LABS: Calcium 9.6 mg/dl (8.5-10.1); Creatinine Clr Calc Pharmacy 69.1 ml/min; Est GFR (African American) 74.3; Est GFR (Non-African American) 64.1; Potassium 4.2 mmol/L (3.5-5.1)
[2020-03-14 09:40] LABS: Bilirubin,Total 0.5 mg/dl (0.2-1); Globulin 4.2 gm/dl (2.5-4.0); Total Protein 8.2 gm/dl (6.4-8.2)
--- NOTE | 2020-03-14 10:31 | Psychiatric Progress Note ---
Date of Service March 14, 2020 Impression / Recommendations Impression 69-year-old male with a history of multiple medical problems including diabetes, cardiac disease, and seizure disorder, as well as a history of schizophrenia per the EMR, but no antipsychotic medication noted on his record over a period of 22 years, who is admitted with auditory hallucinations and increasingly unsafe and erratic behavior at his personal group home. This is a challenging case, as there is little background information and I am not sure if he was ever actually diagnosed with schizophrenia, no previous psych records are available, and on her extensive review of his chart here I cannot find any psychotropics other than longstanding prescriptions for fluoxetine and trazodone. He has numerous medical problems which could be contributing to his presenting symptoms, and is also extremely hard of hearing and has lost his hearing aids, which makes the interview quite difficult. He has a longstanding seizure disorder which has apparently been very difficult to control and could be playing a role in his psychiatric symptoms. After worsening confusion was observed the weekend of 03/10-03/11, an EEG was requested as well as subsequent neurology consultation. EEG was abnormal with possibility of focal onset epilepsy. Reviewed case with neurology, who is suggested gradual taper of phenobarbital. We are also planning to discontinue low-dose fluoxetine as trazodone, as these medications can lower seizure threshold. Pt was started on paliperidone to target auditory hallucinations; however, we will now reduce dosage of paliperidone, as dose titration correlates with increased c onfusion/sedation, though unclear if sole cause of these changes. We will need to get collateral information from his [facility] staff and niece, and hopefully get him a new set of hearing aids while here so that he can better participate in assessments and treatment. Will need to discuss aftercare referrals as patient has no recent psychiatric providers. Inpatient treatment is medically necessary due to the severity of symptoms and risk for harm to himself if discharged. (1) Auditory hallucinations: 03/07 -patient endorses lifelong auditory hallucinations of voices, which recently have been telling him to "get out," in which he believes may be police telling him he needs to leave his personal group home, which he does not want to do. His EMR indicates a history of paranoid schizophrenia, but over the course of 22 years and multiple hospitalizations here, he has never been on an antipsychotic or had a psychiatric consultation. He does think that he was in treatment at [facility] years ago, but since they have closed, we may not be able to obtain those records. We will need to get collateral information from his niece (left message) and personal group home staff ([facility] staff left message) to try to clarify his psychiatric symptoms and treatment over the years. There is also a confounding factor of his hearing impairment and multiple medical conditions, specifically his seizure disorder, which could contribute to or cause psychiatric symptoms including hallucinations. Additionally, he reports an incident that occurred 9 or 10 years ago where he says he had sex with his stepdaughter who was in her early 20s. It is unclear to me if this represents a delusion, but he was somewhat fixated on it during our assessment today. -Continue to monitor and gather information. Consider trial of an antipsychotic. -Provide support and reality testing on the unit. -Continue home doses of fluoxetine and trazodone. Coordinate care with PCP, and refer for outpatient psychiatric care. 03/08 - Pt continues to endorse auditory hallucinations while here on the unit. Though not particularly distressing to the patient, they are contributing to secondary safety concerns in that he has been leaving his personal group home without communicating with staff and has been found wandering outside the facility - leading to continued safety concerns. Pt is concrete and thought process continues to be disorganized; however, patient is clearly able to state that he would like a medication that could target the voices. - Pt is able to repeat back the goals of utilizing an antipsychotic medication as well as repeat back side effects of concern. Pt verbalized willingness to trial an antipsychotic medications. In weighing out numerous potential intera ctions, will initiate paliperidone 1.5mg today and increase to 3mg starting tomorrow morning. - Continue attempts to gather collateral information, as psychiatric history continues to be rather unclear 03/09 - Titrate paliperidone to 6mg qAM - continue titration as indicated/tolerated. Pt reports auditory hallucinations are quieter today. - Fasting glucose and lipid panel ordered and reviewed with patient - WNL. - Consider conversion to an DAVIS if patient is agreeable and paliperidone is effective. - Continue coordination of aftercare and discharge planning efforts. 03/10 -more confused this AM however AH remain subjectively reduced -no overt evidence of EPS 03/11 -Must consider possibility that increased dose of paliperidone is negatively impacting his alertness and gait stability 03/12 - Pt reporting improvement in auditory hallucinations, though it seems possible that paliperidone may be negatively affecting level of alertness and gait as mentioned above. - Paliperidone dosage reduced to 3mg qAM given the above concerns. Continue to monitor. - Requested neurology consultation regarding other potential that seizures may be contributing to patient's presentation (confusion, disorientation, hallucinations, etc). - Discontinue fluoxetine and trazodone. 03/13 - Continue current medication regimen - reduced dosage of paliperidone to 3mg for this morning - Pt denies AH since last evening, and is now stating they voices sound like his own. There is ongoing significant confusion, and patient's reports are inconsistent - Meeting scheduled for 03/15 with staff from [facility] and his POA/niece Angelita 03/14 - Continue current medications. Still having intermittent AH of voices, but reduced from admission. - Pt remains confused and disorganized, will ask neurology to see him again as I am unsure if this represents an increase in his seizures or there are some other etiology. (2) Seizure disorder: 03/07 - Consider the need for neurological consult and EEG to rule out TLE or seizure activity as a potential contributor. Continue home doses of phenobarbital and lamotrigine. 03/10 -will order bedside EEG to try to s/o seizure activity d/t increased confusion -repeat CMP. order lamictal level 03/12 - Requested neurology consultation, case reviewed during treatment team - appreciate recommendations - EEG ordered yesterday - abnormal EEG reportedly consistent with history of seizure disorder, "potentially focal onset epilepsy" - Agree with plan to slowly taper off phenobarbital by 30mg a week (32.4mg due to dosing options available in the ED). Continue current dose of lamotrigine 300mg BID. - Will discontinue fluoxetine and trazodone due to risk of lowering seizure threshold. Will reduce dosage of paliperidone 3mg due to concern patient has been more confused and sedated in the context of these various developments. - Recommendation to consider Zonegran 50mg BID if seizures occur with plan to taper phenobarbital. - Brain MRI with and without contrast is recommended following discharge (3) Diabetes: 03/07 -continue metformin and insulin, consult diabetic pharmacist for glucose management. Continue diabetic diet. 03/08 - Estimated Average Glucose of 126. HgbA1c elevated at 6.0%. - Continue diabetic diet - Appreciate assistance from glycemic pharmacists (4) Dizziness: 03/07 -Per review of records, chronic problem, with multiple potential contributors including cardiac disease, arrhythmia, peripheral neuropathy, dehydration, and polypharmacy. Dehydrated on presentation with BUN 39 and creatinine 1.49. Encourage fluids, and recheck BMP in a couple days. 03/08 - Creatinine improved at 1.08 03/10 -denies worse (5) CAD (coronary artery disease): 03/07 -continue home dose of aspirin (6) Atrial fibrillation with controlled ventricular rate: Continue metoprolol (7) Diabetic peripheral neuropathy: (8) Hypothyroidism: 03/06 -continue home dose of levothyroxine (9) HTN (hypertension): 03/07 -continue home dose of metoprolol 03/12 - BP has been persistently elevated; however, patient is an identified fall risk and continues to complain of dizziness - Consider possible need for titration of metoprolol (10) Dyslipidemia: 03/07 -continue atorvastatin and ezetimibe. Last FLP was 12/2018 and notable for triglycerides 228. We will need to recheck it if starting an antipsychotic. Fasting lipid panel obtained on 03/09: all values WNL. triglycerides - 100; total cholesterol - 132 Risk Factors Assessment Male: Yes : Yes Do You Have Access To A Gun?: No Health Problems: Yes Mental Health Diagnoses: Yes Substance Use Disorders: No Previous Attempt: No Hopelessness: No Smoker: No Protective Factors Assessment : No Responsible for Young Children: No Employed: No Supportive Family: Yes Good Rapport with Provider: No Interval History Identifying Information PO NICOLE is a 69-year-old M who currently lives at the [facility] personal group home in [place], has a history of epilepsy, cardiac disease, diabetes, schizophrenia, and was admitted on 03/07/20 04:24 on a 201 voluntary commitment for auditory hallucinations and aggressive behavior. Chief Complaint " Who are you again?" Review of Systems Sleep Information Total Hours of Sleep: 3.5 Sleep Comments: pt came out to the nurses station at 0530 in his PJ's. vocally loud due to his hearing deficits. he was looking for rene, our counselor from the evening shift. he was able to tell me, after a moment, that he was in the hospital. his balance is off especially when he moves his head to look around or quickly change directions when in motion. Meal Information Percent Meal Consumed - Breakfast: 100 Percent Meal Consumed - Lunch: 100 Percent Meal Consumed - Dinner: 100 Nutrition Comment: per meal record Subjective Subjective Patient was seen & assessed and interval progress reviewed with treatment team. Staff reported he was more confused and irritable yesterday, intrusive and required frequent redirection. He attended some groups. He showered and was very confused, took the shower door down and used it as a barricade, and repeatedly hit the call button accidentally while in the shower. He told staff he wanted to live on the unit and wanted one of the nurses to be his doctor of veterinary medicine, and then said he wanted to buy some suits and work here. Social work tried to contact Dr. Everett who did his neuropsych testing 9 years ago, but his office is closed for 2 weeks. On my assessment, he did not remember meeting me on admission, and refers to the PA he's seen for the past two days, "Marline's nursing me." He is aware that he is here for his medications to be adjusted. He states he heard auditory hallucinations of a voice this morning saying "he'll be all right, he's coming down to our place." He said he thinks this means he is going back to the [facility]. He says the voice "is the transporter of students, stuff like that, old people, you have a young cook and there, another young cook, and another young cook, he is a male, you have 3 male conflict to start with, if you understand what I am saying, what I did, I went up there...." He says his mood is "good," and appetite is good. When asked if he has questions, she says "I tell you what, I'd rather switch over to gardening, but gotta get these medicines first." Physical Exam Psychiatric Orientation: alert, oriented to person, oriented to place and cooperative; + not oriented to time limited historian, confused and rambling Apperance: appropriately dressed, appropriately groomed and appeared stated age overweight, wearing glasses Eye Contact: + fair eye contact Motor Behavior: steady gait and station and no abnormal motor movements hyperverbal, loud Affect: euthymic affect and mood congruent with affect "Good." Disorganized, tangential Suicidal Thoughts: denies suicidal thoughts Homicidal Thoughts: denies homicidal thoughts Hallucinations: + auditory hallucinations Cognition: + recent memory not intact, + remote memory not intact and + attention not intact Insight: + impaired insight Judgement: + impaired judgement Vital Signs (Past 24 Hours) Last Vital Signs Temp 36.7 C 03/14/20 06:48 Pulse 73 03/14/20 06:48 Resp 20 03/14/20 06:48 BP 165/78 H 03/14/20 06:48 Pulse Ox 97 03/11/20 14:05 Results & Data ([facility]) Laboratory Results Laboratory Results - last 24 hr 03/14/20 03/14/20 08:06 08:51 Sodium 138 Potassium 4.2 Chloride 105 Carbon Dioxide 27 Anion Gap 6.0 BUN 27 H Creatinine 1.15 Est Cr Clr Drug Dosing 69.1 Est GFR ( Amer) 74.3 Est GFR (Non-Af Amer) 64.1 BUN/Creatinine Ratio 23.0 H Glucose 107 H POC Glucose 135 H Calcium 9.6 Total Bilirubin 0.5 AST 51 H ALT 39 Alkaline Phosphatase 386 H Total Protein 8.2 Albumin 4.0 Globulin 4.2 H Albumin/Globulin Ratio 1.0 Current Inpatient Medications Current Inpatient Medications: Current Inpatient Medications Acetaminophen (Acetaminophen 325 Mg Tab) 650 mg PO Q4H PRN PRN Reason: Headache or Minor Fever Stop: 04/06/20 05:34 Al Hydrox/Mg Hydrox/Simethicone (Aluminum/Magnesium Susp 30 Ml Udc) 30 ml PO Q4H PRN PRN Reason: GI Upset Stop: 04/06/20 05:34 Aspirin (Aspirin 81 Mg Chew) [facility] Stop: 04/06/20 08:59 Last Admin: 03/14/20 08:19 Dose: 81 mg Documented by: Atorvastatin Calcium (Atorvastatin 40 Mg Tab) 80 mg PO [facility] Stop: 04/06/20 21:59 Last Admin: 03/13/20 20:42 Dose: 80 mg Documented by: Bismuth Subsalicylate (Bismuth Subsalicylate Per Ml Omnicell Charge) 15 ml PO PRN PRN PRN Reason: Loose Stool Stop: 04/06/20 05:34 Cyanocobalamin (Cyanocobalamin 500 Mcg Tablet (Vitamin B-12)) 1,000 mcg [facility] [place] Stop: 04/06/20 08:59 Last Admin: 03/14/20 08:17 Dose: 1,000 mcg Documented by: Dextrose (Dextrose 50% 50 Ml Syringe) 25 - 50 ml IV UD PRN; Protocol PRN Reason: Hypoglycemia Protocol Stop: 04/06/20 08:44 Ezetimibe (Ezetimibe 10 Mg Tablet) 10 mg PO HS CHRISTOPHER Stop: 04/06/20 21:59 Last Admin: 03/13/20 20:44 Dose: 10 mg Documented by: Glucagon (Glucagon For Inj 1 Mg Vial) 1 mg IM UD PRN; Protocol PRN Reason: Hypoglycemia Protocol Stop: 04/06/20 08:44 Glucose (Glucose 40% Gel 15 Gm Tube) 15 - 30 gm PO UD PRN; Protocol PRN Reason: Hypoglycemia Protocol Stop: 04/06/20 08:44 Glucose (Glucose 10 Tabs/Tube) 4 - 8 tabs PO UD PRN; Protocol PRN Reason: Hypoglycemia Protocol Stop: 04/06/20 08:44 Hydroxyzine HCl (Hydroxyzine Hcl 25 Mg Tab) 50 mg PO HSZ PRN PRN Reason: Insomnia Stop: 04/06/20 05:34 Hydroxyzine HCl (Hydroxyzine Hcl 25 Mg Tab) 25 mg PO Q4H PRN PRN Reason: Anxiety Stop: 04/06/20 05:34 Insulin Aspart (Insulin Aspart 100 Units/Ml 3 Ml Pen) 0 units SC DAILY@0900,1745 [facility]; Protocol Stop: 04/06/20 08:59 Last Admin: 03/14/20 08:48 Dose: Not Given Documented by: Insulin Human Isoph/Insulin Regular (Insulin Human 70% Nph/30% Regular) 30 units SC QDB [facility]; Protocol Stop: 04/09/20 08:59 Last Admin: 03/14/20 08:44 Dose: 30 units Documented by: Insulin Human Isoph/Insulin Regular (Insulin Human 70% Nph/30% Regular) 12 units SC QDD [facility]; Protocol Stop: 04/09/20 17:44 Last Admin: 03/13/20 17:44 Dose: 12 units Documented by: Lamotrigine (Lamotrigine 100 Mg Tab) 300 mg PO BID [facility] Stop: 04/06/20 08:59 Last Admin: 03/14/20 08:17 Dose: 300 mg Documented by: Levothyroxine Sodium (Levothyroxine Sodium 75 Mcg Tablet) 75 mcg PO DAILYBB [facility] Stop: 04/06/20 07:59 Last Admin: 03/14/20 08:19 Dose: 75 mcg Documented by: Magnesium Hydroxide (Magnesium Hydroxide Susp 30 Ml Udc) 30 ml PO DAILY PRN PRN Reason: Constipation Stop: 04/06/20 05:34 Metformin HCl (Metformin Hcl 500 Mg Tab) 1,000 mg PO BIDM [facility] Stop: 04/07/20 08:59 Last Admin: 03/14/20 08:19 Dose: 1,000 mg Documented by: Metoprolol Succinate (Metoprolol Succ 25mg Ext Rel Tab) 12.5 mg PO DAILY [facility] Stop: 04/06/20 08:59 Last Admin: 03/14/20 08:24 Dose: 12.5 mg Documented by: Miscellaneous (Carbohydrates For Hypoglycemia ) 15 - 30 gm PO UD PRN PRN Reason: Hypoglycemia Treatment Stop: 04/06/20 08:44 Miscellaneous Information (Pharmacy Glycemic Mgmt Consult) 1 ea N/A UD PRN PRN Reason: Consult Stop: 04/06/20 06:10 *Vascepa 1 Gm* Non- Form Patient's Own Med 2 ea PO BID [facility] Stop: 04/06/20 20:59 Last Admin: 03/14/20 08:22 Dose: 2 gm Documented by: *L- Carnitine Liquid *Non-Form Patient's Own Med 1 ea PO AC [facility] Stop: 04/06/20 18:29 Last Admin: 03/14/20 08:36 Dose: 20 ml Documented by: Oxymetazoline HCl (Oxymetazoline 0.05% 30 Ml Btl) 2 sprays NA Q12 PRN PRN Reason: Nasal Congestion Stop: 04/06/20 05:39 Paliperidone (Paliperidone 3 Mg Tabcr) 3 mg PO QAM [facility] Stop: 04/12/20 08:59 Last Admin: 03/14/20 08:19 Dose: 3 mg Documented by: Phenobarbital (Phenobarbital 32.4 Mg Tab) 64.8 mg PO QAM [facility] Stop: 04/06/20 08:59 Last Admin: 03/14/20 08:28 Dose: 64.8 mg Documented by: Phenobarbital (Phenobarbital 32.4 Mg Tab) 97.2 mg PO HS [facility] Stop: 04/11/20 21:59 Last Admin: 03/13/20 20:43 Dose: 97.2 mg Documented by: Polyethylene Glycol (Polyethylene (Miralax) 17 Gm Pack) 17 gm PO DAILY PRN PRN Reason: Constipation Stop: 04/06/20 05:39 Sodium Chloride (Sodium Chloride 0.65% Na Soln 45 Ml ([place])) 1 - 2 sprays NA PRN PRN PRN Reason: Nasal Dryness/Congestion Stop: 04/06/20 05:34 Trazodone HCl (Trazodone Hcl 50 Mg Tab) 50 mg PO HS PRN PRN Reason: insomnia Stop: 04/06/20 21:59 Mental Health & Subst Abuse Tx Psychiatrist Name of Psychiatrist: Patel Cullen Psychiatrist's Date of Appointment with Psychiatrist: 04/17/20 Time of Appointment with Psychiatrist: 8:30 a.m. Psychiatric Appointment Comment: [address] [facility] Therapist Name of Therapist: . Hospital Liaison Name of Hospital Liaison: . Post Discharge Appointments Primary Care Physician Name Of Family Doctor: Alfredo Stein [facility] Date of Appointment with PCP: 03/22/20 Time of Appointment with PCP: 11:05am Provider Appointment Comment: [place] [address] Neurologist Name of Neurologist: GAURAV Navarro Neurologist's Date of Appointment with Neurologist: 08/29/20 Time of Appointment with Neurologist: 11:30 a.m. Neurology Appointment Comment: [address] [place] [address] Contact Information Discharge Discharge Address: [address] [place] [address] Contact Information Comment: [facility]
[2020-03-14] MEDS ORDERED: LIDOCAINE HCL 2% 2 ML VIAL/AMP(20MG/ML) INFIL ONE (12:56)
[2020-03-14] MEDS ORDERED: PROPOFOL IV EMULSION 10 MG/ML 20 ML VIAL IV ONE (12:56)
[2020-03-14] MEDS: ATORVASTATIN 40 MG TAB PO SCH (20:44)
[2020-03-14] MEDS: EZETIMIBE 10 MG TABLET PO SCH (20:45)
[2020-03-15] MEDS: lamoTRIgine 100 MG TAB PO SCH ×2 (09:00→21:17)
[2020-03-15] MEDS: PALIPERIDONE 3 MG TABCR PO SCH (09:00)
[2020-03-15] MEDS: LEVOTHYROXINE SODIUM 75 MCG TABLET PO SCH (09:00)
[2020-03-15] MEDS: METFORMIN HCL 500 MG TAB PO SCH ×2 (09:00→17:27)
[2020-03-15] MEDS: ASPIRIN 81 MG CHEW PO SCH (09:00)
[2020-03-15] MEDS: [UNRECOGNIZED DRUG - REMARK] PO SCH ×2 (09:01→21:15)
[2020-03-15] MEDS: METOPROLOL SUCC 25MG EXT REL TAB PO SCH (09:03)
[2020-03-15] MEDS: CYANOCOBALAMIN 500 MCG TABLET (VITAMIN B-12) PO SCH (09:03)
[2020-03-15] MEDS: [UNRECOGNIZED DRUG - REMARK] PO SCH ×3 (09:06→17:26)
[2020-03-15] MEDS: INSULIN ASPART 100 UNITS/ML 3 ML PEN SC SCH ×2 (09:16→17:40)
[2020-03-15] MEDS: INSULIN HUMAN 70% NPH/30% REGULAR SC SCH ×2 (09:17→17:39)
--- NOTE | 2020-03-15 12:58 | Psychiatric Progress Note ---
Date of Service March 15, 2020 Impression / Recommendations Impression 69-year-old male with a history of multiple medical problems including diabetes, cardiac disease, and seizure disorder, as well as a history of schizophrenia per the EMR, but no antipsychotic medication noted on his record over a period of 22 years, who is admitted with auditory hallucinations and increasingly unsafe and erratic behavior at his personal nursing home. This is a challenging case, as there is little background information and I am not sure if he was ever actually diagnosed with schizophrenia, no previous psych records are available, and on her extensive review of his chart here I cannot find any psychotropics other than longstanding prescriptions for fluoxetine and trazodone. He has numerous medical problems which could be contributing to his presenting symptoms, and is also extremely hard of hearing and has lost his hearing aids, which makes the interview quite difficult. He has a longstanding seizure disorder which has apparently been very difficult to control and could be playing a role in his psychiatric symptoms. After worsening confusion was observed the weekend of 03/10-03/11, an EEG was requested as well as subsequent neurology consultation. EEG was abnormal with possibility of focal onset epilepsy. Reviewed case with neurology, who is suggested gradual taper of phenobarbital. We are also planning to discontinue low-dose fluoxetine as trazodone, as these medications can lower seizure threshold. Pt was started on paliperidone to target auditory hallucinations; however, we will now reduce dosage of paliperidone, as dose titration correlates with increased c onfusion/sedation, though unclear if sole cause of these changes. Inpatient treatment is medically necessary due to the severity of symptoms and risk for harm to himself if discharged. (1) Auditory hallucinations: 03/07 -patient endorses lifelong auditory hallucinations of voices, which recently have been telling him to "get out," in which he believes may be police telling him he needs to leave his personal nursing home, which he does not want to do. His EMR indicates a history of paranoid schizophrenia, but over the course of 22 years and multiple hospitalizations here, he has never been on an antipsychotic or had a psychiatric consultation. He does think that he was in treatment at [facility] years ago, but since they have closed, we may not be able to obtain those records. We will need to get collateral information from his niece (left message) and personal nursing home staff ([facility] staff left message) to try to clarify his psychiatric symptoms and treatment over the years. There is also a confounding factor of his hearing impairment and multiple medical conditions, specifically his seizure disorder, which could contribute to or cause psychiatr ic symptoms including hallucinations. Additionally, he reports an incident that occurred 9 or 10 years ago where he says he had sex with his stepdaughter who was in her early 20s. It is unclear to me if this represents a delusion, but he was somewhat fixated on it during our assessment today. -Continue to monitor and gather information. Consider trial of an antipsychotic. -Provide support and reality testing on the unit. -Continue home doses of fluoxetine and trazodone. Coordinate care with PCP, and refer for outpatient psychiatric care. 03/08 - Pt continues to endorse auditory hallucinations while here on the unit. Though not particularly distressing to the patient, they are contributing to secondary safety concerns in that he has been leaving his personal nursing home without communicating with staff and has been found wandering outside the facility - leading to continued safety concerns. Pt is concrete and thought process continues to be disorganized; however, patient is clearly able to state that he would like a medication that could target the voices. - Pt is able to repeat back the goals of utilizing an antipsychotic medication as well as repeat back side effects of concern. Pt verbalized willingness to trial an antipsychotic medications. In weighing out numerous potential interactions, will initiate paliperidone 1.5mg today and increase to 3mg starting tomorrow morning. - Continue attempts to gather collateral information, as psychiatric history continues to be rather unclear 03/09 - Titrate paliperidone to 6mg qAM - continue titration as indicated/tolerated. Pt reports auditory hallucinations are quieter today. - Fasting glucose and lipid panel ordered and reviewed with patient - WNL. - Consider conversion to an DAVIS if patient is agreeable and paliperidone is effective. - Continue coordination of aftercare and discharge planning efforts. 03/10 -more confused this AM however AH remain subjectively reduced -no overt evidence of EPS 03/11 -Must consider possibility that increased dose of paliperidone is negatively impacting his alertness and gait stability 03/12 - Pt reporting improvement in auditory hallucinations, though it seems possible that paliperidone may be negatively affecting level of alertness and gait as mentioned above. - Paliperidone dosage reduced to 3mg qAM given the above concerns. Continue to monitor. - Requested neurology consultation regarding other potential that seizures may be contributing to patient's presentation (confusion, disorientation, hallucinations, etc). - Discontinue fluoxetine and trazodone. 03/13 - Continue current medication regimen - reduced dosage of paliperidone to 3mg for this morning - Pt denies AH since last evening, and is now stating they voices sound like his own. There is ongoing significant confusion, and patient's reports are inconsistent - Meeting scheduled for 03/15 with staff from [facility] and his POA/niece Angelita 03/14 - Continue current medications. Still having intermittent AH of voices, but reduced from admission. - Pt remains confused and disorganized, will ask neurology to see him again as I am unsure if this represents an increase in his seizures or there are some other etiology. 03/15 - Continue as above. Pt reports improvement in auditory hallucinations. Although they are not completely resolved, patient does feel they are subdued enough that he would be able to resist acting on them - Discuss treatment and discharge planning with patient's POA/niece and director of the [facility] - Anticipate discharge tomorrow (2) Seizure disorder: 03/07 - Consider the need for neurological consult and EEG to rule out TLE or seizure activity as a potential contributor. Continue home doses of phe nobarbital and lamotrigine. 03/10 -will order bedside EEG to try to s/o seizure activity d/t increased confusion -repeat CMP. order lamictal level 03/12 - Requested neurology consultation, case reviewed during treatment team - appreciate recommendations - EEG ordered yesterday - abnormal EEG reportedly consistent with history of seizure disorder, "potentially focal onset epilepsy" - Agree with plan to slowly taper off phenobarbital by 30mg a week (32.4mg due to dosing options available in the ED). Continue current dose of lamotrigine 300mg BID. - Will discontinue fluoxetine and trazodone due to risk of lowering seizure threshold. Will reduce dosage of paliperidone 3mg due to concern patient has been more confused and sedated in the context of these various developments. - Recommendation to consider Zonegran 50mg BID if seizures occur with plan to taper phenobarbital. - Brain MRI with and without contrast is recommended following discharge 03/15 - Neurology outpatient appointment has been rescheduled sooner - 03/27/2020 - Continue recommendations as outlined above - Discussed recommendation for neuropsychological testing on an outpatient basis in additional to neurological follow-up (3) Diabetes: 03/07 -continue metformin and insulin, consult diabetic pharmacist for glucose management. Continue diabetic diet. 03/08 - Estimated Average Glucose of 126. HgbA1c elevated at 6.0%. - Continue diabetic diet - Appreciate assistance from glycemic pharmacists (4) Dizziness: 03/07 -Per review of records, chronic problem, with multiple potential contributors including cardiac disease, arrhythmia, peripheral neuropathy, dehydration, and polypharmacy. Dehydrated on presentation with BUN 39 and creatinine 1.49. Encourage fluids, and recheck BMP in a couple days. 03/08 - Creatinine improved at 1.08 (5) CAD (coronary artery disease): 03/07 -continue home dose of aspirin (6) Atrial fibrillation with controlled ventricular rate: Continue metoprolol (7) Diabetic peripheral neuropathy: (8) Hypothyroidism: 03/06 -continue home dose of levothyroxine (9) HTN (hypertension): 03/07 -continue home dose of metoprolol 03/12 - BP has been persistently elevated; however, patient is an identified fall risk and continues to complain of dizziness - Consider possible need for titration of metoprolol (10) Dyslipidemia: 03/07 -continue atorvastatin and ezetimibe. Last FLP was 12/2018 and notable for triglycerides 228. We will need to recheck it if starting an antipsychotic. Fasting lipid panel obtained on 03/09: all values WNL. triglycerides - 100; total cholesterol - 132 Risk Factors Assessment Male: Yes : Yes Do You Have Access To A Gun?: No Health Problems: Yes Mental Health Diagnoses: Yes Substance Use Disorders: No Previous Attempt: No Hopelessness: No Smoker: No Protective Factors Assessment : No Responsible for Young Children: No Employed: No Supportive Family: Yes Good Rapport with Provider: No Interval History Identifying Information PO NICOLE is a 69-year-old M who currently lives at the [facility] personal nursing home in [place], has a history of epilepsy, cardiac disease, diabetes, schizophrenia, and was admitted on 03/07/20 04:24 on a 201 voluntary c ommitment for auditory hallucinations and aggressive behavior. Chief Complaint "You made it! Finally!" Review of Systems Notes Constitutional: reports headache which started this AM, slowly improving Cardiovascular: denied Respiratory: denied Gastrointestinal: denied Neurological: denied Psychiatric: denies symptoms other than stated above Total of at least 10 systems reviewed, pertinent positives as above and in HPI. Sleep Information Total Hours of Sleep: 7.25 Sleep Comments: pt came out to the nurses station at 0530 in his PJ's. vocally loud due to his hearing deficits. he was looking for rene, our counselor from the evening shift. he was able to tell me, after a moment, that he was in the hospital. his balance is off especially when he moves his head to look around or quickly change directions when in motion. Meal Information Percent Meal Consumed - Breakfast: 100 Percent Meal Consumed - Lunch: 100 Percent Meal Consumed - Dinner: 100 Nutrition Comment: per meal record Subjective Subjective Patient was seen & assessed and interval progress reviewed with nursing and social work. Staff report the patient continues to have some confusion and tangential speech, but is far less sedated. He continues to report auditory hallucinations, but admits they have improved. Pt was seen today to assess progress since admission. He states "You made it! Finally!" Pt continues to appear bright and cheerful when engaged in conversations. Pt states "the voices are down, I'm feeling good." Pt's reports continue to be somewhat confusing, as he continues to be tangential in conversation. When asked to discuss his hallucinations directly, the patient often uses the word "they". He also uses the word "they" when he mentions names of staff at the [facility] or other residents there. Pt was made aware of plan for COVID-19 test this afternoon upon request from his group residence facility. Pt denied other needs or concerns today. This provider also participated in a support meeting via phone to discuss patient's progress and review discharge planning. Meeting was held with social work, patient's POA, and director from the [facility]. We reviewed discharge recommendations as well as current observations. Appropriate questions were asked by patient's support team, who believe discharge tomorrow is reasonable. We reviewed concern that some of patient's presenting symptoms may be, in some part, related to his seizure disorders or hearing difficulties. They seemed to be understanding that additional outpatient follow-up was highly recommended. Physical Exam Psychiatric Orientation: alert, oriented to person, oriented to place and cooperative; + not oriented to time (continues to be confused about days of the week and his length of stay) Apperance: appropriately dressed, appropriately groomed (recently showered) and appeared stated age Eye Contact: good eye contact Motor Behavior: steady gait and station (slow, cautious ambulation) and no abnormal motor movements Speech: + loud speech (raspy voice) Affect: euthymic affect (bright cheerful, often smiling and laughing) and mood congruent with affect Mood: no depressed mood and no anxious mood Thought Process: + tangential thought process and + concrete thought process; + thought process not linear or logical and + thought process not clear or coherent Thought process continues to be disorganized, patient continues to seem confused Thought Content: + preoccupation (with gardening and staff at [facility]); no hopelessness and no worthlessness Suicidal Thoughts: denies suicidal thoughts Homicidal Thoughts: denies homicidal thoughts Hallucinations: + auditory hallucinations ("they are way down, but they're still there"); no visual hallucinations Cognition: language grossly intact; + recent memory not intact and + attention not intact Estimated Intelligence: + below average estimated intelligence Insight: + impaired insight Judgement: + impaired judgement Vital Signs (Past 24 Hours) Last Vital Signs Temp 36.5 C 03/15/20 06:39 Pulse 70 03/15/20 06:40 Resp 18 03/15/20 06:39 BP 155/94 H 03/15/20 06:40 Pulse Ox 97 03/11/20 14:05 Results & Data ([facility]) Laboratory Results Laboratory Results - last 24 hr 03/11/20 03/14/20 03/15/20 06:14 17:14 07:42 POC Glucose 111 H 136 H Lamotrigine 5.7 Current Inpatient Medications Current Inpatient Medications: Current Inpatient Medications Acetaminophen (Acetaminophen 325 Mg Tab) 650 mg PO Q4H PRN PRN Reason: Headache or Minor Fever Stop: 04/06/20 05:34 Last Admin: 03/15/20 07:07 Dose: 650 mg Documented by: Al Hydrox/Mg Hydrox/Simethicone (Aluminum/Magnesium Susp 30 Ml Udc) 30 ml PO Q4H PRN PRN Reason: GI Upset Stop: 04/06/20 05:34 Aspirin (Aspirin 81 Mg Chew) 81 mg PO QAM [facility] Stop: 04/06/20 08:59 Last Admin: 03/15/20 09:00 Dose: 81 mg Documented by: Atorvastatin Calcium (Atorvastatin 40 Mg Tab) 80 mg PO HS [facility] Stop: 04/06/20 21:59 Last Admin: 03/14/20 20:44 Dose: 80 mg Documented by: Bismuth Subsalicylate (Bismuth Subsalicylate Per Ml Omnicell Charge) 15 ml PO PRN PRN PRN Reason: Loose Stool Stop: 04/06/20 05:34 Cyanocobalamin (Cyanocobalamin 500 Mcg Tablet (Vitamin B-12)) 1,000 mcg PO QAM [facility] Stop: 04/06/20 08:59 Last Admin: 03/15/20 09:03 Dose: 1,000 mcg Documented by: Dextrose (Dextrose 50% 50 Ml Syringe) 25 - 50 ml IV UD PRN; Protocol PRN Reason: Hypoglycemia Protocol Stop: 04/06/20 08:44 Ezetimibe (Ezetimibe 10 Mg Tablet) 10 mg PO HS [facility]STOP[facility] Stop: 04/06/20 21:59 Last Admin: 03/14/20 20:45 Dose: 10 mg Documented by: Glucagon (Glucagon For Inj 1 Mg Vial) 1 mg IM UD PRN; Protocol PRN Reason: Hypoglycemia Protocol Stop: 04/06/20 08:44 Glucose (Glucose 40% Gel 15 Gm Tube) 15 - 30 gm PO UD PRN; Protocol PRN Reason: Hypoglycemia Protocol Stop: 04/06/20 08:44 Glucose (Glucose 10 Tabs/Tube) 4 - 8 tabs PO UD PRN; Protocol PRN Reason: Hypoglycemia Protocol Stop: 04/06/20 08:44 Hydroxyzine HCl (Hydroxyzine Hcl 25 Mg Tab) 50 mg PO HSZ PRN PRN Reason: Insomnia Stop: 04/06/20 05:34 Hydroxyzine HCl (Hydroxyzine Hcl 25 Mg Tab) 25 mg PO Q4H PRN PRN Reason: Anxiety Stop: 04/06/20 05:34 Insulin Aspart (Insulin Aspart 100 Units/Ml 3 Ml Pen) 0 units SC DAILY@0900,1745 [facility]; Protocol Stop: 04/06/20 08:59 Last Admin: 03/15/20 09:16 Dose: Not Given Documented by: Insulin Human Isoph/Insulin Regular (Insulin Human 70% Nph/30% Regular) 30 units SC QDB [facility]; Protocol Stop: 04/09/20 08:59 Last Admin: 03/15/20 09:17 Dose: 30 units Documented by: Insulin Human Isoph/Insulin Regular (Insulin Human 70% Nph/30% Regular) 12 units SC QDD [facility]; Protocol Stop: 04/09/20 17:44 Last Admin: 03/14/20 17:36 Dose: 12 units Documented by: Lamotrigine (Lamotrigine 100 Mg Tab) 300 mg PO BID [facility] Stop: 04/06/20 08:59 Last Admin: 03/15/20 09:00 Dose: 300 mg Documented by: Levothyroxine Sodium (Levothyroxine Sodium 75 Mcg Tablet) 75 mcg PO DAILYBB [facility] Stop: 04/06/20 07:59 Last Admin: 03/15/20 09:00 Dose: 75 mcg Documented by: Magnesium Hydroxide (Magnesium Hydroxide Susp 30 Ml Udc) 30 ml PO DAILY PRN PRN Reason: Constipation Stop: 04/06/20 05:34 Metformin HCl (Metformin Hcl 500 Mg Tab) 1,000 mg PO BIDM [facility] Stop: 04/07/20 08:59 Last Admin: 03/15/20 09:00 Dose: 1,000 mg Documented by: Metoprolol Succinate (Metoprolol Succ 25mg Ext Rel Tab) 12.5 mg PO DAILY [facility] Stop: 04/06/20 08:59 Last Admin: 03/15/20 09:03 Dose: 12.5 mg Documented by: Miscellaneous (Carbohydrates For Hypoglycemia ) 15 - 30 gm PO UD PRN PRN Reason: Hypoglycemia Treatment Stop: 04/06/20 08:44 Miscellaneous Information (Pharmacy Glycemic Mgmt Consult) 1 ea N/A UD PRN PRN Reason: Consult Stop: 04/06/20 06:10 *Vascepa 1 Gm* Non- Form Patient's Own Med 2 ea PO BID [facility] Stop: 04/06/20 20:59 Last Admin: 03/15/20 09:01 Dose: 2 gm Documented by: *L- Carnitine Liquid *Non-Form Patient's Own Med 1 ea PO AC [facility] Stop: 04/06/20 18:29 Last Admin: 03/15/20 09:06 Dose: 20 ml Documented by: Oxymetazoline HCl (Oxymetazoline 0.05% 30 Ml Btl) 2 sprays NA Q12 PRN PRN Reason: Nasal Congestion Stop: 04/06/20 05:39 Paliperidone (Paliperidone 3 Mg Tabcr) 3 mg PO QAM [facility] Stop: 04/12/20 08:59 Last Admin: 03/15/20 09:00 Dose: 3 mg Documented by: Phenobarbital (Phenobarbital 32.4 Mg Tab) 64.8 mg PO QAM [facility] Stop: 04/06/20 08:59 Last Admin: 03/15/20 09:02 Dose: 64.8 mg Documented by: Phenobarbital (Phenobarbital 32.4 Mg Tab) 97.2 mg PO HS [facility] Stop: 04/11/20 21:59 Last Admin: 03/14/20 20:45 Dose: 97.2 mg Documented by: Polyethylene Glycol (Polyethylene (Miralax) 17 Gm Pack) 17 gm PO DAILY PRN PRN Reason: Constipation Stop: 04/06/20 05:39 Last Admin: 03/14/20 12:35 Dose: 17 gm Documented by: Sodium Chloride (Sodium Chloride 0.65% Na Soln 45 Ml ([place])) 1 - 2 sprays NA PRN PRN PRN Reason: Nasal Dryness/Congestion Stop: 04/06/20 05:34 Trazodone HCl (Trazodone Hcl 50 Mg Tab) 50 mg PO HS PRN PRN Reason: insomnia Stop: 04/06/20 21:59 Mental Health & Subst Abuse Tx Psychiatrist Name of Psychiatrist: Patel Cullen Psychiatrist's Date of Appointment with Psychiatrist: 04/17/20 Time of Appointment with Psychiatrist: 8:30 a.m. Psychiatric Appointment Comment: [id number] [facility] Therapist Name of Therapist: . Golf Course Patroller Name of Golf Course Patroller: . Post Discharge Appointments Primary Care Physician Name Of Family Doctor: Alfredo [facility] Date of Appointment with PCP: 03/22/20 Time of Appointment with PCP: 11:05am Provider App[facility]ment [facility] [place] [address] Neurologist Name of Neurologist: GAURAV Navarro Neurologist's Date of Appointment with Neurologist: 03/27/20 Time of Appointment with Neurologist: 9:30 a.m. Neurology Appointment Comment: [address] [facility] [place] [address] Contact Information Discharge Discharge Address: [address] [place] [address], [place] [address] Contact Information Comment: [place] [facility]
[2020-03-15] MEDS: EZETIMIBE 10 MG TABLET PO SCH (21:12)
[2020-03-15] MEDS: ATORVASTATIN 40 MG TAB PO SCH (21:14)
[2020-03-16] MEDS: lamoTRIgine 100 MG TAB PO SCH (08:09)
[2020-03-16] MEDS: PALIPERIDONE 3 MG TABCR PO SCH (08:10)
[2020-03-16] MEDS: CYANOCOBALAMIN 500 MCG TABLET (VITAMIN B-12) PO SCH (08:10)
[2020-03-16] MEDS: METFORMIN HCL 500 MG TAB PO SCH (08:10)
[2020-03-16] MEDS: METOPROLOL SUCC 25MG EXT REL TAB PO SCH (08:11)
[2020-03-16] MEDS: LEVOTHYROXINE SODIUM 75 MCG TABLET PO SCH (08:12)
[2020-03-16] MEDS: ASPIRIN 81 MG CHEW PO SCH (08:12)
[2020-03-16] MEDS: [UNRECOGNIZED DRUG - REMARK] PO SCH (08:13)
[2020-03-16] MEDS: [UNRECOGNIZED DRUG - REMARK] PO SCH ×2 (08:20→12:47)
[2020-03-16] MEDS: INSULIN ASPART 100 UNITS/ML 3 ML PEN SC SCH (08:23)
[2020-03-16] MEDS ORDERED: INSULIN HUMAN 70% NPH/30% REGULAR SC SCH (09:00)
--- NOTE | 2020-03-16 09:43 | Pharmacy Report ---
Pharmacy Glycemic Short Note 2 - Date of Service March 16, 2020 - Glycemic Short BSG Results (Last 24 hours): 03/15/20 03/16/20 17:06 07:43 POC Glucose 98 113 H OUTPATIENT REGIMEN: * Humulin 70/30-- 42 units in the morning and 24 units in the evening * metformin 1 gm PO BID ASSESSMENT: * Patient is currently receiving an average of 42 units of insulin per day * 30 units of basal insulin * 12 units of prandial/correctional insulin * BSGs ranging 98 - 136 mg/dl over the past 24hrs * Changes needed to insulin regimen: * AM Fasting BSG = 113 mg/dl. This is at goal, therefore no change will be made to PM dose of Novolin 70/30 * Dinnertime BSG = 98 mg/dL. This is slightly below goal and has been trending downward the past few days. I will decrease AM dose of Novolin 70/30 by 20%. PLAN FOR INPATIENT GLYCEMIC CONTROL: * Metformin 1000 mg PO BID * Basal insulin * Novolin 70/30 mix: * 25 units with breakfast and 12 units with dinner * Bolus insulin * NovoLog per scale ACHS or Q6hrs while NPO * Goal Range: Low 120 mg/dL - High 160 mg/dL * Correction Factor: 25 mg/dL/unit * No carb coverage (provided by 70/30) DISCHARGE RECOMMENDATIONS: * A1c of 6.0% (03/08/20) indicated excellent glycemic control * Patient's insulin regimen has required multiple dose reductions during inpatient stay. He has used 42 units of SQ insulin the past 6 days compared to 66 units at home (36% reduction) * May consider a decrease in insulin doses if patient reports hypoglycemia at home: * 20% reduction = Novolin 70/30 mix 34 units with breakfast and 19 units with dinner
--- NOTE | 2020-03-16 10:30 | Discharge Summary ---
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 Ur Phencyclidine (PCP) U Amphetamin/Meth Scrn MDMA (Ecstasy) Screen Urine Amobarbital Urine Pentobarbital Phenobarbital Urine Phenobarbital Urine Secobarbital U Benzodiazepines Scrn Ur Cocaine Metabolite U Marijuana (THC) Screen Drug Screen Comment Ethyl Alcohol mg/dL COVID-19 Eval Order SARS-CoV-2, RNA, NAAT 03/07/20 03/07/20 03/08/20 17:13 20:53 07:11 WBC RBC Hgb Hct MCV MCH MCHC RDW Std Deviation RDW Coeff of Sudeep Plt Count MPV Immature Gran % (Auto) Neut % (Auto) Lymph % (Auto) [place] % (Auto) Eos % (Auto) Baso % (Auto) Neut # (Auto) Lymph # (Auto) [place] # (Auto) Eos # (Auto) Baso # (Auto) Immature Gran # (Auto) Sodium Potassium Chloride Carbon Dioxide Anion Gap BUN Creatinine 1.08 Est Cr Clr Drug Dosing 73.5 Est GFR ( Amer) 80.2 Est GFR (Non-Af Amer) 69.2 BUN/Creatinine Ratio Glucose POC Glucose 71 134 H Fasting Glucose Estimat Average Glucose Hemoglobin A1c Calcium Total Bilirubin AST ALT Alkaline Phosphatase Ammonia Total Protein Albumin Globulin Albumin/Globulin Ratio Triglycerides Cholesterol LDL Cholesterol, Calc VLDL Cholesterol, Calc HDL Cholesterol Cholesterol/HDL Ratio TSH Urine Color Urine Appearance Urine pH Ur Specific [place] Urine Protein Urine Glucose (UA) Urine Ketones Urine Blood Urine Nitrite Urine Bilirubin Urine Urobilinogen Ur Leukocyte Esterase Urine WBC (Auto) Urine RBC (Auto) U Hyaline Cast (Auto) U Epithel Cells (Auto) Urine Bacteria (Auto) Nasal Screen MRSA (PCR) Urine Butalbital Salicylates Urine Opiates Screen Ur Methadone, Qual Acetaminophen Urine Barbiturates Lamotrigine Ur Phencyclidine (PCP) U Amphetamin/Meth Scrn MDMA (Ecstasy) Screen Urine Amobarbital Urine Pentobarbital Phenobarbital Urine Phenobarbital Urine Secobarbital U Benzodiazepines Scrn Ur Cocaine Metabolite U Marijuana (THC) Screen Drug Screen Comment Ethyl Alcohol mg/dL COVID-19 Eval Order SARS-CoV-2, RNA, NAAT 03/08/20 03/08/20 03/08/20 07:11 07:54 12:28 WBC RBC Hgb Hct MCV MCH MCHC RDW Std Deviation RDW Coeff of Sudeep Plt Count MPV Immature Gran % (Auto) Neut % (Auto) Lymph % (Auto) [place] % (Auto) Eos % (Auto) Baso % (Auto) Neut # (Auto) Lymph # (Auto) [place] # (Auto) Eos # (Auto) Baso # (Auto) Immature Gran # (Auto) Sodium Potassium Chloride Carbon Dioxide Anion Gap BUN Creatinine Est Cr Clr Drug Dosing Est GFR ( Amer) Est GFR (Non-Af Amer) BUN/Creatinine Ratio Glucose POC Glucose 132 H 124 H Fasting Glucose Estimat Average Glucose 126 Hemoglobin A1c 6.0 H Calcium Total Bilirubin AST ALT Alkaline Phosphatase Ammonia Total Protein Albumin Globulin Albumin/Globulin Ratio Triglycerides Cholesterol LDL Cholesterol, Calc VLDL Cholesterol, Calc HDL Cholesterol Cholesterol/HDL Ratio TSH Urine Color Urine Appearance Urine pH Ur Specific [place] Urine Protein Urine Glucose (UA) Urine Ketones Urine Blood Urine Nitrite Urine Bilirubin Urine Urobilinogen Ur Leukocyte Esterase Urine WBC (Auto) Urine RBC (Auto) U Hyaline Cast (Auto) U Epithel Cells (Auto) Urine Bacteria (Auto) Nasal Screen MRSA (PCR) Urine Butalbital Salicylates Urine Opiates Screen Ur Methadone, Qual Acetaminophen Urine Barbiturates Lamotrigine Ur Phencyclidine (PCP) U Amphetamin/Meth Scrn MDMA (Ecstasy) Screen Urine Amobarbital Urine Pentobarbital Phenobarbital Urine Phenobarbital Urine Secobarbital U Benzodiazepines Scrn Ur Cocaine Metabolite U Marijuana (THC) Screen Drug Screen Comment Ethyl Alcohol mg/dL COVID-19 Eval Order SARS-CoV-2, RNA, NAAT 03/08/20 03/09/20 03/09/20 17:45 07:30 16:54 WBC RBC Hgb Hct MCV MCH MCHC RDW Std Deviation RDW Coeff of Sudeep Plt Count MPV Immature Gran % (Auto) Neut % (Auto) Lymph % (Auto) [place] % (Auto) Eos % (Auto) Baso % (Auto) Neut # (Auto) Lymph # (Auto) [place] # (Auto) Eos # (Auto) Baso # (Auto) Immature Gran # (Auto) Sodium Potassium Chloride Carbon Dioxide Anion Gap BUN Creatinine Est Cr Clr Drug Dosing Est GFR ( Amer) Est GFR (Non-Af Amer) BUN/Creatinine Ratio Glucose POC Glucose 119 H 88 Fasting Glucose 90 Estimat Average Glucose Hemoglobin A1c Calcium Total Bilirubin AST ALT Alkaline Phosphatase Ammonia Total Protein Albumin Globulin Albumin/Globulin Ratio Triglycerides 100 Cholesterol 132 LDL Cholesterol, Calc 75 VLDL Cholesterol, Calc 20 HDL Cholesterol 37 Cholesterol/HDL Ratio 4 TSH Urine Color Urine Appearance Urine pH Ur Specific [place] Urine Protein Urine Glucose (UA) Urine Ketones Urine Blood Urine Nitrite Urine Bilirubin Urine Urobilinogen Ur Leukocyte Esterase Urine WBC (Auto) Urine RBC (Auto) U Hyaline Cast (Auto) U Epithel Cells (Auto) Urine Bacteria (Auto) Nasal Screen MRSA (PCR) Urine Butalbital Salicylates Urine Opiates Screen Ur Methadone, Qual Acetaminophen Urine Barbiturates Lamotrigine Ur Phencyclidine (PCP) U Amphetamin/Meth Scrn MDMA (Ecstasy) Screen Urine Amobarbital Urine Pentobarbital Phenobarbital Urine Phenobarbital Urine Secobarbital U Benzodiazepines Scrn Ur Cocaine Metabolite U Marijuana (THC) Screen Drug Screen Comment Ethyl Alcohol mg/dL COVID-19 Eval Order SARS-CoV-2, RNA, NAAT 03/10/20 03/10/20 03/11/20 07:03 16:52 06:14 WBC RBC Hgb Hct MCV MCH MCHC RDW Std Deviation RDW Coeff of Sudeep Plt Count MPV Immature Gran % (Auto) Neut % (Auto) Lymph % (Auto) [place] % (Auto) Eos % (Auto) Baso % (Auto) Neut # (Auto) Lymph # (Auto) [place] # (Auto) Eos # (Auto) Baso # (Auto) Immature Gran # (Auto) Sodium Potassium Chloride Carbon Dioxide Anion Gap BUN Creatinine Est Cr Clr Drug Dosing Est GFR ( Amer) Est GFR (Non-Af Amer) BUN/Creatinine Ratio Glucose POC Glucose 96 129 H Fasting Glucose Estimat Average Glucose Hemoglobin A1c Calcium Total Bilirubin AST ALT Alkaline Phosphatase Ammonia Total Protein Albumin Globulin Albumin/Globulin Ratio Triglycerides Cholesterol LDL Cholesterol, Calc VLDL Cholesterol, Calc HDL Cholesterol Cholesterol/HDL Ratio TSH Urine Color Urine Appearance Urine pH Ur Specific [place] Urine Protein Urine Glucose (UA) Urine Ketones Urine Blood Urine Nitrite Urine Bilirubin Urine Urobilinogen Ur Leukocyte Esterase Urine WBC (Auto) Urine RBC (Auto) U Hyaline Cast (Auto) U Epithel Cells (Auto) Urine Bacteria (Auto) Nasal Screen MRSA (PCR) Urine Butalbital Salicylates Urine Opiates Screen Ur Methadone, Qual Acetaminophen Urine Barbiturates Lamotrigine 5.7 Ur Phencyclidine (PCP) U Amphetamin/Meth Scrn MDMA (Ecstasy) Screen Urine Amobarbital Urine Pentobarbital Phenobarbital Urine Phenobarbital Urine Secobarbital U Benzodiazepines Scrn Ur Cocaine Metabolite U Marijuana (THC) Screen Drug Screen Comment Ethyl Alcohol mg/dL COVID-19 Eval Order SARS-CoV-2, RNA, NAAT 03/11/20 03/11/20 03/11/20 08:28 08:41 16:51 WBC RBC Hgb Hct MCV MCH MCHC RDW Std Deviation RDW Coeff of Sudeep Plt Count MPV Immature Gran % (Auto) Neut % (Auto) Lymph % (Auto) [place] % (Auto) Eos % (Auto) Baso % (Auto) Neut # (Auto) Lymph # (Auto) [place] # (Auto) Eos # (Auto) Baso # (Auto) Immature Gran # (Auto) Sodium 137 Potassium 4.4 Chloride 107 Carbon Dioxide 22 Anion Gap 8.0 BUN 23 H Creatinine 0.96 Est Cr Clr Drug Dosing 82.7 Est GFR ( Amer) 92.4 Est GFR (Non-Af Amer) 79.8 BUN/Creatinine Ratio 24.1 H Glucose 104 H POC Glucose 113 H 143 H Fasting Glucose Estimat Average Glucose Hemoglobin A1c Calcium 8.9 Total Bilirubin 0.7 AST 47 H ALT 36 Alkaline Phosphatase 372 H Ammonia Total Protein 7.9 Albumin 3.6 Globulin 4.3 H Albumin/Globulin Ratio 0.8 L Triglycerides Cholesterol LDL Cholesterol, Calc VLDL Cholesterol, Calc HDL Cholesterol Cholesterol/HDL Ratio TSH Urine Color Urine Appearance Urine pH Ur Specific [place] Urine Protein Urine Glucose (UA) Urine Ketones Urine Blood Urine Nitrite Urine Bilirubin Urine Urobilinogen Ur Leukocyte Esterase Urine WBC (Auto) Urine RBC (Auto) U Hyaline Cast (Auto) U Epithel Cells (Auto) Urine Bacteria (Auto) Nasal Screen MRSA (PCR) Urine Butalbital Salicylates Urine Opiates Screen Ur Methadone, Qual Acetaminophen Urine Barbiturates Lamotrigine Ur Phencyclidine (PCP) U Amphetamin/Meth Scrn MDMA (Ecstasy) Screen Urine Amobarbital Urine Pentobarbital Phenobarbital Urine Phenobarbital Urine Secobarbital U Benzodiazepines Scrn Ur Cocaine Metabolite U Marijuana (THC) Screen Drug Screen Comment Ethyl Alcohol mg/dL COVID-19 Eval Order SARS-CoV-2, RNA, NAAT 03/12/20 03/12/20 03/13/20 07:56 17:20 07:47 WBC RBC Hgb Hct MCV MCH MCHC RDW Std Deviation RDW Coeff of Sudeep Plt Count MPV Immature Gran % (Auto) Neut % (Auto) Lymph % (Auto) [place] % (Auto) Eos % (Auto) Baso % (Auto) Neut # (Auto) Lymph # (Auto) [place] # (Auto) Eos # (Auto) Baso # (Auto) Immature Gran # (Auto) Sodium Potassium Chloride Carbon Dioxide Anion Gap BUN Creatinine Est Cr Clr Drug Dosing Est GFR ( Amer) Est GFR (Non-Af Amer) BUN/Creatinine Ratio Glucose POC Glucose 128 H 120 H 110 H Fasting Glucose Estimat Average Glucose Hemoglobin A1c Calcium Total Bilirubin AST ALT Alkaline Phosphatase Ammonia Total Protein Albumin Globulin Albumin/Globulin Ratio Triglycerides Cholesterol LDL Cholesterol, Calc VLDL Cholesterol, Calc HDL Cholesterol Cholesterol/HDL Ratio TSH Urine Color Urine Appearance Urine pH Ur Specific [place] Urine Protein Urine Glucose (UA) Urine Ketones Urine Blood Urine Nitrite Urine Bilirubin Urine Urobilinogen Ur Leukocyte Esterase Urine WBC (Auto) Urine RBC (Auto) U Hyaline Cast (Auto) U Epithel Cells (Auto) Urine Bacteria (Auto) Nasal Screen MRSA (PCR) Urine Butalbital Salicylates Urine Opiates Screen Ur Methadone, Qual Acetaminophen Urine Barbiturates Lamotrigine Ur Phencyclidine (PCP) U Amphetamin/Meth Scrn MDMA (Ecstasy) Screen Urine Amobarbital Urine Pentobarbital Phenobarbital Urine Phenobarbital Urine Secobarbital U Benzodiazepines Scrn Ur Cocaine Metabolite U Marijuana (THC) Screen Drug Screen Comment Ethyl Alcohol mg/dL COVID-19 Eval Order SARS-CoV-2, RNA, NAAT 03/14/20 03/14/20 03/14/20 08:06 08:51 17:14 WBC RBC Hgb Hct MCV MCH MCHC RDW Std Deviation RDW Coeff of Sudeep Plt Count MPV Immature Gran % (Auto) Neut % (Auto) Lymph % (Auto) [place] % (Auto) Eos % (Auto) Baso % (Auto) Neut # (Auto) Lymph # (Auto) [place] # (Auto) Eos # (Auto) Baso # (Auto) Immature Gran # (Auto) Sodium 138 Potassium 4.2 Chloride 105 Carbon Dioxide 27 Anion Gap 6.0 BUN 27 H Creatinine 1.15 Est Cr Clr Drug Dosing 69.1 Est GFR ( Amer) 74.3 Est GFR (Non-Af Amer) 64.1 BUN/Creatinine Ratio 23.0 H Glucose 107 H POC Glucose 135 H 111 H Fasting Glucose Estimat Average Glucose Hemoglobin A1c Calcium 9.6 Total Bilirubin 0.5 AST 51 H ALT 39 Alkaline Phosphatase 386 H Ammonia Total Protein 8.2 Albumin 4.0 Globulin 4.2 H Albumin/Globulin Ratio 1.0 Triglycerides Cholesterol LDL Cholesterol, Calc VLDL Cholesterol, Calc HDL Cholesterol Cholesterol/HDL Ratio TSH Urine Color Urine Appearance Urine pH Ur Specific [place] Urine Protein Urine Glucose (UA) Urine Ketones Urine Blood Urine Nitrite Urine Bilirubin Urine Urobilinogen Ur Leukocyte Esterase Urine WBC (Auto) Urine RBC (Auto) U Hyaline Cast (Auto) U Epithel Cells (Auto) Urine Bacteria (Auto) Nasal Screen MRSA (PCR) Urine Butalbital Salicylates Urine Opiates Screen Ur Methadone, Qual Acetaminophen Urine Barbiturates Lamotrigine Ur Phencyclidine (PCP) U Amphetamin/Meth Scrn MDMA (Ecstasy) Screen Urine Amobarbital Urine Pentobarbital Phenobarbital Urine Phenobarbital Urine Secobarbital U Benzodiazepines Scrn Ur Cocaine Metabolite U Marijuana (THC) Screen Drug Screen Comment Ethyl Alcohol mg/dL COVID-19 Eval Order SARS-CoV-2, RNA, NAAT 03/15/20 03/15/20 03/15/20 07:42 13:20 13:20 WBC RBC Hgb Hct MCV MCH MCHC RDW Std Deviation RDW Coeff of Sudeep Plt Count MPV Immature Gran % (Auto) Neut % (Auto) Lymph % (Auto) [place] % (Auto) Eos % (Auto) Baso % (Auto) Neut # (Auto) Lymph # (Auto) [place] # (Auto) Eos # (Auto) Baso # (Auto) Immature Gran # (Auto) Sodium Potassium Chloride Carbon Dioxide Anion Gap BUN Creatinine Est Cr Clr Drug Dosing Est GFR ( Amer) Est GFR (Non-Af Amer) BUN/Creatinine Ratio Glucose POC Glucose 136 H Fasting Glucose Estimat Average Glucose Hemoglobin A1c Calcium Total Bilirubin AST ALT Alkaline Phosphatase Ammonia Total Protein Albumin Globulin Albumin/Globulin Ratio Triglycerides Cholesterol LDL Cholesterol, Calc VLDL Cholesterol, Calc HDL Cholesterol Cholesterol/HDL Ratio TSH Urine Color Urine Appearance Urine pH Ur Specific [place] Urine Protein Urine Glucose (UA) Urine Ketones Urine Blood Urine Nitrite Urine Bilirubin Urine Urobilinogen Ur Leukocyte Esterase Urine WBC (Auto) Urine RBC (Auto) U Hyaline Cast (Auto) U Epithel Cells (Auto) Urine Bacteria (Auto) Nasal Screen MRSA (PCR) Urine Butalbital Salicylates Urine Opiates Screen Ur Methadone, Qual Acetaminophen Urine Barbiturates Lamotrigine Ur Phencyclidine (PCP) U Amphetamin/Meth Scrn MDMA (Ecstasy) Screen Urine Amobarbital Urine Pentobarbital Phenobarbital Urine Phenobarbital Urine Secobarbital U Benzodiazepines Scrn Ur Cocaine Metabolite U Marijuana (THC) Screen Drug Screen Comment Ethyl Alcohol mg/dL COVID-19 Eval [facility] SARS-CoV-2, RNA, NAAT NEGATIVE 03/15/20 03/16/20 17:06 07:43 WBC RBC Hgb Hct MCV MCH MCHC RDW Std Deviation RDW Coeff of Sudeep Plt Count MPV Immature Gran % (Auto) Neut % (Auto) Lymph % (Auto) [place] % (Auto) Eos % (Auto) Baso % (Auto) Neut # (Auto) Lymph # (Auto) [place] # (Auto) Eos # (Auto) Baso # (Auto) Immature Gran # (Auto) Sodium Potassium Chloride Carbon Dioxide Anion Gap BUN Creatinine Est Cr Clr Drug Dosing Est GFR ( Amer) Est GFR (Non-Af Amer) BUN/Creatinine Ratio Glucose POC Glucose 98 113 H Fasting Glucose Estimat Average Glucose Hemoglobin A1c Calcium Total Bilirubin AST ALT Alkaline Phosphatase Ammonia Total Protein Albumin Globulin Albumin/Globulin Ratio Triglycerides Cholesterol LDL Cholesterol, Calc VLDL Cholesterol, Calc HDL Cholesterol Cholesterol/HDL Ratio TSH Urine Color Urine Appearance Urine pH Ur Specific [place] Urine Protein Urine Glucose (UA) Urine Ketones Urine Blood Urine Nitrite Urine Bilirubin Urine Urobilinogen Ur Leukocyte Esterase Urine WBC (Auto) Urine RBC (Auto) U Hyaline Cast (Auto) U Epithel Cells (Auto) Urine Bacteria (Auto) Nasal Screen MRSA (PCR) Urine Butalbital Salicylates Urine Opiates Screen Ur Methadone, Qual Acetaminophen Urine Barbiturates Lamotrigine Ur Phencyclidine (PCP) U Amphetamin/Meth Scrn MDMA (Ecstasy) Screen Urine Amobarbital Urine Pentobarbital Phenobarbital Urine Phenobarbital Urine Secobarbital U Benzodiazepines Scrn Ur Cocaine Metabolite U Marijuana (THC) Screen Drug Screen Comment Ethyl Alcohol mg/dL COVID-19 Eval Order SARS-CoV-2, RNA, NAAT Hospital Course (1) Auditory hallucinations: 03/07 -patient endorses lifelong auditory hallucinations of voices, which recently have been telling him to "get out," in which he believes may be police telling him he needs to leave his personal senior living, which he does not want to do. His EMR indicates a history of paranoid schizophrenia, but over the course of 22 years and multiple hospitalizations here, he has never been on an antipsychotic or had a psychiatric consultation. He does think that he was in treatment at [facility] years ago, but since they have closed, we may not be able to obtain those records. We will need to get collateral information from his niece (left message) and personal senior living staff ([facility] staff left message) to try to clarify his psychiatric symptoms and treatment over the years. There is also a confounding factor of his hearing impairment and multiple medical conditions, specifically his seizure disorder, which could contribute to or cause psychiatric symptoms including hallucinations. Additionally, he reports an incident that occurred 9 or 10 years ago where he says he had sex with his stepdaughter who was in her early 20s. It is unclear to me if this represents a delusion, but he was somewhat fixated on it during our assessment today. -Continue to monitor and gather information. Consider trial of an antipsychotic. -Provide support and reality testing on the unit. -Continue home doses of fluoxetine and trazodone. Coordinate care with PCP, and refer for outpatient psychiatric care. 03/08 - Pt continues to endorse auditory hallucinations while here on the unit. Though not particularly distressing to the patient, they are contributing to secondary safety concerns in that he has been leaving his personal senior living without communicating with staff and has been found wandering outside the facility - leading to continued safety concerns. Pt is concrete and thought process continues to be disorganized; however, patient is clearly able to state that he would like a medication that could target the voices. - Pt is able to repeat back the goals of utilizing an antipsychotic medication as well as repeat back side effects of concern. Pt verbalized willingness to trial an antipsychotic medications. In weighing out numerous potential interactions, will initiate paliperidone 1.5mg today and increase to 3mg starting tomorrow morning. - Continue attempts to gather collateral information, as psychiatric history continues to be rather unclear 03/09 - Titrate paliperidone to 6mg qAM - continue titration as indicated/tolerated. Pt reports auditory hallucinations are quieter today. - Fasting glucose and lipid panel ordered and reviewed with patient - WNL. - Consider conversion to an DAVIS if patient is agreeable and paliperidone is effective. - Continue coordination of aftercare and discharge planning efforts. 03/10 -more confused this AM however AH remain subjectively reduced -no overt evidence of EPS 03/11 -Must consider possibility that increased dose of paliperidone is negatively impacting his alertness and gait stability 03/12 - Pt reporting improvement in auditory hallucinations, though it seems possible that paliperidone may be negatively affecting level of alertness and gait as mentioned above. - Paliperidone dosage reduced to 3mg qAM given the above concerns. Continue to monitor. - Requested neurology consultation regarding other potential that seizures may be contributing to patient's presentation (confusion, disorientation, hallucinations, etc). - Discontinue fluoxetine and trazodone. 03/13 - Continue current medication regimen - reduced dosage of paliperidone to 3mg for this morning - Pt denies AH since last evening, and is now stating they voices sound like his own. There is ongoing significant confusion, and patient's reports are inconsistent - Meeting scheduled for 03/15 with staff from [facility] and his POA/celyece Angelita 03/14 - Continue current medications. Still having intermittent AH of voices, but reduced from admission. - Pt remains confused and disorganized, will ask neurology to see him again as I am unsure if this represents an increase in his seizures or there are some other etiology. 03/15 - Continue as above. Pt reports improvement in auditory hallucinations. Although they are not completely resolved, patient does feel they are subdued enough that he would be able to resist acting on them - Discuss treatment and discharge planning with patient's POA/niece and director of the [facility] - Anticipate discharge tomorrow (2) Seizure disorder: 03/07 - Consider the need for neurological consult and EEG to rule out TLE or seizure activity as a potential contributor. Continue home doses of phenobarbital and lamotrigine. 03/10 -will order bedside EEG to try to s/o seizure activity d/t increased confusion -repeat CMP. order lamictal level 03/12 - Requested neurology consultation, case reviewed during treatment team - appreciate recommendations - EEG ordered yesterday - abnormal EEG reportedly consistent with history of seizure disorder, "potentially focal onset epilepsy" - Agree with plan to slowly taper off phenobarbital by 30mg a week (32.4mg due to dosing options available in the ED). Continue current dose of lamotrigine 300mg BID. - Will discontinue fluoxetine and trazodone due to risk of lowering seizure threshold. Will reduce dosage of paliperidone 3mg due to concern patient has been more confused and sedated in the context of these various developments. - Recommendation to consider Zonegran 50mg BID if seizures occur with plan to taper phenobarbital. - Brain MRI with and without contrast is recommended following discharge 03/15 - Neurology outpatient appointment has been rescheduled sooner - 03/27/2020 - Continue recommendations as outlined above - Discussed recommendation for neuropsychological testing on an outpatient basis in additional to neurological follow-up (3) Diabetes: 03/07 -continue metformin and insulin, consult diabetic pharmacist for glucose management. Continue diabetic diet. 03/08 - Estimated Average Glucose of 126. HgbA1c elevated at 6.0%. - Continue diabetic diet - Appreciate assistance from glycemic pharmacists (4) Dizziness: 03/07 -Per review of records, chronic problem, with multiple potential contributors including cardiac disease, arrhythmia, peripheral neuropathy, dehydration, and polypharmacy. Dehydrated on presentation with BUN 39 and creatinine 1.49. Encourage fluids, and recheck BMP in a couple days. 03/08 - Creatinine improved at 1.08 (5) CAD (coronary artery disease): 03/07 -continue home dose of aspirin (6) Atrial fibrillation with controlled ventricular rate: Continue metoprolol (7) Diabetic peripheral neuropathy: (8) Hypothyroidism: 03/06 -continue home dose of levothyroxine (9) HTN (hypertension): 03/07 -continue home dose of metoprolol 03/12 - BP has been persistently elevated; however, patient is an identified fall risk and continues to complain of dizziness - Consider possible need for titration of metoprolol (10) Dyslipidemia: 03/07 -continue atorvastatin and ezetimibe. Last FLP was 12/2018 and notable for triglycerides 228. We will need to recheck it if starting an antipsychotic. Fasting lipid panel obtained on 03/09: all values WNL. triglycerides - 100; total cholesterol - 132 Mental [facility] Subst Abuse [facility] Psychiatrist Name of Psychiatrist: Patel Cullen Psychiatrist's Date of Appointment with Psychiatrist: 04/17/20 Time of Appointment with Psychiatrist: 8:30 a.m. Psychiatric Appointment Comment: [id number] [facility] Therapist Name of Therapist: . Nozzle Cement Sprayer Helper Name of Nozzle Cement Sprayer Helper: . Post Discharge Appointments Primary Care Physician Name Of Family Doctor: Alfredo Stein [facility] Date of Appointment with PCP: 03/22/20 Time of Appointment with PCP: 11:05am Provider Appointment Comment: [employer] [address] Neurologist Name of Neurologist: GAURAV Navarro Neurologist's Date of Appointment with Neurologist: 03/27/20 Time of Appointment with Neurologist: 9:30 a.m. Neurology Appointment Comment: [address] [place] [address] Specialist Name of Specialist: Hearing Screening to Obtain Hearing Aids Date of Appointment with Specialist: 03/26/20 Specialty Appointment Comment: appointment reported by enrique OLGUIN) Smoking Cessation Counseling Tobacco Cessation Medication Prescribed at Discharge: Not Applicable/Non-Smoker Other #1: Name of Aftercare Appointment: [facility], Psych testing Phone Number of Aftercare Appointment: [phone] Aftercare Appointment Comment: referral started Contact Information Discharge Discharge Address: [address] [place] [address] Contact Information Comment: House of Care Discharge Plan Discharge Items Patient Disposition: Personal Skilled Nursing Reason For Visit: PARANOID SCHIZOPHRENIA Discharge Diagnosis: - Auditory Hallucinations - History of paranoid schizophrenia diagnosis - Seizure disorder Condition on Discharge: Fair Health Concerns: Please be sure to follow-up with your scheduled outpatient appointments for further evaluation and management of the above diagnoses, as well as other medication conditions. We are specifically recommending follow-up to obtain hearing aids as well as close follow-up with neurology regarding seizure disorder and recent medication adjustments. Activity: Resume your previous activity Non-emergency contact: Primary Care Provider, Sports Physical Therapist, Neurologist and Psychiatrist Call non-emergency contact if: you have any medication questions and your symptoms worsen Follow-up/Referrals: Durga Stein, [Primary Care Provider] - Diet: Carb Consistent or DM2 Addtl Attending Provider Instructions: SPECIAL CARE INSTRUCTIONS: 1. Follow through with your scheduled aftercare appointments. If unable to keep an appointment, please call to reschedule. 2. Take your medication only as prescribed. Medication should not be changed or stopped without the approval of your doctor. In the event of worsening symptoms or concerns about side effects, contact your doctor immediately. 3. Utilize new healthy coping skills, anger management skills, and stress management skills learned during your hospitalization. Journal feelings and process them with a support person. Identify stressors or situations that may result in relapse, deterioration or inappropriate behaviors and develop a plan to deal with those issues. 4. If your coping skills are ineffective and you are in crisis, contact your outpatient providers for direction. If unable to reach your providers, please call the CAN HELP LINE AT or go to the closest Emergency Room. 5. Avoid alcohol and un-prescribed drugs. 6. You have been provided with the Mental Health Advance Directives Pamphlet for your review. MEDICATION TAPERS: * Neurology recommended taper of phenobarbital after seeing you for a consultation. They suggested reducing your dose by 30mg each week. We are suggesting the following taper: Take 60mg AM & 90mg HS x2 days. On 03/19 take 60mg BID x1 wk; On 03/26 take 30mg AM & 60mg HS x1 wk; On 04/02 take 30mg BID x1 wk; On 04/09 take 30mg HS x 1wk- then stop *Follow up with your neurologist regarding any changes to this taper or additional medication recommendations. AFTERCARE APPOINTMENTS: * Please call your insurance company prior to your scheduled appointment to confirm your aftercare providers are covered. Take your insurance information to your appointments. * You will need to follow-up with the [facility] to request services for neuropsychological testing. This must be done over the phone with the patient specifically agreeing to services. Please follow-up with this task. WHO TO CALL AND WHEN: Medical Emergencies: For questions or emergencies related to your hospital stay, please contact the Inpatient Behavioral Health Unit at [phone]. A home health clinician is on-call 16/02 for the Behavioral Health Unit for emergencies At any time you feel your situation is an emergency, you may also call 911 immediately. Your Discharge Instructions noted above were prepared by provider Marline Lee PA-C. Pending Studies at Discharge: No Stand-Alone Forms: My [facility] Storage Genetics, Smoking Cessation, Suicide Prevention Resources Skilled Items Patient informed of condition?: No DNR: No Discharge Level of Care: Other Communicable Disease: No Discharge Prognosis: Improving Lines: None Urinary Catheter: No Medications and DC Order Prescriptions: New paliperidone [Invega] 3 mg Tablet Extended Release 24hr 3 mg PO QAM 30 Days Qty: 30 RF: 0 phenobarbital 30 mg tablet 30 mg PO UD Qty: 83 RF: 0 Continued lamotrigine [Lamictal] 150 mg tablet 300 mg PO BID 30 Days Qty: 120 RF: 0 aspirin 81 mg Tablet,Delayed Release (Dr/Ec) 81 mg PO QAM RF: 0 ezetimibe [Zetia] 10 mg tablet 10 mg PO HS RF: 0 metoprolol succinate [Toprol XL] 25 mg tablet extended release 24 hr 12.5 mg PO DAILY RF: 0 polyethylene glycol 3350 [Miralax] 17 gram/dose Powder 17 g PO DAILY PRN (Reason: Constipation) RF: 0 Vascepa 1 gram Capsule 2 g PO BID RF: 0 acetaminophen [Tylenol] 325 mg Tablet 650 mg PO Q4H PRN (Reason: Pain) RF: 0 levocarnitine (bulk) [L-Carnitine] Powder 20 ea miscellaneous DIRECTED RF: 0 levothyroxine [Synthroid] 75 mcg tablet 75 mcg PO QAM RF: 0 metformin [Fortamet] 500 mg tablet extended release 24hr 1,000 mg PO BID RF: 0 cyanocobalamin (vitamin B-12) 1,000 mcg capsule 1,000 mcg PO QAM RF: 0 atorvastatin 80 mg tablet 80 mg PO HS RF: 0 oxymetazoline [Afrin (oxymetazoline)] 0.05 % [place],Non-Aerosol 2 spray INTRANASAL Q12H PRN (Reason: Congestion) Qty: 0 RF: 0 Humulin 70/30 U-100 KwikPen 100 unit/mL (70-30) insulin pen 24 - 42 unit SUBCUT UD Qty: 0 RF: 0 Discontinued phenobarbital 60 mg tablet 60 mg PO QAM RF: 0 trazodone 50 mg Tablet 50 mg PO HS RF: 0 fluoxetine [Prozac] 20 mg Capsule 20 mg PO DAILY RF: 0 phenobarbital 60 mg Tablet 120 mg PO HS RF: 0 atorvastatin [Lipitor] 80 mg tablet 80 mg PO HS RF: 0 Discharge Orders: Discharge Order (Routine); Ordered 03/16/20 Ordered By: Marline Lee Admission Data Admit Date/Time: 03/07/20 04:24 Attending Provider: Melodie Del Castillo Admit Provider: Zheng Kitchen Primary Care Provider: Durga Stein Other Providers: Guille Perez Other Interventions: Discharge Summary Assessment (RN) Last Done: 03/16/20 12:02 PSY Interdisciplinary Discharge Planning Last Done: 03/16/20 11:48 Coding Level of Care Code 52835 D/C day mgmt > 30 min Diagnoses Auditory hallucinations R44.0 Seizure disorder G40.909 Diabetes E11.9 Dizziness R42 CAD (coronary artery disease) I25.10 Atrial fibrillation with controlled ventricular rate I48.91 Diabetic peripheral neuropathy E11.42 Hypothyroidism E03.9 HTN (hypertension) I10 Dyslipidemia E78.5
== END 2020-03-16 14:53 | disposition home or self-care (01) | DRG 880 ==
LOC: ED 20:54 → 3S 03-07 04:24